=== PATIENT | female | born 1935 | race Caucasian/White ===

== ENCOUNTER 2018-05-27 12:05 | Inpatient (IN) | payer MEDICARE, OTHER ==
[2018-05-27] MEDS ORDERED: Famotidine/PF 20 mg/2ml Vial ONE (12:48)
[2018-05-27 13:01] LABS: #Lymphocytes 0.6 thou/uL (1.20-3.40); #Monocytes 0.3 thou/uL (0.11-0.59); #Neutrophils 3.7 thou/uL (1.40-6.50); %Basophils 0.7 % (0.0-1.0); %Eosinophils 0.2 % (0.0-10.0); %Lymphocytes 13.5 % (21.0-51.0); %Monocytes 6.7 % (0.0-10.0); Hemoglobin 12.6 g/dL (12.0-16.0); Mean Corpuscular Hemoglobin 30.9 pg (27.0-31.0); Mean Corpuscular Volume 96.8 fL (78.0-98.0); Mean Platelet Volume 5.4 fL (7.4-10.4); Platelet Count 146 thou/uL (130-400); RBC Distribution Width 12.9 % (11.5-14.5); Red Blood Cell (RBC) Count 4.08 mill/uL (4.20-5.40); White Blood Cell (WBC) Count 4.6 thou/uL (4.8-10.8)
[2018-05-27 13:12] LABS: ALT (SGPT) 15 U/L (8-55); AST (SGOT) 23 U/L (5-34); Albumin 3.4 g/dL (3.4-4.8); Alkaline Phosphatase 77 U/L (40-150); Anion Gap 13 mmol/L (10-20); BUN (Urea Nitrogen) 17 mg/dL (9.8-20.1); Bilirubin, Total 0.5 mg/dL (0.2-1.2); Calc. Creatinine Clearance 0 mL/min (70-130); Calcium 9.1 mg/dL (7.8-10.44); Carbon Dioxide 24 mmol/L (23-31); Chloride 106 mmol/L (98-107); Estimated GFR-MDRD 49; Globulin 2.5 g/dL (2.4-3.5); Glucose 118 mg/dL (83-110); Lipase 9 U/L (8-78); Protein, Total 5.9 g/dL (6.0-8.3); Sodium 139 mmol/L (136-145)
--- NOTE | 2018-05-27 13:28 | RAD ---
TWO VIEWS OF THE CHEST: COMPARISON: 12/01/2014. HISTORY: Cough. FINDINGS: Two views of the chest show normal sized cardiomediastinal silhouette. There is no evidence of consol idation, mass, or pleural effusion. Degenerative changes are seen in the spine. IMPRESSION: No evidence of acute cardiopulmonary disease. POS: [facility]
[2018-05-27] MEDS ORDERED: Azithromycin 500 MG VIAL ONE (14:16)
[2018-05-27] MEDS ORDERED: Nitroglycerin 2% Ointment 1 INCH/1 GM Packet ONE (14:27)
--- NOTE | 2018-05-27 14:32 | CT ---
CT CHEST AND ABDOMEN WITH IV CONTRAST AND 3D MIP RECONSTRUCTIONS: 05/27/2018 PROVIDED CLINICAL HISTORY: Chest and abdomen pain. FINDINGS: The heart, pericardium, and great vessels demonstrate no evidence for an acute process. There is no evidence for aortic dissection. There is no evidence for central or segmental pulmonary embolus. There is patchy consolidation present within the right lower lobe, compatible with infectious pneumon itis. There is trace right pleural fluid. There is no pneumothorax evident, though the lung apices are not included in the imaging volume. The visualized airway appears patent and of normal caliber. There is no evidence for thoracic lymph node enlargement. The abdominal aorta is nonaneurysmal. Conspicuous vascular calcification is noted at the origins of the superior mesenteric and celiac arteries, with moderate-severe origin stenoses. The solid abdomin al organs demonstrate an unremarkable CT appearance for the phase of contrast in which this study was acquired. There is mild prominence of the common duct, related to patient age and post cholecystect gail status. There is no bowel dilatation, inflammatory fat stranding, free fluid, or free air apparent. No evide nce for regional lymph node enlargement. The osseous structures demonstrate no concerning osteoblastic or osteolytic lesions. IMPRESSION: 1. No evidence for aortic dissection. 2. Right lower lobe pneumonia. POS: OFF
[2018-05-27] MEDS ORDERED: Aspirin Chewable 81 MG TAB ONE (14:56)
[2018-05-27] MEDS ORDERED: Sodium Chloride 0.9% 100 ML ONE (14:56)
[2018-05-27] MEDS ORDERED: cefTRIAXone\\ROCEPHIN 2 GM VIAL ONE (14:56)
[2018-05-27 15:15] LABS: Bilirubin Negative (Negative); Blood, Urine Negative (Negative); Clarity Slightly Cloudy (Clear); Glucose, Urine (Dipstick) Negative (Negative); Leukocyte Trace (Negative); Nitrite Negative (Negative); Protein, Urine (Dipstick) Negative (Neg-Trace); Urobilinogen 0.2 mg/dL (0.2-1.0); pH, Urine 6.5 (5.0-9.0)
[2018-05-27 15:22] LABS: Squamous Epithelial 0-3 HPF (0-3)
[2018-05-27 15:23] LABS: Bacteria/HPF Rare-Few HPF (None Seen)
[2018-05-27 16:04] LABS: Lactic Acid 1.6 mmol/L (0.5-2.2)
[2018-05-27 16:12] LABS: Troponin I 0.045 ng/mL (< 0.028)
[2018-05-27 19:26] LABS: Troponin I 0.052 ng/mL (< 0.028)
[2018-05-27 20:07] VITALS: BMI 25.1
[2018-05-27] MEDS ORDERED: Acetaminophen 325 MG TAB PO PRN (20:07)
[2018-05-27] MEDS ORDERED: Ondansetron ODT 4 MG TAB SL PRN (20:07)
[2018-05-27] MEDS ORDERED: Ondansetron PF 4 MG/2 ML Vial IVP PRN ×2 (20:07→20:41)
[2018-05-27] MEDS ORDERED: Acetaminophen 650 MG Suppository PR PRN (20:41)
[2018-05-27] MEDS ORDERED: Ondansetron ODT 4 MG TAB PO PRN (20:41)
[2018-05-27] MEDS ORDERED: Senokot S 8.6-50 MG TAB PO PRN (20:41)
[2018-05-27] MEDS ORDERED: Labetalol HCl 100 MG/20 ML VIAL SLOW IVP PRN (20:59)
[2018-05-27] MEDS ORDERED: Lisinopril 5 MG TAB PO SCH (21:00)
[2018-05-27] MEDS: Famotidine 20 MG TAB PO SCH (21:44)
[2018-05-27] MEDS: Benzonatate 100 MG CAP PO PRN (22:12)
[2018-05-27] MEDS: Acetaminophen 325 MG TAB PO PRN (22:22)
[2018-05-27] MEDS ORDERED: Nitroglycerin 2% Ointment 1 INCH/1 GM Packet TOP SCH (23:59)
--- NOTE | 2018-05-28 02:40 | HP ---
PRIMARY CARE PHYSICIAN: Dr. Rosa. CHIEF COMPLAINT: Lightheadedness, cough, and abdominal pain. HISTORY OF PRESENT ILLNESS: This is an 83-year-old white female with a known history of mild coronary artery disease; obstructive sleep apnea, not using her CPAP; who developed some abdominal pain, cramping on Thursday after she ate some leftover [place] food. The cramping pain lasted for 24 hours before she finally vomited the undigested food back up. She then also started having watery diarrhea, had 5 to 6 bowel movements that day. On Thursday, she has had no more nausea or vomiting since and has had just a few loose stools since then, but she has had intermittent abdominal cramps and soreness in her upper abdomen and felt weak all over, she felt a little lightheaded and dizzy on and off when she stands up, and she has also had a cough going on since Thursday as well, nonproductive, associated with lots of nasal congestion and drainage. She had some temperatures up to high 99s , which is unusual for her, and so eventually she came into the emergency room today. In the emergency room, she had a CT dissection protocol done, which showed no evidence for aortic dissection, but did show right lower lobe pneumonia. The patient was also noted to be in atrial fibrillation, this is a new diagnosis for her, the rate was controlled, and so she was sent over for admission. She was given ceftriaxone 2 g in the emergency room along with Nitro-Bid for elevated blood pressures and aspirin. PAST MEDICAL HISTORY: 1. Coronary artery disease, followed by Dr. Nazario, had no stents or surgery. 2. Hypertension. 3. Hyperlipidemia. 4. Obstructive sleep apnea, supposed to be on CPAP, however, she does not wear it because she does not like it the way it squeezes or in her head. 5. Osteoarthritis with chronic back pain and joint pains throughout her body. PAST PSYCHIATRIC HISTORY: Depression. She is under a lot of stress because of her is ill with dementia. PAST SURGICAL HISTORY: 1. Cardiac catheterization in May of 2017 with no stents placed. 2. Appendectomy. 3. Cholecystectomy. 4. Hysterectomy. 5. Back surgery for herniated disk in 1970s. SOCIAL HISTORY: No tobacco or illicit drug use. She rarely drinks alcohol. The patient lives in her house alone. FAMILY HISTORY: No known family medical problems. Mother at 96 and dad at 86 and did have some Parkinson's. ALLERGIES: 1. MUCINEX DM ( BUT CAN TAKE REGULAR MUCINEX WITHOUT A PROBLEM). 2. CODEINE. 3. STATINS. CURRENT MEDICATIONS: 1. Ranexa 500 mg daily. 2. Aspirin 81 mg daily. 3. Atenolol 25 mg daily. 4. Coenzyme Q10 of 200 mg at nighttime. 5. Nexium 20 mg daily as needed. 6. Sertraline 100 mg daily. 7. Vitamin B complex one tablet each morning. 8. Vitamin D3 of 5000 units daily. 9. Zetia 10 mg daily. REVIEW OF SYSTEMS: CONSTITUTIONAL: See HPI. EYES: No double vision or blurred vision. ENT: See HPI. CARDIOVASCULAR: No chest pain. No palpitations or racing heart. PULMONARY: See HPI. No shortness of breath or wheezing. GASTROINTESTINAL: See HPI. GENITOURINARY: No dysuria or hematuria. MUSCULOSKELETAL: She has chronic muscle aches and joint pains in her joints and in her back. These are a little bit worse since she got sick. SKIN: No rashes or other lesions noted. NEUROLOGIC: No numbness, tingling, or focal weakness. PHYSICAL EXAMINATION: VITAL SIGNS: Blood pressure 180/73, pulse 93, respirations 16, temperature 99.2 , O2 saturation 94% on room air. GENERAL: This is a well-developed, well-nourished, elderly white female, in no acute distress. HEENT: Pupils equal, round, and reactive to light. Oropharynx clear without lesions, erythema, or exudate. NECK: Supple. No lymphadenopathy. No thyroid nodules or enlargement. HEART: Regular rate and rhythm. No murmurs, rubs, or gallops. LUNGS: Clear to auscultation bilaterally. No wheezes, crackles, or rhonchi. ABDOMEN: Soft. Tender to palpation in the midepigastric region. No guarding or rebound tenderness. No hepatosplenomegaly or other masses. Normoactive bowel sounds. EXTREMITIES: No clubbing, cyanosis, or edema. SKIN: No rashes or other lesions noted. NEUROLOGIC: She has intact strength and sensation in all extremities. No facial droop. PSYCHIATRIC: Alert and oriented x3. Normal mood and affect. LABORATORY DATA: CBC with a white blood cell count of 4.6. Remainder of the CBC was normal. Complete metabolic panel is notable for glucose of 118, total serum protein of 5.9, and the rest was normal. Troponins have been indeterminate, 0.054, 0.045, and 0.052. Normal CK-MB. Lactic acid was negative x2. Urinalysis showed trace leukocyte esterase and 4 to 6 white blood cells with rare to few bacteria. Chest x-ray, I did review the chest x-ray done in the emergency room along with the radiologist's report. It does show a normal cardiac silhouette. No infiltrates noted. No effusions. No acute cardiopulmonary process. CT dissection protocol shows the right lower lobe pneumonia. ASSESSMENT: 1. Community-acquired pneumonia. We will continue Rocephin and give azithromycin as well. 2. Acute toxic gastroenteritis and colitis, likely food poisoning from the Romanian food, this seems to be improving. She has had no further nausea, vomiting, no more diarrhea. She says the tenderness is probably from the vomiting on Thursday and some residual cramping from the toxin she ingested. We will advance diet as tolerated. 3. New-onset atrial fibrillation, currently rate controlled. The patient is on low-dose atenolol. The patient does have indeterminate troponins, but no evidence of cardiac ischemia right now. We will consult Dr. Nazario. We will continue atenolol for rate control. Dr. Nazario can assess her for need for chronic anticoagulation in the morning. 4. Coronary artery disease. Continue the patient's Ranexa and cholesterol control as well as her daily aspirin. 5. Obstructive sleep apnea. I have stressed the patient need to use her CPAP at night and to see if she can try getting a nasal CPAP mask that will work better for her. 6. Gastrointestinal prophylaxis. We will put the patient on Pepcid twice a day. 7. Deep venous thrombosis prophylaxis. We will give the patient Lovenox and SCDs while in bed and encourage ambulation with physical therapy. CODE STATUS: I did discuss this with the patient, she is a full code. Should she be incapacitated, her daughter would be her medical decision maker, she is at the bedside, her name is Sugar Machado. Job ID: [id number] MTDD
[2018-05-28 05:24] LABS: #Lymphocytes 1.2 thou/uL (1.20-3.40); #Monocytes 0.4 thou/uL (0.11-0.59); #Neutrophils 2.2 thou/uL (1.40-6.50); %Basophils 0.4 % (0.0-1.0); %Lymphocytes 30.4 % (21.0-51.0); %Monocytes 11.4 % (0.0-10.0); %Neutrophils 56.7 % (42.0-75.0); Hemoglobin 11.8 g/dL (12.0-16.0); Mean Corpuscular HGB CONC 32.7 g/dL (32.0-36.0); Mean Corpuscular Hemoglobin 32.5 pg (27.0-31.0); Mean Corpuscular Volume 99.4 fL (78.0-98.0); Mean Platelet Volume 6.1 fL (7.4-10.4); Platelet Count 154 thou/uL (130-400); RBC Distribution Width 12.3 % (11.5-14.5); Red Blood Cell (RBC) Count 3.63 mill/uL (4.20-5.40); White Blood Cell (WBC) Count 3.8 thou/uL (4.8-10.8)
[2018-05-28 05:39] LABS: Anion Gap 11 mmol/L (10-20); BUN (Urea Nitrogen) 15 mg/dL (9.8-20.1); Calc. Creatinine Clearance 49 mL/min (70-130); Calcium 8.9 mg/dL (7.8-10.44); Carbon Dioxide 28 mmol/L (23-31); Chloride 108 mmol/L (98-107); Estimated GFR-MDRD 57; Glucose 92 mg/dL (83-110); Potassium 4.3 mmol/L (3.5-5.1); Sodium 143 mmol/L (136-145)
[2018-05-28] MEDS: Aspirin 81 mg Enteric Coated Tablet PO SCH (08:54)
[2018-05-28] MEDS: Lisinopril 5 MG TAB PO SCH (08:55)
[2018-05-28] MEDS: Ezetimibe 10 MG TAB PO SCH (08:55)
[2018-05-28] MEDS: Acetaminophen 325 MG TAB PO PRN ×2 (08:58→17:58)
[2018-05-28] MEDS: Benzonatate 100 MG CAP PO PRN (08:58)
[2018-05-28] MEDS ORDERED: Atenolol 25 MG TAB PO SCH (09:00)
[2018-05-28] MEDS ORDERED: Enoxaparin Sodium 40 MG/0.4 ML SYRINGE SC SCH (09:00)
[2018-05-28] MEDS ORDERED: Apixaban 5 MG TAB PO SCH (09:22)
[2018-05-28] MEDS ORDERED: Lidocaine 1% PF 5 ML VIAL ONE ×2 (10:10→17:08)
[2018-05-28] MEDS ORDERED: PROPOFOL 40 ML ONE (10:10)
[2018-05-28] MEDS ORDERED: Enoxaparin Sodium 30 MG/0.3 ML SYRINGE SC SCH (10:30)
--- NOTE | 2018-05-28 11:00 | CON ---
DATE OF CONSULTATION: HISTORY OF PRESENT ILLNESS: The patient is a very pleasant 83-year-old woman with a history of coronary artery disease, who presented with abdominal discomfort, nausea, vomiting, and diarrhea, and was noted to be in irregular heart rhythm. The patient states approximately three weeks ago she started having feeling weak. She would notice her heart palpating. She denied having any chest discomfort. She presented with gastroenteritis, was noted to be in irregular heart rhythm. The patient has previous history of coronary artery disease. She underwent a cardiac catheterization in 2002, which revealed normal coronary arteries. She had a repeat cardiac catheterization in 2011, which revealed her to have normal left ventricular ejection fraction of 60% to 65%. The left main artery had a 40% stenosis. The LAD had a 40% ostial stenosis. Left circumflex artery had 50% stenosis. The patient elected to be treated medically. She has been on medical therapy. She underwent adenosine stress test a year ago, which revealed no evidence of significant ischemia. The patient has no known history of bruising or bleeding. PAST MEDICAL HISTORY: 1. Coronary artery disease. 2. Hypertension. 3. Sleep apnea. 4. Mitral regurgitation. PAST SURGICAL HISTORY: She has had a hysterectomy, cholecystectomy, appendectomy, and back surgery. SOCIAL HISTORY: Nonsmoker. ALLERGIES: SHE IS ALLERGIC TO CODEINE AND STATINS. MEDICATIONS: See nursing list. REVIEW OF SYSTEMS: Ten-point system otherwise unremarkable. PHYSICAL EXAMINATION: GENERAL: Elderly woman, in no acute distress. VITAL SIGNS: Blood pressure is 124/79. NECK: No jugular venous distention. LUNGS: Clear to auscultation. HEART: Irregular rate and rhythm. Normal S1 and S2 with a 1/6 systolic murmur. ABDOMEN: Nondistended. EXTREMITIES: Show trace edema. VASCULAR: Radial pulses are 2+. LABORATORY DATA: Sodium 143, potassium 4.3, chloride 108, bicarbonate 28, BUN 15, creatinine 0.93. DIAGNOSTIC DATA: Her EKG revealed her to have atrial fibrillation, otherwise unremarkable ECG. IMPRESSION: 1. New onset atrial fibrillation. 2. Gastroenteritis. 3. Coronary artery disease. 4. Hypertension. 5. Dyslipidemia. This patient presents with new onset atrial fibrillation. The patient has a CHADS-VASc score of 4. The patient will need to be on chronic anticoagulation therapy. The patient will be started on Eliquis because the patient became symptomatic several weeks ago. We would recommend electrical cardioversion. We will proceed with MOO and cardioversion . We will increase the dose of her beta maria alejandra. We will follow this patient with you through her hospitalization. Job ID: [id number]
--- NOTE | 2018-05-28 12:39 | PDOC.PN ---
- Subjective Encounter Start Date: 05/28/18 Encounter Start Time: 09:15 Subjective: no chest pain or palpitation now -: is npo for MOO/cardioversion - Objective Resuscitation Status - Order Detail: 05/27/18 20:39 Resuscitation Status Routine Resuscitation Status: FULL: Full Resuscitation Discussed with: Patient MIESHA Reviewed: Yes Vital Signs & Weight: Vital Signs (12 hours) Temp Pulse Resp BP Pulse Ox 05/28/18 07:49 99.6 F 85 18 124/79 94 L 05/28/18 03:06 98.1 F 74 16 138/67 96 Weight Weight 155 lb 14.4 oz Result Diagrams: 05/28/18 04:39 05/28/18 04:39 Phys Exam - Physical Examination HEENT: PERRLA, moist MMs Neck: no JVD, supple Respiratory: no wheezing, no rales Cardiovascular: no significant murmur, irregular Gastrointestinal: soft, non-tender, positive bowel sounds Musculoskeletal: no edema, pulses present Neurological: non-focal, moves all 4 limbs Psychiatric: normal affect, A&O x 3 Dx/Plan (1) Atrial flutter Code(s): I48.92 - UNSPECIFIED ATRIAL FLUTTER Status: Acute (2) Gastroenteritis Code(s): K52.9 - NONINFECTIVE GASTROENTERITIS AND COLITIS, UNSPECIFIED Status : Resolved (3) CAD (coronary artery disease) Code(s): I25.10 - ATHSCL HEART DISEASE OF [place] CORONARY ARTERY W/O ANG PCTRS Status: Chronic Qualifiers: Coronary Disease-Associated Artery/Lesion type: [place] artery [place] vs. transplanted heart: [place] heart Associated angina: without angina Qualified Code(s): I25.10 - Atherosclerotic heart disease of [place] coronary artery without angina pectoris (4) HTN (hypertension) Code(s): I10 - ESSENTIAL (PRIMARY) HYPERTENSION Status: Chronic Qualifiers: Hypertension type: essential hypertension Qualified Code(s): I10 - Essential (primary) hypertension (5) Dyslipidemia Code(s): E78.5 - HYPERLIPIDEMIA, UNSPECIFIED Status: Chronic (6) Demand ischemia of myocardium Code(s): I24.8 - OTHER FORMS OF ACUTE ISCHEMIC HEART DISEASE Status: Acute (7) TYLER (obstructive sleep apnea) Code(s): G47.33 - OBSTRUCTIVE SLEEP APNEA (ADULT) (PEDIATRIC) Status: Chronic Comment: non compliant with cpap (8) PNA (pneumonia) Code(s): J18.9 - PNEUMONIA, UNSPECIFIED ORGANISM Status: Acute Qualifiers: Pneumonia type: due to unspecified organism Laterality: right Lung location: lower lobe of lung Qualified Code(s): J18.1 - Lobar pneumonia, unspecified organism - Plan is on eliquis, asp, atenolol, lisinopril, ranexa and zetia -: levaquin, nebs for pna -: gastroenteritis is resolving, likely viral -: for MOO/cardioversion today, initially afib currently in flutter on telemet -: hemostable * . Review of Systems - Medications/Allergies Allergies/Adverse Reactions: Allergies Allergy/AdvReac Type Severity Reaction Status Date / Time codeine Allergy Verified 05/27/18 20:10 dextromethorphan Allergy Verified 05/27/18 20:10 [From Mucinex DM] guaifenesin [From Mucinex DM] Allergy Verified 05/27/18 20:10 Grgwglt-Zpn-Lze Reductase Allergy Verified 05/27/18 20:10 Inhibitor Medications: Current Medications Acetaminophen (Tylenol) 650 mg PO Q4H PRN PRN Reason: Headache/Fever/Mild Pain (1-3) Last Admin: 05/28/18 08:58 Dose: 650 mg Acetaminophen (Tylenol) 650 mg VT Q4H PRN PRN Reason: Headache/Fever/Mild Pain (1-3) Albuterol/Ipratropium (Duoneb) 3 ml NEB [id number] PRN PRN Reason: SOB &/or Wheezing Last Admin: 05/27/18 22:19 Dose: 3 ml Apixaban (Eliquis) 5 mg PO BID [facility] Aspirin (Ecotrin) 81 mg PO DAILY [facility] Last Admin: 05/28/18 08:54 Dose: 81 mg Atenolol (Tenormin) 50 mg PO BID [facility] Benzonatate (Tessalon) 100 mg PO TIDPRN PRN PRN Reason: Cough Last Admin: 05/28/18 08:58 Dose: 100 mg Ezetimibe (Zetia) 10 mg PO DAILY [facility] Last Admin: 05/28/18 08:55 Dose: 10 mg Famotidine (Pepcid) 20 mg PO Q24HR [facility] Last Admin: 05/27/18 21:44 Dose: 20 mg Labetalol HCl (Normodyne) 10 mg SLOW IVP Q4H PRN PRN Reason: SBP Greater Than 180 Lisinopril (Zestril) 5 mg PO DAILY [facility] Last Admin: 05/28/18 08:55 Dose: 5 mg Ondansetron HCl (Zofran Odt) 4 mg PO Q6H PRN PRN Reason: Nausea/Vomiting Ondansetron HCl (Zofran) 4 mg IVP Q6H PRN PRN Reason: Nausea/Vomiting Ranolazine (Ranexa) 500 mg PO BID [facility] Last Admin: 05/28/18 08:55 Dose: 500 mg Senna/Docusate Sodium (Senokot S) 2 tab PO BIDPRN PRN PRN Reason: Constipation Sertraline HCl (Zoloft) 100 mg PO [facility] Last Admin: 05/27/18 21:43 Dose: 100 mg
--- NOTE | 2018-05-28 14:29 | OP ---
DATE OF PROCEDURE: 05/28/2018 An 83-year-old woman with paroxysmal atrial fibrillation. INDICATION: Paroxysmal atrial fibrillation. DESCRIPTION OF PROCEDURE: The patient was taken to the PACU. The patient was sedated by Anesthesiology. The patient was shocked with 200 joules of synchronized electricity. The patient converted to normal sinus rhythm. IMPRESSION: Successful electrocardioversion. Job ID: [id number]
[2018-05-28] MEDS ORDERED: PROPOFOL 200 MG/20 ML VIAL ONE (17:08)
--- NOTE | 2018-05-28 19:09 | ECHO ---
83-year-old woman with paroxysmal atrial fibrillation. DESCRIPTION OF PROCEDURE: The patient was taken to the PACU. The patient was sedated by anesthesiology. A transesophageal pro be was placed into the distal esophagus and stomach. Echocardiographic images were obtained. The tr ansesophageal probe was removed. FINDINGS: 1. Normal left ventricular systolic function. 2. Biatrial enlargement. 3. Mild mitral regurgitation. 4. Mild tricuspid regurgitation. 5. No thrombus in atrium or left atrial appendage. 6. Atherosclerotic debris in the descending aorta. IMPRESSION: No formed thrombus in the left atrial or left atrial appendage.
[2018-05-28] MEDS: Atenolol 25 MG TAB PO SCH (21:04)
[2018-05-28] MEDS: Apixaban 5 MG TAB PO SCH (21:05)
[2018-05-28] MEDS: Famotidine 20 MG TAB PO SCH (21:05)
[2018-05-29] MEDS: Acetaminophen 325 MG TAB PO PRN ×2 (03:31→15:06)
[2018-05-29] MEDS: Benzonatate 100 MG CAP PO PRN (03:31)
[2018-05-29] MEDS: Ezetimibe 10 MG TAB PO SCH (09:08)
[2018-05-29] MEDS: Lisinopril 5 MG TAB PO SCH (09:08)
[2018-05-29] MEDS: Apixaban 5 MG TAB PO SCH ×2 (09:08→21:46)
[2018-05-29] MEDS: Aspirin 81 mg Enteric Coated Tablet PO SCH (09:08)
[2018-05-29] MEDS: Atenolol 25 MG TAB PO SCH ×2 (09:08→21:46)
--- NOTE | 2018-05-29 14:54 | PDOC.PN ---
- Subjective Encounter Start Date: 05/29/18 Encounter Start Time: 10:45 Subjective: no chest pain or sob -: feels better -: is bringing her sputum her up well this am - Objective Resuscitation Status - Order Detail: 05/27/18 20:39 Resuscitation Status Routine Resuscitation Status: FULL: Full Resuscitation Discussed with: Alfredo WHITESIDE Reviewed: Yes Vital Signs & Weight: Vital Signs (12 hours) Temp Pulse Resp BP BP Pulse Ox 05/29/18 14:42 76 193/81 H 05/29/18 11:36 77 173/71 H 05/29/18 11:27 99.4 F 77 19 189/83 H 92 L 05/29/18 07:57 97 05/29/18 07:55 100 05/29/18 07:53 98.5 F 69 18 159/70 H 97 05/29/18 07:50 67 20 100 05/29/18 05:41 98.6 F 78 18 159/70 H 95 05/29/18 04:52 99.8 F H 82 18 167/71 H 96 05/29/18 04:10 82 20 184/82 H 96 05/29/18 03:43 88 214/93 H 05/29/18 03:38 88 18 05/29/18 03:10 101.5 F H 88 22 H 217/86 H 92 L Weight Weight 156 lb I&O: 05/28/18 05/29/18 05/30/18 06:59 06:59 06:59 Intake Total 480 Balance 480 Result Diagrams: 05/28/18 04:39 05/28/18 04:39 Phys Exam - Physical Examination HEENT: PERRLA, moist MMs Neck: no JVD, supple Respiratory: no wheezing, no rales rhonchi+ Cardiovascular: RRR, no significant murmur Gastrointestinal: soft, non-tender, no distention, positive bowel sounds Musculoskeletal: no edema, pulses present Neurological: non-focal, moves all 4 limbs Psychiatric: normal affect, A&O x 3 Dx/Plan (1) Atrial flutter Code(s): I48.92 - UNSPECIFIED ATRIAL FLUTTER Status: Acute Comment: in sinus rhythm post cardioversion from 05/28/2018 (2) Gastroenteritis Code(s): K52.9 - NONINFECTIVE GASTROENTERITIS AND COLITIS, UNSPECIFIED Status : Resolved (3) CAD (coronary artery disease) Code(s): I25.10 - ATHSCL HEART DISEASE OF [place] CORONARY ARTERY W/O ANG PCTRS Status: Chronic Qualifiers: Coronary Disease-Associated Artery/Lesion type: [place] artery [place] vs. transplanted heart: [place] heart Associated angina: without angina Qualified Code(s): I25.10 - Atherosclerotic heart disease of [place] coronary artery without angina pectoris (4) HTN (hypertension) Code(s): I10 - ESSENTIAL (PRIMARY) HYPERTENSION Status: Chronic Qualifiers: Hypertension type: essential hypertension Qualified Code(s): I10 - Essential (primary) hypertension (5) Dyslipidemia Code(s): E78.5 - HYPERLIPIDEMIA, UNSPECIFIED Status: Chronic (6) Demand ischemia of myocardium Code(s): I24.8 - OTHER FORMS OF ACUTE ISCHEMIC HEART DISEASE Status: Acute (7) TYLER (obstructive sleep apnea) Code(s): G47.33 - OBSTRUCTIVE SLEEP APNEA (ADULT) (PEDIATRIC) Status: Chronic Comment: non compliant with cpap (8) PNA (pneumonia) Code(s): J18.9 - PNEUMONIA, UNSPECIFIED ORGANISM Status: Acute Qualifiers: Pneumonia type: due to unspecified organism Laterality: right Lung location: lower lobe of lung Qualified Code(s): J18.1 - Lobar pneumonia, unspecified organism - Plan is in sinus rhythm post cardioversion -: on levaquin for pna -: continue eliquis, asp, atenolol, lisinopril, zetia, ranexa and zoloft -: to amb in hallway as tolerated -: dc plan in am * . Review of Systems - Medications/Allergies Allergies/Adverse Reactions: Allergies Allergy/AdvReac Type Severity Reaction Status Date / Time codeine Allergy Verified 05/27/18 20:10 dextromethorphan Allergy Verified 05/27/18 20:10 [From Mucinex DM] [email or web address] [From Mucinex DM] Allergy Verified 05/27/18 20:10 Dcyqffn-Yrx-Ubl Reductase Allergy Verified 05/27/18 20:10 Inhibitor Medications: Current Medications Acetaminophen (Tylenol) 650 mg PO Q4H PRN PRN Reason: Headache/Fever/Mild Pain (1-3) Last Admin: 05/29/18 03:31 Dose: 650 mg Acetaminophen (Tylenol) 650 mg [place] Q4H PRN PRN Reason: Headache/Fever/Mild Pain (1-3) Albuterol/Ipratropium (Duoneb) 3 ml NEB [id number] PRN PRN Reason: SOB &/or Wheezing Last Admin: 05/29/18 03:38 Dose: 3 ml Albuterol/Ipratropium (Duoneb) 3 ml NEB [id number] [facility] Last Admin: 05/29/18 13:03 Dose: Not Given Apixaban (Eliquis) 5 mg PO BID [facility] Last Admin: 05/29/18 09:08 Dose: 5 mg Aspirin (Ecotrin) 81 mg PO DAILY [facility] Last Admin: 05/29/18 09:08 Dose: 81 mg Atenolol (Tenormin) 50 mg PO BID [facility] Last Admin: 05/29/18 09:08 Dose: 50 mg Benzonatate (Tessalon) 100 mg PO TIDPRN PRN PRN Reason: Cough Last Admin: 05/29/18 03:31 Dose: 100 mg Ezetimibe (Zetia) 10 mg PO DAILY [facility] Last Admin: 05/29/18 09:08 Dose: 10 mg Famotidine (Pepcid) 20 mg PO Q24HR [facility] Last Admin: 05/28/18 21:05 Dose: 20 mg Levofloxacin 500 mg/ Device 100 mls @ 100 mls/hr IVPB Q24HR [facility] Last Admin: 05/29/18 12:59 Dose: 100 mls Labetalol HCl (Labetalol Hcl) 10 mg SLOW IVP Q4H PRN PRN Reason: SBP Greater Than 180 Last Admin: 05/29/18 14:42 Dose: 10 mg Lisinopril (Zestril) 5 mg PO DAILY [facility] Last Admin: 05/29/18 09:08 Dose: 5 mg Ondansetron HCl (Zofran Odt) 4 mg PO Q6H PRN PRN Reason: Nausea/Vomiting Last Admin: 05/29/18 13:05 Dose: 4 mg Ondansetron HCl (Zofran) 4 mg IVP Q6H PRN PRN Reason: Nausea/Vomiting Ranolazine (Ranexa) 500 mg PO BID [facility] Last Admin: 05/29/18 09:08 Dose: 500 mg Senna/Docusate Sodium (Senokot S) 2 tab PO BIDPRN PRN PRN Reason: Constipation Sertraline HCl (Zoloft) 100 mg PO [facility] Last Admin: 05/28/18 21:03 Dose: 100 mg
[2018-05-29] MEDS ORDERED: Ondansetron ODT 4 MG TAB SL PRN (19:09)
--- NOTE | 2018-05-29 20:17 | CON ---
DATE OF CONSULTATION: 05/29/2018 HISTORY OF PRESENT ILLNESS: Ms. Tesfaye is an 83-year-old female. She presented to the hospital 2 days ago after being told by her primary care physician, Dr. Renteria's office to go to the emergency department. She has had a febrile illness all week, consisting of nausea, vomiting, and diarrhea. She started becoming more febrile and feeling worse. She was admitted with atrial flutter/atrial fibrillation and pneumonia. She has been cardioverted. She says she is not feeling any better. I was consulted. She is one of my clinic patients. PAST MEDICAL HISTORY: Remarkable for; 1. Hypertension. 2. Lipid disorder, sleep apnea. 3. Degenerative arthritis. 4. Status post appendectomy. 5. Status post cholecystectomy. 6. Status post hysterectomy. 7. Status post cardiac catheterization with no stents required. FAMILY HISTORY: Negative for lung disease in early age. SOCIAL HISTORY: Nonsmoker, nondrinker. ALLERGIES: SHE REPORTS ALLERGIES TO CODEINE. REVIEW OF SYSTEMS: A 10-point review of systems completed, otherwise negative. PHYSICAL EXAMINATION: GENERAL: Ms. Tesfaye is an 83-year-old female. VITAL SIGNS: Heart rate is in the 70s, she had a temperature over 101 while she is in the room. Respiratory rate is in the teens. Oximetry is 96% to 100% on 3 L cannula. Blood pressure 150/67. HEENT: Pupils are equal. Sclerae anicteric. NECK: Supple. No lymphadenopathy. LUNGS: Remarkable for loud crackles, third of the way up from the right base. She has fine crackles at her left base. HEART: Regular rhythm. S1 and S2 are normal. ABDOMEN: Soft and nontender. EXTREMITIES: Without clubbing, cyanosis, or edema. DIAGNOSTIC DATA: CT shows right lower lobe pneumonia. IMPRESSION: Community-acquired pneumonia, likely triggering the atrial fibrillation/atrial flutter. She has been cardioverted. I will be happy to follow. We would broaden her antibiotics given history of nausea, vomiting, and the possibility of aspiration without event. Statistically, it is most likely a postviral streptococcal pneumonia, but I would cover for better for aspiration pathogens and anaerobes. Steroids to be added. TIME SPENT: This is a 50-minute consult, with greater than 50% of the time spent on the unit coordinating care. Job ID: [id number] [facility]
[2018-05-29] MEDS: cefTRIAXone\\ROCEPHIN 2 GM in Sodium Chloride 0.9% 100 ML IVPB SCH (21:27)
[2018-05-29] MEDS: Famotidine 20 MG TAB PO SCH (21:45)
[2018-05-29] MEDS: Benzonatate 100 MG CAP PO SCH (21:47)
[2018-05-30] MEDS: methylPREDNISolone Sod Succ 40 MG VIAL IVP SCH ×4 (01:09→18:50)
[2018-05-30] MEDS ORDERED: Cepastat Lozenges 1 LOZ PO PRN (01:19)
[2018-05-30] MEDS ORDERED: Flecainide 50 MG TAB PO SCH (08:00)
[2018-05-30] MEDS: Atenolol 25 MG TAB PO SCH (08:58)
[2018-05-30] MEDS: Benzonatate 100 MG CAP PO SCH ×3 (08:58→20:18)
[2018-05-30] MEDS: Aspirin 81 mg Enteric Coated Tablet PO SCH (08:59)
[2018-05-30] MEDS: Lisinopril 5 MG TAB PO SCH (08:59)
[2018-05-30] MEDS: Ezetimibe 10 MG TAB PO SCH (08:59)
[2018-05-30] MEDS: Apixaban 5 MG TAB PO SCH ×2 (08:59→20:17)
--- NOTE | 2018-05-30 12:04 | PDOC.PN ---
- Subjective Encounter Start Date: 05/30/18 Encounter Start Time: 08:45 Subjective: feels better, no sob now -: has occasional coughing spells 1-2/day -: no c/o chest pain or palp - Objective Resuscitation Status - Order Detail: 05/27/18 20:39 Resuscitation Status Routine Resuscitation Status: FULL: Full Resuscitation Discussed with: Patient MIESHA Reviewed: Yes Vital Signs & Weight: Vital Signs (12 hours) Temp Pulse Resp BP Pulse Ox 05/30/18 11:43 94 16 90 L 05/30/18 08:05 94 L 05/30/18 07:58 87 20 05/30/18 07:17 93 L 05/30/18 07:11 98.0 F 96 17 162/73 H 93 L 05/30/18 03:15 100.8 F H 81 20 169/72 H 94 L Weight Weight 156 lb I&O: 05/29/18 05/30/18 05/31/18 06:59 06:59 06:59 Intake Total 480 Balance 480 Result Diagrams: 05/28/18 04:39 05/28/18 04:39 Phys Exam - Physical Examination HEENT: PERRLA, moist MMs Neck: no JVD, supple Respiratory: no wheezing, no rales Cardiovascular: RRR, no significant murmur Gastrointestinal: soft, non-tender, positive bowel sounds Musculoskeletal: no edema, pulses present Neurological: non-focal, moves all 4 limbs Psychiatric: normal affect, A&O x 3 Dx/Plan (1) Atrial flutter Code(s): I48.92 - UNSPECIFIED ATRIAL FLUTTER Status: Resolved Comment: in sinus rhythm post cardioversion from 05/28/2018 (2) Gastroenteritis Code(s): K52.9 - NONINFECTIVE GASTROENTERITIS AND COLITIS, UNSPECIFIED Status : Resolved (3) CAD (coronary artery disease) Code(s): I25.10 - ATHSCL HEART DISEASE OF [place] CORONARY ARTERY W/O ANG PCTRS Status: Chronic Qualifiers: Coronary Disease-Associated Artery/Lesion type: [place] artery [place] vs. transplanted heart: [place] heart Associated angina: without angina Qualified Code(s): I25.10 - Atherosclerotic heart disease of [place] coronary artery without angina pectoris (4) HTN (hypertension) Code(s): I10 - ESSENTIAL (PRIMARY) HYPERTENSION Status: Chronic Qualifiers: Hypertension type: essential hypertension Qualified Code(s): I10 - Essential (primary) hypertension (5) Dyslipidemia Code(s): E78.5 - HYPERLIPIDEMIA, UNSPECIFIED Status: Chronic (6) Demand ischemia of myocardium Code(s): I24.8 - OTHER FORMS OF ACUTE ISCHEMIC HEART DISEASE Status: Acute (7) TYLER (obstructive sleep apnea) Code(s): G47.33 - OBSTRUCTIVE SLEEP APNEA (ADULT) (PEDIATRIC) Status: Chronic Comment: non compliant with cpap (8) PNA (pneumonia) Code(s): J18.9 - PNEUMONIA, UNSPECIFIED ORGANISM Status: Acute Qualifiers: Pneumonia type: due to unspecified organism Laterality: right Lung location: lower lobe of lung Qualified Code(s): J18.1 - Lobar pneumonia, unspecified organism - Plan is on ceftriaxone and levaquin, nebs, steroids -: responding well to above -: is in sinus rhythm after cardioversion -: continue eliquis, asp, atenolol, lisinopril, ranexa and zetia -: to ambulate today with PT * . Review of Systems - Medications/Allergies Allergies/Adverse Reactions: Allergies Allergy/AdvReac Type Severity Reaction Status Date / Time codeine Allergy Verified 05/27/18 20:10 dextromethorphan Allergy Verified 05/27/18 20:10 [From Mucinex DM] guaifenesin [From Mucinex DM] Allergy Verified 05/27/18 20:10 Rwsvilq-Qfs-Lhj Reductase Allergy Verified 05/27/18 20:10 Inhibitor Medications: Current Medications Acetaminophen (Tylenol) 650 mg PO Q4H PRN PRN Reason: Headache/Fever/Mild Pain (1-3) Last Admin: 05/29/18 15:06 Dose: 650 mg Acetaminophen (Tylenol) 650 mg DE Q4H PRN PRN Reason: Headache/Fever/Mild Pain (1-3) Albuterol/Ipratropium (Duoneb) 3 ml NEB [id number] PRN PRN Reason: SOB &/or Wheezing Last Admin: 05/29/18 03:38 Dose: 3 ml Albuterol/Ipratropium (Duoneb) 3 ml NEB [id number] EMIGDIO Last Admin: 05/30/18 11:43 Dose: 3 ml Apixaban (Eliquis) 5 mg PO BID EMIGDIO Last Admin: 05/30/18 08:59 Dose: 5 mg Aspirin (Ecotrin) 81 mg PO DAILY [facility] Last Admin: 05/30/18 08:59 Dose: 81 mg Atenolol (Tenormin) 50 mg PO BID [facility] Last Admin: 05/30/18 08:58 Dose: 50 mg Benzonatate (Tessalon) 200 mg PO TID [facility] Last Admin: 05/30/18 08:58 Dose: 200 mg Diltiazem HCl (Cardizem Cd) 180 mg PO DAILY [facility] Last Admin: 05/30/18 08:59 Dose: 180 mg Ezetimibe (Zetia) 10 mg PO DAILY [facility] Last Admin: 05/30/18 08:59 Dose: 10 mg Famotidine (Pepcid) 20 mg PO Q24HR [facility] Last Admin: 05/29/18 21:45 Dose: 20 mg Levofloxacin 500 mg/ Device 100 mls @ 100 mls/hr IVPB Q24HR [facility] Last Admin: 05/29/18 12:59 Dose: 100 mls Ceftriaxone Sodium 2 gm/ (Sodium Chloride) 100 mls @ 200 mls/hr IVPB Q24HR [facility] Last Admin: 05/29/18 21:27 Dose: 100 mls Labetalol HCl (Labetalol Hcl) 10 mg SLOW IVP Q4H PRN PRN Reason: SBP Greater Than 180 Last Admin: 05/29/18 14:42 Dose: 10 mg Lisinopril (Zestril) 5 mg PO DAILY [facility] Last Admin: 05/30/18 08:59 Dose: 5 mg Methylprednisolone Sodium Succinate (Solu-Medrol) 20 mg IVP Q6HR [facility] Last Admin: 05/30/18 06:12 Dose: 20 mg Ondansetron HCl (Zofran) 4 mg IVP Q6H PRN PRN Reason: Nausea/Vomiting Ondansetron HCl (Zofran Odt) 8 mg SL Q6H PRN PRN Reason: Nausea/Vomiting Ranolazine (Ranexa) 500 mg PO BID [facility] Last Admin: 05/30/18 08:59 Dose: 500 mg Senna/Docusate Sodium (Senokot S) 2 tab PO BIDPRN PRN PRN Reason: Constipation Sertraline HCl (Zoloft) 100 mg PO HS [facility] Last Admin: 05/29/18 21:47 Dose: 100 mg Throat Lozenges (Cepastat Lozenges) 1 peter PO Q2H PRN PRN Reason: Sore Throat Last Admin: 05/30/18 01:36 Dose: 1 peter
--- NOTE | 2018-05-30 14:43 | PRG ---
DATE OF SERVICE: 05/30/2018 SUBJECTIVE: Jennifer Tesfaye says she is feeling better. She has had no more fever. OBJECTIVE: VITAL SIGNS: Heart rate is 82, respiratory rate is 17, oximetry is 94% on room air, blood pressure 126/57. LUNGS: Remarkable for crackles at both bases, which are more prominent than yesterday, but this is not unexpected. HEART: Regular rhythm. ABDOMEN: Soft, nontender. EXTREMITIES: Without edema. IMPRESSION: 1. Community-acquired pneumonia. 2. Atrial fibrillation status post cardioversion. 3. Asthma. PLAN: Continue IV antibiotics until tomorrow and probably switch her to p.o. medications tomorrow if she continues to improve. Job ID: [id number] [facility]
[2018-05-30] MEDS: cefTRIAXone\\ROCEPHIN 2 GM in Sodium Chloride 0.9% 100 ML IVPB SCH (20:17)
[2018-05-30] MEDS: Famotidine 20 MG TAB PO SCH (20:18)
[2018-05-31] MEDS: methylPREDNISolone Sod Succ 40 MG VIAL IVP SCH ×2 (00:43→06:15)
[2018-05-31] MEDS ORDERED: Atenolol 25 MG TAB PO SCH (09:00)
[2018-05-31] MEDS: Lisinopril 5 MG TAB PO SCH (09:26)
[2018-05-31] MEDS: Apixaban 5 MG TAB PO SCH ×2 (09:26→20:25)
[2018-05-31] MEDS: Ezetimibe 10 MG TAB PO SCH (09:26)
[2018-05-31] MEDS: Benzonatate 100 MG CAP PO SCH ×3 (09:26→20:26)
[2018-05-31] MEDS: Aspirin 81 mg Enteric Coated Tablet PO SCH (09:26)
[2018-05-31] MEDS: Atenolol 25 MG TAB PO SCH (09:30)
--- NOTE | 2018-05-31 11:20 | PDOC.PN ---
- Subjective Encounter Start Date: 05/31/18 Encounter Start Time: 10:00 Subjective: feels good, cough is better -: no chest pain or palp -: has not amb outside her room yet - Objective Resuscitation Status - Order Detail: 05/27/18 20:39 Resuscitation Status Routine Resuscitation Status: FULL: Full Resuscitation Discussed with: Patient MIESHA Reviewed: Yes Vital Signs & Weight: Vital Signs (12 hours) Temp Pulse Resp BP BP Pulse Ox 05/31/18 11:10 55 L 16 05/31/18 09:26 60 127/58 L 05/31/18 07:37 50 L 16 05/31/18 07:20 95 05/31/18 07:15 97.7 F 56 L 16 109/54 L 95 05/31/18 04:00 97.5 F L 59 L 18 128/60 93 L 05/31/18 02:20 54 L 16 93 L Weight Weight 156 lb I&O: 05/30/18 05/31/18 06/01/18 06:59 06:59 06:59 Intake Total 1300 Output Total 600 Balance 700 Result Diagrams: 05/28/18 04:39 05/28/18 04:39 Phys Exam - Physical Examination HEENT: PERRLA, moist MMs Neck: no JVD, supple Respiratory: no wheezing, no rales Cardiovascular: RRR, no significant murmur Gastrointestinal: soft, non-tender, positive bowel sounds Musculoskeletal: no edema, pulses present Neurological: non-focal, moves all 4 limbs Psychiatric: normal affect, A&O x 3 Dx/Plan (1) Atrial flutter Code(s): I48.92 - UNSPECIFIED ATRIAL FLUTTER Status: Resolved Comment: in sinus rhythm post cardioversion from 05/28/2018 (2) Gastroenteritis Code(s): K52.9 - NONINFECTIVE GASTROENTERITIS AND COLITIS, UNSPECIFIED Status : Resolved (3) CAD (coronary artery disease) Code(s): I25.10 - ATHSCL HEART DISEASE OF [place] CORONARY ARTERY W/O ANG PCTRS Status: Chronic Qualifiers: Coronary Disease-Associated Artery/Lesion type: [place] artery [place] vs. transplanted heart: [place] heart Associated angina: without angina Qualified Code(s): I25.10 - Atherosclerotic heart disease of [place] coronary artery without angina pectoris (4) HTN (hypertension) Code(s): I10 - ESSENTIAL (PRIMARY) HYPERTENSION Status: Chronic Qualifiers: Hypertension type: essential hypertension Qualified Code(s): I10 - Essential (primary) hypertension (5) Dyslipidemia Code(s): E78.5 - HYPERLIPIDEMIA, UNSPECIFIED Status: Chronic (6) Demand ischemia of myocardium Code(s): I24.8 - OTHER FORMS OF ACUTE ISCHEMIC HEART DISEASE Status: Acute (7) TYLER (obstructive sleep apnea) Code(s): G47.33 - OBSTRUCTIVE SLEEP APNEA (ADULT) (PEDIATRIC) Status: Chronic Comment: non compliant with cpap (8) PNA (pneumonia) Code(s): J18.9 - PNEUMONIA, UNSPECIFIED ORGANISM Status: Acute Qualifiers: Pneumonia type: due to unspecified organism Laterality: right Lung location: lower lobe of lung Qualified Code(s): J18.1 - Lobar pneumonia, unspecified organism - Plan hemostable -: will be on omnicef and prednisone from this pm -: nebs prn, has tremor due to it -: in sinus post cardioversion -: rehab eval, PT to amb her in [facility] * . continue eliquis, asp, atenolol, zetia, lisinopril, ranexa and zoloft. Review of Systems - Medications/Allergies Allergies/Adverse Reactions: Allergies Allergy/AdvReac Type Severity Reaction Status Date / Time codeine Allergy Verified 05/27/18 20:10 dextromethorphan Allergy Verified 05/27/18 20:10 [From Mucinex DM] guaifenesin [From Mucinex DM] Allergy Verified 05/27/18 20:10 Udesyva-Kai-Wvs Reductase Allergy Verified 05/27/18 20:10 Inhibitor Medications: Current Medications Acetaminophen (Tylenol) 650 mg PO Q4H PRN PRN Reason: Headache/Fever/Mild Pain (1-3) Last Admin: 05/29/18 15:06 Dose: 650 mg Acetaminophen (Tylenol) 650 mg [place] Q4H PRN PRN Reason: Headache/Fever/Mild Pain (1-3) Albuterol/Ipratropium (Duoneb) 3 ml NEB [id number] PRN PRN Reason: SOB &/or Wheezing Last Admin: 05/31/18 02:20 Dose: 3 ml Albuterol/Ipratropium (Duoneb) 3 ml NEB [id number] EMIGDIO Last Admin: 05/31/18 11:10 Dose: 3 ml Apixaban (Eliquis) 5 mg PO BID [facility] Last Admin: 05/31/18 09:26 Dose: 5 mg Aspirin (Ecotrin) 81 mg PO DAILY [facility] Last Admin: 05/31/18 09:26 Dose: 81 mg Atenolol (Tenormin) 50 mg PO DAILY [facility] Last Admin: 05/31/18 09:30 Dose: 50 mg Benzonatate (Tessalon) 200 mg PO TID [facility] Last Admin: 05/31/18 09:26 Dose: 200 mg Cefdinir (Omnicef) 300 mg PO BID [facility] Diltiazem HCl (Cardizem Cd) 180 mg PO DAILY [facility] Last Admin: 05/31/18 09:26 Dose: 180 mg Ezetimibe (Zetia) 10 mg PO DAILY [facility] Last Admin: 05/31/18 09:26 Dose: 10 mg Famotidine (Pepcid) 20 mg PO Q24HR [facility] Last Admin: 05/30/18 20:18 Dose: 20 mg Ceftriaxone Sodium 2 gm/ (Sodium Chloride) 100 mls @ 200 mls/hr IVPB Q24HR [facility] Stop: 05/31/18 23:59 Last Admin: 05/30/18 20:17 Dose: 100 mls Labetalol HCl (Labetalol Hcl) 10 mg SLOW IVP Q4H PRN PRN Reason: SBP Greater Than 180 Last Admin: 05/29/18 14:42 Dose: 10 mg Lisinopril (Zestril) 5 mg PO DAILY [facility] Last Admin: 05/31/18 09:26 Dose: 5 mg Ondansetron HCl (Zofran) 4 mg IVP Q6H PRN PRN Reason: Nausea/Vomiting Ondansetron HCl (Zofran Odt) 8 mg SL Q6H PRN PRN Reason: Nausea/Vomiting Prednisone (Prednisone) 40 mg PO QA-[facility] Ranolazine (Ranexa) 500 mg PO BID [facility] Last Admin: 05/31/18 09:26 Dose: 500 mg Senna/Docusate Sodium (Senokot S) 2 tab PO BIDPRN PRN PRN Reason: Constipation Sertraline HCl (Zoloft) 100 mg PO [facility] Last Admin: 05/30/18 20:18 Dose: 100 mg Throat Lozenges (Cepastat Lozenges) 1 peter PO Q2H PRN PRN Reason: Sore Throat Last Admin: 05/30/18 01:36 Dose: 1 peter
[2018-05-31] MEDS ORDERED: predniSONE 20 MG TAB PO SCH (11:30)
--- NOTE | 2018-05-31 11:31 | PQF ---
ANGIE FLYNN, SAVAGE HYDE MD [id number] [facility] [id number] CLINICAL DOCUMENTATION IMPROVEMENT CLARIFICATION FORM: ICD-10 Updated PLEASE DO AN ADDENDUM TO THE PROGRESS NOTE WITH ANY DOCUMENTATION UPDATES OR ADDITIONS AND CARRY THROUGH TO DC SUMMARY. THANK YOU. DATE: 05/31 ATTN: DR. Adilson CUEVAS Please exercise your independent, professional judgment in responding to the clarification form. Clinical indicators are provided on the bottom of this form for your review. Please check appropriate box(s): [ ] Aspiration Pneumonia [ ] Empirically treating Gram Negative Pneumonia [ ] Empirically treating Anaerobic Pneumonia [ x ] Simple Pneumonia (community acquired - nosocomial) [ ] Other diagnosis [ ] Unable to determine In addition, please specify: Present on Admission (POA): [ x] Yes [ ] No [ ] Unable to determine For continuity of documentation, please document condition throughout progress notes and discharge summary. Thank You. CLINICAL INDICATORS - SIGNS / SYMPTOMS / LABS ER PHYSICIAN FINAL DIAGNOSES 05/27: NEW ONSET AFIB, RLL PNEUMONIA H&P (JAMES) 05/27: HX OF PRESENT ILLNESS: DEVELOPED SOME ABDOMINAL PAIN, CRAMPING ON THURSDAY AFTER SHE ATE SOME LEFTOVER AZERI FOOD. CRAMPING PAIN LASTED 24 HRS BEFORE SHE FINALLY VOMITED THE UNDIGESTED FOOD BACK UP. ...SHE HAD CT DISSECTION PROTOCOL DONE, WHICH SHOWED RLL PNEUMONIA. ASSESSMENT : 1) COMMUNITY ACQUIRED PNEUMONIA; 2) ACUTE TOXIC GASTROENTERITIS & COLITIS PN 05/28 - (FAITH): ACUTE LOBAR PNEUMONIA, RLL; PLAN: ROXANNE LIN FOR PNA PULMONOLOGY CONSULT 05/29 (SELENE): HX OF PRESENT ILLNESS: SHE HAS HAD A FEBRILE ILLNESS ALL WEEK, CONSISTING OF N/V IMPRESSION: COMMUNITY ACQUIRED PNEUMONIA. WOULD BROADEN HER ANTIBIOTICS GIVEN HX OF N/V & THE POSSIBILITY OF ASPIRATION WITHOUT EVENT. STATISTICALLY, IT IS MOST LIKELY A POSTVIRAL STREPTOCOCCAL PNEUMONIA, BUT I WOULD COVER FOR ASPIRATION PATHOGENS A& ANAEROBES. RISKS: RLL PNEUMONIA NAUSEA W/ VOMITING FEVER TREATMENT: IV ANTIBIOTICS (LEVAQUIN 05/28 - PRESENT; ROCEPHIN 05/27 - PRESENT) RESPIRATORY TREATMENTS (DUONEBS 05/27 - PRESENT) SUPPLEMENTAL OXYGEN (05/27 - PRESENT) PULMONOLOGY CONSULT (05/29) THANK YOU! Pilar (This form is maintained as a part of the permanent medical record) 2014 [employer]. All Rights Reserved Pilar Yap RN, BSN [email or web address] Office: [phone] [facility]
--- NOTE | 2018-05-31 12:02 | PRG ---
DATE OF SERVICE: 05/31/2018 SUBJECTIVE: Jennifer Tesfaye is doing well. OBJECTIVE: VITAL SIGNS: Heart rate is 50, blood pressure 127/58, respiratory rate 16, and oximetry is 95% on 2 L. LUNGS: Remarkable for crackles at both bases, improved a little bit at the left base. HEART: Regular rhythm. S1 and S2 are normal. ABDOMEN: Soft and nontender. EXTREMITIES: Without edema. LABORATORY DATA: No new lab. IMPRESSION: 1. Community-acquired pneumonia, bilateral. 2. History of reactive airways. PLAN: After today's Rocephin, switch her to Omnicef. Discharge planning will begin. She is unsure whether she wants to go to rehab now. She told me yesterday she did want to go to a rehab facility but only wants to stay a few days. She has been told she has to be in rehab for over a week to qualify to go. Hopefully, PT can get her moving and then she will feel safe going home. We will continue to follow. Job ID: [id number]
[2018-05-31] MEDS: cefTRIAXone\\ROCEPHIN 2 GM in Sodium Chloride 0.9% 100 ML IVPB SCH (20:25)
[2018-05-31] MEDS: Cefdinir 300 MG CAP PO SCH (20:26)
[2018-05-31] MEDS: Famotidine 20 MG TAB PO SCH (20:33)
[2018-06-01] MEDS ORDERED: predniSONE 20 MG TAB PO SCH (08:00)
[2018-06-01 08:16] VITALS: TEMP 98.8
[2018-06-01] MEDS: Lisinopril 5 MG TAB PO SCH (09:51)
[2018-06-01] MEDS: Benzonatate 100 MG CAP PO SCH ×2 (09:51→15:42)
[2018-06-01] MEDS: Ezetimibe 10 MG TAB PO SCH (09:52)
[2018-06-01] MEDS: Cefdinir 300 MG CAP PO SCH (09:52)
[2018-06-01] MEDS: Apixaban 5 MG TAB PO SCH (09:52)
[2018-06-01] MEDS: Atenolol 25 MG TAB PO SCH (09:52)
[2018-06-01] MEDS: Aspirin 81 mg Enteric Coated Tablet PO SCH (09:52)
--- NOTE | 2018-06-01 12:38 | PDOC.PN ---
- Subjective Encounter Start Date: 06/01/18 Encounter Start Time: 08:45 Subjective: breathing better -: ambulated yest in hallway - Objective Resuscitation Status - Order Detail: 05/27/18 20:39 Resuscitation Status Routine Resuscitation Status: FULL: Full Resuscitation Discussed with: Alfredo WHITESIDE Reviewed: Yes Vital Signs & Weight: Vital Signs (12 hours) Temp Pulse Resp BP BP BP Pulse Ox 06/01/18 10:07 65 16 96 06/01/18 09:52 60 06/01/18 09:51 60 06/01/18 09:26 138/67 117/87 06/01/18 08:05 98.8 F 60 16 146/65 H 97 06/01/18 06:37 62 16 96 06/01/18 04:00 97.6 F 59 L 14 151/70 H Weight Weight 158 lb 3.2 oz I&O: 05/31/18 06/01/18 06/02/18 06:59 06:59 06:59 Intake Total 1300 240 Output Total 600 Balance 700 240 Result Diagrams: 05/28/18 04:39 05/28/18 04:39 Phys Exam - Physical Examination HEENT: PERRLA, moist MMs Neck: no JVD, supple Respiratory: no wheezing, no rales Cardiovascular: RRR, no significant murmur Gastrointestinal: soft, non-tender, positive bowel sounds Musculoskeletal: no edema, pulses present Neurological: non-focal, moves all 4 limbs Psychiatric: normal affect, A&O x 3 Dx/Plan (1) Atrial flutter Code(s): I48.92 - UNSPECIFIED ATRIAL FLUTTER Status: Resolved Comment: in sinus rhythm post cardioversion from 05/28/2018 (2) Gastroenteritis Code(s): K52.9 - NONINFECTIVE GASTROENTERITIS AND COLITIS, UNSPECIFIED Status : Resolved (3) CAD (coronary artery disease) Code(s): I25.10 - ATHSCL HEART DISEASE OF [place] CORONARY ARTERY W/O ANG PCTRS Status: Chronic Qualifiers: Coronary Disease-Associated Artery/Lesion type: [place] artery [place] vs. transplanted heart: [place] heart Associated angina: without angina Qualified Code(s): I25.10 - Atherosclerotic heart disease of [place] coronary artery without angina pectoris (4) HTN (hypertension) Code(s): I10 - ESSENTIAL (PRIMARY) HYPERTENSION Status: Chronic Qualifiers: Hypertension type: essential hypertension Qualified Code(s): I10 - Essential (primary) hypertension (5) Dyslipidemia Code(s): E78.5 - HYPERLIPIDEMIA, UNSPECIFIED Status: Chronic (6) Demand ischemia of myocardium Code(s): I24.8 - OTHER FORMS OF ACUTE ISCHEMIC HEART DISEASE Status: Acute (7) TYLER (obstructive sleep apnea) Code(s): G47.33 - OBSTRUCTIVE SLEEP APNEA (ADULT) (PEDIATRIC) Status: Chronic Comment: non compliant with cpap (8) PNA (pneumonia) Code(s): J18.9 - PNEUMONIA, UNSPECIFIED ORGANISM Status: Acute Qualifiers: Pneumonia type: due to unspecified organism Laterality: right Lung location: lower lobe of lung Qualified Code(s): J18.1 - Lobar pneumonia, unspecified organism - Plan hemostable -: dc pt home with HH -: steroid taper, omnicef * . Review of Systems - Medications/Allergies Allergies/Adverse Reactions: Allergies Allergy/AdvReac Type Severity Reaction Status Date / Time codeine Allergy Verified 05/27/18 20:10 dextromethorphan Allergy Verified 05/27/18 20:10 [From Mucinex DM] guaifenesin [From Mucinex DM] Allergy Verified 05/27/18 20:10 Gwlfdyq-Ghs-Uao Reductase Allergy Verified 05/27/18 20:10 Inhibitor Medications: Current Medications Acetaminophen (Tylenol) 650 mg PO Q4H PRN PRN Reason: Headache/Fever/Mild Pain (1-3) Last Admin: 05/29/18 15:06 Dose: 650 mg Acetaminophen (Tylenol) 650 mg [place] Q4H PRN PRN Reason: Headache/Fever/Mild Pain (1-3) Albuterol/Ipratropium (Duoneb) 3 ml NEB [id number] PRN PRN Reason: SOB &/or Wheezing Last Admin: 05/31/18 02:20 Dose: 3 ml Albuterol/Ipratropium (Duoneb) 3 ml NEB [id number] EMIGDIO Last Admin: 06/01/18 10:07 Dose: 3 ml Apixaban (Eliquis) 5 mg PO BID [facility] Last Admin: 06/01/18 09:52 Dose: 5 mg Aspirin (Ecotrin) 81 mg PO DAILY [facility] Last Admin: 06/01/18 09:52 Dose: 81 mg Atenolol (Tenormin) 50 mg PO DAILY [facility] Last Admin: 06/01/18 09:52 Dose: 50 mg Benzonatate (Tessalon) 200 mg PO TID [facility] Last Admin: 06/01/18 09:51 Dose: 200 mg Cefdinir (Omnicef) 300 mg PO BID [facility] Last Admin: 06/01/18 09:52 Dose: 300 mg Diltiazem HCl (Cardizem Cd) 180 mg PO DAILY [facility] Last Admin: 06/01/18 09:52 Dose: 180 mg Ezetimibe (Zetia) 10 mg PO DAILY [facility] Last Admin: 06/01/18 09:52 Dose: 10 mg Famotidine (Pepcid) 20 mg PO Q24HR [facility] Last Admin: 05/31/18 20:33 Dose: 20 mg Labetalol HCl (Labetalol Hcl) 10 mg SLOW IVP Q4H PRN PRN Reason: SBP Greater Than 180 Last Admin: 05/29/18 14:42 Dose: 10 mg Lisinopril (Zestril) 5 mg PO DAILY [facility] Last Admin: 06/01/18 09:51 Dose: 5 mg Ondansetron HCl (Zofran) 4 mg IVP Q6H PRN PRN Reason: Nausea/Vomiting Ondansetron HCl (Zofran Odt) 8 mg SL Q6H PRN PRN Reason: Nausea/Vomiting Prednisone (Prednisone) 40 mg PO [facility] Last Admin: 06/01/18 09:52 Dose: 40 mg Ranolazine (Ranexa) 500 mg PO BID [facility] Last Admin: 06/01/18 09:52 Dose: 500 mg Senna/Docusate Sodium (Senokot S) 2 tab PO BIDPRN PRN PRN Reason: Constipation Sertraline HCl (Zoloft) 100 mg PO HS [facility] Last Admin: 05/31/18 20:26 Dose: 100 mg Throat Lozenges (Cepastat Lozenges) 1 peter PO Q2H PRN PRN Reason: Sore Throat Last Admin: 05/30/18 01:36 Dose: 1 peter
[2018-06-01 13:28] VITALS: BP 150/67
--- NOTE | 2018-06-01 15:44 | PRG ---
DATE OF SERVICE: 06/01/2018 SUBJECTIVE: Ms. Tesfaye says she is feeling better. OBJECTIVE: VITAL SIGNS: Heart rates in the 60s, respiratory rates in the teens, oximetry is 96 on 2 L, blood pressure 150/67. LUNGS: Still remarkable for crackles in both lung bases. HEART: Regular rhythm. ABDOMEN: Soft and nontender. IMPRESSION: 1. Community-acquired pneumonia. 2. Reactive airways, clinically improved. If she is stable on her feet walking down the [place], in my opinion, she can be discharged home and follow up with me in 3 to 4 weeks with a chest x-ray. She should go home with steroid taper and antibiotics. Job ID: [id number]
--- NOTE | 2018-06-02 13:53 | DIS ---
DATE OF ADMISSION: 05/27/2018 DATE OF DISCHARGE: 06/01/2018 DISCHARGE DISPOSITION: To home with home health. She would like to go home with [facility] [place]. PRIMARY DISCHARGE DIAGNOSES: Community-acquired pneumonia, reactive airway disease, gastroenteritis on arrival resolved, atrial flutter/fib on arrival in sinus rhythm post cardioversion on 05/28/2018, coronary artery disease, hypertension, dyslipidemia, demand ischemia on arrival due to atrial fibrillation/flutter, obstructive sleep apnea noncompliant with CPAP. PROCEDURES DONE DURING HOSPITALIZATION: The patient had CT dissection protocol done on the day of admission, which showed no evidence of aortic dissection. There was a right lower lobe pneumonia. Transesophageal echo done on 05/28/[address] Nazario showed no thrombus in the atrium or left atrial appendage. There was normal LV systolic function. The patient had cardioversion on 05/28/[address] Nazario, where she was given 200 joules of synchronized electricity with which the patient converted to normal sinus rhythm. Blood cultures x2, no growth. White count of 3.8, H and H are 11 and 36, platelet count 154. Troponin I was indeterminate, peaking up to 0.05. Albumin 3.4, BUN 17, creatinine 1.0, CK-MB 3.0. DISCHARGE MEDICATIONS: 1. Aspirin 81 mg p.o. at bedtime. 2. Vitamin B12 1000 mcg p.o. daily. 3. Nexium 20 mg p.o. daily. 4. Zetia 10 mg p.o. at bedtime. 5. Sertraline 100 mg p.o. at bedtime. 6. Thiamine 100 mg p.o. daily. 7. CoQ10 200 mg p.o. daily. 8. Vitamin D3 one tab daily. 9. Albuterol inhaler q.6 hourly p.r.n. 10. Eliquis 5 mg twice daily. 11. Atenolol 50 mg p.o. daily. 12. Omnicef 300 mg p.o. twice daily for 4 more days. 13. Cardizem CD 180 mg p.o. daily. 14. Lisinopril 5 mg p.o. daily. 15. Prednisone prolonged taper per Pulmonology advice. 16. Ranexa 500 mg p.o. twice daily. ALLERGIES: ALLERGIC TO CODEINE, DEXTROMETHORPHAN, GUAIFENESIN, AND STATINS. INPATIENT CONSULT: 1. Dr. Nazario for Cardiology. 2. Dr. So for Pulmonology. DISCHARGE PLAN: The patient to follow up with Dr. Nazario as advised and Dr. So in 3 weeks. She needs to follow up with primary care physician in 1 week. BRIEF COURSE DURING HOSPITALIZATION: The patient initially came to ER with complaints of dizziness, cough, and abdominal pain. She also had diarrhea. In view of this history, the patient was placed under telemetry. A CT dissection protocol done on admission revealed right lower lobe pneumonia. Her diarrhea and nausea, vomiting resolved after 36 hours completely. The patient had atrial fibrillation and later converted to flutter. She was seen by Dr. Nazario during her stay here. The patient had a transesophageal echo done, which revealed no thrombus and was subsequently cardioverted by Dr. Nazario and has been in sinus rhythm since then. Dr. So was consulted for Pulmonology and the patient was on broad-spectrum antibiotics. She has recovered well with her pneumonia. Prior to discharge, she is ambulating in the hallway with a rolling walker. She is wanting to go home. [facility] has been set up at [place]. Please see a [id number] documentation for the day of discharge on [employer]. Job ID: [id number] [facility]
== END 2018-06-01 17:10 | disposition home health service (06) | DRG 194 ==
LOC: SCSER 12:05 → 2NO 14:40
PROVIDERS: ADMIT Family Medicine; ATTEND Family Medicine
PROC: B24BZZ4 Ultrasonography of Heart with Aorta, Transesophageal (ICD-10-PCS; principal; 2018-05-28)
PROC: 5A2204Z Restoration of Cardiac Rhythm, Single (ICD-10-PCS; 2018-05-28)
DX: J18.1 Lobar pneumonia, unspecified organism (principal); I48.92 Unspecified atrial flutter; I24.8 Other forms of acute ischemic heart disease; Y95 Nosocomial condition; K52.9 Noninfective gastroenteritis and colitis, unspecified; I48.0 Paroxysmal atrial fibrillation; E78.00 Pure hypercholesterolemia, unspecified; I10 Essential (primary) hypertension; I25.10 Atherosclerotic heart disease of native coronary artery without angina pectoris; M19.90 Unspecified osteoarthritis, unspecified site; G47.33 Obstructive sleep apnea (adult) (pediatric); F32.9 Major depressive disorder, single episode, unspecified; Z88.5 Allergy status to narcotic agent; Z79.82 Long term (current) use of aspirin; Z79.899 Other long term (current) drug therapy; Z90.710 Acquired absence of both cervix and uterus; Z90.49 Acquired absence of other specified parts of digestive tract; Z88.8 Allergy status to other drugs, medicaments and biological substances
CPT/HCPCS: 36415; 71046; 71275; 80048; 80053; 81003; 81015; 82553; 83605; 83690; 84484; 85025; 87040; 93005; 93312; 94640; 96365; 96367; 96375; J0456; J0696; J1650; J1956; J2001; J2405; J2704; J2920; J3490; J7050; J7620; Q0162; S0028

== ENCOUNTER 2018-06-15 12:43 | Day surgery (SDC) | payer MEDICARE, OTHER ==
[2018-06-14 16:16] VITALS: BMI 25.8
[2018-06-15 13:35] LABS: Anion Gap 9 mmol/L (10-20); BUN (Urea Nitrogen) 19 mg/dL (9.8-20.1); Calc. Creatinine Clearance 45 mL/min (70-130); Calcium 8.9 mg/dL (7.8-10.44); Carbon Dioxide 28 mmol/L (23-31); Chloride 107 mmol/L (98-107); Estimated GFR-MDRD 50; Glucose 86 mg/dL (83-110); Potassium 4.4 mmol/L (3.5-5.1); Sodium 140 mmol/L (136-145)
[2018-06-15] MEDS ORDERED: PROPOFOL 20 ML ONE (14:25)
--- NOTE | 2018-06-16 07:41 | OP ---
DATE OF PROCEDURE: 06/15/2018 PROCEDURE PERFORMED: Electrocardioversion. INDICATIONS: An 83-year-old woman with typical atrial flutter. DESCRIPTION OF PROCEDURE: The patient was taken to the PACU. The patient was sedated by anesthesiology. The patient was shocked with 50 joules of synchronized electricity. The patient converted to normal sinus rhythm. IMPRESSION: Successful electrocardioversion. Job ID: [id number]
--- NOTE | 2018-06-16 16:46 | EKG ---
Test Reason : POSTOP Blood Pressure : / mmHG Vent. Rate : 063 BPM Atrial Rate : 063 BPM P-R Int : 216 ms QRS Dur : 080 ms QT Int : 436 ms P-R-T Axes : 091 052 083 degrees QTc Int : 446 ms Sinus rhythm with 1st degree A-V block Otherwise normal ECG When compared with ECG of 27-MAY-2018 13:35, (Unconfirmed) Sinus rhythm has replaced Atrial fibrillation Confirmed by RICHARD VICTORIA, DR. Null ([id number]) on 06/16/2018 4:46:40 PM Referred By: NETO Confirmed By:DR. Chaka RAMOS MD
== END 2018-06-15 16:44 | disposition home or self-care (01) ==
LOC: CCL 12:43
PROVIDERS: ATTEND Internal Medicine Cardiovascular Disease
PROC: 5A2204Z Restoration of Cardiac Rhythm, Single (ICD-10-PCS; principal; 2018-06-15)
DX: I48.3 Typical atrial flutter (principal); I10 Essential (primary) hypertension; Z79.01 Long term (current) use of anticoagulants; Z79.82 Long term (current) use of aspirin; Z79.899 Other long term (current) drug therapy; Z88.5 Allergy status to narcotic agent; Z88.8 Allergy status to other drugs, medicaments and biological substances
CPT/HCPCS: 36415; 80048; 92960; 93005; 93010; J2704

== ENCOUNTER 2018-07-08 12:21 | Observation (INO) | payer MEDICARE, OTHER ==
[2018-07-08 13:06] LABS: #Lymphocytes 1.4 thou/uL (1.20-3.40); #Monocytes 0.5 thou/uL (0.11-0.59); #Neutrophils 3.5 thou/uL (1.40-6.50); %Basophils 0.2 % (0.0-1.0); %Eosinophils 0.7 % (0.0-10.0); %Lymphocytes 25.9 % (21.0-51.0); %Monocytes 9.6 % (0.0-10.0); %Neutrophils 63.7 % (42.0-75.0); Hemoglobin 13.9 g/dL (12.0-16.0); Mean Corpuscular HGB CONC 32.4 g/dL (32.0-36.0); Mean Corpuscular Hemoglobin 32.6 pg (27.0-31.0); Mean Platelet Volume 5.9 fL (7.4-10.4); Platelet Count 319 thou/uL (130-400); RBC Distribution Width 13.7 % (11.5-14.5); Red Blood Cell (RBC) Count 4.27 mill/uL (4.20-5.40); White Blood Cell (WBC) Count 5.5 thou/uL (4.8-10.8)
[2018-07-08 13:12] LABS: INR-International Normal Ratio 1.3
[2018-07-08 13:13] LABS: PTT 32.3 SEC (22.9-36.1)
[2018-07-08 13:28] LABS: Anion Gap 13 mmol/L (10-20); BUN (Urea Nitrogen) 22 mg/dL (9.8-20.1); Calc. Creatinine Clearance 51 mL/min (70-130); Calcium 9.6 mg/dL (7.8-10.44); Carbon Dioxide 25 mmol/L (23-31); Chloride 108 mmol/L (98-107); Estimated GFR-MDRD 62; Glucose 89 mg/dL (83-110); Potassium 4.5 mmol/L (3.5-5.1); Sodium 141 mmol/L (136-145)
[2018-07-08] MEDS ORDERED: Heparin 10,000 UNITS/1 ML VIAL ONE ×2 (13:48→15:21)
[2018-07-08] MEDS ORDERED: Fentanyl 100 MCG/2 ML VIAL ONE ×2 (14:04→19:08)
[2018-07-08] MEDS ORDERED: Isoproterenol 0.2 MG/1 ML AMP ONE (15:21)
[2018-07-08] MEDS ORDERED: PROPOFOL 200 MG/20 ML VIAL ONE (16:32)
[2018-07-08] MEDS ORDERED: Ondansetron PF 4 MG/2 ML Vial ONE (16:32)
[2018-07-08] MEDS ORDERED: Rocuronium Bromide 10 MG/ML (10ML VIAL) ONE (16:32)
[2018-07-08] MEDS ORDERED: Glycopyrrolate 0.2 MG/ML 5 ML SYRINGE ONE (16:32)
[2018-07-08] MEDS ORDERED: PHENYLEPHRINE-NS 100 MCG/ML 10 ML SYRINGE ONE (16:32)
[2018-07-08] MEDS ORDERED: Ketorolac Tromethamine 30 MG/ML VIAL IVP PRN (19:20)
[2018-07-08] MEDS ORDERED: Fentanyl 100 MCG/2 ML VIAL SLOW IVP SCH (19:30)
[2018-07-08 20:40] VITALS: BMI 25.4
[2018-07-08] MEDS: Apixaban 5 MG TAB PO SCH (22:10)
[2018-07-08] MEDS: Aspirin 81 mg Enteric Coated Tablet PO SCH (22:10)
--- NOTE | 2018-07-09 00:05 | OP ---
DATE OF PROCEDURE: 07/08/2018 PROCEDURES PERFORMED: 1. Comprehensive electrophysiology testing with 3-dimensional mapping and ablation of atrial fibrillation. 2. Intracardiac echocardiography. 3. Transseptal catheterization x2. 4. Cardioactive medication infusion. CLINICAL INDICATION: Persistent atypical flutter and atrial fibrillation. ASA CLASSIFICATION: III. ANESTHESIA: General endotracheal anesthesia per Anesthesiology. ADDITIONAL CARDIAC MEDICATIONS: Isoproterenol 10 mcg/minute infusion. TOTAL HEPARIN GIVEN: 14,000 units. TOTAL PROTAMINE GIVEN: 40 mg. ACUTE COMPLICATIONS: None apparent. METHODS: After informed consent was obtained, the patient was taken to the EP lab in a fasting state. Both groins were prepped and draped using ultrasound guidance. The right and left femoral veins were accessed, and an 11-Ivorian and an 8-Ivorian sheaths were placed in the left groin and two 8-Ivorian sheaths were placed in the right groin. All 8-Ivorian sheaths were then replaced by long sheaths for catheter stability. A circular and ablation catheter was placed in the right groin and advanced up to the right atrium. A 3D map was obtained at the right atrium and the coronary sinus. A 20-pole catheter was placed in left groin and advanced into the coronary sinus in the radha terminalis. An echo probe was placed in the left groin and advanced to the atrium and right ventricle for imaging. The patient was then anticoagulated. Transseptal catheterization was performed on 2 occasions. A 3D map was obtained in the left atrium. A temperature probe was placed in the esophagus for monitoring of temperatures during the ablation. Aggressive ablation was delivered, completely isolating all 4 pulmonary veins and the posterior wall of roof lateral wall left atrium as well as the roof. The coronary sinus for both left atrium and from within the coronary sinus as well as the roof and septum of the right atrium. At the conclusion, the patient was cardioverted, no other arrhythmias were seen. Catheter removed, heparin was reversed, sheaths were pulled, hemostasis was achieved with Collagen closure and Perclose suture closure. RESULTS: 1. Baseline intervals: HV interval 48 milliseconds. 2. Atrial function: The patient was in course AFib and atypical flutter, multiple different flutters were seen requiring complete isolation of the veins, posterior wall, coronary sinus roof and the right atrial septum. 3. Ablation details. A total of 50 minutes and 41 seconds of radiofrequency current were delivered with a Biosense Dee open irrigated ablation catheter. 4. Fluoroscopy: No fluoroscopy was performed during the procedure. IMPRESSION: Successful ablation, isolating all 4 pulmonary veins and the posterior wall of the left atrium along with roof, coronary sinus and right atrial septum. RECOMMENDATIONS: Observation for 24 hours and anticoagulation for 3-6 months. Job ID: [id number]
[2018-07-09] MEDS ORDERED: Protamine Sulfate 50 MG/5 ML VIAL ONE (06:26)
[2018-07-09] MEDS ORDERED: Potassium Chloride 20 MEQ TAB PO SCH (09:00)
[2018-07-09] MEDS ORDERED: Lisinopril 5 MG TAB PO SCH (09:00)
[2018-07-09] MEDS ORDERED: Cyanocobalamin (Vitamin B-12) 1,000 MCG TAB PO SCH (09:00)
[2018-07-09] MEDS ORDERED: Colchicine 0.6 MG TAB PO SCH (09:00)
[2018-07-09] MEDS ORDERED: Ubidecarenone 50 MG CAP PO SCH (09:00)
[2018-07-09] MEDS ORDERED: Furosemide 40 MG/4 ML VIAL SLOW IVP SCH (09:00)
[2018-07-09] MEDS ORDERED: Magnesium Oxide 400 MG TAB PO SCH (09:00)
[2018-07-09] MEDS: Apixaban 5 MG TAB PO SCH (09:51)
[2018-07-09] MEDS: Aspirin 81 mg Enteric Coated Tablet PO SCH (09:52)
[2018-07-09 11:52] VITALS: BP 130/59; TEMP 98.2
--- NOTE | 2018-07-09 14:00 | DIS ---
DATE OF ADMISSION: 07/08/2018 DATE OF DISCHARGE: 07/09/2018 DIAGNOSIS: Persistent atypical flutter and atrial fibrillation. PROCEDURES PERFORMED: 1. Comprehensive electrophysiology testing with 3D mapping and ablation of atrial fibrillation. 2. Intracardiac echocardiography. 3. Transseptal catheterization x2. 4. Cardioactive medication infusion. The patient underwent successful ablation including isolation of all 4 pulmonary veins in the posterior wall of left atrium along with a roof coronary sinus and right atrial septum. The patient was in course atrial fibrillation and atypical atrial flutter upon arriving to the EP lab. There were multiple different flutter seen during her EP study requiring complete isolation of the veins in posterior wall and coronary sinus and the right atrial septum. She received a total of 50 minutes 41 seconds of RF energy delivered and at conclusion, the patient was cardioverted with no additional arrhythmias seen. SUBJECTIVE: Ms. Tesfaye is a pleasant 83-year-old woman with a history of coronary artery disease, preserved LV function and mild valvular heart disease with bilateral atrial enlargement on MOO. She had persistent atrial fibrillation and flutter refractory to Multaq and she was taken to the EP lab for an elective ablation which was performed by Dr. Roe on as detailed above. She had been appropriately anticoagulated on Eliquis and was on diltiazem for rate control and blood pressure management. She has done well post ablation from an arrhythmia standpoint with no further atrial fibrillation or flutter seen. She has had some mild chest discomfort post ablation, which was relieved with IV Toradol and p.o. colchicine has been ordered. She is tolerating p.o. intake, ambulating normally. Other than her chest discomfort, she does not have any postablation concerns and is ready and eager to go home. REVIEW OF SYSTEMS: Negative for heart racing, palpitations, syncope, near syncope, stroke, stroke-like symptoms, nausea, vomiting, diarrhea, difficulty, or burning with urination. Positive for chest discomfort and pressure that is positional and reproducible. Positive for oral pain and throat pain following recent intubation. OBJECTIVE: VITAL SIGNS: Temperature 98.2, pulse 89, blood pressure 130/59, respirations 20, oxygen is 94% on room air. GENERAL: The patient is alert and oriented. Speech is clear. Affect is appropriate. NEUROLOGIC: Grossly intact and nonfocal. NECK: Supple without jugular venous distention. HEART: Heart rate is regularly regular with crisp S1 and S2. PMI is nondisplaced. LUNGS: Clear to auscultation bilaterally without wheezes, crackles, or rhonchi. ABDOMEN: Soft and nontender without palpable masses. EXTREMITIES: Warm and dry to touch. Well perfused without clubbing, cyanosis, or edema. Gait was stable. Bilateral groin sites were stable without any recent bleeding, hematoma or bleeding dyscrasias. The left groin site did have a slight ooze immediately following the procedure, but has been stable overnight and into this morning. DATABASE: Telemetry and EKG were all personally reviewed and reflect ongoing sinus rhythm, no recurrence of atrial arrhythmias and no significant burden of ectopy. Her sinus rhythm does sustain between 90 and 100 beats per minute. DISCHARGE INSTRUCTIONS: No lifting more than 7 pounds for 1 week. No soaking baths for 1 week. No driving for 2 days. Follow up with [facility] in 6 weeks or sooner if symptoms dictate. Full discharge instruction packet was included in her discharge instructions for post ablation guidance. She will continue her oral anticoagulation without interruption, was instructed to do so by [facility] and she will contact us with any postablation concerns. DISCHARGE MEDICATIONS: Resuming home medications of: 1. one tablet daily. 2. Ranexa 500 mg p.o. b.i.d. 3. Triple magnesium complex 400 mg p.o. daily. 4. CoQ10 200 mg p.o. daily. 5. Sertraline 100 mg at bedtime. 6. Diltiazem CD 240 mg p.o. daily. 7. B12 1000 mcg daily. 8. Aspirin 81 mg p.o. b.i.d. 9. Diltiazem HCL 30 mg p.o. q.i.d. p.r.n. heart racing and palpitations. 10. Lisinopril 5 mg p.o. daily. 11. Ezetimibe 10 mg at bedtime. 12. Apixaban 5 mg p.o. b.i.d. New prescriptions called in include: 1. Sucralfate 1 g p.o. a.c. and at bedtime x2 weeks. 2. Pantoprazole 40 mg p.o. daily x30 days. 3. Colchicine 0.6 mg p.o. q.12 hours x2 weeks. 4. Lasix 40 mg p.o. daily x3 days when p.r.n. shortness of breath, weight gain or swelling. 5. Potassium chloride 20 mEq p.o. daily x3 days, then only to be taken if taking Lasix. CONDITION AT DISCHARGE: Stable. Job ID: [id number]
--- NOTE | 2018-07-11 13:59 | EKG ---
Test Reason : POSTOP Blood Pressure : / mmHG Vent. Rate : 081 BPM Atrial Rate : 081 BPM P-R Int : 148 ms QRS Dur : 084 ms QT Int : 388 ms P-R-T Axes : 091 075 093 degrees QTc Int : 450 ms Poor data quality, interpretation may be adversely affected Normal sinus rhythm Normal ECG When compared with ECG of 15-JUN-2018 15:12, AK interval has decreased Confirmed by DEBBIE VANCE ([id number]) on 07/11/2018 1:59:00 PM Referred By: MILO Confirmed By:DEBBIE VANCE
--- NOTE | 2018-07-11 14:07 | EKG ---
Test Reason : Blood Pressure : / mmHG Vent. Rate : 101 BPM Atrial Rate : 101 BPM P-R Int : 182 ms QRS Dur : 084 ms QT Int : 362 ms P-R-T Axes : 087 080 095 degrees QTc Int : 469 ms Sinus tachycardia Nonspecific T wave abnormality Abnormal ECG No previous ECGs available Confirmed by DEBBIE VANCE ([id number]) on 07/11/2018 2:06:57 PM Referred By: MILO Confirmed By:DEBBIE VANCE
== END 2018-07-09 15:45 | disposition home or self-care (01) ==
LOC: CCL 12:21 → 2SW 17:40
PROVIDERS: ADMIT Internal Medicine Cardiovascular Disease; ATTEND Internal Medicine Cardiovascular Disease
PROC: 02583ZZ Destruction of Conduction Mechanism, Percutaneous Approach (ICD-10-PCS; principal; 2018-07-08)
PROC: 02K83ZZ Map Conduction Mechanism, Percutaneous Approach (ICD-10-PCS; 2018-07-08)
PROC: 4A023FZ Measurement of Cardiac Rhythm, Percutaneous Approach (ICD-10-PCS; 2018-07-08)
PROC: 4A0234Z Measurement of Cardiac Electrical Activity, Percutaneous Approach (ICD-10-PCS; 2018-07-08)
DX: I48.1 Persistent atrial fibrillation (principal); I48.4 Atypical atrial flutter; I38 Endocarditis, valve unspecified; J44.9 Chronic obstructive pulmonary disease, unspecified; I10 Essential (primary) hypertension; E78.5 Hyperlipidemia, unspecified; I25.10 Atherosclerotic heart disease of native coronary artery without angina pectoris; Z88.8 Allergy status to other drugs, medicaments and biological substances; Z88.5 Allergy status to narcotic agent; Z79.01 Long term (current) use of anticoagulants; Z79.82 Long term (current) use of aspirin; Z79.899 Other long term (current) drug therapy
CPT/HCPCS: 76942; 80048; 85025; 85347 ×2; 85610; 85730; 93005 ×2; 93613; 93623; 93655; 93656; 93662; 96374; C1731; C1732 ×3; C1759; C1760; C1769; G0378; 93010; J1644; J1940; J2405; J2704; J2720; J3010

== ENCOUNTER 2018-07-26 18:10 | Inpatient (IN) | payer MEDICARE, OTHER ==
[~2018-07-26 18:10] MED LIST: ISOVUE-370 76%-LOCM 1 ML ONE; Iopamidol 370 76% 50 ML VIAL FS ONE
[2018-07-26 18:44] LABS: #Lymphocytes 0.9 thou/uL (1.20-3.40); #Monocytes 0.8 thou/uL (0.11-0.59); #Neutrophils 6.5 thou/uL (1.40-6.50); %Eosinophils 0.5 % (0.0-10.0); %Lymphocytes 10.8 % (21.0-51.0); %Monocytes 9.3 % (0.0-10.0); %Neutrophils 79.4 % (42.0-75.0); Hemoglobin 11.5 g/dL (12.0-16.0); Mean Corpuscular HGB CONC 32.8 g/dL (32.0-36.0); Mean Corpuscular Hemoglobin 32.4 pg (27.0-31.0); Mean Platelet Volume 5.9 fL (7.4-10.4); Platelet Count 598 thou/uL (130-400); RBC Distribution Width 13.3 % (11.5-14.5); Red Blood Cell (RBC) Count 3.54 mill/uL (4.20-5.40); White Blood Cell (WBC) Count 8.1 thou/uL (4.8-10.8)
[2018-07-26 19:07] LABS: ALT (SGPT) 84 U/L (8-55); AST (SGOT) 64 U/L (5-34); Albumin 3.5 g/dL (3.4-4.8); Alkaline Phosphatase 207 U/L (40-150); Anion Gap 12 mmol/L (10-20); BUN (Urea Nitrogen) 13 mg/dL (9.8-20.1); Bilirubin, Total 0.8 mg/dL (0.2-1.2); Calc. Creatinine Clearance 0 mL/min (70-130); Calcium 9.5 mg/dL (7.8-10.44); Carbon Dioxide 27 mmol/L (23-31); Chloride 101 mmol/L (98-107); Estimated GFR-MDRD 63; Glucose 113 mg/dL (83-110); Lipase Less than 4 U/L (8-78); Potassium 3.3 mmol/L (3.5-5.1); Protein, Total 6.5 g/dL (6.0-8.3); Sodium 137 mmol/L (136-145)
[2018-07-26 19:29] LABS: CKMB 1.6 ng/mL (0-6.6)
[2018-07-26] MEDS ORDERED: Ondansetron PF 4 MG/2 ML Vial ONE (20:53)
--- NOTE | 2018-07-26 21:17 | CT ---
CT of abdomen and pelvis: 07/26/2018 COMPARISON: 05/27/2018 HISTORY: Abdominal pain TECHNIQUE: Axial CT imaging at 5 mm intervals from lung bases through pubic symphysis with IV and ora l contrast. Coronal reformatted imaging obtained. FINDINGS: There are prominent new bilateral pleural effusions. There is a new prominent pericardial e ffusion as well. No free intraperitoneal air is appreciated. The gallbladder appears surgically absent. There is stable intrahepatic and extrahepatic biliary dila tation, likely on the basis of prior cholecystectomy. There is a vague area of ill-defined hyperenhancement within the right lobe of the liver near the dom e, likely on the basis of a vascular phenomenon, such as a transient hepatic attenuation difference. The spleen, pancreas, and adrenal glands demonstrate no acute findings. There is stable p ancreatic volume loss. The kidneys are grossly unremarkable. There is diverticulosis of the sigmoid colon without evidence for diverticulitis No evidence for bowel obstruction is seen. There is scattered atherosclerotic calcification of the ab dominal aorta and its branches. No retroperitoneal lymphadenopathy. Osseous structures demonstrate multilevel degenerative change of the imaged spine. The bones are demineralized. Stable sclerotic focus within the iliac bone noted on the right, likely representing a benign bone is land in the absence of known malignancy, best seen on axial image 58. IMPRESSION: Interval development of prominent pericardial effusion and bilateral pleural effusions. A dditional incidental findings as detailed above.
[2018-07-26 21:51] LABS: Troponin I 0.043 ng/mL (< 0.028)
[2018-07-26] MEDS ORDERED: Aspirin 325 MG TAB ONE (22:11)
[2018-07-27] MEDS ORDERED: Ondansetron PF 4 MG/2 ML Vial IVP PRN (00:05)
[2018-07-27] MEDS ORDERED: Ondansetron ODT 4 MG TAB PO PRN (00:05)
[2018-07-27] MEDS ORDERED: Acetaminophen 325 MG TAB PO PRN (00:05)
[2018-07-27 00:52] LABS: Troponin I 0.031 ng/mL (< 0.028)
--- NOTE | 2018-07-27 04:07 | HP ---
PRIMARY CARE PHYSICIAN: Bernardino Rosa MD CODE STATUS: Full code. TIME OF EVALUATION: 11:30 p.m. CHIEF COMPLAINT: Cough. HISTORY OF PRESENT ILLNESS: This is an 83-year-old female patient with past medical history of hyperlipidemia, hypertension, osteoarthritis, atrial fibrillation, the patient came to the hospital after having cough, with no clear triggers, no alleviating factors, no chest pain. Symptoms have been present for the past 3 weeks, has been gradually worsening. The patient went to see Dr. Rosa for the symptoms and she got a chest x-ray showing bilateral pleural effusion. The patient had associated nausea and vomiting. REVIEW OF SYSTEMS: CONSTITUTIONAL: No fever, chills, or generalized weakness. RESPIRATORY: The patient had cough. No sputum production. The patient has shortness of breath. CARDIOVASCULAR: No chest pain, or palpitation. GASTROINTESTINAL: No nausea, vomiting, diarrhea, or abdominal pain. BULK PALLET BUILDER: No dizziness, headache, or feeling lightheaded. GENITOURINARY: No burning on urination. EXTREMITIES: Bilateral leg swelling. All other systems were reviewed and negative except for the findings mentioned above. PAST MEDICAL HISTORY: Positive for hyperlipidemia, hypertension, osteoarthritis , and atrial fibrillation. PAST SURGICAL HISTORY: The patient has bilateral knee replacement, bilateral cataract surgery, appendectomy, and cholecystectomy. PSYCHIATRIC HISTORY: Depression. SOCIAL HISTORY: Drinks socially rarely. No drug use. Lives at home. FAMILY HISTORY: Noncontributory to this case, was reviewed. KNOWN ALLERGIES: 1. Codeine. 2. Mucinex. 3. Statins. REPORTED MEDICATIONS: 1. Eliquis. 2. Aspirin. 3. Cholecalciferol. 4. Cyanocobalamin. 5. Diltiazem. 6. Zetia. 7. Lisinopril. 8. Loperamide. 9. Magnesium oxide. 10. Metoprolol. 11. Pantoprazole. 12. Ranexa. 13. Sertraline. 14. Thiamine. PHYSICAL EXAMINATION: VITAL SIGNS: On presentation, blood pressure 118/69, heart rate 72, respiratory rate was 22, temperature 98, pain 0/10, oxygen saturation was 95% on room air. GENERAL APPEARANCE: The patient is alert, oriented, not in acute distress. HEENT: Eyes, normal conjunctivae. Moist oral mucosa. Anicteric. No JVD. RESPIRATORY: Bilateral air entry. No rales. No wheezing. Symmetric expansion is decreased and bilateral respiratory sounds are decreased in both bases. CARDIOVASCULAR: Normal rate. Regular rhythm. No murmurs. No gallop. Bilateral leg edema. ABDOMEN: Soft, normal bowel sounds. MUSCULOSKELETAL: Baseline range of motion and strength. No tenderness. SKIN: Warm, intact. No pallor. No rash. No redness. Peripheral pulses are present. Capillary refill seems to be intact. NEUROLOGIC: No evidence of any new focal weakness. Baseline speech. Cranial nerves seems to be intact. PSYCHIATRIC: The patient is in good mood. No anxiety. Optimal judgment. IMAGING STUDIES: EKG was reviewed. The patient had a heart rate of 72. Q- waves, no specific abnormalities. Cardiology abdomen and pelvis CT scan with contrast showed new bilateral pleural effusions, there is new prominent pericardial effusion as well. No free intraperitoneal air is appreciated. Gallbladder is surgically absent. Intrahepatic and extrahepatic biliary dilation likely on the basis of prior cholecystectomy. There is a vague area of ill-defined hyperenhancement within the right lobe of the liver near the dome likely to the basis of vascular phenomenon such as transient hepatic attenuation. LABORATORY DATA: Labs were reviewed. The patient has white count 9.1, hemoglobin 11.5, MCV 99, platelet count 198. Chemistry; sodium 137, potassium 3.3, chloride 101, carbon dioxide 27, anion gap 12, BUN 13, creatinine 0.86, GFR 63, glucose 113, lactic acid 1.6, calcium 9.5, total bilirubin 0.8, AST 64, ALT 84, alkaline phosphatase was 207. Troponin 0.031, second one 0.043, and third one 0.031. Beta natriuretic peptide was 389.5. Lipase less than 4. ASSESSMENT AND PLAN: The patient will be placed in the hospital with following medical problems: 1. The patient is in possible congestive heart failure exacerbation. The patient has bilateral pleural effusion, some pericardial effusion, bilateral leg edema. We will diurese, reconcile home medications, adjust as needed. 2. Nso-LB-[id number] myocardial infarction type 2. The patient's troponin has been minimally elevated at 0.031, second one 0.043, the third one 0.031. This is likely secondary to underlying congestive heart failure, we will monitor, we will treat accordingly. 3. Hyperlipidemia. Low-cholesterol diet is advised. Adjust treatment as needed. 4. Controlled hypertension, we will reconcile home medications. We will adjust treatment as needed. 5. History of atrial fibrillation. Rate is controlled. Reconcile home medications. 6. Deep venous thrombosis prophylaxis. The patient is on chronic anticoagulation. We will continue for now. Job ID: [id number] MTDD
[2018-07-27 05:47] LABS: #Lymphocytes 0.9 thou/uL (1.20-3.40); #Monocytes 0.7 thou/uL (0.11-0.59); #Neutrophils 4.4 thou/uL (1.40-6.50); %Basophils 0.1 % (0.0-1.0); %Eosinophils 0.7 % (0.0-10.0); %Lymphocytes 15.3 % (21.0-51.0); %Monocytes 11.8 % (0.0-10.0); %Neutrophils 72.1 % (42.0-75.0); Hemoglobin 10.7 g/dL (12.0-16.0); Mean Corpuscular HGB CONC 32.8 g/dL (32.0-36.0); Mean Corpuscular Hemoglobin 32.3 pg (27.0-31.0); Mean Corpuscular Volume 98.5 fL (78.0-98.0); Mean Platelet Volume 5.8 fL (7.4-10.4); Platelet Count 533 thou/uL (130-400); RBC Distribution Width 13.3 % (11.5-14.5); Red Blood Cell (RBC) Count 3.31 mill/uL (4.20-5.40); White Blood Cell (WBC) Count 6.1 thou/uL (4.8-10.8)
[2018-07-27] MEDS: Furosemide 40 MG/4 ML VIAL SLOW IVP SCH ×2 (05:49→18:27)
[2018-07-27 06:11] LABS: Anion Gap 13 mmol/L (10-20); BUN (Urea Nitrogen) 12 mg/dL (9.8-20.1); Calc. Creatinine Clearance 63 mL/min (70-130); Calcium 9.4 mg/dL (7.8-10.44); Carbon Dioxide 25 mmol/L (23-31); Chloride 103 mmol/L (98-107); Estimated GFR-MDRD 75; Glucose 90 mg/dL (83-110); Potassium 3.4 mmol/L (3.5-5.1); Sodium 138 mmol/L (136-145)
--- NOTE | 2018-07-27 08:08 | RAD ---
TWO VIEWS CHEST: Comparison: 05-27-18 History: Pleural effusions. FINDINGS: Two views of the chest shows a cardiomediastinal silhouette which is upper limits of normal in size. There are small bilateral pleural effusions, left greater than right. Atelectasis versus an infiltrat e is seen in the left lung base. IMPRESSION: Bilateral pleural effusions with adjacent atelectasis versus infiltrates. POS: H
[2018-07-27] MEDS ORDERED: Apixaban 5 MG TAB PO SCH (09:00)
[2018-07-27] MEDS ORDERED: Enoxaparin Sodium 40 MG/0.4 ML SYRINGE SC SCH (09:00)
[2018-07-27] MEDS: Ubidecarenone 50 MG CAP PO SCH (09:40)
[2018-07-27] MEDS: Lisinopril 10 MG TAB PO SCH (09:41)
[2018-07-27] MEDS: Magnesium Oxide 400 MG TAB PO SCH (09:41)
[2018-07-27] MEDS: Aspirin 81 mg Enteric Coated Tablet PO SCH ×2 (09:42→20:05)
[2018-07-27] MEDS: Cyanocobalamin (Vitamin B-12) 1,000 MCG TAB PO SCH (09:42)
[2018-07-27] MEDS ORDERED: D5 1/2 NS 500 ML IV SCH (09:45)
[2018-07-27] MEDS: Dextrose 5 %-0.45 % NaCl 1,000 ML IV SCH ×2 (09:52→18:26)
[2018-07-27] MEDS ORDERED: Potassium Chloride 40 MEQ in Sodium Chloride 0.9% 250 ML 250 ML IVPB SCH (12:00)
--- NOTE | 2018-07-27 15:46 | CON ---
DATE OF CONSULTATION: 07/27/2018 SERVICE: Pulmonary Medicine. REASON FOR CONSULT: Pleural effusions. HISTORY OF PRESENT ILLNESS: The patient is an 83-year-old white female, who has had a rough go over recently. In May, she had a pneumonia. She was treated with antibiotics and got a little bit better, but then went into atrial fibrillation with RVR couple of weeks later. She ended up getting cardioverted on 2 separate occasions with successful return to normal sinus rhythm, but each time, she would revert back into atrial fibrillation. Ultimately, on the July 08, the patient underwent an ablation procedure. The pulmonary veins were all isolated. She went back into sinus rhythm once again. She did well after that procedure for 3 or 4 days, but ended up developing very high fevers, nausea, and vomiting. She had chest pain that went up into her neck and arm. She presented to the [facility]. Some of these symptoms got a little bit better, she was subsequently discharged from that facility. She was not feeling any better and went to see her primary care physician. A chest x-ray was performed demonstrating possible effusions and pericardial changes. As such, he put her on some antibiotics, thinking there could be a pneumonia there, but things got worse and she presented to the emergency department. At that point, some laboratories were abnormal prompting a CT of the abdomen. It showed bilateral pleural effusions as well as a large pericardial effusion, which we previously did not have. She currently denies any fevers (last fever was over a week ago), or vomiting. She is not having any constipation. She is noting some loose bowel movements. She is not having any myalgia or arthralgias, but is having significant malaise. She denies any current cough, sputum production, or shortness of breath. Otherwise, she is in her usual state of health. PAST MEDICAL HISTORY: 1. Hypertension. 2. Dyslipidemia. 3. Atrial fibrillation. 4. Osteoarthritis. 5. Obstructive sleep apnea. 6. Normal pulmonary function studies in 2016. PAST SURGICAL HISTORY: 1. Bilateral knee replacement surgeries. 2. Bilateral cataract surgery. 3. Appendectomy. 4. Cholecystectomy. 5. Radiofrequency ablation of the pulmonary veins. SOCIAL HISTORY: Negative for alcohol, tobacco, or illicit drug use. She has no exposure to chemicals, dust, asbestos, or tuberculosis. FAMILY HISTORY: Noncontributory. ALLERGIES: CODEINE, MUCINEX, STATINS. MEDICATIONS: List of her inpatient medications was reviewed. No specific updates were made at this time. REVIEW OF SYSTEMS: General; head, eyes, ears, nose, and throat; cardiovascular, respiratory, GI, , musculoskeletal, neurologic, and skin are negative, except as mentioned in the HPI. PHYSICAL EXAMINATION: VITAL SIGNS: Afebrile, pulse 93, blood pressure 119/71, respirations 20, and saturation 94%, currently on room air. GENERAL: The patient is awake and alert, in no apparent distress. LUNGS: Decent air entry. There are dependent crackles present. There is decreased air entry at the bibasilar region, but a little bit worse on the left. HEART: Normal rate. Irregular. ABDOMEN: Soft, nontender, nondistended. Bowel sounds are positive. MUSCULOSKELETAL: No cyanosis or clubbing. There is no pitting in the bilateral lower extremities. NEUROLOGIC: Grossly nonfocal. LABORATORY DATA: WBC 6.1, hemoglobin 10.7, and platelets 533,000. Potassium 3.4. Troponin is downtrending to 0.031, BNP is elevated at 389. AST, ALT, and alkaline phosphatase are marginally elevated. Lactate is negative, and creatinine is 0.74, which is her new baseline. IMAGING STUDIES: CT of the abdomen and pelvis demonstrates diverticulosis without any evidence of diverticulitis. No acute right upper quadrant abnormalities are identified. Interval development of pericardial effusion as well as bilateral pleural effusions. The left is slightly greater than the right. There is some adjacent atelectasis, but I do not see any overt air bronchograms/consolidating changes making me concerned about a pneumonia. That being said, I cannot see much of the lung parenchyma. Chest x-ray demonstrates bilateral pleural effusions and a little bit of volume loss, worse on the left. ASSESSMENT: 1. Pleural effusions, bilateral. 2. Pericardial effusion. 3. Atrial fibrillation/flutter, s/p recent ablation. 4. Obstructive sleep apnea, severe, on CPAP therapy. 5. Hypokalemia. 6. Normal pulmonary function studies in 2016. DISCUSSION AND PLAN: The patient is doing okay from respiratory standpoint. She is currently chest pain free and not complaining of any shortness of breath. She is on room air. Since these effusions are bilateral, I think it is perfectly reasonable to optimize the heart before considering a thoracentesis. She will continue her CPAP at night. We will check a magnesium tomorrow morning and replace the potassium today. We will get a stat echocardiogram to verify that she is not in tamponade physiology. If she is, a pericardiocentesis will need to be considered. Cardiology consultation has already been placed. Pulmonary Critical Care will continue to follow along. I will notify Dr. So that his patient has landed in the hospital and he will assume coverage in the morning. 70 minutes have been devoted to this patient in various activities. I personally reviewed all imaging studies and laboratory data noted within this document. For fifty percent of this time, I was interacting with the patient at the bedside or coordinating care with the care team. For the remainder of the time I was immediately available to the patient in the hospital unit. Job ID: [id number] MTDD
--- NOTE | 2018-07-27 16:11 | CON ---
DATE OF CONSULTATION: 07/27/2018 I am seeing Mrs. 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 Her problems are, 1. Recurrent atrial arrhythmias. a. A. History of persistent atrial fibrillation prompting a left and right atrial ablation on July 08, 2018. b. B. Recurrent atrial arrhythmias prompting amiodarone loading about a week ago. 2. New finding of large pericardial effusion by CT and 2D echo without definite tamponade signs and stable hemodynamics on current admission, 07/26/2018 at 55%-60% mild MR and TR. 3. Oral anticoagulation with Eliquis and on low-dose aspirin. 4. Borderline elevated troponin at 0.043. 5. History of hypertension, now well controlled. ALLERGIES: CODEINE, MUCINEX, AND STATINS. MEDICATIONS: Include, 1. Eliquis. 2. Aspirin. 3. Cholecalciferol. 4. Cyanocobalamin. 5. Diltiazem. 6. Zetia. 7. Lisinopril. 8. Loperamide. 9. Magnesium oxide. 10. Metoprolol. 11. Pantoprazole. 12. Ranexa. 13. Sertraline. 14. Thiamine. SUBJECTIVE: Ms. Tesfaye is complaining of progressive dizziness, dyspnea on exertion, some chest tightness sensation for the past 3 weeks, gradually worsening. She even had been evaluated in [facility], some pleural effusions were seen. Nausea and vomiting were noted. Eventually, she was noted to be back in an atypical atrial flutter and amiodarone loading was initiated at that time. She has been able to fully tolerate the high-dose amiodarone with nausea and vomiting, likely related to that. She actually stopped taking the 200 mg twice a day dose what she is currently taking about 2 to 3 days ago. She has not passed out with all this. She denies stroke-like symptoms. She continues to take her Eliquis. No bleeding issues are noted. Rest of 12-point system otherwise unremarkable, although she had some fever, chills, and questionable pneumonias like picture in the [facility]. Details unavailable to me at this time. PAST MEDICAL HISTORY: As above. She also gives history of hyperlipidemia, hypertension, osteoarthritis. SOCIAL HISTORY: She drinks on social scale. Denies EtOH or drug abuse. Lives at home. FAMILY HISTORY: Not contributory. OBJECTIVE DATA: VITAL SIGNS: Blood pressure is 119/71. On my exam, paradoxic pulse is not present. Systolic pulse noted at 120 down to continuous systolic pulses noted at 112/70. Heart rate is 93, respirations are 20, temperature is 98 degrees Fahrenheit, not febrile. GENERAL: Alert and oriented woman, in no apparent distress. NECK: Supple. Jugular veins slightly distended. CHEST: Coarse without crackles. Basal dullness is seen. HEART: Sounds are somewhat distant. No murmur or gallop is appreciated. ABDOMEN: Benign. Bowel sounds are positive. EXTREMITIES: Lower extremities without edema, clubbing, or cyanosis. Groin sites without hematoma. NEUROLOGIC: The patient is nonfocal. MUSCULOSKELETAL: No joint swelling or deformity. SKIN: Without rash. IMAGING STUDIES: The chest x-ray shows cardiomegaly with bilateral pleural effusions and atelectasis. The CT scan does demonstrate large pericardial and bilateral pleural effusions. LABORATORY DATA: White cell count 6.5, hemoglobin 10.7, platelet count 533. Sodium 138, potassium 3.4, BUN 12, creatinine 0.7. Troponin level 0.04 and 0.03. BNP is 389. ASSESSMENT/PLAN: 1. Mrs. Tesfaye is a pleasant 83-year-old woman with prior history of atrial arrhythmias, underwent extensive ablation in July 08. Since then, she has not done very well. Her atrial arrhythmias recurred requiring amiodarone loading at an outside facility. She has been poorly tolerating the amiodarone, in fact has been off the loading for last 3 days, has nausea. Also, she developed progressive dyspnea and chest tightness sensation and indeed was found to have a large pericardial effusion on current workup. Her symptoms clearly are related to the pericardial effusion and drainage of this would be required. Hence, the presence of developed clot, surgical removal would be preferred as well as a placement of a surgical window would be reasonable. I discussed the pros and cons about that and she is willing to proceed. Hence, the oral anticoagulation will be held overnight and hopefully resumed as soon as it is clinically feasible. 1. Atrial arrhythmias, recurrent atrial flutter is noted on the current EKG, but ventricular rates are reasonably controlled. For now, I would continue the lower dose amiodarone. If tolerated, eventual MOO guided cardioversion could be considered after recuperation for the pericardial drain. 2. Anticoagulation will be on hold and resume as possible. 3. Pleural effusions, likely related to fluid retention due to the pericardial effusion. We will follow with you. We discussed with Dr. Nazario and Dr. Naranjo. Job ID: [id number]
--- NOTE | 2018-07-27 18:11 | PDOC.PN ---
- Subjective Encounter Start Date: 07/27/18 Encounter Start Time: 18:10 Subjective: Patient reports excess burping for the last couple of days. No further -: vomiting or loose stools since admission. Reports having mild abdominal -: discomfort in epigastric region. Denies any fevers or chills. No headaches Denies any chest pain. No cough or hemoptysis. Reports urinary frequency due to lasix but no dysuria. Has tolerated lunch today. - Objective Resuscitation Status - Order Detail: 07/27/18 00:05 Resuscitation Status Routine Resuscitation Status: FULL: Full Resuscitation Vital Signs & Weight: Vital Signs (12 hours) Temp Pulse Resp BP BP Pulse Ox 07/27/18 11:45 97.3 F L 88 16 125/65 92 L 07/27/18 09:41 93 119/71 07/27/18 07:43 98.0 F 93 20 119/71 94 L 07/27/18 06:15 101 H 132/68 Weight Admit Weight 156 lb 14.4 oz Weight 157 lb 11.2 oz I&O: 07/26/18 07/27/18 07/28/18 06:59 06:59 06:59 Intake Total 0 Output Total 500 Balance -500 Result Diagrams: 07/27/18 05:23 07/27/18 05:23 Phys Exam - Physical Examination Constitutional: NAD HEENT: PERRLA, moist MMs, sclera anicteric, oral pharynx no lesions Neck: no nodes, supple, full ROM Respiratory: no wheezing, no rhonchi Cardiovascular: RRR Distant heart sounds Gastrointestinal: soft, non-tender, no distention Musculoskeletal: no edema, pulses present Neurological: normal sensation, moves all 4 limbs Psychiatric: normal affect, A&O x 3 Skin: no rash Dx/Plan (1) Pericardial effusion Code(s): I31.3 - PERICARDIAL EFFUSION (NONINFLAMMATORY) Status: Acute (2) Pleural effusion Code(s): J90 - PLEURAL EFFUSION, NOT ELSEWHERE CLASSIFIED Status: Acute (3) CAD (coronary artery disease) Code(s): I25.10 - ATHSCL HEART DISEASE OF [place] CORONARY ARTERY W/O ANG PCTRS Status: Chronic Qualifiers: Coronary Disease-Associated Artery/Lesion type: [place] artery [place] vs. transplanted heart: [place] heart Associated angina: without angina Qualified Code(s): I25.10 - Atherosclerotic heart disease of [place] coronary artery without angina pectoris (4) HTN (hypertension) Code(s): I10 - ESSENTIAL (PRIMARY) HYPERTENSION Status: Chronic Qualifiers: Hypertension type: essential hypertension Qualified Code(s): I10 - Essential (primary) hypertension - Plan cont current plan of care Patient for procedure tomorrow to drain pericardial effusion. -: Further plans as per EP/Cardiology. -: On Lasix. Continue to monitor. -: Pulmonary following as well. -: For abdominal bloating, will try simethicone. * .
[2018-07-27] MEDS ORDERED: Simethicone Chewable 80 MG TAB PO PRN (18:24)
[2018-07-27] MEDS: Ezetimibe 10 MG TAB PO SCH (20:05)
--- NOTE | 2018-07-27 23:59 | CON ---
DATE OF CONSULTATION: HISTORY OF PRESENT ILLNESS: This is an 83-year-old female who underwent an AFib ablation about 3 weeks ago with a normal echo prior to that in regard to ejection fraction and pericardial fluid. She felt well for 1-2 days, went home with her daughter in the [place] area and began to feel poorly, was admitted through the [facility]. There she evidently had some aflutter, but continued to feel poorly after receiving some antibiotics for possible pneumonia by Dr. Renteria. She was admitted to the hospital, where a CT scan of the abdomen to evaluate some upper abdominal discomfort showed a moderate-sized pericardial effusion as well as bilateral pleural effusions. Chest x-ray confirms pleural effusion, left greater than right. PAST MEDICAL HISTORY: Significant for hypertension, dyslipidemia, new onset of atrial fibrillation in the past few months with at least 2 cardioversions with only transient conversion. She has osteoarthritis. SOCIAL HISTORY: She is a nonsmoker. She lives at the [facility]. She spends a good deal of time at her daughters in the [place]. PAST SURGICAL HISTORY: Includes cholecystectomy, appendectomy through an upper midline incision. She has also had previous bilateral knee replacements, cataract surgery. PHYSICAL EXAMINATION: GENERAL: On examination, she is an elderly lady, alert, cooperative. LUNGS: Clear to auscultation anteriorly. CARDIAC: No murmurs. ABDOMEN: Soft, tenderness to palpation in the epigastrium with a well-healed upper midline scar. EXTREMITIES: She has trace pretibial edema bilaterally today with palpable popliteal and femoral pulses bilaterally. She has good strong radial pulse and her rhythm appears to be regular at this time. PLAN: At this time is for a pericardial window in the morning and I have discussed this with the patient. Her Eliquis will be held for 2 doses prior to surgery. Informed consent has been obtained. Job ID: [id number]
--- NOTE | 2018-07-28 00:35 | CON ---
DATE OF CONSULTATION: HISTORY OF PRESENT ILLNESS: The patient is a very pleasant 83-year-old woman with a history of atrial fibrillation, who presents with increasing dyspnea, weakness and nausea. The patient in 2011 underwent a cardiac catheterization. She was found to have a 40% left main lesion. The LAD had a 40% ostial stenosis, left circumflex had a 50% stenosis. The patient has subsequently been on medical therapy. She has been doing well. She was admitted with new onset atrial fibrillation in May of this year. The patient was started at that time on Eliquis. She has subsequently undergone radiofrequency ablation in June for atrial fibrillation. She has had difficulty ever since the procedure. She was admitted to the [facility] with possible pneumonia. The patient presents with nausea and weakness and was admitted for further evaluation. PAST MEDICAL HISTORY: 1. Atrial fibrillation. 2. Hypertension. 3. Coronary artery disease. 4. Dyslipidemia. 5. Sleep apnea. 6. Mitral regurgitation. PAST SURGICAL HISTORY: Hysterectomy, cholecystectomy, appendectomy, back surgery. SOCIAL HISTORY: Nonsmoker. ALLERGIES: CODEINE AND STATINS. MEDICATIONS: See nursing list. PHYSICAL EXAMINATION: GENERAL: A middle-aged elderly woman, no acute distress. VITAL SIGNS: Blood pressure 125/65. NECK: Showed no jugular venous distention. LUNGS: Coarse breath sounds in both bases. HEART: Regular rate and rhythm. Normal S1, S2. No murmurs. ABDOMEN: Nondistended. EXTREMITIES: No edema. VASCULAR: Radial pulses are 2+. LABORATORY: Sodium 138, potassium 3.4, chloride 103, bicarbonate 25, BUN 12, creatinine 0.74, glucose 90. Troponin 0.031. White blood cell count 6.1, hemoglobin 10.7, hematocrit 32.6, her platelets were 533. EKG revealed her to have normal sinus rhythm with nonspecific T-wave abnormality. Her echocardiogram revealed a moderate sized pericardial effusion without evidence of tamponade. IMPRESSION: 1. Pericardial effusion. 2. Atrial fibrillation, status post ablation. 3. Coronary artery disease. 4. Hypertension. 5. Dyslipidemia. 6. This patient presents with a pericardial effusion. She has been on Eliquis. She will need to undergo a pericardial window. Cardiovascular surgery will be consulted. We will follow this patient with you through her hospitalization. Job ID: [id number]
[2018-07-28] MEDS: Furosemide 40 MG/4 ML VIAL SLOW IVP SCH ×2 (05:07→15:18)
[2018-07-28] MEDS: Dextrose 5 %-0.45 % NaCl 1,000 ML IV SCH (06:04)
[2018-07-28 06:20] LABS: INR-International Normal Ratio 1.5; PTT 35.1 SEC (22.9-36.1); Prothrombin Time 17.8 SEC (12.0-14.7)
[2018-07-28] MEDS: Cyanocobalamin (Vitamin B-12) 1,000 MCG TAB PO SCH (08:29)
[2018-07-28] MEDS: Magnesium Oxide 400 MG TAB PO SCH (08:30)
[2018-07-28] MEDS: Ubidecarenone 50 MG CAP PO SCH (08:30)
[2018-07-28] MEDS: Aspirin 81 mg Enteric Coated Tablet PO SCH ×2 (08:30→20:41)
[2018-07-28] MEDS: Lisinopril 10 MG TAB PO SCH (08:30)
[2018-07-28 08:35] LABS: Hemoglobin 10.6 g/dL (12.0-16.0)
[2018-07-28 08:36] LABS: Platelet Count 517 thou/uL (130-400)
[2018-07-28] MEDS ORDERED: Dextrose 5 %-0.45 % NaCl 1,000 ML IV SCH (08:43)
[2018-07-28] MEDS ORDERED: Ondansetron PF 4 MG/2 ML Vial ONE ×2 (11:52→13:44)
[2018-07-28] MEDS ORDERED: Fentanyl 100 MCG/2 ML VIAL ONE (12:30)
[2018-07-28] MEDS ORDERED: Bupivacaine HCl 0.5%/Epinephrine 1:200,000/PF 30 ml Vial ONE (13:17)
[2018-07-28] MEDS ORDERED: Ketorolac Tromethamine 30 MG/ML VIAL ONE (13:44)
[2018-07-28] MEDS ORDERED: Rocuronium Bromide 10 MG/ML (10ML VIAL) ONE (13:44)
[2018-07-28] MEDS ORDERED: Glycopyrrolate 0.2 MG/ML 5 ML SYRINGE ONE (13:44)
[2018-07-28] MEDS ORDERED: Dexamethasone 20 MG/5 ML VIAL ONE (13:44)
[2018-07-28] MEDS ORDERED: Ondansetron HCl/PF 4 MG/2 ML Vial IVP PRN (13:51)
[2018-07-28] MEDS ORDERED: Promethazine HCl 25 MG/ML VIAL SLOW IVP PRN (13:51)
[2018-07-28] MEDS ORDERED: Promethazine HCl 25 MG/ML VIAL IM PRN (13:51)
--- NOTE | 2018-07-28 14:40 | PDOC.CTH ---
Cardiology Progress Note - Subjective EP PROGRESS NOTE: 07/28/18 Seen as follow up for Atrial arrhythmias, anticoagulation, and percardial effusion. Patient recently back from OR for drainage of effusion. Lethargic but feeling fairly well. + mild shortness of breath - Objective Vital Signs Temp Pulse Resp BP BP Pulse Ox 07/28/18 08:30 114/56 L 07/28/18 08:29 86 114/56 L 07/28/18 08:00 97.3 F L 86 16 114/56 L 94 L 07/28/18 04:00 99.0 F 96 16 102/56 L 93 L Admit Weight 156 lb 14.4 oz Weight 156 lb 6.4 oz 07/27/18 07/28/18 07/29/18 06:59 06:59 06:59 Intake Total 0 1250 Output Total 500 400 Balance -500 850 - Physical Examination General/Neuro: NAD, other: (recent anesthesia. awake but sleepy) Neck: carotid US brisk, no JVD present Lungs: CTA, unlabored respirations Heart: PMI normal, other: (irreg irreg) Abdomen: NT/ND, soft - Telemetry Telemetry Rhythm: AFlutter/fib - Labs Result Diagrams: 07/28/18 05:51 07/28/18 05:51 Troponin/CKMB CK-MB (CK-2) 1.6 ng/mL (0-6.6) 07/26/18 18:31 Troponin I 0.031 ng/mL (< 0.028) H 07/27/18 00:18 - Assessment/Plan 1. Atrial arrhythmias - early recurrence of AF/FL after recent R&L atrial ablation on 07/08/18 - [facility] while hospitalized there for BL pleural effusions. Associated nausea has made her stop Amio 4 days ago - rate control for now. Possible amio once OAC is resumed. Consider MOO/CV if needed before DC 2. Pericardial effusion - CV surgery took patient to OR today. awaiting report. 3. Oral anticoagulation - Eliquis 5mg PO BID currently on hold. Resuming 516 PM - will need to resume as soon as possible with recent ablation and now back in AF/FL 4. Recent pneumonia 5. Pleural effusions - like r/t pericardial effusion fluid retention. Discussed with Dr Naranjo and Dr Nazario today.
[2018-07-28] MEDS ORDERED: traMADol HCl 50 MG TAB PO PRN (14:59)
--- NOTE | 2018-07-28 15:42 | PDOC.PN ---
- Subjective Encounter Start Date: 07/28/18 Encounter Start Time: 15:41 Subjective: no sob,some painat incision site - Objective Resuscitation Status - Order Detail: 07/27/18 00:05 Resuscitation Status Routine Resuscitation Status: FULL: Full Resuscitation MAR Reviewed: Yes Vital Signs & Weight: Vital Signs (12 hours) Temp Pulse Resp BP BP Pulse Ox 07/28/18 14:30 98.4 F 81 18 135/60 95 07/28/18 08:30 114/56 L 07/28/18 08:29 86 114/56 L 07/28/18 08:00 97.3 F L 86 16 114/56 L 94 L 07/28/18 04:00 99.0 F 96 16 102/56 L 93 L Weight Admit Weight 156 lb 14.4 oz Weight 156 lb 6.4 oz I&O: 07/27/18 07/28/18 07/29/18 06:59 06:59 06:59 Intake Total 0 1250 Output Total 500 400 Balance -500 850 Result Diagrams: 07/28/18 05:51 07/28/18 05:51 Phys Exam - Physical Examination Neck: no JVD Respiratory: clear to auscultation bilateral Cardiovascular: no significant murmur, irregular Gastrointestinal: soft, positive bowel sounds Musculoskeletal: no edema Dx/Plan (1) Pericardial effusion Code(s): I31.3 - PERICARDIAL EFFUSION (NONINFLAMMATORY) Status: Acute (2) Pleural effusion Code(s): J90 - PLEURAL EFFUSION, NOT ELSEWHERE CLASSIFIED Status: Acute (3) Atrial fibrillation and flutter Code(s): I48.91 - UNSPECIFIED ATRIAL FIBRILLATION; I48.92 - UNSPECIFIED ATRIAL FLUTTER Status: Acute (4) Demand ischemia of myocardium Code(s): I24.8 - OTHER FORMS OF ACUTE ISCHEMIC HEART DISEASE Status: Acute (5) CAD (coronary artery disease) Code(s): I25.10 - ATHSCL HEART DISEASE OF [place] CORONARY ARTERY W/O ANG PCTRS Status: Chronic Qualifiers: Coronary Disease-Associated Artery/Lesion type: [place] artery [place] vs. transplanted heart: [place] heart Associated angina: without angina Qualified Code(s): I25.10 - Atherosclerotic heart disease of [place] coronary artery without angina pectoris (6) Dyslipidemia Code(s): E78.5 - HYPERLIPIDEMIA, UNSPECIFIED Status: Chronic (7) HTN (hypertension) Code(s): I10 - ESSENTIAL (PRIMARY) HYPERTENSION Status: Chronic Qualifiers: Hypertension type: essential hypertension Qualified Code(s): I10 - Essential (primary) hypertension (8) TYLER (obstructive sleep apnea) Code(s): G47.33 - OBSTRUCTIVE SLEEP APNEA (ADULT) (PEDIATRIC) Status: Chronic Comment: non compliant with cpap - Plan post pericardialwindow and drainage -: stillin A FIB-restart anticoagasap -: MOO and CV being considered -: discusswith cardiology * .
--- NOTE | 2018-07-28 17:48 | PRG ---
DATE OF SERVICE: 07/28/2018 SUBJECTIVE: Ms. Tesfaye's recent history has been reviewed. Apparently, she was hospitalized at [facility] with pneumonia within the last few weeks. She had an ablation procedure approximately 3 weeks ago. She went to the ER with chest discomfort, was told she had pneumonia, was hospitalized for very short period, discharged, was back in the hospital emergency room 2 hours after discharge since she was having severe retrosternal chest discomfort. She said it was told her pneumonia was worse, and she tells me that she had an echocardiogram while she was in the hospital approximately a little over a week ago where they said her heart looked great and there was no fluid mentioned being around her heart at that time. I do not have access to that echo. She subsequently was admitted here with complaints of shortness of breath, weakness, and nausea. During that time where she was hospitalized for pneumonia, she also had nausea, vomiting, and diarrhea as well as fever. She subsequently has been admitted here, found to have a large pericardial effusion, and has undergone a pericardial window today. The fluid in the [place] drain is serosanguineous. OBJECTIVE: LUNGS: She has crackles in both lung bases. HEART: Regular rhythm. ABDOMEN: Soft and nontender. EXTREMITIES: Without edema. GENERAL: She no longer has nausea, vomiting, or diarrhea. IMPRESSION AND PLAN: 1. Pericarditis with pericardial fluid related to the ablation procedure versus viral-induced pericarditis associated with nausea, vomiting, and diarrhea. 2. Recurrent atrial fibrillation today after an ablation 3 weeks back. 3. Status post pericardial window. 4. Anticoagulation for atrial fibrillation. 5. History of hypertension. 6. History of lipid disorder. 7. Sleep apnea. 8. History of normal pulmonary function in 2016. Overall, she is clinically improving. The only issue that is to be addressed is the atrial fibrillation. Hopefully, she will spontaneously convert without any intervention or need for cardioversion. I see no reason to tap her chest. I suspect these pericardial effusions are related to the pericarditis. Job ID: [id number]
[2018-07-28] MEDS: Colchicine 0.3 MG TAB PO SCH (20:40)
[2018-07-28] MEDS: Ezetimibe 10 MG TAB PO SCH (20:41)
[2018-07-29] MEDS: Furosemide 40 MG/4 ML VIAL SLOW IVP SCH ×2 (05:13→14:26)
[2018-07-29 06:10] LABS: ALT (SGPT) 40 U/L (8-55); AST (SGOT) 25 U/L (5-34); Alkaline Phosphatase 170 U/L (40-150); Anion Gap 13 mmol/L (10-20); BUN (Urea Nitrogen) 8 mg/dL (9.8-20.1); Bilirubin, Total 0.5 mg/dL (0.2-1.2); Calc. Creatinine Clearance 54 mL/min (70-130); Calcium 9.3 mg/dL (7.8-10.44); Carbon Dioxide 26 mmol/L (23-31); Chloride 102 mmol/L (98-107); Estimated GFR-MDRD 64; Globulin 2.6 g/dL (2.4-3.5); Glucose 168 mg/dL (83-110); Magnesium 1.5 mg/dL (1.6-2.6); Potassium 3.7 mmol/L (3.5-5.1); Protein, Total 5.6 g/dL (6.0-8.3); Sodium 137 mmol/L (136-145)
--- NOTE | 2018-07-29 08:39 | OP ---
DATE OF PROCEDURE: 07/28/2018 PREOPERATIVE DIAGNOSIS: Pericardial effusion, 3 weeks post ablation treatment. PROCEDURE PERFORMED: Pericardial window. DESCRIPTION OF PROCEDURE: After prepping and draping and after adequate anesthesia had been obtained, incision was made just at the level of the xiphoid process, carried through the fascia. Blunt and coagulation dissection were used to approach the pericardium, which was then opened and about 500 mL of thin brown fluid was evacuated. Pericardium was pulled down slightly and visualized inside, and there was no evidence of any clot. A 19 Da[place]an drain was placed through a separate stab incision and connected to a bulb. The fascia was reapproximated with a 0 Vicryl [id number] sutures, and then the skin was closed. The patient tolerated the procedure well. Job ID: [id number]
[2018-07-29] MEDS: Aspirin 81 mg Enteric Coated Tablet PO SCH ×2 (09:35→21:10)
[2018-07-29] MEDS: Lisinopril 10 MG TAB PO SCH (09:35)
[2018-07-29] MEDS: Ubidecarenone 50 MG CAP PO SCH (09:35)
[2018-07-29] MEDS: Cyanocobalamin (Vitamin B-12) 1,000 MCG TAB PO SCH (09:35)
[2018-07-29] MEDS: Magnesium Oxide 400 MG TAB PO SCH (09:35)
[2018-07-29] MEDS: Colchicine 0.3 MG TAB PO SCH ×2 (09:36→21:10)
--- NOTE | 2018-07-29 13:18 | PRG ---
DATE OF SERVICE: 07/29/2018 SUBJECTIVE: Jennifer Tesfaye did reasonably well last night. She slept with the CPAP. She said she slept longer here than she sleeps at home. OBJECTIVE: VITAL SIGNS: She is afebrile, heart rate 93, blood pressure 118/58, oximetry 93% on room air, blood pressure 118/58. Intake and output negative 376. LUNGS: Remarkable for decreased breath sounds at her bases. HEART: Regular rhythm. ABDOMEN: Soft. Her only complaint on review of systems is chest discomfort when she takes a deep breath. She still has her Orestes-Owusu drain in place. LABORATORY DATA: Sodium 137, potassium 3.7, chloride 102, bicarb 26, BUN 8, and creatinine 0.85, magnesium 1.5, alkaline phosphatase 170, albumin 3. IMPRESSION: 1. Status post pericardial window. 2. History of ablation several weeks back. 3. History of pneumonia several weeks back. I would wonder if the "pneumonia" was actually just the pleural effusions associated with her pericarditis. 4. Sleep apnea. Compliant with therapy. 5. History of atrial fibrillation and anticoagulation. 6. History of coronary artery disease. 7. History of hypertension. 8. History of mitral regurgitation. Overall, she is clinically stable. We will continue to follow with the other physician who is caring for her. Job ID: [id number]
[2018-07-29 14:18] VITALS: BMI 24.5
--- NOTE | 2018-07-29 14:19 | PRG ---
DATE OF SERVICE: 07/29/2018 SUBJECTIVE: The patient is seen and examined at the bedside. She seems to be doing better. Her appetite is coming back. She had small bowel movement yesterday. OBJECTIVE: VITAL SIGNS: Blood pressure is 159/73, pulse is 93, respiratory rate is 18, and O2 saturation is 93% on room air. HEENT: Head is atraumatic and normocephalic. Sclerae nonicteric. Oral mucosa is moist. NECK: Supple. LUNGS: Left base is dull to percussion. Breath sounds diminished at the left base. HEART: S1 and S2, somewhat irregular. No S3. No S4. There is a drain in place in the chest. ABDOMEN: Soft and nontender. Bowel sounds are present. No organomegaly. EXTREMITIES: No clubbing, cyanosis, or edema. NEUROLOGIC: She follows my commands. She moves all 4 extremities. There are no any sensory or motor deficits. LABORATORY DATA: Labs showed normal electrolytes, BUN of 8, creatinine is 0.85, magnesium 1.5, alkaline phosphatase 170. Normal AST and ALT. Albumin 3.0 and total protein is 5.6. IMPRESSION: 1. Pericarditis with pericardial effusion. 2. Atrial fibrillation/flutter. 3. Demand ischemia of myocardium. 4. Coronary artery disease. 5. Dyslipidemia. 6. Hypertension. 7. Obstructive sleep apnea. 8. Recent pneumonia. DISCUSSION: This is status post pericardial window. She is still in atrial fibrillation, rate is controlled. We will continue her high dose of colchicine 0.3 mg twice a day. We will continue diltiazem orally, furosemide twice a day, lisinopril once a day, ranolazine 500 twice a day, and pantoprazole once a day. We will continue apixaban twice a day 5 mg and aspirin 81 mg. Job ID: [id number]
--- NOTE | 2018-07-29 16:21 | PDOC.CTH ---
Cardiology Progress Note - Subjective EP PROGRESS NOTE: 07/29/18 Seen as follow up for Atrial arrhythmias, anticoagulation, and percardial effusion. Patient feeling much better since effusion was drained. Bulb drain remains in place. c/o lower abd pain. SOB largely resolved. - Objective Vital Signs Temp Pulse Pulse Pulse Resp BP BP 07/29/18 11:47 97 97 146/66 H 07/29/18 09:35 93 118/58 L 07/29/18 08:00 98.2 F 93 18 BP BP Pulse Ox 07/29/18 11:47 159/73 H 07/29/18 09:35 07/29/18 08:00 118/58 L 93 L Admit Weight 156 lb 14.4 oz Weight 156 lb 12.8 oz 07/28/18 07/29/18 07/30/18 06:59 06:59 06:59 Intake Total 1250 699 Output Total 400 975 Balance 850 -276 - Physical Examination General/Neuro: alert & oriented x3, NAD Neck: carotid US brisk, no JVD present Lungs: CTA, unlabored respirations Heart: PMI normal, other: (irreg irreg) Abdomen: NT/ND, soft Other PE findings: pericardial drain to bulb suction - Telemetry Telemetry Rhythm: Aflutter 80-90 - Labs Result Diagrams: 07/28/18 05:51 07/29/18 05:11 Troponin/CKMB CK-MB (CK-2) 1.6 ng/mL (0-6.6) 07/26/18 18:31 Troponin I 0.031 ng/mL (< 0.028) H 07/27/18 00:18 - Assessment/Plan 1. Atrial arrhythmias - early recurrence of AF/FL after recent R&L atrial ablation on 07/08/18 - amiodarone loading in [facility] ~ 1 week ago while hospitalized there for BL pleural effusions. Associated nausea has made her stop Amio 4 days ago - rate control for now. Possible low dose amio after OAC is resumed. Consider MOO/CV if needed before DC 2. Pericardial effusion - CV surgery took patient to OR today. awaiting report. 3. Oral anticoagulation - Eliquis 5mg PO BID currently on hold. Resuming 5 PM 4. Recent pneumonia 5. Pleural effusions - likely r/t pericardial effusion fluid retention. - drain remains in place this AM. Continue rate control. Resume OAC tonight.
[2018-07-29] MEDS: Apixaban 5 MG TAB PO SCH (21:10)
[2018-07-29] MEDS: Ezetimibe 10 MG TAB PO SCH (21:10)
[2018-07-30] MEDS: Furosemide 40 MG/4 ML VIAL SLOW IVP SCH ×2 (06:04→14:25)
[2018-07-30 06:12] LABS: ALT (SGPT) 32 U/L (8-55); AST (SGOT) 22 U/L (5-34); Alkaline Phosphatase 162 U/L (40-150); Anion Gap 11 mmol/L (10-20); BUN (Urea Nitrogen) 16 mg/dL (9.8-20.1); Bilirubin, Total 0.4 mg/dL (0.2-1.2); Calc. Creatinine Clearance 51 mL/min (70-130); Calcium 9.4 mg/dL (7.8-10.44); Carbon Dioxide 34 mmol/L (23-31); Chloride 98 mmol/L (98-107); Estimated GFR-MDRD 60; Globulin 2.4 g/dL (2.4-3.5); Glucose 96 mg/dL (83-110); Magnesium 1.6 mg/dL (1.6-2.6); Potassium 3.6 mmol/L (3.5-5.1); Protein, Total 5.4 g/dL (6.0-8.3); Sodium 139 mmol/L (136-145)
[2018-07-30 08:02] LABS: Hemoglobin 11.8 g/dL (12.0-16.0); Platelet Count 569 thou/uL (130-400)
--- NOTE | 2018-07-30 08:30 | PDOC.CTH ---
Cardiology Progress Note - Subjective EP PROGRESS NOTE: 07/30/18 Seen as follow up for Atrial arrhythmias, anticoagulation, and percardial effusion. Patient feeling much better since effusion was drained. Bulb drain removed . Resolving incisional abd pain. SOB largely resolved. - Objective Vital Signs Temp Pulse Resp BP Pulse Ox 07/30/18 07:53 98.1 F 93 18 122/68 95 07/30/18 04:00 97.8 F 87 17 121/64 95 Admit Weight 156 lb 14.4 oz Weight 156 lb 12.8 oz 07/29/18 07/30/18 07/31/18 06:59 06:59 06:59 Intake Total 699 1100 Output Total 975 2720 Balance -276 -1620 - Physical Examination General/Neuro: alert & oriented x3 Neck: no JVD present Lungs: CTA Heart: RRR Abdomen: no HSM, NT/ND Extremities: + edema B (0) - Telemetry Telemetry Rhythm: AFlutter w 2:1 AV conduction. - Labs Result Diagrams: 07/30/18 07:50 07/30/18 07:50 Troponin/CKMB CK-MB (CK-2) 1.6 ng/mL (0-6.6) 07/26/18 18:31 Troponin I 0.031 ng/mL (< 0.028) H 07/27/18 00:18 - Assessment/Plan 1. Atrial arrhythmias - early recurrence of AF/FL after recent R&L atrial ablation on 07/08/18 - amiodarone loading in [place] ~ 1 week ago while hospitalized there for BL pleural effusions. Associated nausea has made her stop Amio 4 days ago - rate control for now. Possible low dose amio after OAC is resumed. Consider CV +/- MOO if needed. 2. Pericardial effusion - CV surgery took patient to OR 07/28/18. 500cc brownish liquid drained. 3. Oral anticoagulation - Eliquis 5mg PO BID Resumed 5 PM 4. Recent pneumonia 5. Pleural effusions - likely r/t pericardial effusion fluid retention. - drain remains in place this AM. Continue rate control. Resumed OAC last night. Ok to D/C to rehasb from EP standpoint. Close follow up for possible cardioversion in 3-4 weeks. May still need AAD flecainde vs amio vs Multaq vs Sotalol/Tikosyn (after amio washout are options).
[2018-07-30] MEDS: Ubidecarenone 50 MG CAP PO SCH (09:12)
[2018-07-30] MEDS: Cyanocobalamin (Vitamin B-12) 1,000 MCG TAB PO SCH (09:13)
[2018-07-30] MEDS: Apixaban 5 MG TAB PO SCH ×2 (09:13→21:15)
[2018-07-30] MEDS: Magnesium Oxide 400 MG TAB PO SCH (09:13)
[2018-07-30] MEDS: Colchicine 0.3 MG TAB PO SCH ×2 (09:13→21:16)
[2018-07-30] MEDS: Aspirin 81 mg Enteric Coated Tablet PO SCH ×2 (09:13→21:15)
[2018-07-30] MEDS: Lisinopril 10 MG TAB PO SCH (09:13)
--- NOTE | 2018-07-30 09:41 | PRG ---
DATE OF SERVICE: 07/30/2018 SUBJECTIVE: Ms. Tesfaye has no complaints. Her pericardial drain is out. OBJECTIVE: VITAL SIGNS: She is afebrile. Heart rate is 92, respiratory rate is 18, oximetry is 95 on room air, and blood pressure is 122/68. LUNGS: Remarkable for decreased breath sounds at her lung bases. HEART: Regular rhythm. ABDOMEN: Soft and nontender. EXTREMITIES: Without edema. NEUROLOGIC: Grossly nonfocal. LABORATORY DATA: Hemoglobin stable at 11.8. Sodium 139, potassium 3.6, chloride 98, bicarb 34, BUN 16, and creatinine 0.9. IMPRESSION: Pericarditis, status post pericardial window. It is unclear to me whether or not this is related to the ablation procedure or independent of that, i.e. viral pericarditis. She maybe a candidate for discharge this weekend. She will follow up with me in 2 to 3 weeks after discharge for a repeat chest x-ray. I would not recommend tapping her small pleural effusions. Job ID: [id number]
--- NOTE | 2018-07-30 12:25 | PDOC.PN ---
- Subjective Encounter Start Date: 07/30/18 Encounter Start Time: 12:15 Subjective: f/u for pericarditis/effusion s/p pericardial window with drain. Feels ok -: overall but had some nausea and dizziness while showering today. -: No fever or chills, dyspnea. - Objective Resuscitation Status - Order Detail: 07/27/18 00:05 Resuscitation Status Routine Resuscitation Status: FULL: Full Resuscitation MAR Reviewed: Yes Vital Signs & Weight: Vital Signs (12 hours) Temp Pulse Resp BP Pulse Ox 07/30/18 11:07 98.3 F 90 18 105/56 L 94 L 07/30/18 07:53 98.1 F 93 18 122/68 95 07/30/18 04:00 97.8 F 87 17 121/64 95 Weight Admit Weight 156 lb 14.4 oz Weight 156 lb 12.8 oz I&O: 07/29/18 07/30/18 07/31/18 06:59 06:59 06:59 Intake Total 699 1100 Output Total 975 2720 Balance -276 -1620 Result Diagrams: 07/30/18 07:50 07/30/18 07:50 Additional Labs: Laboratory Tests 07/26/18 07/27/18 07/28/18 18:31 05:23 05:51 Hgb 11.5 L 10.7 L Magnesium 1.4 L 07/28/18 07/29/18 07/30/18 05:51 05:11 05:03 Hgb 10.6 L Magnesium 1.5 L 1.6 Radiology Reviewed by me: Yes (2D echo - EF 55-60%, mod LAE, mod pericardial effusion) EKG Reviewed by me: Yes (Tele - SR ) Phys Exam - Physical Examination Constitutional: NAD HEENT: PERRLA, sclera anicteric, oral pharynx no lesions Neck: no nodes, no JVD, supple, full ROM diminished in bases Respiratory: no wheezing, no rhonchi S1, S2 Cardiovascular: RRR, no rub, gallop Gastrointestinal: soft, non-tender, no distention, positive bowel sounds Musculoskeletal: no edema, pulses present Neurological: normal sensation, moves all 4 limbs Psychiatric: A&O x 3 Skin: normal turgor, cap refill <2 seconds Dx/Plan (1) Pericarditis Code(s): I31.9 - DISEASE OF PERICARDIUM, UNSPECIFIED Status: Acute Comment: Improved, s/p pericardial window, continue Colchicine 0.3mg BID (2) Pericardial effusion Code(s): I31.3 - PERICARDIAL EFFUSION (NONINFLAMMATORY) Status: Acute Comment: s/p pericardial window with drain, stable currently (3) Atrial fibrillation and flutter Code(s): I48.91 - UNSPECIFIED ATRIAL FIBRILLATION; I48.92 - UNSPECIFIED ATRIAL FLUTTER Status: Acute Comment: Current SR, Eliquis, Diltiazem (4) Demand ischemia of myocardium Code(s): I24.8 - OTHER FORMS OF ACUTE ISCHEMIC HEART DISEASE Status: Chronic Comment: Stable currently, no ACS, continue ASA (5) TYLER (obstructive sleep apnea) Code(s): G47.33 - OBSTRUCTIVE SLEEP APNEA (ADULT) (PEDIATRIC) Status: Chronic Comment: Nocturnal CPAP - Plan PT/OT, [employer], out of bed/ambulate, DVT proph w/SCDs Stable currently -: Continue Lasix IV another 24h then convert to po -: Continue Eliquis 5mg BID -: OOB/ambulate with PT -: AM lab: BMP, H/H, Mg++ * Awaiting assisted-living opening at [facility]
[2018-07-30] MEDS: Ezetimibe 10 MG TAB PO SCH (21:15)
[2018-07-31 06:03] LABS: ALT (SGPT) 29 U/L (8-55); AST (SGOT) 20 U/L (5-34); Alkaline Phosphatase 175 U/L (40-150); BUN (Urea Nitrogen) 18 mg/dL (9.8-20.1); Bilirubin, Total 0.3 mg/dL (0.2-1.2); Calc. Creatinine Clearance 42 mL/min (70-130); Calcium 9.2 mg/dL (7.8-10.44); Estimated GFR-MDRD 47; Globulin 2.6 g/dL (2.4-3.5); Glucose 112 mg/dL (83-110); Magnesium 1.7 mg/dL (1.6-2.6); Protein, Total 5.6 g/dL (6.0-8.3)
[2018-07-31] MEDS: Furosemide 40 MG/4 ML VIAL SLOW IVP SCH ×2 (06:11→13:27)
[2018-07-31 06:12] LABS: Anion Gap 10 mmol/L (10-20); Carbon Dioxide 35 mmol/L (23-31); Chloride 96 mmol/L (98-107); Potassium 3.4 mmol/L (3.5-5.1); Sodium 138 mmol/L (136-145)
[2018-07-31] MEDS: Ubidecarenone 50 MG CAP PO SCH (09:29)
[2018-07-31] MEDS: Aspirin 81 mg Enteric Coated Tablet PO SCH ×2 (09:29→22:20)
[2018-07-31] MEDS: Lisinopril 10 MG TAB PO SCH (09:29)
[2018-07-31] MEDS: Colchicine 0.3 MG TAB PO SCH ×2 (09:29→22:21)
[2018-07-31] MEDS: Cyanocobalamin (Vitamin B-12) 1,000 MCG TAB PO SCH (09:29)
[2018-07-31] MEDS: Apixaban 5 MG TAB PO SCH ×2 (09:30→22:20)
[2018-07-31] MEDS: Magnesium Oxide 400 MG TAB PO SCH (09:30)
--- NOTE | 2018-07-31 10:31 | EKG ---
Test Reason : Blood Pressure : / mmHG Vent. Rate : 072 BPM Atrial Rate : 072 BPM P-R Int : 204 ms QRS Dur : 088 ms QT Int : 336 ms P-R-T Axes : 080 057 143 degrees QTc Int : 367 ms Normal sinus rhythm Nonspecific T wave abnormality Abnormal ECG Confirmed by SANDRINE RUBI ([id number]), editor city JUSTIN ROQUE ([id number]) on 07/31/2018 10:31:01 AM Referred By: GREYSON Confirmed By:SANDRINE RUBI
[2018-07-31] MEDS ORDERED: Potassium Chloride 20 MEQ TAB PO SCH (12:30)
--- NOTE | 2018-07-31 15:03 | PRG ---
DATE OF SERVICE: 07/31/2018 SUBJECTIVE: The patient feels okay. She is visiting with her family. OBJECTIVE: VITAL SIGNS: Temperature is 97.8, pulse 92, respirations 18, O2 saturation 95% on room air, and blood pressure 112/58. HEENT: Unremarkable. NECK: No adenopathy or JVD. LUNGS: Fairly clear. CARDIAC: S1 and S2, regular. ABDOMEN: Soft. LABORATORY DATA: Sodium 138, potassium 3.4, BUN 18, creatinine 1.1, glucose 112. ASSESSMENT: 1. Pericarditis requiring pericardial window. 2. Pleural effusions. PLAN: She is definitely better, probably needs some type of rehabilitative therapy prior to discharge to home. Nothing further needs to be done for the pleural effusions at this time. Job ID: [id number]
--- NOTE | 2018-07-31 16:00 | PDOC.PN ---
- Subjective Encounter Start Date: 07/31/18 Encounter Start Time: 11:20 Ms. Tesfaye was seen today in follow-up of pericarditis, and AFIB. She says she feels weak, and some mild dyspnea, otherwise ok. - Objective Resuscitation Status - Order Detail: 07/27/18 00:05 Resuscitation Status Routine Resuscitation Status: FULL: Full Resuscitation MAR Reviewed: Yes Vital Signs & Weight: Vital Signs (12 hours) Temp Pulse Resp BP Pulse Ox 07/31/18 15:16 98.0 F 92 18 104/55 L 95 07/31/18 11:55 97.8 F 92 18 112/58 L 95 07/31/18 08:57 98.1 F 92 18 151/65 H 94 L Weight Admit Weight 156 lb 14.4 oz Weight 154 lb 6 oz I&O: 07/30/18 07/31/18 08/01/18 06:59 06:59 06:59 Intake Total 1100 1240 Output Total 2720 2030 Balance -1620 -790 Result Diagrams: 07/30/18 07:50 07/31/18 05:24 Phys Exam - Physical Examination HEENT: PERRLA Respiratory: no wheezing, no rales, no rhonchi, clear to auscultation bilateral Cardiovascular: no significant murmur, no rub, irregular Gastrointestinal: soft, non-tender, no distention, positive bowel sounds Musculoskeletal: pulses present, edema present trace pedal edema Neurological: non-focal, normal sensation, moves all 4 limbs Dx/Plan (1) Pericardial effusion Code(s): I31.3 - PERICARDIAL EFFUSION (NONINFLAMMATORY) Status: Acute Comment: s/p pericardial window with drain, stable currently (2) Atrial fibrillation and flutter Code(s): I48.91 - UNSPECIFIED ATRIAL FIBRILLATION; I48.92 - UNSPECIFIED ATRIAL FLUTTER Status: Acute Comment: Current SR, Eliquis, Diltiazem (3) PNA (pneumonia) Code(s): J18.9 - PNEUMONIA, UNSPECIFIED ORGANISM Status: Acute Qualifiers: Pneumonia type: due to unspecified organism Laterality: right Lung location: lower lobe of lung Qualified Code(s): J18.1 - Lobar pneumonia, unspecified organism (4) CAD (coronary artery disease) Code(s): I25.10 - ATHSCL HEART DISEASE OF [place] CORONARY ARTERY W/O ANG PCTRS Status: Chronic Qualifiers: Coronary Disease-Associated Artery/Lesion type: [place] artery [place] vs. transplanted heart: [place] heart Associated angina: without angina Qualified Code(s): I25.10 - Atherosclerotic heart disease of [place] coronary artery without angina pectoris - Plan * Percarditis with pericardial effusion- she is s/p pericardial window- the drains have been removed * HTN- blood pressure is stable * AFIB- her heart rate is controlled. She was found to have a thrombus in the left atrial appendage- she has been placed on Eliquis, and cardioversion has been postponed for a month * CAD- stable * Deconditioning- continue PT/OT and awaiting placment
[2018-07-31] MEDS: Ezetimibe 10 MG TAB PO SCH (22:20)
[2018-08-01] MEDS: Furosemide 40 MG/4 ML VIAL SLOW IVP SCH (06:16)
[2018-08-01 06:28] LABS: ALT (SGPT) 29 U/L (8-55); AST (SGOT) 22 U/L (5-34); Albumin 3.3 g/dL (3.4-4.8); Alkaline Phosphatase 172 U/L (40-150); Anion Gap 13 mmol/L (10-20); BUN (Urea Nitrogen) 16 mg/dL (9.8-20.1); Bilirubin, Total 0.4 mg/dL (0.2-1.2); Calc. Creatinine Clearance 46 mL/min (70-130); Calcium 9.6 mg/dL (7.8-10.44); Carbon Dioxide 36 mmol/L (23-31); Chloride 93 mmol/L (98-107); Estimated GFR-MDRD 53; Globulin 2.9 g/dL (2.4-3.5); Glucose 98 mg/dL (83-110); Protein, Total 6.2 g/dL (6.0-8.3); Sodium 138 mmol/L (136-145)
[2018-08-01] MEDS: Apixaban 5 MG TAB PO SCH ×2 (08:51→20:18)
[2018-08-01] MEDS: Ubidecarenone 50 MG CAP PO SCH (08:51)
[2018-08-01] MEDS: Colchicine 0.3 MG TAB PO SCH ×2 (08:52→20:18)
[2018-08-01] MEDS: Magnesium Oxide 400 MG TAB PO SCH (08:52)
[2018-08-01] MEDS: Lisinopril 10 MG TAB PO SCH (08:52)
[2018-08-01] MEDS: Aspirin 81 mg Enteric Coated Tablet PO SCH ×2 (08:53→20:18)
[2018-08-01] MEDS: Cyanocobalamin (Vitamin B-12) 1,000 MCG TAB PO SCH (08:53)
[2018-08-01 10:57] LABS: Hemoglobin 13.3 g/dL (12.0-16.0); Platelet Count 550 thou/uL (130-400)
--- NOTE | 2018-08-01 11:45 | PDOC.PN ---
- Subjective Encounter Start Date: 08/01/18 Encounter Start Time: 11:43 Ms. Tesfaye was seen today in follow-up of Pericarditis. She does not have any new complaints. She notes some fatigue, and some dyspnea off an on. - Objective Resuscitation Status - Order Detail: 07/27/18 00:05 Resuscitation Status Routine Resuscitation Status: FULL: Full Resuscitation MAR Reviewed: Yes Vital Signs & Weight: Vital Signs (12 hours) Temp Pulse Resp BP BP Pulse Ox 08/01/18 08:53 97 08/01/18 08:52 107/60 08/01/18 07:38 98.1 F 97 20 107/60 93 L 08/01/18 03:35 97.9 F 93 16 126/69 97 Weight Admit Weight 156 lb 14.4 oz Weight 153 lb 4 oz I&O: 07/31/18 08/01/18 08/02/18 06:59 06:59 06:59 Intake Total 1240 1080 Output Total 2030 2520 Balance -790 -1440 Result Diagrams: 08/01/18 10:33 08/01/18 10:33 Additional Labs: Accuchecks 07/31/18 21:02 POC Glucose 144 H Phys Exam - Physical Examination HEENT: PERRLA, sclera anicteric + decreased breath sounds in the left base Cardiovascular: RRR, no rub slight systolic murmur Gastrointestinal: soft, non-tender, no distention, positive bowel sounds Musculoskeletal: no edema, pulses present Neurological: non-focal, normal sensation, moves all 4 limbs Dx/Plan (1) Pericardial effusion Code(s): I31.3 - PERICARDIAL EFFUSION (NONINFLAMMATORY) Status: Acute Comment: s/p pericardial window with drain, stable currently (2) Atrial fibrillation and flutter Code(s): I48.91 - UNSPECIFIED ATRIAL FIBRILLATION; I48.92 - UNSPECIFIED ATRIAL FLUTTER Status: Acute Comment: Current SR, Eliquis, Diltiazem (3) CAD (coronary artery disease) Code(s): I25.10 - ATHSCL HEART DISEASE OF [place] CORONARY ARTERY W/O ANG PCTRS Status: Chronic Qualifiers: Coronary Disease-Associated Artery/Lesion type: [place] artery [place] vs. transplanted heart: [place] heart Associated angina: without angina Qualified Code(s): I25.10 - Atherosclerotic heart disease of [place] coronary artery without angina pectoris (4) Chronic anticoagulation Code(s): Z79.01 - NURSING HOME (CURRENT) USE OF ANTICOAGULANTS Status: Chronic (5) HTN (hypertension) Code(s): I10 - ESSENTIAL (PRIMARY) HYPERTENSION Status: Chronic Qualifiers: Hypertension type: essential hypertension Qualified Code(s): I10 - Essential (primary) hypertension (6) Physical deconditioning Code(s): R53.81 - OTHER [place] Status: Acute - Plan * Pericardial Effusion- s/p pericardial window- she is currently on Colchicine * AFIB- her ehart rate has been stable * Continue Eliquis for CVA prevention. * HTN- blood pressure is stable * She may have a bit of contraction alkalosis- will hold Lasix, and Lisinopril a day or two * Deconditioning- continue PT/OT- and awaiting longterm transfer
--- NOTE | 2018-08-01 13:51 | PRG ---
DATE OF SERVICE: 08/01/2018 SUBJECTIVE: The patient is feeling okay, had no acute complaints. OBJECTIVE: VITAL SIGNS: Temperature is 98.1, pulse 94, respirations 20, O2 saturation 93% on room air, blood pressure 133/66. HEENT: Unremarkable. NECK: No JVD. LUNGS: Clear. CARDIAC: S1 and S2, regular. ABDOMEN: Soft. EXTREMITIES: No edema. LABORATORY DATA: Hemoglobin 13, hematocrit 42, and platelet count 550. Sodium 138, potassium 4, BUN 16, creatinine 0.9. ASSESSMENT: 1. Pericarditis requiring pericardial window. 2. Pleural effusions. PLAN: She is responding well to current therapy. No additional orders at this time from Pulmonary standpoint. Job ID: [id number]
[2018-08-01] MEDS: Ezetimibe 10 MG TAB PO SCH (20:18)
[2018-08-02 07:18] LABS: ALT (SGPT) 25 U/L (8-55); AST (SGOT) 19 U/L (5-34); Albumin 3.2 g/dL (3.4-4.8); Alkaline Phosphatase 150 U/L (40-150); Anion Gap 12 mmol/L (10-20); BUN (Urea Nitrogen) 15 mg/dL (9.8-20.1); Bilirubin, Total 0.3 mg/dL (0.2-1.2); Calc. Creatinine Clearance 52 mL/min (70-130); Calcium 9.4 mg/dL (7.8-10.44); Carbon Dioxide 32 mmol/L (23-31); Chloride 98 mmol/L (98-107); Estimated GFR-MDRD 63; Globulin 2.5 g/dL (2.4-3.5); Glucose 99 mg/dL (83-110); Potassium 4.1 mmol/L (3.5-5.1); Protein, Total 5.7 g/dL (6.0-8.3); Sodium 138 mmol/L (136-145)
[2018-08-02] MEDS: Aspirin 81 mg Enteric Coated Tablet PO SCH ×2 (09:28→20:00)
[2018-08-02] MEDS: Apixaban 5 MG TAB PO SCH ×2 (09:28→20:00)
[2018-08-02] MEDS: Magnesium Oxide 400 MG TAB PO SCH (09:29)
[2018-08-02] MEDS: Cyanocobalamin (Vitamin B-12) 1,000 MCG TAB PO SCH (09:29)
[2018-08-02] MEDS: Ubidecarenone 50 MG CAP PO SCH (09:29)
[2018-08-02] MEDS: Colchicine 0.3 MG TAB PO SCH ×2 (09:30→20:01)
--- NOTE | 2018-08-02 10:27 | PDOC.PN ---
- Subjective Encounter Start Date: 08/02/18 Encounter Start Time: 10:26 Ms. Tesfaye was seen today in follow-up of Pericarditis and pericardial effusion. She does not have any complaints today. She still notes some significant fatigue, and some dyspnea on exertion. - Objective Resuscitation Status - Order Detail: 07/27/18 00:05 Resuscitation Status Routine Resuscitation Status: FULL: Full Resuscitation MAR Reviewed: Yes Vital Signs & Weight: Vital Signs (12 hours) Temp Pulse Resp BP Pulse Ox 08/02/18 07:16 98.2 F 83 18 136/64 99 08/02/18 03:30 97.7 F 84 20 130/62 95 Weight Admit Weight 156 lb 14.4 oz Weight 151 lb 3 oz I&O: 08/01/18 08/02/18 08/03/18 06:59 06:59 06:59 Intake Total 1080 300 Output Total 2520 500 Balance -1440 -200 Result Diagrams: 08/01/18 10:33 08/02/18 06:38 Phys Exam - Physical Examination HEENT: PERRLA Respiratory: no wheezing, no rales, no rhonchi, clear to auscultation bilateral Cardiovascular: RRR, no rub 2/6 systolic murmur Gastrointestinal: soft, non-tender, no distention, positive bowel sounds Musculoskeletal: no edema, pulses present Neurological: non-focal Dx/Plan (1) Pericardial effusion Code(s): I31.3 - PERICARDIAL EFFUSION (NONINFLAMMATORY) Status: Acute Comment: s/p pericardial window with drain, stable currently (2) Atrial fibrillation and flutter Code(s): I48.91 - UNSPECIFIED ATRIAL FIBRILLATION; I48.92 - UNSPECIFIED ATRIAL FLUTTER Status: Acute Comment: Current SR, Eliquis, Diltiazem (3) CAD (coronary artery disease) Code(s): I25.10 - ATHSCL HEART DISEASE OF [place] CORONARY ARTERY W/O ANG PCTRS Status: Chronic Qualifiers: Coronary Disease-Associated Artery/Lesion type: [place] artery [place] vs. transplanted heart: [place] heart Associated angina: without angina Qualified Code(s): I25.10 - Atherosclerotic heart disease of [place] coronary artery without angina pectoris (4) Chronic anticoagulation Code(s): Z79.01 - [place] (CURRENT) USE OF ANTICOAGULANTS Status: Chronic (5) HTN (hypertension) Code(s): I10 - ESSENTIAL (PRIMARY) HYPERTENSION Status: Chronic Qualifiers: Hypertension type: essential hypertension Qualified Code(s): I10 - Essential (primary) hypertension (6) Physical deconditioning Code(s): R53.81 - OTHER MALAISE Status: Acute - Plan * Pericardial Effusion from acute pericarditis- s/p window. She is currently clinically stable * AFIB- her heart rate is stable * CAD- stable * Deconditioning- awaiting rehab approval
--- NOTE | 2018-08-02 16:06 | PRG ---
DATE OF SERVICE: 08/02/2018 SUBJECTIVE: Ms. Tesfaye has no complaints. OBJECTIVE: VITAL SIGNS: She is afebrile, heart rate is 87, respiratory rate is 18, oximetry is 95% on room air, blood pressure is 137/63. LUNGS: Remarkable for fine crackles, heard at bases. HEART: Regular rhythm. ABDOMEN: Soft and nontender. EXTREMITIES: Without edema. IMPRESSION: 1. Status post pericardial window for impending tamponade. 2. Sleep apnea. Compliant with therapy. 3. Atrial fibrillation/atrial flutter. 4. History of coronary artery disease. 5. History of anticoagulation. 6. History of hypertension. Overall, she appears to be progressing nicely, although she is weak. In my opinion, she is stable to go to a swing bed when one becomes available. Job ID: [id number]
--- NOTE | 2018-08-02 16:19 | PDOC.CTH ---
Cardiology Progress Note - Subjective EP PROGRESS NOTE: 08/02/18 Seen as follow up for Atrial arrhythmias, anticoagulation, and percardial effusion. Patient feeling much better since effusion was drained. Bulb drain removed . Resolving incisional abd pain. SOB largely resolved. she is awaiting rehab placement. - ROS shortness of breath - Objective Vital Signs Temp Pulse Resp BP Pulse Ox 08/02/18 15:25 98.0 F 74 18 119/56 L 94 L 08/02/18 12:23 98.2 F 87 18 137/63 95 08/02/18 07:16 98.2 F 83 18 136/64 99 Admit Weight 156 lb 14.4 oz Weight 151 lb 3 oz 08/01/18 08/02/18 08/03/18 06:59 06:59 06:59 Intake Total 1080 300 Output Total 2520 500 Balance -1440 -200 - Physical Examination General/Neuro: alert & oriented x3 Neck: no JVD present Lungs: CTA Heart: RRR Abdomen: no HSM, soft Other PE findings: Epigastric wound without reaction - Telemetry Telemetry Rhythm: AFL w 2:1 AV conduction - Labs Result Diagrams: 08/01/18 10:33 08/02/18 06:38 Troponin/CKMB CK-MB (CK-2) 1.6 ng/mL (0-6.6) 07/26/18 18:31 Troponin I 0.031 ng/mL (< 0.028) H 07/27/18 00:18 - Assessment/Plan 1. Atrial arrhythmias - early recurrence of AF/FL after recent R&L atrial ablation on 07/08/18 - amiodarone loading in [place] ~ 1 week ago while hospitalized there for BL pleural effusions. Associated nausea has made her stop Amio 4 days ago - rate control for now. Possible low dose amio after OAC is resumed. Consider CV +/- MOO if needed. 2. Pericardial effusion - CV surgery took patient to OR 07/28/18. 500cc brownish liquid drained. 3. Oral anticoagulation - Eliquis 5mg PO BID Resumed 5 PM 4. Recent pneumonia 5. Pleural effusions - likely r/t pericardial effusion fluid retention. - drain remains in place this AM. Continue rate control. Resumed OAC 07/31/18. Uneventful recovery. Ok to D/C to rehasb from EP standpoint. Close follow up for possible cardioversion in 3-4 weeks. May still need AAD flecainde vs amio vs Multaq vs Sotalol/Tikosyn (after amio washout are options).
[2018-08-02 19:58] VITALS: BP 134/65; TEMP 97.8
[2018-08-02] MEDS: Ezetimibe 10 MG TAB PO SCH (20:01)
--- NOTE | 2018-08-03 02:06 | DIS ---
DATE OF ADMISSION: 07/27/2018 DATE OF DISCHARGE: 08/02/2018 PRIMARY CARE PHYSICIAN: Dr. Alexis Renteria. DISCHARGE DISPOSITION: Inpatient Rehab. DISCHARGE DIAGNOSES: 1. Pericarditis with pericardial effusion. 2. Chronic atrial fibrillation. 3. Hypertension. 4. Hyperlipidemia. 5. Osteoarthritis. DISCHARGE MEDICATIONS: Include: 1. Eliquis 5 mg twice a day. 2. Aspirin 81 mg daily. 3. Colchicine 0.3 mg twice a day. 4. Cyanocobalamin 1000 mcg p.o. daily. 5. Diltiazem 240 mg daily. 6. Lisinopril 10 mg daily. 7. Magnesium oxide 400 mg daily. 8. Protonix 40 mg daily. 9. Ranexa 500 mg twice a day. 10. Sertraline 100 mg daily. 11. Tramadol 50 mg q.6 as needed. 12. CoQ10 of 200 mg p.o. daily. X-RAYS AND PROCEDURES: The patient had a CT scan of the abdomen and pelvis, in which there was interval development of a pericardial effusion as well as bilateral pleural effusions. The patient had an echocardiogram showing an ejection fraction estimated at 55% to 60%. There was moderately dilated left atrium. The aortic valve leaflets were slightly thickened. There was a moderate pericardial effusion noted. The patient had placement of a pericardial window. CODE STATUS: Full code. ALLERGIES: TO CODEINE, DEXTROMETHORPHAN, GUAIFENESIN, AND STATINS. HOSPITAL COURSE: Ms. Tesfaye is a pleasant 83-year-old female, who has a history of atrial fibrillation and hypertension. She had come to the hospital after suffering a cough, which had gotten persistently worse. She was also experiencing some dyspnea as well. She was evaluated by Cardiology and also noted to be persistently in atrial fibrillation. Her wheel and axle inspector was called and there was concern that she was symptomatic from the pericardial effusion and this would need to be dealt with first. She was seen by Thoracic Surgery and under went a pericardial window. She tolerated the procedure well. After the drains were removed and she was stabilized, Eliquis was restarted. The patient's heart rate remained stable with regard to the atrial fibrillation. During this time, she was found to be extremely deconditioned and for this reason, inpatient rehab referral was made. She was able to be transferred to inpatient rehab on 08/02/2018 in stable condition. Job ID: [id number]
== END 2018-08-02 20:24 | DRG 271 ==
LOC: ERS 18:10 → ERHOLD 21:26 → 2NO 07-27 01:24 → OBSVTOIN 07-27 16:12
PROVIDERS: ADMIT Hospitalist; ATTEND Hospitalist
PROC: 0W9D0ZZ Drainage of Pericardial Cavity, Open Approach (ICD-10-PCS; principal; 2018-07-28)
DX: I31.3 Pericardial effusion (noninflammatory) (principal); I48.92 Unspecified atrial flutter; J90 Pleural effusion, not elsewhere classified; I24.8 Other forms of acute ischemic heart disease; E78.5 Hyperlipidemia, unspecified; I10 Essential (primary) hypertension; M19.91 Primary osteoarthritis, unspecified site; I48.91 Unspecified atrial fibrillation; F32.9 Major depressive disorder, single episode, unspecified; G47.33 Obstructive sleep apnea (adult) (pediatric); E87.6 Hypokalemia; I25.10 Atherosclerotic heart disease of native coronary artery without angina pectoris; I49.9 Cardiac arrhythmia, unspecified; Z90.49 Acquired absence of other specified parts of digestive tract; Z90.710 Acquired absence of both cervix and uterus; Z98.42 Cataract extraction status, left eye; Z98.41 Cataract extraction status, right eye; Z88.5 Allergy status to narcotic agent; Z88.8 Allergy status to other drugs, medicaments and biological substances; Z79.82 Long term (current) use of aspirin
CPT/HCPCS: 36415; 36416; 71046; 74177; 80048; 80053; 82553; 82565; 83605; 83690; 83735; 83880; 84484; 85014; 85018; 85025; 85049; 85610; 85730; 86850; 86900; 86901; 93005; 93306; 96374; J0670; J1100; J1885; J1940; J2405; J3010; J3480; J7050; Q9966; Q9967

== ENCOUNTER 2018-08-27 14:58 | Inpatient (IN) | payer MEDICARE, OTHER ==
[2018-08-27] MEDS ORDERED: Nitroglycerin 0.4 MG TAB 1 EACH ONE (15:03)
[2018-08-27] MEDS ORDERED: Ondansetron PF 4 MG/2 ML Vial ONE ×2 (15:03→16:06)
[2018-08-27 15:33] LABS: Hemoglobin 11.5 g/dL (12.0-16.0); Mean Corpuscular HGB CONC 32.2 g/dL (32.0-36.0); Mean Corpuscular Hemoglobin 31.2 pg (27.0-31.0); Mean Platelet Volume 5.9 fL (7.4-10.4); Platelet Count 359 thou/uL (130-400); RBC Distribution Width 13.9 % (11.5-14.5); Red Blood Cell (RBC) Count 3.68 mill/uL (4.20-5.40); White Blood Cell (WBC) Count 14.5 thou/uL (4.8-10.8)
--- NOTE | 2018-08-27 15:36 | RAD ---
Portable frontal chest radiograph: 08/27/2018 COMPARISON: 07/27/2018 HISTORY: Nausea, vomiting, shortness of breath, pain FINDINGS: There is pleural and parenchymal opacity within the left lung base, with aeration demonstra ting improvement when compared to the 07/27/2018 exam. Increased linear interstitial density is noted as is pulmonary hyperinflation, chronic findings. No pneumothorax. Heart and mediastinal contou rs are stable. Pleural fluid noted on the right on the prior examination has resolved. IMPRESSION: Improved aeration within both lung bases with mild persistent pleural and parenchymal opa city within the left lung base. This suggests small left pleural effusion with adjacent atelectasis or infiltrate.
[2018-08-27 15:38] LABS: INR-International Normal Ratio 1.8; PTT 29.4 SEC (22.9-36.1); Prothrombin Time 20.5 SEC (12.0-14.7)
[2018-08-27 15:50] LABS: Band 16 % (5-11); Lymphocytes 4 % (21-51); MDiff Complete? YES; Monocytes 3 % (0-10); Neutrophil 77 % (42-75); Platelet Morphology Comment Appears Adequate; RBC Morphology Normal
[2018-08-27] MEDS ORDERED: Morphine 4 MG/ML VIAL ONE (16:05)
[2018-08-27 16:54] LABS: Albumin 3.6 g/dL (3.4-4.8)
[2018-08-27 16:55] LABS: Chloride 104 mmol/L (98-107); Potassium 4.1 mmol/L (3.5-5.1); Sodium 135 mmol/L (136-145)
[2018-08-27 16:56] LABS: Calcium 9.1 mg/dL (7.8-10.44); Magnesium 1.9 mg/dL (1.6-2.6)
[2018-08-27 16:57] LABS: Globulin 2.6 g/dL (2.4-3.5); Glucose 163 mg/dL (83-110); Protein, Total 6.2 g/dL (6.0-8.3)
[2018-08-27 16:58] LABS: Anion Gap 13 mmol/L (10-20); Carbon Dioxide 22 mmol/L (23-31)
[2018-08-27 16:59] LABS: Alkaline Phosphatase 120 U/L (40-150); Bilirubin, Total 0.9 mg/dL (0.2-1.2)
[2018-08-27 17:00] LABS: Calc. Creatinine Clearance 0 mL/min (70-130); Estimated GFR-MDRD 58
[2018-08-27 17:01] LABS: BUN (Urea Nitrogen) 14 mg/dL (9.8-20.1)
[2018-08-27 17:02] LABS: AST (SGOT) 33 U/L (5-34)
[2018-08-27 17:03] LABS: ALT (SGPT) 23 U/L (8-55)
[2018-08-27 17:34] LABS: CKMB 12.6 ng/mL (0-6.6)
[2018-08-27] MEDS ORDERED: Enoxaparin Sodium 80 MG/0.8 ML SYRINGE ONE (17:45)
[2018-08-27] MEDS ORDERED: Acetaminophen 325 MG TAB PO PRN (18:38)
[2018-08-27] MEDS ORDERED: Sodium Chloride 0.9% 1,000 ML IV SCH (19:15)
--- NOTE | 2018-08-27 19:50 | CON ---
DATE OF CONSULTATION: 08/27/2018 REASON FOR CONSULTATION: Elevated troponin and tachycardia. PRIMARY [employer] FINANCIAL DEVELOPER: Yeyo Nazario MD HISTORY OF PRESENT ILLNESS: Ms. Tesfaye is a very pleasant 83-year-old woman, who recently presented with chest pain. She states that it woke her from sleep. It was at 3 o'clock in the morning. She was tachycardic with a heart rate in the 160s. She was found to be in atrial flutter. This has not been controlled. She is chest pain-free. She does have 2:1 block, but her rate appears to be well controlled. She underwent coronary angiography in the remote past. She did have 40% left main disease, not felt bad enough to proceed with bypass surgery. She also had moderate LAD and OM disease. Most recently, she had atrial flutter ablation. This was complicated by pericardial effusion, status post pericardial window. PAST MEDICAL HISTORY: Hypertension, atrial fibrillation, CAD, hyperlipidemia, sleep apnea, mitral regurgitation. SOCIAL HISTORY: No current tobacco or alcohol use. ALLERGIES: CODEINE, STATINS. PAST SURGICAL HISTORY: Hysterectomy, cholecystectomy, appendectomy. HOME MEDICATIONS: 1. Tramadol. 2. CoQ10. 3. Mylicon. 4. Sertraline. 5. Ranexa. 6. Protonix. 7. Zestril. 8. Zetia. 9. Diltiazem. 10. Colcrys. 11. Aspirin. 12. Eliquis? REVIEW OF SYSTEMS: 10-point review of systems is reviewed as above, otherwise negative. PHYSICAL EXAMINATION: GENERAL: Patient is a pleasant woman, who is in no acute distress. The patient appears her stated age. VITAL SIGNS: Blood pressure 120/70, pulse 80, respirations 20. NEUROLOGIC: The patient is alert and oriented x3 with no focal neurologic deficits. HEENT: Sclerae without icterus. Mouth has moist mucous membranes with normal pallor. NECK: No JVD. Carotid upstroke brisk. No bruits bilaterally. LUNGS: Clear to auscultation with unlabored respirations. BACK: No scoliosis or kyphosis. CARDIAC: Regular rate and rhythm with normal S1 and S2. No S3 or S4 noted. No significant rubs, murmurs, thrills, or gallops noted throughout the precordium. PMI is not displaced. There is no parasternal heave. ABDOMEN: Soft, nontender, nondistended. No peritoneal signs present. No hepatosplenomegaly. No abnormal striae. EXTREMITIES: 2+ femoral and 2+ dorsalis pedis pulses. No cyanosis, clubbing, or edema. SKIN: No gross abnormalities. PERTINENT LABORATORY DATA: Hemoglobin 11.5. Peak troponin 3.2, CK-MB of 12. BNP of 324. IMPRESSION: 1. Elevated troponin. 2. Tachycardia. 3. Atrial flutter. 4. Coronary artery disease. RECOMMENDATIONS: Ms. Tesfaye appears to be pain-free. No current complaints. She is resting comfortably. Her heart rate is well controlled. She will likely need coronary angiography with possible PCI prior to discharge to reassess her coronary anatomy. At this point, she has been taking Eliquis. We will hold off on anticoagulants until tomorrow. We will resume Lovenox in a.m. Otherwise, recommend aspirin, lisinopril, and metoprolol. We will add statin therapy. Job ID: [id number]
--- NOTE | 2018-08-27 20:04 | HP ---
CHIEF COMPLAINT: Chest pain. HISTORY OF PRESENT ILLNESS: This is an 83-year-old female with history of chronic atrial fibrillation, on full anticoagulation; recent pericarditis, pericardial effusion, and pericardial window placement with hospitalization here in July 2018 ; dyslipidemia; hypertension; recent pneumonia; who presents to the emergency room complaining of chest pain. The patient reports that she started having chest pain around 3:00 or 4:00 this morning, rated it as 3/10 in intensity, describes it as a squeezing sensation without precipitating or relieving factors. She had associated left arm pain and neck pain, as well as pain in her right ear. The symptoms gradually worsened up to 9/10, at which point, she decided to come to the emergency room, approximately 8 hours later. The patient denies any prior history of this, denies any history of heart attack. She tried some deep breathing, but no medications were taken, and she is on full-dose anticoagulation and low-dose aspirin. She noticed fatigue, nausea, vomiting, dyspnea with exertion, abdominal pain, also described as squeezing and belching. The patient was hospitalized here in July of 2018 for pericarditis with pericardial effusion, for which she underwent a pericardial window. Her anticoagulation was held during that time, however, it was restarted prior to her discharge. From this facility, she went to the inpatient rehab facility for approximately 10 days, then to [facility] for approximately 6 days, and then she stayed with her son for the past 8 days. She went home yesterday, reports that she was feeling well. In the emergency room, the patient was found to have an NSTEMI as well as in atrial flutter with a 2:1 block. She received nitroglycerin sublingual 0.4 mg x2, 500 mL of normal saline, Zofran 4 mg x2, and hospitalist called for admission. PAST MEDICAL HISTORY: 1. Pericarditis with pericardial effusion, status post pericardial window with hospitalization here in July 2018. 2. Recent pneumonia, on antibiotic therapy. 3. Chronic atrial fibrillation, on full anticoagulation. 4. Hypertension. 5. Dyslipidemia. 6. Osteoarthritis. 7. Anxiety and depression. PAST SURGICAL HISTORY: 1. Cardiac ablation. 2. Pericardial window. 3. Appendectomy. 4. Cholecystectomy. 5. Bilateral knee replacement. 6. Bilateral cataract surgery. SOCIAL HISTORY: The patient has an apartment at [facility] for independent living, denies any alcohol or tobacco. She has three children and reports they are all her surrogate decision makers, and her code status is cardiac medication and intubation only, no chest compressions. ALLERGIES TO MEDICINE: Codeine, dextromethorphan, guaifenesin, Mucinex DM, statins. CURRENT MEDICATIONS: Reconciled with the patient; 1. Eliquis 5 mg b.i.d. 2. Aspirin 81 mg daily. 3. Vitamin B12 daily. 4. Diltiazem 240 mg daily. 5. Lisinopril 10 mg daily. 6. Magnesium supplement daily. 7. Ranexa 500 mg b.i.d. 8. Sertraline 100 mg daily. 9. Coenzyme Q10, 200 mg daily. FAMILY HISTORY: The patient denies. She reports that her mother lived to age 96 and her father lived to age 86. REVIEW OF SYSTEMS: Positive for fatigue, nausea, vomiting, shortness of breath, abdominal pain, dyspnea on exertion, incomplete voiding and incontinence which is chronic, occasional right-sided nose bleed. It is negative for any fevers or chills, any dysuria or hematuria. All remaining review of systems are reviewed and negative. PHYSICAL EXAMINATION: VITAL SIGNS: Blood pressure 141/95, pulse 101, respirations 19, temperature is 98.8. Saturation is 100% on room air. GENERAL: Awake, alert, responsive, in no apparent distress. Able to speak in full sentences. HEENT: Pupils are equal and round. Oral mucosa is pink and moist. NECK: Supple, nontender. No audible carotid bruits. LYMPHATICS: No palpable cervical or supraclavicular lymphadenopathy. LUNGS: Clear to auscultation bilateral with good air movement. HEART: Normal S1 and S2. Regular rate and rhythm. No audible murmurs. ABDOMEN: Soft with present bowel sounds, nontender, nondistended. EXTREMITIES: No clubbing, cyanosis, or edema. SKIN: No visible rashes. She does have multiple seborrheic keratoses scattered around her chest, arms, and back. VASCULAR: 2+ dorsalis pedis pulses. NEUROLOGIC: No gross deficits. PSYCH: Euthymic, alert and oriented x4. LABORATORY DATA: Labs reviewed. CBC: 14.5, 11.5, 35.7, 359, with 77% neutrophils. INR is 1.8. Renal panel: 135, 4.1, 104, 22, 14, 0.92, 163. LFTs negative. Troponin 3.269, CK-MB 12.6, BNP 324. Chest x-ray is personally reviewed, which shows improved aeration within both lung bases with mild persistent pleural and parenchymal opacity within the left lung base, suggesting small left pleural effusion with adjacent atelectasis or infiltrate. EKG is personally reviewed. Tachycardia with a rate of 103, and concern for a 2 :1 block with atrial flutter with a QT corrected of 479. IMPRESSION: 1. Mym-WT-[id number] elevation myocardial infarction in a patient with a cardiac history. 2. Atrial flutter in a patient with chronic atrial fibrillation, on full anticoagulation. 3. Prolonged QT interval. 4. Hypertension, unknown control. 5. Recent pericardial window for pericardial effusion and pericarditis. 6. Dyslipidemia. 7. Anxiety and depression. 8. Anemia, mild and chronic. 9. Leukocytosis, likely secondary to today's events. PLAN: 1. Admission in the hospital. 2. Telemetry monitoring, Cardiology consultation, echocardiogram. 3. As the patient took Eliquis today, we will hold tonight's dose and start full-dose Lovenox tomorrow morning. I discussed this with Dr. Choudhary. 4. Continuing the low-dose aspirin, continuing her home Zetia as she has an allergy to statins. 5. Nitro paste with hold parameters in case of hypotension. Gentle IVF hydration in case of catheterization tomorrow. 6. We will continue her lisinopril and initiate a low-dose beta maria alejandra for rate control of this arrhythmia. 7. Holding the diltiazem for now. 8. We will hold the Ranexa, given the nitro paste, hold her sertraline for now as this can have effects on the platelets as well. 9. Trend her troponins. 10. Monitor her renal function. 11. Heart healthy diet. 12. Avoid medications that can prolong the QT interval, we will use Reglan as needed for nausea, vomiting. 13. DVT prophylaxis not indicated. She will be fully anticoagulated. 14. GI prophylaxis not indicated. The patient is written for diet. 15. Code status is cardiac medications, and intubation. No chest compressions. Her surrogate decision makers are any of her three children. 16. The patient is at high risk, given age, comorbidities, and current presentation. 17. Reviewed the plan of care with the patient. No questions or further needs at the end of evaluation. Job ID: [id number] MTDD
[2018-08-27 20:35] LABS: Troponin I 4.106 ng/mL (< 0.028)
[2018-08-27] MEDS ORDERED: Metoprolol Tartrate 25 MG TAB PO SCH (21:00)
[2018-08-27] MEDS: Nitroglycerin 2% Ointment 1 INCH/1 GM Packet TOP SCH (21:33)
[2018-08-27 22:47] LABS: Critical Call Chem Troponin I RESULT DECREASING; Troponin I 3.916 ng/mL (< 0.028)
[2018-08-28] MEDS: Nitroglycerin 2% Ointment 1 INCH/1 GM Packet TOP SCH ×3 (05:36→23:55)
[2018-08-28 08:06] LABS: #Lymphocytes 1.3 thou/uL (1.20-3.40); #Monocytes 0.8 thou/uL (0.11-0.59); #Neutrophils 7.3 thou/uL (1.40-6.50); %Basophils 0.3 % (0.0-1.0); %Eosinophils 0.3 % (0.0-10.0); %Neutrophils 77.4 % (42.0-75.0); Hemoglobin 11.6 g/dL (12.0-16.0); Mean Corpuscular HGB CONC 32.8 g/dL (32.0-36.0); Mean Corpuscular Hemoglobin 31.7 pg (27.0-31.0); Mean Corpuscular Volume 96.7 fL (78.0-98.0); Mean Platelet Volume 6.3 fL (7.4-10.4); Platelet Count 278 thou/uL (130-400); RBC Distribution Width 13.9 % (11.5-14.5); Red Blood Cell (RBC) Count 3.65 mill/uL (4.20-5.40); White Blood Cell (WBC) Count 9.5 thou/uL (4.8-10.8)
[2018-08-28 08:21] LABS: Anion Gap 9 mmol/L (10-20); BUN (Urea Nitrogen) 18 mg/dL (9.8-20.1); Calc. Creatinine Clearance 39 mL/min (70-130); Calcium 9.5 mg/dL (7.8-10.44); Carbon Dioxide 27 mmol/L (23-31); Cardiac Risk 3.2 (Less than 4.5); Chloride 105 mmol/L (98-107); Cholesterol 124 mg/dl (< 200 Desired); Estimated GFR-MDRD 46; Glucose 104 mg/dL (83-110); HDL Cholesterol 39 mg/dL (>60 Neg Risk); LDL Cholesterol, Calculated 69 mg/dL; Potassium 4.4 mmol/L (3.5-5.1); Sodium 137 mmol/L (136-145); Triglycerides 79 mg/dL (Less than 150)
[2018-08-28] MEDS ORDERED: Lisinopril 10 MG TAB PO SCH (09:00)
[2018-08-28] MEDS: Aspirin 81 mg Enteric Coated Tablet PO SCH (09:26)
[2018-08-28] MEDS: Enoxaparin Sodium 80 MG/0.8 ML SYRINGE SC SCH ×2 (09:27→21:31)
[2018-08-28] MEDS: Metoprolol Tartrate 25 MG TAB PO SCH ×2 (09:27→21:30)
[2018-08-28] MEDS ORDERED: Sodium Chloride 0.9% 1,000 ML IV SCH (10:38)
--- NOTE | 2018-08-28 10:41 | PDOC.PN ---
- Subjective Encounter Start Date: 08/28/18 (f/u chest pain) Encounter Start Time: 10:39 Subjective: Pt denies any chest pain. She does note some discomfort in the -: lower chest/epigastric area that at home is relieved with tums -: she denies any dyspnea/n/v - Objective Resuscitation Status - Order Detail: 08/27/18 18:38 Resuscitation Status Routine Resuscitation Status: PRTL: Chem-Intubation Discussed with: patient, she specifically reports she does not want compressions Vital Signs & Weight: Vital Signs (12 hours) Temp Pulse Resp BP Pulse Ox 08/28/18 04:00 98.0 F 102 H 16 105/63 93 L 08/27/18 23:10 97.5 F L 102 H 16 92/60 94 L Weight Weight 147 lb 12.8 oz I&O: 08/27/18 08/28/18 08/29/18 06:59 06:59 06:59 Intake Total 1400 Output Total 600 Balance 800 Result Diagrams: 08/28/18 07:27 08/28/18 07:27 EKG Reviewed by me: Yes (tele - a tach 2:1 conduction with vent rate of 103) Phys Exam - Physical Examination Constitutional: NAD Respiratory: no wheezing, no rales, no rhonchi Cardiovascular: RRR, no significant murmur Gastrointestinal: soft, non-tender mild ttp along the epigastric area without palpable abnormality Musculoskeletal: no edema Neurological: non-focal, moves all 4 limbs Skin: no rash Dx/Plan (1) Arrhythmia Code(s): I49.9 - CARDIAC ARRHYTHMIA, UNSPECIFIED Status: Acute (2) NSTEMI (non-ST elevated myocardial infarction) Code(s): I21.4 - NON-ST ELEVATION (NSTEMI) MYOCARDIAL INFARCTION Status: Acute (3) Dyslipidemia Code(s): E78.5 - HYPERLIPIDEMIA, UNSPECIFIED Status: Acute (4) Prolonged QT interval Code(s): R94.31 - ABNORMAL ELECTROCARDIOGRAM [ECG] [EKG] Status: Chronic (5) Anemia Code(s): D64.9 - ANEMIA, UNSPECIFIED Status: Chronic Qualifiers: Anemia type: unspecified type Qualified Code(s): D64.9 - Anemia, unspecified (6) Anxiety and depression Code(s): F41.9 - ANXIETY DISORDER, UNSPECIFIED; F32.9 - MAJOR DEPRESSIVE DISORDER, SINGLE EPISODE, UNSPECIFIED Status: Chronic - Plan * arrhythmia - a flutter vs a tachycardia * beta-maria alejandra and tele * cards consult * nstemi * nitro-paste if bp will tolerate and if sx * aspirin - low dose * full dose lovenox starting today - was on eliquis with last dose yesterday morning * jessica-i - lower this and continue the same hold parameters * gerd - reproducible epigastric sx - tums prn and monitor * home meds - diltiazem held due to starting beta-maria alejandra * resume zetia * hold ranexa due to bp * resume sertraline * hold supplements * * dvt prophy - full dose lovenox for nstemi * gi prophy - on ppi * code status chem/intubation only * reviewed plan of care with patient, no questions or further needs at end of eval * pt remains at high risk in current condition.
--- NOTE | 2018-08-28 15:11 | PDOC.CTH ---
Cardiology Progress Note - Subjective Complaint of fatigue/lack of energy. No chest pain. Mild SOB. - Objective Vital Signs Temp Pulse Pulse Pulse Resp BP BP 08/28/18 11:37 104 H 107 H 97/61 121/68 08/28/18 11:05 98.2 F 101 H 19 08/28/18 04:00 98.0 F 102 H 16 BP Pulse Ox Pulse Ox Pulse Ox 08/28/18 11:37 92 L 95 08/28/18 11:05 121/79 95 08/28/18 04:00 105/63 93 L Weight 147 lb 12.8 oz 08/27/18 08/28/18 08/29/18 06:59 06:59 06:59 Intake Total 1400 Output Total 600 Balance 800 - Physical Examination General/Neuro: alert & oriented x3 Neck: no JVD present Lungs: CTA Heart: other: (Regular, tachycardia) Abdomen: NT/ND Extremities: other: (no edema) - Telemetry Telemetry Rhythm: ATach - Labs Result Diagrams: 08/28/18 07:27 08/28/18 07:27 Troponin/CKMB CK-MB (CK-2) 12.6 ng/mL (0-6.6) H* 08/27/18 16:12 Troponin I 3.916 ng/mL (< 0.028) H* 08/27/18 22:10 - Assessment/Plan 1. NSTEMI 2. AFlutter 3. Hx CAD 4. Acute systolic CHF (EF 20-25%) 5. Paroxysmal AF Continue ASA, bblocker, lisinopril, zetia. Off Eliquis in prep for cath. on Lovenox. Add lasix. Plan for cath Thursday. EP consult. Pt was seen and examined. Agree with the above assessment. Crackles in lungs presnt. Pt feels washed out. Add lasix IV Plan on angio on Thursday
[2018-08-28] MEDS ORDERED: Furosemide 20 MG/2 ML VIAL SLOW IVP SCH (15:15)
[2018-08-28] MEDS ORDERED: Furosemide 40 MG/4 ML VIAL IVP SCH (18:45)
[2018-08-28] MEDS: Metoclopramide HCl 10 MG/2 ML VIAL IVP PRN (19:20)
[2018-08-28] MEDS: Ezetimibe 10 MG TAB PO SCH (21:30)
[2018-08-28] MEDS: Calcium Carbonate 500 MG ChewTAB PO PRN (21:39)
[2018-08-28] MEDS ORDERED: Ondansetron ODT 4 MG TAB PO PRN (23:36)
[2018-08-29] MEDS: Ondansetron PF 4 MG/2 ML Vial IVP PRN (00:02)
[2018-08-29] MEDS: Metoclopramide HCl 10 MG/2 ML VIAL IVP PRN (03:54)
[2018-08-29 04:38] LABS: #Lymphocytes 1.2 thou/uL (1.20-3.40); #Monocytes 0.7 thou/uL (0.11-0.59); #Neutrophils 9.4 thou/uL (1.40-6.50); %Basophils 0.2 % (0.0-1.0); %Eosinophils 0.2 % (0.0-10.0); %Lymphocytes 10.6 % (21.0-51.0); %Neutrophils 82.9 % (42.0-75.0); Mean Corpuscular HGB CONC 32.9 g/dL (32.0-36.0); Mean Corpuscular Hemoglobin 31.5 pg (27.0-31.0); Mean Platelet Volume 6.2 fL (7.4-10.4); Platelet Count 246 thou/uL (130-400); RBC Distribution Width 13.9 % (11.5-14.5); White Blood Cell (WBC) Count 11.4 thou/uL (4.8-10.8)
[2018-08-29 05:02] LABS: Anion Gap 16 mmol/L (10-20); BUN (Urea Nitrogen) 19 mg/dL (9.8-20.1); Calc. Creatinine Clearance 42 mL/min (70-130); Calcium 9.2 mg/dL (7.8-10.44); Carbon Dioxide 24 mmol/L (23-31); Chloride 99 mmol/L (98-107); Estimated GFR-MDRD 51; Glucose 130 mg/dL (83-110); Potassium 3.6 mmol/L (3.5-5.1); Sodium 135 mmol/L (136-145)
[2018-08-29] MEDS: Nitroglycerin 2% Ointment 1 INCH/1 GM Packet TOP SCH ×3 (05:43→21:30)
[2018-08-29] MEDS ORDERED: Communication Order-Pharmacy FS SCH (08:30)
[2018-08-29] MEDS: Aspirin 81 mg Enteric Coated Tablet PO SCH (08:49)
[2018-08-29] MEDS: Lisinopril 2.5 MG TAB PO SCH (08:49)
[2018-08-29] MEDS: Enoxaparin Sodium 80 MG/0.8 ML SYRINGE SC SCH ×2 (08:49→21:29)
[2018-08-29] MEDS: Metoprolol Tartrate 25 MG TAB PO SCH ×2 (08:49→21:30)
[2018-08-29] MEDS ORDERED: Furosemide 20 MG TAB PO SCH (09:00)
--- NOTE | 2018-08-29 10:57 | PDOC.PN ---
- Subjective Encounter Start Date: 08/29/18 (f/u nstemi) Encounter Start Time: 10:54 Subjective: pt reports significant fatigue, some nausea. Denies any chest pain -: some lightheaded with ambulation - Objective Resuscitation Status - Order Detail: 08/27/18 18:38 Resuscitation Status Routine Resuscitation Status: PRTL: Chem-Intubation Discussed with: patient, she specifically reports she does not want compressions Vital Signs & Weight: Vital Signs (12 hours) Temp Pulse Resp BP Pulse Ox 08/29/18 08:43 98.4 F 110 H 18 113/65 94 L 08/29/18 03:35 99.4 F 107 H 21 H 126/78 92 L 08/29/18 03:20 94 L 08/28/18 23:55 99.3 F 108 H 20 127/78 94 L Weight Weight 148 lb I&O: 08/28/18 08/29/18 08/30/18 06:59 06:59 06:59 Intake Total 1400 1500 Output Total 600 1450 Balance 800 50 Result Diagrams: 08/29/18 04:23 08/29/18 04:23 EKG Reviewed by me: Yes (tele - atrial tachy 100s) Phys Exam - Physical Examination Constitutional: NAD pt very tired appearing bibasilar rales Cardiovascular: RRR, no significant murmur Gastrointestinal: soft, non-tender, no distention, positive bowel sounds Musculoskeletal: no edema Neurological: non-focal Dx/Plan (1) Arrhythmia Code(s): I49.9 - CARDIAC ARRHYTHMIA, UNSPECIFIED Status: Acute (2) NSTEMI (non-ST elevated myocardial infarction) Code(s): I21.4 - NON-ST ELEVATION (NSTEMI) MYOCARDIAL INFARCTION Status: Acute (3) Dyslipidemia Code(s): E78.5 - HYPERLIPIDEMIA, UNSPECIFIED Status: Chronic (4) Prolonged QT interval Code(s): R94.31 - ABNORMAL ELECTROCARDIOGRAM [ECG] [EKG] Status: Chronic (5) Anemia Code(s): D64.9 - ANEMIA, UNSPECIFIED Status: Chronic Qualifiers: Anemia type: unspecified type Qualified Code(s): D64.9 - Anemia, unspecified (6) Anxiety and depression Code(s): F41.9 - ANXIETY DISORDER, UNSPECIFIED; F32.9 - MAJOR DEPRESSIVE DISORDER, SINGLE EPISODE, UNSPECIFIED Status: Chronic - Plan * arrhythmia - a flutter * beta-maria alejandra and tele * EP consult * nstemi with EF now 25-30% * beta maria alejandra, low dose OTF-I, nitropaste * full dose lovenox * plan for cath tomorrow * on zetia due to statin allergy * gerd - tums prn and monitor * home meds - diltiazem held due to starting beta-maria alejandra * hold ranexa due to bp * sertraline restarted today * hold supplements * bedside commode, falls precautions * dvt prophy - full dose lovenox for nstemi * gi prophy - on ppi * code status chem/intubation only * reviewed plan of care with patient, no questions or further needs at end of eval * pt remains at high risk in current condition. .
[2018-08-29] MEDS ORDERED: Digoxin 0.5 MG/2 ML AMP SLOW IVP SCH (11:15)
[2018-08-29] MEDS ORDERED: Furosemide 40 MG/4 ML VIAL SLOW IVP SCH (11:15)
--- NOTE | 2018-08-29 11:18 | PDOC.CTH ---
Cardiology Progress Note - Subjective Patient with c/o feeling weak/tired. SOB, but not struggling. Currently lying flat in bed. - Objective Vital Signs Temp Pulse Resp BP Pulse Ox 08/29/18 08:43 98.4 F 110 H 18 113/65 94 L 08/29/18 03:35 99.4 F 107 H 21 H 126/78 92 L 08/29/18 03:20 94 L 08/28/18 23:55 99.3 F 108 H 20 127/78 94 L Weight 148 lb 08/28/18 08/29/18 08/30/18 06:59 06:59 06:59 Intake Total 1400 1500 Output Total 600 1450 Balance 800 50 - Physical Examination General/Neuro: alert & oriented x3 Neck: other: (+JVD) Lungs: other: (bilateral rales) Heart: other: (Regular, tachy) Abdomen: NT/ND - Telemetry Telemetry Rhythm: AFlutter - Labs Result Diagrams: 08/29/18 04:23 08/29/18 04:23 Troponin/CKMB CK-MB (CK-2) 12.6 ng/mL (0-6.6) H* 08/27/18 16:12 Troponin I 3.916 ng/mL (< 0.028) H* 08/27/18 22:10 - Assessment/Plan 1. NSTEMI 2. AFlutter 3. Hx CAD 4. Acute systolic CHF (EF 20-25%) 5. Paroxysmal AF Will increase IV lasix. Try to increase bblockers as tolerated by BP. Add IV Digoxin. Monitor closely. Pt appears more comfortable today than she did yesterday evening. STill would like to go forward with angio. R/B discussed. Octavio ragsdale.
[2018-08-29 12:14] LABS: Bilirubin Negative (Negative); Blood, Urine Negative (Negative); Clarity CLEAR (Clear); Glucose, Urine (Dipstick) Negative (Negative); Leukocyte Trace (Negative); Nitrite Negative (Negative); Protein, Urine (Dipstick) Negative (Neg-Trace); Specific Gravity, Urine 1.008 (1.002-1.036); Urobilinogen 0.2 mg/dL (0.2-1.0); pH, Urine 6.5 (5.0-9.0)
[2018-08-29 12:22] LABS: Bacteria/HPF None Seen HPF (None Seen); Hyaline Casts/LPF 0-3 HYALINE CAST LPF (0-3 Hyaline); RBC/HPF 0-3 HPF (0-3); Squamous Epithelial 0-3 HPF (0-3); WBC/HPF 0-3 HPF (0-3)
[2018-08-29 12:25] LABS: Urine Culture Reflex Yes Yes
[2018-08-29] MEDS: Furosemide 40 MG/4 ML VIAL SLOW IVP SCH (15:13)
[2018-08-29] MEDS: Ezetimibe 10 MG TAB PO SCH (21:30)
[2018-08-30] MEDS: Calcium Carbonate 500 MG ChewTAB PO PRN (02:29)
[2018-08-30] MEDS: Ondansetron PF 4 MG/2 ML Vial IVP PRN ×2 (03:52→16:20)
[2018-08-30] MEDS: Nitroglycerin 0.4 MG TAB (25 Tab Bottle) SL PRN ×2 (04:29→04:34)
[2018-08-30] MEDS: Metoclopramide HCl 10 MG/2 ML VIAL IVP PRN (04:40)
[2018-08-30 05:29] LABS: #Monocytes 0.6 thou/uL (0.11-0.59); #Neutrophils 10.5 thou/uL (1.40-6.50); %Basophils 0.1 % (0.0-1.0); %Eosinophils 0.2 % (0.0-10.0); %Lymphocytes 8.5 % (21.0-51.0); %Monocytes 4.8 % (0.0-10.0); %Neutrophils 86.4 % (42.0-75.0); Hemoglobin 11.6 g/dL (12.0-16.0); Mean Corpuscular Hemoglobin 30.8 pg (27.0-31.0); Mean Corpuscular Volume 96.2 fL (78.0-98.0); Mean Platelet Volume 6.6 fL (7.4-10.4); Platelet Count 269 thou/uL (130-400); Red Blood Cell (RBC) Count 3.78 mill/uL (4.20-5.40); White Blood Cell (WBC) Count 12.2 thou/uL (4.8-10.8)
[2018-08-30 05:45] LABS: Anion Gap 16 mmol/L (10-20); BUN (Urea Nitrogen) 22 mg/dL (9.8-20.1); Calc. Creatinine Clearance 39 mL/min (70-130); Calcium 9.6 mg/dL (7.8-10.44); Carbon Dioxide 26 mmol/L (23-31); Chloride 100 mmol/L (98-107); Estimated GFR-MDRD 47; Glucose 192 mg/dL (83-110); Potassium 3.8 mmol/L (3.5-5.1); Sodium 138 mmol/L (136-145)
[2018-08-30] MEDS: Promethazine HCl 25 MG in Sodium Chloride 0.9% 50 ML IVPB PRN ×2 (05:47→19:19)
[2018-08-30] MEDS: Nitroglycerin 2% Ointment 1 INCH/1 GM Packet TOP SCH ×2 (05:53→15:33)
[2018-08-30] MEDS: Aspirin 81 mg Enteric Coated Tablet PO SCH (08:07)
[2018-08-30] MEDS: Furosemide 40 MG/4 ML VIAL SLOW IVP SCH ×2 (08:07→15:33)
[2018-08-30] MEDS: Lisinopril 2.5 MG TAB PO SCH (08:08)
[2018-08-30] MEDS: Metoprolol Tartrate 25 MG TAB PO SCH (08:08)
[2018-08-30] MEDS ORDERED: Communication Order-Pharmacy FS SCH (09:00)
[2018-08-30] MEDS ORDERED: Pantoprazole 40 MG VIAL IVP SCH (10:45)
[2018-08-30] MEDS ORDERED: Lidocaine 1% (PF) 30 ML VIAL ONE (11:05)
[2018-08-30] MEDS ORDERED: Midazolam HCl 2 mg/2 ml Vial ONE (11:22)
[2018-08-30] MEDS ORDERED: Nitroglycerin 0.4 MG TAB (25 Tab Bottle) SL PRN (11:47)
[2018-08-30] MEDS ORDERED: Sodium Chloride 0.9% 200 ML IV PRN (11:47)
[2018-08-30] MEDS ORDERED: Iopamidol 370 76% 100 ML VIAL ONE (12:18)
--- NOTE | 2018-08-30 14:17 | ULT ---
ULTRASOUND ABDOMEN: HISTORY: Intractable nausea. FINDINGS: The patient is post cholecystectomy. The liver, spleen, pancreas, kidneys and visualized portions of the aorta and IVC appear normal. The common duct measures 7mm in diameter. No free fluid is seen. IMPRESSION: Status post cholecystectomy. No significant abnormalities are identified.
[2018-08-30] MEDS ORDERED: hydrALAZINE 20 MG/ML VIAL SLOW IVP PRN (15:45)
[2018-08-30] MEDS ORDERED: hydrALAZINE 20 MG/ML VIAL SLOW IVP SCH (15:45)
--- NOTE | 2018-08-30 16:17 | PDOC.PN ---
- Subjective Encounter Start Date: 08/30/18 Encounter Start Time: 16:16 Subjective: continues to have dry heaves and feels very nauseated despite phergan,zofra -: last BM yesterday and passing gas .some abd pain in lower part going up - Objective Resuscitation Status - Order Detail: 08/27/18 18:38 Resuscitation Status Routine Resuscitation Status: PRTL: Chem-Intubation Discussed with: patient, she specifically reports she does not want compressions MAR Reviewed: Yes Vital Signs & Weight: Vital Signs (12 hours) Temp Pulse Resp BP Pulse Ox 08/30/18 12:34 97.5 F L 106 H 13 138/79 96 08/30/18 08:00 93 L 08/30/18 07:55 97.4 F L 110 H 15 155/93 H 93 L Weight Weight 144 lb 4.8 oz I&O: 08/29/18 08/30/18 08/31/18 06:59 06:59 06:59 Intake Total 1500 770 Output Total 1450 1150 Balance 50 -380 Result Diagrams: 08/30/18 05:17 08/30/18 05:17 Additional Labs: Microbiology 08/29/18 12:24 Urine voided Urine Culture - Preliminary Gram Negative [facility] Tests 08/27/18 08/27/18 08/27/18 15:16 16:12 16:12 WBC 14.5 H Creatinine 0.92 Troponin I 3.269 H* 08/27/18 08/27/18 08/28/18 19:51 22:10 07:27 WBC Creatinine 1.12 H Troponin I 4.106 H* 3.916 H* 08/28/18 08/29/18 08/29/18 07:27 04:23 04:23 WBC 9.5 11.4 H Creatinine 1.03 Troponin I 08/30/18 08/30/18 05:17 05:17 WBC 12.2 H Creatinine 1.11 H Troponin I Phys Exam - Physical Examination uncomfortable & dry heaving HEENT: PERRLA, moist MMs, sclera anicteric, oral pharynx no lesions Neck: no nodes, no JVD, supple, full ROM Respiratory: no wheezing, no rales, no rhonchi, clear to auscultation bilateral Cardiovascular: RRR, no significant murmur Gastrointestinal: soft, non-tender, no distention, positive bowel sounds Musculoskeletal: no edema, pulses present Neurological: non-focal, normal sensation, moves all 4 limbs Psychiatric: normal affect, A&O x 3 Skin: no rash Dx/Plan (1) NSTEMI (non-ST elevated myocardial infarction) Code(s): I21.4 - NON-ST ELEVATION (NSTEMI) MYOCARDIAL INFARCTION Status: Acute Comment: s/p Cardiac Cath today.cont BB,Zetia,ASA.OTF-I held due to brian.statin allergy. Type 2 ID (2) Atrial fibrillation and flutter Code(s): I48.91 - UNSPECIFIED ATRIAL FIBRILLATION; I48.92 - UNSPECIFIED ATRIAL FLUTTER Status: Acute Comment: Poorly controlled .Metoprolol changed to Coreg by cardiology.Eliquis held due to Cath today.retsart when ok w cardiology. (3) BRIAN (acute kidney injury) Code(s): N17.9 - ACUTE KIDNEY FAILURE, UNSPECIFIED Status: Acute Comment: Due to diuresis.reduce lasix and recheck (4) Dyslipidemia Code(s): E78.5 - HYPERLIPIDEMIA, UNSPECIFIED Status: Chronic (5) CAD (coronary artery disease) Code(s): I25.10 - ATHSCL HEART DISEASE OF [place] CORONARY ARTERY W/O ANG PCTRS Status: Chronic Qualifiers: Coronary Disease-Associated Artery/Lesion type: [place] artery [place] vs. transplanted heart: [place] heart Associated angina: without angina Qualified Code(s): I25.10 - Atherosclerotic heart disease of [place] coronary artery without angina pectoris (6) Chronic anticoagulation Code(s): Z79.01 - [employer]ATOR (CURRENT) USE OF ANTICOAGULANTS Status: Chronic (7) Dyslipidemia Code(s): E78.5 - HYPERLIPIDEMIA, UNSPECIFIED Status: Chronic (8) HTN (hypertension) Code(s): I10 - ESSENTIAL (PRIMARY) HYPERTENSION Status: Chronic Qualifiers: Hypertension type: essential hypertension Qualified Code(s): I10 - Essential (primary) hypertension (9) TYLER (obstructive sleep apnea) Code(s): G47.33 - OBSTRUCTIVE SLEEP APNEA (ADULT) (PEDIATRIC) Status: Chronic Comment: Nocturnal CPAP (10) Anxiety and depression Code(s): F41.9 - ANXIETY DISORDER, UNSPECIFIED; F32.9 - MAJOR DEPRESSIVE DISORDER, SINGLE EPISODE, UNSPECIFIED Status: Chronic (11) Chronic systolic CHF (congestive heart failure), NYHA class 3 Code(s): I50.22 - CHRONIC SYSTOLIC (CONGESTIVE) HEART FAILURE Status: Chronic Comment: as per ECHO w EF 25%.on lasix - Plan plan discussed w/ family, PT/OT, respiratory therapy, out of bed/ambulate, DVT proph w/SCDs add PPI IV for now.abdominal US done and nothing acute -: suspect cardiac etiolgy of Nausea.Cath today -: cont medical managemenet & symptomatic care.pt reassured -: am labs -: Leucocytosis w neutrophilia.no fever.urine Cx pending.follow.recheck * . Review of Systems - Review of Systems Constitutional: weakness, malaise. negative: fever, chills, sweats, other Respiratory: negative: Cough, Dry, Shortness of Breath, Hemoptysis, SOB with Excertion, Pleuritic Pain, Sputum, Wheezing Cardiovascular: negative: chest pain, palpitations, orthopnea, paroxysmal nocturnal dyspnea, edema, light headedness, other Gastrointestinal: Nausea, Abdominal Pain. negative: Vomiting, Diarrhea, Constipation, Melena, Hematochezia, Other Genitourinary: negative: Dysuria, Frequency, Incontinence, Hematuria, Retention , Other Musculoskeletal: negative: Neck Pain, Shoulder Pain, Arm Pain, Back Pain, Hand Pain, Leg Pain, Foot Pain, Other Neurological: negative: Weakness, Numbness, Incoordination, Change in Speech, Confusion, Seizures, Other - Medications/Allergies Allergies/Adverse Reactions: Allergies Allergy/AdvReac Type Severity Reaction Status Date / Time codeine Allergy Verified 07/27/18 01:27 dextromethorphan Allergy Verified 07/27/18 01:27 [From Mucinex DM] guaifenesin [From Mucinex DM] Allergy Verified 07/27/18 01:27 Hgwnleq-Srn-Akx Reductase Allergy Verified 07/27/18 01:27 Inhibitor Medications: Current Medications Acetaminophen (Tylenol) 650 mg PO Q6H PRN PRN Reason: Headache/Fever/Mild Pain (1-3) Aspirin (Ecotrin) 81 mg PO DAILY EMIGDIO Last Admin: 08/30/18 08:07 Dose: Not Given Calcium Carbonate (Tums) 1,000 mg PO Q4H PRN PRN Reason: Heartburn or Indigestion Last Admin: 08/30/18 02:29 Dose: 1,000 mg Carvedilol (Coreg) 6.25 mg PO BID-[facility] Ezetimibe (Zetia) 10 mg PO HS [facility] Last Admin: 08/29/18 21:30 Dose: 10 mg Furosemide (Lasix) 40 mg SLOW IVP 0600,1400 [facility] Last Admin: 08/30/18 15:33 Dose: 40 mg Hydralazine HCl (Apresoline) 10 mg SLOW IVP NOW [facility] Stop: 08/30/18 17:45 Hydralazine HCl (Apresoline) 10 mg SLOW IVP Q4H PRN PRN Reason: SBP> 160 OR DBP>100 Promethazine HCl 25 mg/ Sodium (Chloride) 51 mls @ 102 mls/hr IVPB Q6H PRN PRN Reason: Nausea Last Admin: 08/30/18 05:47 Dose: 51 mls Sodium Chloride (Normal Saline 0.9%) 200 mls @ 0 mls/hr IV ONE PRN PRN Reason: SBP < 90 Stop: 08/30/18 17:00 Metoclopramide HCl (Reglan) 5 mg IVP Q6H PRN PRN Reason: Nausea/Vomiting Last Admin: 08/30/18 04:40 Dose: 5 mg Miscellaneous Information (Communication Order-Pharmacy) 0 each FS ONE [facility] Stop: 08/30/18 23:59 Nitroglycerin (Nitrostat) 0.4 mg SL Q5MIN PRN PRN Reason: Chest Pain Last Admin: 08/30/18 04:34 Dose: 1 tab Nitroglycerin (Nitro-Bid 2% Ointment) 0.5 inch TOP Q8HR [facility] Last Admin: 08/30/18 15:33 Dose: 0.5 inch Nitroglycerin (Nitrostat) 0.4 mg SL Q5MIN PRN PRN Reason: Chest Pain Ondansetron HCl (Zofran Odt) 4 mg PO Q6H PRN PRN Reason: Nausea/Vomiting Ondansetron HCl (Zofran) 4 mg IVP Q6H PRN PRN Reason: Nausea/Vomiting Last Admin: 08/30/18 03:52 Dose: 4 mg Sertraline HCl (Zoloft) 100 mg PO DAILY [facility] Last Admin: 08/30/18 08:08 Dose: Not Given Sodium Chloride (Flush - Normal Saline) 10 ml IVF Q12HR [facility] Last Admin: 08/30/18 08:59 Dose: 10 ml Sodium Chloride (Flush - Normal Saline) 10 ml IVF PRN PRN PRN Reason: Saline Flush Last Admin: 08/30/18 04:41 Dose: 10 ml
[2018-08-30] MEDS: Carvedilol 6.25 MG TAB PO SCH (17:06)
--- NOTE | 2018-08-30 18:15 | CON ---
DATE OF CONSULTATION: 08/30/2018 HISTORY OF PRESENT ILLNESS: I am seeing Ms. 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 Her problems are: 1. Recurrent atrial arrhythmias. a. Persistent atrial fibrillation, status post pulmonary venous isolation procedure by Dr. Roe on 07/08/2018. b. Recurrence of atrial arrhythmias, requiring transient amiodarone use, which was stopped due to GI intolerance. c. Now with recurrent persisting atrial flutter, atypical 2:1 AV conduction occasionally RVR. 2. New onset of cardiomyopathy. a. Previously normal LVEF, now LVEF 25% to 30% with akinetic mid to distal anterior wall, mid to distal inferior wall, [id number] MR, moderate TR, moderate left atrial enlargement. b. 2D echo from 07/27/2018 revealed LVEF 55% to 60% at that time with moderate pericardial effusion. 3. History of pericardial effusion, status post pericardial window placement in July 27, 2018. 4. History of hypertension. ALLERGIES: CODEINE, DEXTROMETHORPHAN, AND GUAIFENESIN. MEDICATIONS: At home included: 1. Aspirin. 2. Sertraline. 3. Ezetimibe. 4. Cyanocobalamin. 5. Ranolazine. 6. Diltiazem. 7. Lisinopril. 8. Cholecalciferol. 9. Apixaban 5 mg twice a day. 10. . SUBJECTIVE: Ms. Tesfaye is here with complaints of intensive nausea, vomiting, and denies fatigue. She was noted to have reduced LVEF on her echocardiogram and rhythm also continued to be atypical atrial flutter persistently shows a chest discomforts about 3 to 4 a.m. this morning, squeezing sensation without any precipitating or relieving factors. She still has nausea and vomiting like discomfort. Her troponin levels were elevated. She was evaluated by Dr. Choudhary and plan is heart catheterization. She denies stroke-like symptoms. She has no significant problem with swallowing difficulty prior to the onset of nausea. She has no fever, chills, or cough. No PND or fluid overload. Rest of 12-point system otherwise unremarkable. PAST MEDICAL HISTORY: As above. She does have history of dyslipidemia, COPD, and venous reflux disease. SOCIAL HISTORY: The patient denies smoking, EtOH, or drug abuse. She lives in assisted living facility. FAMILY HISTORY: Not contributory. OBJECTIVE DATA: VITAL SIGNS: Blood pressure 155/93, heart rate 110, respirations 15, and temperature 97.4 degrees Fahrenheit. GENERAL: Alert and oriented woman, in no apparent distress except for the nausea. NECK: Supple. Jugular veins not distended. CHEST: Coarse with crackles. HEART: Sounds are regular to rate and rhythm. No murmur or gallop. ABDOMEN: Benign. Bowel sounds positive. EXTREMITIES: Lower extremities without edema, clubbing, or cyanosis. Pulses are adequate. NEUROLOGIC: The patient is nonfocal. MUSCULOSKELETAL: No joint deformity. SKIN: Without rash. DATABASE: EKG is reviewed reveals an atypical atrial flutter with 2:1 AV conduction, ventricular rate about 103 beats per minute. LABORATORY DATA: White count is 12.2, hemoglobin 9.6, platelet count is 269. Sodium 138, potassium 3.8, BUN is 22, creatinine 1.1. Troponin level was 3.2, 4.1, and 3.9 consecutively. The BNP is 324. Chest x-ray shows improved aeration in both lung bases with persistent pleural and parenchymal opacity in the left lung base. ASSESSMENT AND PLAN: Ms. Tesfaye is a pleasant 83-year-old woman with history of persistent atrial fibrillation. She underwent extensive left atrial ablation procedure by Dr. Roe about 7 weeks ago, later had development of pericarditis related pericardial effusion, which was drained. She is now returning with chest pains, nausea, elevated cardiac enzyme levels. Continues to be have an atrial flutter, although rates appears to be most controlled, although there is some history of elevated heart rate, mostly ranging 100 to 110 beats per minute range. The reason for chest pain is not clear, but in view of the marked change in LVEF and the acute rise and fall in troponins, coronary artery disease should be ruled out. As per Dr. Choudhary, takotsubo cardiomyopathy is a possibility as well. Also if nausea and vomiting continues, CT of the chest might be advised to evaluate structures in view of the recent ablation. In the meantime, continue oral anticoagulation as possible. Eventually after clinical stabilization, cardioversion could be considered. Although at this point, I find her heart rates reasonably stable. We could consider further increasing metoprolol tartrate to obtain adequate ventricular rate control. Alternatively, consideration for restarting amiodarone versus Tikosyn could be made. PLAN: 1. In short, agree with left heart catheterization. 2. Resume oral anticoagulation if possible. 3. CT scan with continued nausea and vomiting. 4. Long-term cardioversion after adequate anticoagulation after negative MOO. Job ID: [id number]
[2018-08-30] MEDS: Ezetimibe 10 MG TAB PO SCH (20:18)
[2018-08-31] MEDS: Nitroglycerin 2% Ointment 1 INCH/1 GM Packet TOP SCH ×4 (00:12→21:00)
[2018-08-31 06:17] LABS: #Lymphocytes 1.3 thou/uL (1.20-3.40); #Monocytes 0.7 thou/uL (0.11-0.59); #Neutrophils 8.3 thou/uL (1.40-6.50); %Basophils 0.1 % (0.0-1.0); %Eosinophils 0.2 % (0.0-10.0); %Lymphocytes 12.2 % (21.0-51.0); %Monocytes 7.1 % (0.0-10.0); %Neutrophils 80.4 % (42.0-75.0); Hemoglobin 11.4 g/dL (12.0-16.0); Mean Corpuscular HGB CONC 32.1 g/dL (32.0-36.0); Mean Corpuscular Hemoglobin 31.1 pg (27.0-31.0); Mean Corpuscular Volume 96.8 fL (78.0-98.0); Platelet Count 230 thou/uL (130-400); RBC Distribution Width 14.3 % (11.5-14.5); Red Blood Cell (RBC) Count 3.66 mill/uL (4.20-5.40); White Blood Cell (WBC) Count 10.4 thou/uL (4.8-10.8)
[2018-08-31 06:24] LABS: Anion Gap 15 mmol/L (10-20); BUN (Urea Nitrogen) 30 mg/dL (9.8-20.1); Calc. Creatinine Clearance 40 mL/min (70-130); Calcium 9.6 mg/dL (7.8-10.44); Carbon Dioxide 29 mmol/L (23-31); Chloride 96 mmol/L (98-107); Estimated GFR-MDRD 49; Glucose 122 mg/dL (83-110); Potassium 3.2 mmol/L (3.5-5.1); Sodium 137 mmol/L (136-145)
[2018-08-31] MEDS: Ondansetron PF 4 MG/2 ML Vial IVP PRN (07:51)
[2018-08-31] MEDS ORDERED: Furosemide 40 MG/4 ML VIAL SLOW IVP SCH (09:00)
[2018-08-31] MEDS ORDERED: Lidocaine 2% Viscous Solution 10 ML, Aluminum & Magnesium Hydroxide 30 ML SSW SCH (09:00)
[2018-08-31] MEDS ORDERED: Metoprolol Tartrate 5 MG/5 ML VIAL IVP SCH (09:00)
[2018-08-31] MEDS ORDERED: Pantoprazole 40 MG VIAL IVP SCH (09:00)
[2018-08-31] MEDS ORDERED: Iopamidol 370 76% 100 ML VIAL ONE (09:39)
[2018-08-31] MEDS: Carvedilol 6.25 MG TAB PO SCH ×2 (09:49→16:24)
[2018-08-31] MEDS: Apixaban 5 MG TAB PO SCH ×2 (09:49→20:32)
[2018-08-31] MEDS: Aspirin 81 mg Enteric Coated Tablet PO SCH (09:50)
[2018-08-31] MEDS: Sacubitril 24.5 MG/Valsartan 25.5 MG TABLET PO SCH ×2 (09:50→20:32)
--- NOTE | 2018-08-31 11:50 | CT ---
EXAM: CT chest, abdomen, and pelvis with IV contrast: HISTORY: Intractable nausea and abdominal pain. COMPARISON: CT abdomen and pelvis on 07/26/2018 FINDINGS: CT THORAX: Lungs: Biapical pleural and parenchymal scarring is present. A wedge-shaped pleural and parenchymal d ensity is seen at the posterior aspect right upper lobe which could be related to pleural and parenchymal scarring as well. However, pneumonia or neoplastic process cannot be entirely excluded. T here are linear and groundglass densities seen in the left upper lobe worrisome for infectious or inflammatory process. There is air consolidation seen at the anterior aspect left lung base which cou ld be related to atelectasis versus pneumonia. Pleura: Moderate left and small right pleural effusions with associated passive atelectasis. Finding was also seen on prior exam on 07/26/2018. Lymph nodes: No lymphadenopathy. Mediastinum: The heart remains enlarged. Mild vascular calcifications are seen in the coronary arteri es and involving the thoracic aorta. The thoracic aorta is normal in caliber. Previously seen small to moderate-sized pericardial effusion has resolved. Chest wall: No abnormalities Bones: There is bilateral glenohumeral osteoarthropathy with curvilinear calcification seen adjacent to each humeral head which could be related to calcific peritendinitis. Degenerative changes are seen in the spine. CT ABDOMEN AND PELVIS: Liver: Limited evaluation due to arterial phase of enhancement. However, no focal hepatic lesion is a ppreciated on this exam. Gallbladder: Not visualized likely due to prior cholecystectomy. The intra and extrahepatic bile duct s are dilated which is unchanged from the prior study and likely related to reservoir effect.\ Pancreas: Atrophy, no definite focal pancreatic lesion is seen. Spleen: Within normal limits. Adrenal glands: Within normal limits. Kidneys: Nonobstructing approximately 2 mm calculus inferior pole right kidney. Additional areas of i ncreased density are seen in the renal collecting systems which is likely attributable to small amount of contrast within each renal collecting system. Urinary Bladder: The urinary bladder is unremarkable. Reproductive organs: Evidence of hysterectomy. Bowel: There is colonic diverticulosis. Loops of small bowel are normal in caliber. There is minimal nonspecific stranding adjacent to the hepatic flexure. The colon in this region does appear to demonstrate mild wall thickening, but this is probably attributable to incomplete distention. However , mild colitis cannot be excluded. Adenopathy:No lymphadenopathy within the abdomen or pelvis. Peritoneum: No free fluid or fluid collection is seen. No free intraperitoneal gas is identified. Abdominal wall: Punctate focus of gas in the subcutaneous adipose layer in the anterior pelvis bilate rally likely due to recent injection. Osseous structures: Multilevel degenerative changes are seen in the spine. Prominent sclerotic densit y is seen in the right iliac bone stable from prior studies with findings suggesting interdigitated margins, and this probably represents a bone island in the absence of history of known malignancy. Bi lateral hip osteoarthritis is present. IMPRESSION: 1. Pleural and parenchymal density posterior aspect right upper lobe which could be related to pleura l and parenchymal scarring. This is partially imaged on study of 05/27/2018. Findings are most likely related to pleural and parenchymal scarring. However, infectious process or neoplastic process are less likely differential considerations. Follow-up evaluation is suggested. 2. Linear and groundglass densities in the left upper lobe worrisome for infectious or inflammatory p rocess. Follow-up to resolution is recommended. 3. Moderate left and small right pleural effusions with associated passive atelectasis. 4. Minimal inflammatory stranding right upper quadrant adjacent to the hepatic flexure. [place] of the colon in this region do appear mildly thickened, but this is felt to most likely be attributable to incomplete distention. However, mild colitis cannot be entirely excluded. 5. Colonic diverticulosis. 6. Resolution of pericardial effusion. Mild cardiomegaly is again present.
--- NOTE | 2018-08-31 12:20 | PQF ---
DATE: 08-31-18 ATTN: DR. ROBERT US Please exercise your independent, professional judgment in responding to the clarification form. Clinical indicators are provided on the bottom of this form for your review Please check appropriate box(s): Conflicting documentation was noted in the Medical Record, please clarify if patient is being treated/monitored for: [ X ] ACUTE SYSTOLIC CHF [ ] CHRONIC SYSTOLIC CHF [ ] Other diagnosis [ ] Unable to determine In addition, please specify: Present on Admission (POA): [ X] Yes [ ] No [ ] Unable to determine For continuity of documentation, please document condition throughout progress notes and discharge summary. Thank You. CLINICAL INDICATORS - SIGNS / SYMPTOMS/ LABS: PN DR. US 08-29-18: NSTEMI, A FLUTTER, HX CAD, ACUTE SYSTOLIC CHF ( EF 20- 25%) CONSULT NOTE SANJAY CORREA 08-30-18: CHRONIC SYSTOLIC CHF, PER ECHO W EF 25% ON LASIX RISK FACTORS: H&P: CHRONIC A FIB, RECENT PERICARDITIS, PERICARDIAL WINDOW PLACEMENT, RECENT PNEUMONIA, CAD, TACHYCARDIA TREATMENT: 08-30-18: CHRONIC SYSTOLIC CHF, PER ECHO W EF 25% ON LASIX (This form is maintained as a part of the permanent medical record) 2015 [employer] All Rights Reserved GARFIELD [email or web address] Office: [phone] WILLIE
--- NOTE | 2018-08-31 13:11 | PDOC.PN ---
- Subjective Encounter Start Date: 08/31/18 Encounter Start Time: 13:10 Subjective: continues to have significant nausea & on/of abd pain -: no diarrhea/constipation.passing gas - Objective Resuscitation Status - Order Detail: 08/27/18 18:38 Resuscitation Status Routine Resuscitation Status: PRTL: Chem-Intubation Discussed with: patient, she specifically reports she does not want compressions MAR Reviewed: Yes Vital Signs & Weight: Vital Signs (12 hours) Temp Pulse Resp BP Pulse Ox 08/31/18 12:38 96.8 F L 111 H 15 135/90 97 08/31/18 07:28 98.2 F 78 15 144/84 H 94 L 08/31/18 05:27 127 H 125/62 08/31/18 02:54 98.0 F 128 H 20 131/85 98 Weight Weight 143 lb 14.4 oz I&O: 08/30/18 08/31/18 09/01/18 06:59 06:59 06:59 Intake Total 770 640 Output Total 1150 2100 Balance -380 -1460 Result Diagrams: 08/31/18 05:11 08/31/18 05:11 Additional Labs: Microbiology 08/29/18 12:24 Urine voided Urine Culture - Final Radiology Reviewed by me: Yes (CT C/A/P- suspected PNA/atelectasis.) Phys Exam - Physical Examination Constitutional: NAD better than yesterday HEENT: PERRLA, sclera anicteric, oral pharynx no lesions dry mucosa Neck: no nodes, no JVD, supple, full ROM Respiratory: no wheezing, no rales, no rhonchi, clear to auscultation bilateral Cardiovascular: RRR, no significant murmur, no rub Gastrointestinal: soft, no distention, positive bowel sounds mild TTP Musculoskeletal: no edema, pulses present Neurological: non-focal, normal sensation, moves all 4 limbs Psychiatric: normal affect, A&O x 3 Skin: no rash Dx/Plan (1) PNA (pneumonia) Code(s): J18.9 - PNEUMONIA, UNSPECIFIED ORGANISM Status: Acute (2) NSTEMI (non-ST elevated myocardial infarction) Code(s): I21.4 - NON-ST ELEVATION (NSTEMI) MYOCARDIAL INFARCTION Status: Acute Comment: s/p Cardiac Cath.No intervention..cont BB,Zetia,ASA..statin allergy. started on Entresto Type 2 IN (3) Atrial fibrillation and flutter Code(s): I48.91 - UNSPECIFIED ATRIAL FIBRILLATION; I48.92 - UNSPECIFIED ATRIAL FLUTTER Status: Acute Comment: Poorly controlled .Metoprolol changed to Coreg by cardiology.Eliquis restarted today by cardiology EP also following. rate controlled. Ablation at a later date when stable (4) Chronic systolic CHF (congestive heart failure), NYHA class 3 Code(s): I50.22 - CHRONIC SYSTOLIC (CONGESTIVE) HEART FAILURE Status: Acute Comment: Acute on chronic though last EF was better. as per ECHO w EF 25%.on lasix (5) BRIAN (acute kidney injury) Code(s): N17.9 - ACUTE KIDNEY FAILURE, UNSPECIFIED Status: Acute Comment: Due to diuresis. improved.monitor. DC lasix as volume depleted on exam (6) Dyslipidemia Code(s): E78.5 - HYPERLIPIDEMIA, UNSPECIFIED Status: Chronic (7) CAD (coronary artery disease) Code(s): I25.10 - ATHSCL HEART DISEASE OF [place] CORONARY ARTERY W/O ANG PCTRS Status: Chronic Qualifiers: Coronary Disease-Associated Artery/Lesion type: [place] artery [place] vs. transplanted heart: [place] heart Associated angina: without angina Qualified Code(s): I25.10 - Atherosclerotic heart disease of [place] coronary artery without angina pectoris Comment: ASA,BB,entresto.contimnue (8) Chronic anticoagulation Code(s): Z79.01 - [employer]ER (CURRENT) USE OF ANTICOAGULANTS Status: Chronic (9) Dyslipidemia Code(s): E78.5 - HYPERLIPIDEMIA, UNSPECIFIED Status: Chronic (10) HTN (hypertension) Code(s): I10 - ESSENTIAL (PRIMARY) HYPERTENSION Status: Chronic Qualifiers: Hypertension type: essential hypertension Qualified Code(s): I10 - Essential (primary) hypertension (11) TYLER (obstructive sleep apnea) Code(s): G47.33 - OBSTRUCTIVE SLEEP APNEA (ADULT) (PEDIATRIC) Status: Chronic Comment: Nocturnal CPAP (12) Anxiety and depression Code(s): F41.9 - ANXIETY DISORDER, UNSPECIFIED; F32.9 - MAJOR DEPRESSIVE DISORDER, SINGLE EPISODE, UNSPECIFIED Status: Chronic - Plan plan discussed w/ family, PT/OT, respiratory therapy, incentive spirometry, out of bed/ambulate, DVT proph w/SCDs CT C/A/P done for intractable Nausea.Suspect PNA.no peric effusion -: start IV levaquin.add florastor. add daily PPI IV for now?gastritis -: if no improvement.consider GI consult.Liquid .soft diet -: Clinically dehydrated.stop lasix.start slow NS w KCl and monitor symtpoms -: cardioprudent meds as above.am labs. * . Review of Systems - Review of Systems Constitutional: weakness, malaise. negative: fever, chills, sweats, other Respiratory: negative: Cough, Dry, Shortness of Breath, Hemoptysis, SOB with Excertion, Pleuritic Pain, Sputum, Wheezing Cardiovascular: negative: chest pain, palpitations, orthopnea, paroxysmal nocturnal dyspnea, edema, light headedness, other Gastrointestinal: Nausea, Abdominal Pain. negative: Vomiting, Diarrhea, Constipation, Melena, Hematochezia, Other Genitourinary: negative: Dysuria, Frequency, Incontinence, Hematuria, Retention , Other Musculoskeletal: negative: Neck Pain, Shoulder Pain, Arm Pain, Back Pain, Hand Pain, Leg Pain, Foot Pain, Other Skin: negative: Rash, Lesions, Neil, Bruising, Other Neurological: negative: Weakness, Numbness, Incoordination, Change in Speech, Confusion, Seizures, Other - Medications/Allergies Allergies/Adverse Reactions: Allergies Allergy/AdvReac Type Severity Reaction Status Date / Time codeine Allergy Verified 07/27/18 01:27 dextromethorphan Allergy Verified 07/27/18 01:27 [From Mucinex DM] guaifenesin [From Mucinex DM] Allergy Verified 07/27/18 01:27 Flzqdbi-Ipi-Beu Reductase Allergy Verified 07/27/18 01:27 Inhibitor Medications: Current Medications Acetaminophen (Tylenol) 650 mg PO Q6H PRN PRN Reason: Headache/Fever/Mild Pain (1-3) Apixaban (Eliquis) 5 mg PO BID [facility] Last Admin: 08/31/18 09:49 Dose: Not Given Aspirin (Ecotrin) 81 mg PO DAILY [facility] Last Admin: 08/31/18 09:50 Dose: Not Given Calcium Carbonate (Tums) 1,000 mg PO Q4H PRN PRN Reason: Heartburn or Indigestion Last Admin: 06/17/19 02:29 Dose: 1,000 mg Carvedilol (Coreg) 6.25 mg PO BID[facility] Last Admin: 08/31/18 09:49 Dose: Not Given Ezetimibe (Zetia) 10 mg PO HS [facility] Last Admin: 08/30/18 20:18 Dose: 10 mg Hydralazine HCl (Apresoline) 10 mg SLOW IVP Q4H PRN PRN Reason: SBP> 160 OR DBP>100 Promethazine HCl 25 mg/ Sodium (Chloride) 51 mls @ 102 mls/hr IVPB Q6H PRN PRN Reason: Nausea Last Admin: 08/30/18 19:19 Dose: 51 mls Potassium Chloride/Sodium Chloride (1/2 Ns W/Kcl 20 Meq) 1,000 mls @ 50 mls/hr IV .Q20H [facility] Levofloxacin 500 mg/ Device 100 mls @ 100 mls/hr IVPB Q24HR [facility] Metoclopramide HCl (Reglan) 5 mg IVP Q6H PRN PRN Reason: Nausea/Vomiting Last Admin: 08/30/18 04:40 Dose: 5 mg Morphine Sulfate (Morphine) 2 mg SLOW IVP Q4H PRN PRN Reason: Moderate to Severe Pain (6-10) Nitroglycerin (Nitrostat) 0.4 mg SL Q5MIN PRN PRN Reason: Chest Pain Last Admin: 08/30/18 04:34 Dose: 1 tab Nitroglycerin (Nitro-Bid 2% Ointment) 0.5 inch TOP Q8HR [facility] Last Admin: 08/31/18 05:27 Dose: Not Given Nitroglycerin (Nitrostat) 0.4 mg SL Q5MIN PRN PRN Reason: Chest Pain Ondansetron HCl (Zofran Odt) 4 mg PO Q6H PRN PRN Reason: Nausea/Vomiting Ondansetron HCl (Zofran) 4 mg IVP Q6H PRN PRN Reason: Nausea/Vomiting Last Admin: 08/31/18 07:51 Dose: 4 mg Pantoprazole Sodium (Protonix) 40 mg IVP DAILY [facility] Last Admin: 08/31/18 09:05 Dose: 40 mg Saccharomyces Boulardii (Florastor) 250 mg PO DAILY [facility] Sacubitril/Valsartan (Entresto 24.5 Mg-25.5 Mg Tablet) 1 tab PO BID [facility] Last Admin: 08/31/18 09:50 Dose: Not Given Sertraline HCl (Zoloft) 100 mg PO DAILY [facility] Last Admin: 08/31/18 09:50 Dose: Not Given Sodium Chloride (Flush - Normal Saline) 10 ml IVF Q12HR [facility] Last Admin: 08/31/18 10:20 Dose: 10 ml Sodium Chloride (Flush - Normal Saline) 10 ml IVF PRN PRN PRN Reason: Saline Flush Last Admin: 08/30/18 04:41 Dose: 10 ml
[2018-08-31] MEDS: 1/2 NS w/KCL 20 mEq 1,000 ML IV SCH (13:33)
[2018-08-31] MEDS: Morphine 2 MG/ML SYRINGE SLOW IVP PRN ×2 (15:16→21:00)
--- NOTE | 2018-08-31 16:57 | PDOC.CTH ---
Cardiology Progress Note - Subjective EP PROGRESS NOTE :08/31/18 Seen as follow up for atrial arrhythmias. Continues to have significant nausea/ vomiting and overall feels poorly. Denies chest pain, palpitations, dizziness, passing out. + occasional palpitations, nausea, vomiting. - Objective Vital Signs Temp Pulse Resp BP Pulse Ox 08/31/18 15:14 98.0 F 112 H 14 129/83 95 08/31/18 12:38 96.8 F L 111 H 15 135/90 97 08/31/18 07:28 98.2 F 78 15 144/84 H 94 L 08/31/18 05:27 127 H 125/62 Weight 143 lb 14.4 oz 08/30/18 08/31/18 09/01/18 06:59 06:59 06:59 Intake Total 770 640 Output Total 1150 2100 Balance -380 -1460 - Physical Examination General/Neuro: alert & oriented x3, other: (appears tired. NAD) Neck: carotid US brisk, no JVD present Lungs: CTA, unlabored respirations Heart: PMI normal, other: (irreg and rapid) Abdomen: NT/ND, soft - Telemetry Telemetry Rhythm: Atrial flutter, variable AV conduction - Labs Result Diagrams: 09/01/18 04:47 09/01/18 04:47 Troponin/CKMB CK-MB (CK-2) 12.6 ng/mL (0-6.6) H* 08/27/18 16:12 Troponin I 3.916 ng/mL (< 0.028) H* 08/27/18 22:10 - Assessment/Plan 1. Atrial arrhythmias -s/p PVAI approx 7 weeks ago with early recurrence. Did not tolerate amiodarone d/t nausea/GI upset - flutter with variable AV conduction and occasional RVR. Added PRN lopressor for RVR and remains on PO coreg -continue rate control for now. Consider MOO guided CV once medical issues have calmed -consider lower dose amio vs tikosyn in future 2. Chronic anticoagulation - resumed Eliquis 5mg PO BID 3. NSTEMI - C clean 4.Takotsubo cardiomyopathy 5.Persistent nausea - GI consult pending - CT chest did not show any GI post ablation complications Continue PO rate control, IV lopressor ordered as needed. Continue eliquis. Possible MOO/CV later this week if stabilized.
[2018-08-31] MEDS ORDERED: Metoprolol Tartrate 5 MG/5 ML VIAL IVP PRN (17:07)
[2018-08-31] MEDS: Pantoprazole 40 MG VIAL IVP SCH (20:32)
[2018-08-31] MEDS: Ezetimibe 10 MG TAB PO SCH (20:32)
--- NOTE | 2018-08-31 21:30 | CON ---
DATE OF CONSULTATION: 08/31/2018 REASON FOR CONSULTATION: Persistent nausea and vomiting. HISTORY OF PRESENT ILLNESS: Ms. Jennifer Tesfaye is an 83-year-old woman with a complicated recent medical history. She has atrial fibrillation and is on Eliquis. She underwent a cardiac ablation procedure within the past few months and this is complicated by pericardial effusion and pericardial window in July. She went to rehab for several weeks and had just been discharged from there, when she fairly acutely had the onset of severe chest pain, abdominal pain, nausea and vomiting. She presented to the emergency department, was found to have a non-ST elevation myocardial infarction with troponin up to 4.1. She was found to be in atrial flutter with 2:1 block. Echocardiogram the following day demonstrated worsening ejection fraction down to 25-30 percent with akinetic apex, so she has been diagnosed with Takotsubo cardiomyopathy. She underwent cardiac catheterization yesterday. I do not see the formal report, but evidently no intervention was performed. She is also being treated for a pneumonia with Levaquin. Throughout this time, the patient has had waxing and waning, but currently worsening persistent nausea and multiple episodes of clear emesis. She has continued to pass gas and is having bowel movements from time to time. The nausea and vomiting are associated with abdominal pain throughout the entire upper abdomen. IV Protonix was started yesterday. The patient says that she does have some chronic intermittent heartburn symptoms as an outpatient for which she will take Nexium on an as-needed basis. Her last EGD was with my partner Dr. Carmen 2 years ago in August 2016. At that time, she was found to have moderate gastritis with biopsy showing reactive gastropathy. She had some duodenitis and a 2 cm hiatal hernia. She is not on chronic acid suppression except for Nexium as needed. She had an abdominal ultrasound, which was unremarkable and she had a CT of the chest, abdomen and pelvis, which showed no additional abnormalities, but confirmed that she has pneumonia and cardiomegaly. The patient is not willing to undergo any GI diagnostic procedures at this time. REVIEW OF SYSTEMS: Full review of systems including constitutional, head, eyes, ears, nose, throat, GI, , cardiovascular, respiratory, musculoskeletal, neurologic systems is negative except as noted in the HPI. PAST MEDICAL HISTORY: 1. Atrial fibrillation, status post cardiac ablation. 2. Pericardial effusion status post pericardial window, July 2018. 3. Pneumonia. 4. Non ST-elevation myocardial infarction August 27, 2018. 5. Takotsubo cardiomyopathy with ejection fraction of 25% to 30%. 6. Chronic anticoagulation with Eliquis. 7. Hypertension. 8. Hyperlipidemia. 9. Osteoarthritis. 10. Depression/anxiety. 11. Bilateral knee replacement. 12. Appendectomy. 13. Cholecystectomy. 14. Gastritis seen on EGD August 2016. SOCIAL HISTORY: No alcohol or tobacco abuse. FAMILY HISTORY: Noncontributory. MEDICATIONS: 1. Eliquis 5 mg b.i.d. 2. Aspirin 81 mg daily. 3. Tums p.r.n. 4. Coreg 6.25 mg b.i.d. 5. Zetia 10 mg at bedtime. 6. Levofloxacin 500 mg IV q.24 hours. 7. Reglan 5 mg IV q.6 hours p.r.n., last dose was given yesterday morning. 8. Morphine 2 mg p.r.n. 9. Nitroglycerin 0.4 mg sublingual p.r.n. 10. Zofran 4 mg IV q.6 hours p.r.n. 11. Promethazine 25 mg IV q.6 hours p.r.n. 12. Florastor 250 mg daily. 13. Entresto 1 tab b.i.d. 14. Zoloft 100 mg daily. ALLERGIES: CODEINE, DEXTROMETHORPHAN, GUAIFENESIN, MUCINEX, STATINS. PHYSICAL EXAMINATION: VITAL SIGNS: Temperature 98, pulse 112, blood pressure 129/83, 95% oxygen saturation on 2 L nasal cannula. GENERAL: Chronically ill 83-year-old woman lying in bed comfortably, in no distress. SKIN: No jaundice, no rashes were palpable. EYES: No scleral icterus. Extraocular movements intact. ENT: Mucous membranes moist. No oral lesions. LYMPHATIC: No submandibular or supraclavicular lymphadenopathy. ENDOCRINE: Thyroid nontender to palpation. HEART: Regular, tachycardia. LUNGS: Bibasilar crackles. No wheezing, no respiratory distress. ABDOMEN: Flat, bowel sounds are present, soft. Tender to palpation in the upper abdomen. No guarding or rebound tenderness. EXTREMITIES: No peripheral edema. VESSELS: Radial pulses 2+ bilaterally. NEUROLOGIC: Cranial nerves 2-12 intact bilaterally. No focal deficits. LABORATORY STUDIES: INR 1.8, WBC 10.4, hemoglobin 11.4, platelets 230. BUN 30, creatinine 1.06. Sodium 137, potassium 3.2. Urinalysis negative. Urine culture negative. Admission LFTs were all normal. IMAGING STUDIES: On 08/30/2018 abdominal ultrasound showed post cholecystectomy state, otherwise normal exam. On 08/31/2018, CT of the chest, abdomen and pelvis shows a wedge-shaped density in the right upper lobe. Left upper lobe ground-glass densities, bilateral pleural effusions, cardiomegaly, stable biliary dilation from reservoir effect after cholecystectomy, atrophic pancreas, normal spleen, absent uterus, diverticulosis with no evidence of diverticulitis. There is some minimal stranding around the hepatic flexure, which likely represents incomplete distention. ASSESSMENT/PLAN: 1. Persistent nausea and vomiting. 2. Recent non ST-elevation myocardial infarction. 3. Worsening congestive heart failure secondary to takotsubo cardiomyopathy. 4. Pneumonia. 5. Atrial flutter with tachycardia. I had a long discussion with the patient and her son today regarding her nausea and vomiting symptoms. Her nausea is likely multifactorial secondary to her recent non ST-elevation myocardial infarction, worsening cardiac function, pneumonia and ongoing arrhythmia. It is reasonable to consider primary GI etiology of the nausea as well. I note her liver function tests are normal. We will order a lipase to be drawn with her morning labs, though there is no evidence of pancreatitis per CT scan. She does have a history of erosive gastritis, so consider worsening gastritis or peptic ulcer disease. I advised it would be reasonable to consider diagnostic EGD for further evaluation. However, the patient politely declines any invasive GI procedure, and I do think this is reasonable. Accordingly, I would just treat as if she had peptic ulcer disease. I will increase the Protonix to 40 mg IV q.12 hours. With regard to antiemetics, this is difficult as several of these agents carry risk of prolonging the QT interval. I really would prefer to avoid going up on the dose of Reglan, which is currently at 5 mg p.r.n., but if okay from Cardiology standpoint, this could continue to be used. 6. GI will follow along tomorrow. Thank you for the consultation. Please call back with any questions or concerns. Job ID: [id number]
[2018-09-01] MEDS: Nitroglycerin 2% Ointment 1 INCH/1 GM Packet TOP SCH (04:45)
[2018-09-01 05:23] LABS: #Lymphocytes 1.5 thou/uL (1.20-3.40); #Monocytes 0.7 thou/uL (0.11-0.59); #Neutrophils 6.5 thou/uL (1.40-6.50); %Eosinophils 0.1 % (0.0-10.0); %Lymphocytes 17.3 % (21.0-51.0); %Monocytes 8.1 % (0.0-10.0); %Neutrophils 74.6 % (42.0-75.0); Hemoglobin 11.5 g/dL (12.0-16.0); Mean Corpuscular HGB CONC 32.5 g/dL (32.0-36.0); Mean Corpuscular Hemoglobin 31.5 pg (27.0-31.0); Mean Corpuscular Volume 96.9 fL (78.0-98.0); Mean Platelet Volume 7.1 fL (7.4-10.4); Platelet Count 236 thou/uL (130-400); RBC Distribution Width 14.4 % (11.5-14.5); Red Blood Cell (RBC) Count 3.66 mill/uL (4.20-5.40); White Blood Cell (WBC) Count 8.7 thou/uL (4.8-10.8)
[2018-09-01 05:45] LABS: Anion Gap 12 mmol/L (10-20); BUN (Urea Nitrogen) 29 mg/dL (9.8-20.1); Calc. Creatinine Clearance 41 mL/min (70-130); Calcium 9.5 mg/dL (7.8-10.44); Carbon Dioxide 33 mmol/L (23-31); Chloride 95 mmol/L (98-107); Estimated GFR-MDRD 50; Glucose 107 mg/dL (83-110); Potassium 3.4 mmol/L (3.5-5.1); Sodium 137 mmol/L (136-145)
[2018-09-01] MEDS: Apixaban 5 MG TAB PO SCH (08:44)
[2018-09-01] MEDS: Sacubitril 24.5 MG/Valsartan 25.5 MG TABLET PO SCH (08:44)
[2018-09-01] MEDS: Saccharomyces boulardii 250 MG CAP PO SCH (08:44)
[2018-09-01] MEDS: Aspirin 81 mg Enteric Coated Tablet PO SCH (08:44)
[2018-09-01] MEDS: Pantoprazole 40 MG VIAL IVP SCH (08:45)
[2018-09-01] MEDS: Carvedilol 6.25 MG TAB PO SCH ×2 (08:45→17:17)
[2018-09-01] MEDS: 1/2 NS w/KCL 20 mEq 1,000 ML IV SCH (12:27)
--- NOTE | 2018-09-01 13:15 | PDOC.CTH ---
Cardiology Progress Note - Subjective EP PROGRESS NOTE :09/01/18 Seen as follow up for atrial arrhythmias. Continues to have mild nausea. No vomiting. Overall feels poorly/tired but slept better last night. Denies chest pain, palpitations, dizziness, passing out. + occasional palpitations, nausea - Objective Vital Signs Temp Pulse Pulse Pulse Resp BP BP 09/01/18 10:07 113 H 112 H 104/86 09/01/18 08:45 159/97 H 09/01/18 07:45 09/01/18 07:43 97.6 F 112 H 18 09/01/18 04:00 98.1 F 117 H 15 BP BP Pulse Ox Pulse Ox Pulse Ox 09/01/18 10:07 91/68 93 L 97 09/01/18 08:45 09/01/18 07:45 96 09/01/18 07:43 110/72 95 09/01/18 04:00 114/72 99 Weight 147 lb 3.2 oz 08/31/18 09/01/18 09/02/18 06:59 06:59 06:59 Intake Total 640 2186 Output Total 2100 1100 Balance -1460 1086 - Physical Examination General/Neuro: alert & oriented x3, NAD Neck: carotid US brisk, no JVD present Lungs: CTA, unlabored respirations Heart: PMI normal, other: Abdomen: NT/ND, soft - Telemetry Telemetry Rhythm: atrial flutter 2:1. VR 100-110 - Labs Result Diagrams: 09/01/18 04:47 09/01/18 04:47 Troponin/CKMB CK-MB (CK-2) 12.6 ng/mL (0-6.6) H* 08/27/18 16:12 Troponin I 3.916 ng/mL (< 0.028) H* 08/27/18 22:10 - Assessment/Plan 1. Atrial arrhythmias -s/p PVAI approx 7 weeks ago with early recurrence. Did not tolerate amiodarone d/t nausea/GI upset -currently in 2:1 atrial flutter,VR 100-110. PRN lopressor for RVR and PO coreg -continue rate control for now. Consider MOO guided CV once medical issues have calmed 2. Chronic anticoagulation - resumed Eliquis 5mg PO BID 3. NSTEMI - C clean 4.Takotsubo cardiomyopathy 5.Persistent nausea - GI consult on 08/31. Treating for gastritis with PPI and PRN reglan. - CT chest did not show any GI post ablation complications Continue PO rate control, IV lopressor as needed. Continue eliquis. Possible MOO /CV later this week if stabilized.
--- NOTE | 2018-09-01 14:05 | PDOC.PN ---
- Subjective Encounter Start Date: 09/01/18 Encounter Start Time: 14:05 Subjective: feels slightly better today.slept well last night -: was able to drink some ensure.nausea better.no abd pain - Objective Resuscitation Status - Order Detail: 08/27/18 18:38 Resuscitation Status Routine Resuscitation Status: PRTL: Chem-Intubation Discussed with: patient, she specifically reports she does not want compressions MAR Reviewed: Yes Vital Signs & Weight: Vital Signs (12 hours) Temp Pulse Pulse Pulse Resp BP BP 09/01/18 12:30 98.0 F 68 18 09/01/18 10:07 113 H 112 H 104/86 09/01/18 08:45 159/97 H 09/01/18 07:45 09/01/18 07:43 97.6 F 112 H 18 09/01/18 04:00 98.1 F 117 H 15 BP BP Pulse Ox Pulse Ox Pulse Ox 09/01/18 12:30 112/65 95 09/01/18 10:07 91/68 93 L 97 09/01/18 08:45 09/01/18 07:45 96 09/01/18 07:43 110/72 95 09/01/18 04:00 114/72 99 Weight Weight 147 lb 3.2 oz I&O: 08/31/18 09/01/18 09/02/18 06:59 06:59 06:59 Intake Total 640 2186 Output Total 2100 1100 Balance -1460 1086 Result Diagrams: 09/01/18 04:47 09/01/18 04:47 Additional Labs: Microbiology 08/29/18 12:24 Urine voided Urine Culture - Final Laboratory Tests 08/27/18 08/27/18 08/28/18 15:16 16:12 07:27 WBC 14.5 H Creatinine 0.92 1.12 H 08/28/18 08/29/18 08/29/18 07:27 04:23 04:23 WBC 9.5 11.4 H Creatinine 1.03 08/30/18 08/30/18 08/31/18 05:17 05:17 05:11 WBC 12.2 H Creatinine 1.11 H 1.06 08/31/18 09/01/18 09/01/18 05:11 04:47 04:47 WBC 10.4 8.7 Creatinine 1.05 Phys Exam - Physical Examination Constitutional: NAD tired and chronically ill looking HEENT: PERRLA, moist MMs, sclera anicteric, oral pharynx no lesions Neck: no nodes, no JVD, supple, full ROM Respiratory: no wheezing, no rales, no rhonchi Cardiovascular: RRR, irregular Gastrointestinal: soft, non-tender, no distention, positive bowel sounds Musculoskeletal: no edema, pulses present Neurological: non-focal, normal sensation, moves all 4 limbs Psychiatric: normal affect, A&O x 3 Skin: no rash Dx/Plan (1) PNA (pneumonia) Code(s): J18.9 - PNEUMONIA, UNSPECIFIED ORGANISM Status: Acute Comment: cont empiric IV Levaquin .monitor clinically (2) NSTEMI (non-ST elevated myocardial infarction) Code(s): I21.4 - NON-ST ELEVATION (NSTEMI) MYOCARDIAL INFARCTION Status: Acute Comment: s/p Cardiac Cath.No intervention.NL Coronaries. 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 started on Entresto Type 2 IA (3) Atrial fibrillation and flutter Code(s): I48.91 - UNSPECIFIED ATRIAL FIBRILLATION; I48.92 - UNSPECIFIED ATRIAL FLUTTER Status: Acute Comment: Poorly controlled .Metoprolol changed to Coreg by cardiology.Eliquis restarted today by cardiology EP also following. rate controlled w PO BB with prn IV BB . Ablation at a later date when stable (4) Chronic systolic CHF (congestive heart failure), NYHA class 3 Code(s): I50.22 - CHRONIC SYSTOLIC (CONGESTIVE) HEART FAILURE Status: Acute Comment: Acute on chronic though last EF was better. as per ECHO w EF 25%.Lasix stopped as clinically dry on slow IVF.monitor for fluid Overload (5) BRIAN (acute kidney injury) Code(s): N17.9 - ACUTE KIDNEY FAILURE, UNSPECIFIED Status: Acute Comment: Due to diuresis. improved.monitor. DCed lasix as volume depleted on exam (6) Dyslipidemia Code(s): E78.5 - HYPERLIPIDEMIA, UNSPECIFIED Status: Chronic (7) CAD (coronary artery disease) Code(s): I25.10 - ATHSCL HEART DISEASE OF [place] CORONARY ARTERY W/O ANG PCTRS Status: Chronic Qualifiers: Coronary Disease-Associated Artery/Lesion type: [place] artery [place] vs. transplanted heart: [place] heart Associated angina: without angina Qualified Code(s): I25.10 - Atherosclerotic heart disease of [place] coronary artery without angina pectoris Comment: ASA,BB,entresto.continue (8) Chronic anticoagulation Code(s): Z79.01 - USP (CURRENT) USE OF ANTICOAGULANTS Status: Chronic (9) Dyslipidemia Code(s): E78.5 - HYPERLIPIDEMIA, UNSPECIFIED Status: Chronic (10) HTN (hypertension) Code(s): I10 - ESSENTIAL (PRIMARY) HYPERTENSION Status: Chronic Qualifiers: Hypertension type: essential hypertension Qualified Code(s): I10 - Essential (primary) hypertension (11) TYLER (obstructive sleep apnea) Code(s): G47.33 - OBSTRUCTIVE SLEEP APNEA (ADULT) (PEDIATRIC) Status: Chronic Comment: Nocturnal CPAP (12) Anxiety and depression Code(s): F41.9 - ANXIETY DISORDER, UNSPECIFIED; F32.9 - MAJOR DEPRESSIVE DISORDER, SINGLE EPISODE, UNSPECIFIED Status: Chronic - Plan continue antibiotics, PT/OT, respiratory therapy, incentive spirometry, out of bed/ambulate, DVT proph w/SCDs slow clinical improvement -: cont care as above -: encouraged to consider Rehab after DC. -: am labs -: appreciate GI input.cont PPI BID for possible gastritis * . Review of Systems - Review of Systems Constitutional: weakness, malaise. negative: fever, chills, sweats, other Respiratory: SOB with Excertion. negative: Cough, Dry, Shortness of Breath, Hemoptysis, Pleuritic Pain, Sputum, Wheezing Cardiovascular: negative: chest pain, palpitations, orthopnea, paroxysmal nocturnal dyspnea, edema, light headedness, other Gastrointestinal: Nausea Genitourinary: negative: Dysuria, Frequency, Incontinence, Hematuria, Retention , Other Musculoskeletal: negative: Neck Pain, Shoulder Pain, Arm Pain, Back Pain, Hand Pain, Leg Pain, Foot Pain, Other Neurological: negative: Weakness, Numbness, Incoordination, Change in Speech, Confusion, Seizures, Other - Medications/Allergies Allergies/Adverse Reactions: Allergies Allergy/AdvReac Type Severity Reaction Status Date / Time codeine Allergy Verified 07/27/18 01:27 dextromethorphan Allergy Verified 07/27/18 01:27 [From Mucinex DM] guaifenesin [From Mucinex DM] Allergy Verified 07/27/18 01:27 Sjkysur-Tjq-Jpb Reductase Allergy Verified 07/27/18 01:27 Inhibitor Medications: Current Medications Acetaminophen (Tylenol) 650 mg PO Q6H PRN PRN Reason: Headache/Fever/Mild Pain (1-3) Apixaban (Eliquis) 5 mg PO BID [facility] Last Admin: 09/01/18 08:44 Dose: 5 mg Aspirin (Ecotrin) 81 mg PO DAILY [facility] Last Admin: 09/01/18 08:44 Dose: 81 mg Calcium Carbonate (Tums) 1,000 mg PO Q4H PRN PRN Reason: Heartburn or Indigestion Last Admin: 08/30/18 02:29 Dose: 1,000 mg Carvedilol (Coreg) 6.25 mg PO BID[facility] Last Admin: 09/01/18 08:45 Dose: 6.25 mg Ezetimibe (Zetia) 10 mg PO [facility] Last Admin: 08/31/18 20:32 Dose: 10 mg Hydralazine HCl (Apresoline) 10 mg SLOW IVP Q4H PRN PRN Reason: SBP> 160 OR DBP>100 Promethazine HCl 25 mg/ Sodium (Chloride) 51 mls @ 102 mls/hr IVPB Q6H PRN PRN Reason: Nausea Last Admin: 08/30/18 19:19 Dose: 51 mls Potassium Chloride/Sodium Chloride (1/2 Ns W/Kcl 20 Meq) 1,000 mls @ 50 mls/hr IV .Q20H [facility] Last Admin: 09/01/18 12:27 Dose: 1,000 mls Levofloxacin 500 mg/ Device 100 mls @ 100 mls/hr IVPB Q24HR [facility] Last Admin: 09/01/18 12:27 Dose: 100 mls Metoclopramide HCl (Reglan) 5 mg IVP Q6H PRN PRN Reason: Nausea/Vomiting Last Admin: 08/30/18 04:40 Dose: 5 mg Metoprolol Tartrate (Lopressor) 5 mg IVP Q6H PRN PRN Reason: HR >120 Last Admin: 09/01/18 05:56 Dose: 5 mg Miscellaneous Medication (Pharmacy To Dose) 1 each PO PRN PRN PRN Reason: . Morphine Sulfate (Morphine) 2 mg SLOW IVP Q4H PRN PRN Reason: Moderate to Severe Pain (6-10) Last Admin: 08/31/18 21:00 Dose: 2 mg Nitroglycerin (Nitrostat) 0.4 mg SL Q5MIN PRN PRN Reason: Chest Pain Last Admin: 08/30/18 04:34 Dose: 1 tab Nitroglycerin (Nitrostat) 0.4 mg SL Q5MIN PRN PRN Reason: Chest Pain Ondansetron HCl (Zofran Odt) 4 mg PO Q6H PRN PRN Reason: Nausea/Vomiting Ondansetron HCl (Zofran) 4 mg IVP Q6H PRN PRN Reason: Nausea/Vomiting Last Admin: 08/31/18 07:51 Dose: 4 mg Pantoprazole Sodium (Protonix) 40 mg IVP Q12HR [facility] Last Admin: 09/01/18 08:45 Dose: 40 mg Saccharomyces Boulardii (Florastor) 250 mg PO DAILY [facility] Last Admin: 09/01/18 08:44 Dose: 250 mg Sacubitril/Valsartan (Entresto 24.5 Mg-25.5 Mg Tablet) 1 tab PO BID [facility] Last Admin: 09/01/18 08:44 Dose: 1 tab Sertraline HCl (Zoloft) 100 mg PO DAILY [facility] Last Admin: 09/01/18 08:44 Dose: 100 mg Sodium Chloride (Flush - Normal Saline) 10 ml IVF Q12HR [facility] Last Admin: 09/01/18 08:45 Dose: 10 ml Sodium Chloride (Flush - Normal Saline) 10 ml IVF PRN PRN PRN Reason: Saline Flush Last Admin: 08/30/18 04:41 Dose: 10 ml
[2018-09-01] MEDS: Ondansetron PF 4 MG/2 ML Vial IVP PRN (14:57)
--- NOTE | 2018-09-01 15:08 | PRG ---
DATE OF SERVICE: 09/01/2018 SUBJECTIVE: The patient was evidently feeling a bit better this morning with less nausea and minimal abdominal discomfort. However, this afternoon, the nausea has been quite bothersome. No vomiting to this point today. She did have a bowel movement earlier, which appeared normal. She has been passing flatus. OBJECTIVE: VITAL SIGNS: Temperature 98.0, pulse 68, blood pressure 112/65, and 95% oxygen saturation on room air. GENERAL: Sitting up in the chair, in mild distress from nausea. She is alert and oriented. HEART: Continues to have regular tachycardia. LUNGS: Bibasilar crackles. No wheezing. ABDOMEN: Bowel sounds are present. Soft. Generalized tenderness to palpation. No guarding or rebound tenderness. EXTREMITIES: No peripheral edema. LABORATORY STUDIES: Sodium 137, potassium 3.4, BUN 29, and creatinine 1.05. WBC 8.7, hemoglobin 11.5, and platelets 236. ASSESSMENT AND PLAN: 1. Persistent nausea. 2. Recent [id number] myocardial infarction. 3. Worsening congestive heart failure secondary to takotsubo cardiomyopathy. 4. Pneumonia. 5. Atrial flutter with tachycardia. Restarted her on high-dose acid suppression with Protonix 40 mg IV q.12 hours. 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 The patient and family still decline the offer of any endoscopy or other invasive GI procedure, and I still think this is reasonable. We would continue PPI at current dosing during the hospitalization. On hospital discharge, could back off to once daily oral dosing. Otherwise, continue with antiemetics as needed. No other new recommendations from a GI perspective. Please call anytime with questions or concerns. Job ID: [id number]
[2018-09-01] MEDS: Morphine 2 MG/ML SYRINGE SLOW IVP PRN (15:13)
[2018-09-02] MEDS: Aspirin 81 mg Enteric Coated Tablet PO SCH (09:17)
[2018-09-02] MEDS: Pantoprazole 40 MG VIAL IVP SCH ×3 (09:17→20:25)
[2018-09-02] MEDS: Saccharomyces boulardii 250 MG CAP PO SCH (09:17)
[2018-09-02] MEDS: Apixaban 5 MG TAB PO SCH ×3 (09:17→20:25)
[2018-09-02] MEDS: Carvedilol 6.25 MG TAB PO SCH ×2 (09:18→19:14)
--- NOTE | 2018-09-02 09:48 | PDOC.CTH ---
Cardiology Progress Note - Subjective EP PROGRESS NOTE: 09/02/18 Seen as follow up for atrial arrhythmias. Continues to have mild nausea. No vomiting. Overall feels poorly/tired but slept better last night. Denies chest pain, palpitations, dizziness, passing out. + occasional palpitations, nausea, weakness/fatigue - Objective Vital Signs Temp Pulse Resp BP BP Pulse Ox 09/02/18 09:18 97/59 L 09/02/18 07:25 97.5 F L 109 H 18 97/59 L 95 Weight 147 lb 3.2 oz 09/01/18 09/02/18 09/03/18 06:59 06:59 06:59 Intake Total 2186 480 Output Total 1100 860 Balance 1086 -380 - Physical Examination General/Neuro: alert & oriented x3, NAD Neck: carotid US brisk, no JVD present Lungs: CTA, unlabored respirations Heart: PMI normal Abdomen: NT/ND, soft - Telemetry Telemetry Rhythm: Atrial flutter 2:1. VR 100-110 - Labs Result Diagrams: 09/01/18 04:47 09/01/18 04:47 Troponin/CKMB CK-MB (CK-2) 12.6 ng/mL (0-6.6) H* 08/27/18 16:12 Troponin I 3.916 ng/mL (< 0.028) H* 08/27/18 22:10 - Assessment/Plan 1. Atrial arrhythmias -s/p PVAI approx 7 weeks ago with early recurrence. Did not tolerate amiodarone d/t nausea/GI upset -currently in 2:1 atrial flutter,VR 100-110. PRN lopressor for RVR and PO coreg -continue rate control for now. Consider MOO guided CV once medical issues have calmed 2. Chronic anticoagulation - resumed Eliquis 5mg PO BID 3. NSTEMI - C clean 4.Takotsubo cardiomyopathy 5.Persistent nausea - GI consult on 08/31. Treating for gastritis with PPI and PRN reglan. - CT chest did not show any GI post ablation complications Continue current PO rate control, IV lopressor as needed. Continue eliquis. Possible MOO/CV tomorrow with Dr Nazario
[2018-09-02] MEDS: Sacubitril 24.5 MG/Valsartan 25.5 MG TABLET PO SCH ×3 (09:53→20:25)
[2018-09-02] MEDS: Ezetimibe 10 MG TAB PO SCH ×2 (09:53→20:25)
[2018-09-02 11:04] LABS: Hemoglobin 11.6 g/dL (12.0-16.0); Red Blood Cell (RBC) Count 3.82 mill/uL (4.20-5.40); White Blood Cell (WBC) Count 6.8 thou/uL (4.8-10.8)
[2018-09-02 11:05] LABS: #Lymphocytes 1.4 thou/uL (1.20-3.40); #Monocytes 0.6 thou/uL (0.11-0.59); #Neutrophils 4.8 thou/uL (1.40-6.50); %Basophils 0.3 % (0.0-1.0); %Eosinophils 0.3 % (0.0-10.0); %Lymphocytes 20.4 % (21.0-51.0); %Monocytes 8.3 % (0.0-10.0); %Neutrophils 70.6 % (42.0-75.0); Mean Corpuscular HGB CONC 31.5 g/dL (32.0-36.0); Mean Corpuscular Hemoglobin 30.5 pg (27.0-31.0); Mean Corpuscular Volume 96.6 fL (78.0-98.0); Mean Platelet Volume 7.2 fL (7.4-10.4); Platelet Count 235 thou/uL (130-400); RBC Distribution Width 14.3 % (11.5-14.5)
--- NOTE | 2018-09-02 11:36 | PDOC.PN ---
- Subjective Encounter Start Date: 09/02/18 Encounter Start Time: 11:34 Subjective: feels about the same. on and off nausea -: declines EGD .c/o epigastric pain on and off. -: denies any black stools or blood in stools.no vomiting - Objective Resuscitation Status - Order Detail: 08/27/18 18:38 Resuscitation Status Routine Resuscitation Status: PRTL: Chem-Intubation Discussed with: patient, she specifically reports she does not want compressions MAR Reviewed: Yes Vital Signs & Weight: Vital Signs (12 hours) Temp Pulse Resp BP BP Pulse Ox 09/02/18 09:18 97/59 L 09/02/18 07:25 97.5 F L 109 H 18 97/59 L 94 L Weight Weight 147 lb 3.2 oz I&O: 09/01/18 09/02/18 09/03/18 06:59 06:59 06:59 Intake Total 2186 480 Output Total 1100 860 Balance 1086 -380 Result Diagrams: 09/02/18 04:30 09/01/18 04:47 Phys Exam - Physical Examination Constitutional: NAD tired,paler HEENT: PERRLA, moist MMs, sclera anicteric, oral pharynx no lesions, 2+ tonsils Neck: no nodes, no JVD, supple, full ROM Respiratory: no wheezing, no rales, no rhonchi, clear to auscultation bilateral Cardiovascular: RRR, irregular Gastrointestinal: soft, no distention, positive bowel sounds TTP in epigastrium Musculoskeletal: no edema, pulses present Neurological: non-focal, normal sensation, moves all 4 limbs Psychiatric: normal affect, A&O x 3 Skin: no rash Dx/Plan (1) PNA (pneumonia) Code(s): J18.9 - PNEUMONIA, UNSPECIFIED ORGANISM Status: Acute Comment: cont empiric IV Levaquin .monitor clinically (2) NSTEMI (non-ST elevated myocardial infarction) Code(s): I21.4 - NON-ST ELEVATION (NSTEMI) MYOCARDIAL INFARCTION Status: Acute Comment: s/p Cardiac Cath.No intervention.NL Coronaries. 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 started on Entresto Type 2 DC (3) Atrial fibrillation and flutter Code(s): I48.91 - UNSPECIFIED ATRIAL FIBRILLATION; I48.92 - UNSPECIFIED ATRIAL FLUTTER Status: Acute Comment: Poorly controlled .Metoprolol changed to Coreg by cardiology.Eliquis restarted today by cardiology EP also following. rate controlled w PO BB with prn IV BB . Ablation at a later date when stable (4) intractable nausea Status: Acute Comment: Suspect gastritis. On PPI BID. Refusing EGD. Concern for PUD as pt also on Eliquis (5) Chronic systolic CHF (congestive heart failure), NYHA class 3 Code(s): I50.22 - CHRONIC SYSTOLIC (CONGESTIVE) HEART FAILURE Status: Acute Comment: Acute on chronic though last EF was better. as per ECHO w EF 25%.Lasix stopped as clinically dry on slow IVF.monitor for fluid Overload (6) BRIAN (acute kidney injury) Code(s): N17.9 - ACUTE KIDNEY FAILURE, UNSPECIFIED Status: Acute Comment: Due to diuresis. improved.monitor. DCed lasix as volume depleted on exam (7) Dyslipidemia Code(s): E78.5 - HYPERLIPIDEMIA, UNSPECIFIED Status: Chronic (8) CAD (coronary artery disease) Code(s): I25.10 - ATHSCL HEART DISEASE OF [place] CORONARY ARTERY W/O ANG PCTRS Status: Chronic Qualifiers: Coronary Disease-Associated Artery/Lesion type: [place] artery [place] vs. transplanted heart: [place] heart Associated angina: without angina Qualified Code(s): I25.10 - Atherosclerotic heart disease of [place] coronary artery without angina pectoris Comment: ASA,BB,entresto.continue (9) Chronic anticoagulation Code(s): Z79.01 - CRITICAL CARE NURSE (CURRENT) USE OF ANTICOAGULANTS Status: Chronic (10) Dyslipidemia Code(s): E78.5 - HYPERLIPIDEMIA, UNSPECIFIED Status: Chronic (11) HTN (hypertension) Code(s): I10 - ESSENTIAL (PRIMARY) HYPERTENSION Status: Chronic Qualifiers: Hypertension type: essential hypertension Qualified Code(s): I10 - Essential (primary) hypertension (12) TYLER (obstructive sleep apnea) Code(s): G47.33 - OBSTRUCTIVE SLEEP APNEA (ADULT) (PEDIATRIC) Status: Chronic Comment: Nocturnal CPAP (13) Anxiety and depression Code(s): F41.9 - ANXIETY DISORDER, UNSPECIFIED; F32.9 - MAJOR DEPRESSIVE DISORDER, SINGLE EPISODE, UNSPECIFIED Status: Chronic - Plan DVT proph w/SCDs plans for MOO/CV tomorrow. may get EGD to look for gastritis/PUD then also -: will discuss w GI. -: HR controlled w BB.OAC w Eliquis -: remains in poor clinical condition w multiple co morbidities. -: am labs & follow fluid status.high risk of decompensation * . Review of Systems - Review of Systems Constitutional: weakness, malaise. negative: fever, chills, sweats, other Respiratory: negative: Cough, Dry, Shortness of Breath, Hemoptysis, SOB with Excertion, Pleuritic Pain, Sputum, Wheezing Cardiovascular: negative: chest pain, palpitations, orthopnea, paroxysmal nocturnal dyspnea, edema, light headedness, other Gastrointestinal: Nausea, Abdominal Pain. negative: Vomiting, Diarrhea, Constipation, Melena, Hematochezia, Other Genitourinary: negative: Dysuria, Frequency, Incontinence, Hematuria, Retention , Other Musculoskeletal: negative: Neck Pain, Shoulder Pain, Arm Pain, Back Pain, Hand Pain, Leg Pain, Foot Pain, Other Skin: negative: Rash, Lesions, Neil, Bruising, Other Neurological: negative: Weakness, Numbness, Incoordination, Change in Speech, Confusion, Seizures, Other - Medications/Allergies Allergies/Adverse Reactions: Allergies Allergy/AdvReac Type Severity Reaction Status Date / Time codeine Allergy Verified 07/27/18 01:27 dextromethorphan Allergy Verified 07/27/18 01:27 [From Mucinex DM] guaifenesin [From Mucinex DM] Allergy Verified 07/27/18 01:27 Aykmkdo-Mby-Scz Reductase Allergy Verified 07/27/18 01:27 Inhibitor Medications: Current Medications Acetaminophen (Tylenol) 650 mg PO Q6H PRN PRN Reason: Headache/Fever/Mild Pain (1-3) Apixaban (Eliquis) 5 mg PO BID [facility] Last Admin: 09/02/18 09:53 Dose: Not Given Aspirin (Ecotrin) 81 mg PO DAILY [facility] Last Admin: 09/02/18 09:17 Dose: 81 mg Calcium Carbonate (Tums) 1,000 mg PO Q4H PRN PRN Reason: Heartburn or Indigestion Last Admin: 08/30/18 02:29 Dose: 1,000 mg Carvedilol (Coreg) 6.25 mg PO BID-[facility] Last Admin: 09/02/18 09:18 Dose: 6.25 mg Ezetimibe (Zetia) 10 mg PO HS [facility] Last Admin: 09/02/18 09:53 Dose: Not Given Hydralazine HCl (Apresoline) 10 mg SLOW IVP Q4H PRN PRN Reason: SBP> 160 OR DBP>100 Promethazine HCl 25 mg/ Sodium (Chloride) 51 mls @ 102 mls/hr IVPB Q6H PRN PRN Reason: Nausea Last Admin: 08/30/18 19:19 Dose: 51 mls Potassium Chloride/Sodium Chloride (1/2 Ns W/Kcl 20 Meq) 1,000 mls @ 50 mls/hr IV .Q20H [facility] Last Admin: 09/01/18 12:27 Dose: 1,000 mls Levofloxacin 500 mg/ Device 100 mls @ 100 mls/hr IVPB Q24HR [facility] Last Admin: 09/01/18 12:27 Dose: 100 mls Metoclopramide HCl (Reglan) 5 mg IVP Q6H PRN PRN Reason: Nausea/Vomiting Last Admin: 08/30/18 04:40 Dose: 5 mg Metoprolol Tartrate (Lopressor) 5 mg IVP Q6H PRN PRN Reason: HR >120 Last Admin: 09/01/18 05:56 Dose: 5 mg Miscellaneous Medication (Pharmacy To Dose) 1 each PO PRN PRN PRN Reason: . Morphine Sulfate (Morphine) 2 mg SLOW IVP Q4H PRN PRN Reason: Moderate to Severe Pain (6-10) Last Admin: 09/01/18 15:13 Dose: 2 mg Nitroglycerin (Nitrostat) 0.4 mg SL Q5MIN PRN PRN Reason: Chest Pain Last Admin: 08/30/18 04:34 Dose: 1 tab Nitroglycerin (Nitrostat) 0.4 mg SL Q5MIN PRN PRN Reason: Chest Pain Ondansetron HCl (Zofran Odt) 4 mg PO Q6H PRN PRN Reason: Nausea/Vomiting Ondansetron HCl (Zofran) 4 mg IVP Q6H PRN PRN Reason: Nausea/Vomiting Last Admin: 09/01/18 14:57 Dose: 4 mg Pantoprazole Sodium (Protonix) 40 mg IVP Q12HR [facility] Last Admin: 09/02/18 09:53 Dose: Not Given Saccharomyces Boulardii (Florastor) 250 mg PO DAILY [facility] Last Admin: 09/02/18 09:17 Dose: 250 mg Sacubitril/Valsartan (Entresto 24.5 Mg-25.5 Mg Tablet) 1 tab PO BID [facility] Last Admin: 09/02/18 09:53 Dose: Not Given Sertraline HCl (Zoloft) 100 mg PO DAILY [facility] Last Admin: 09/02/18 09:17 Dose: 100 mg Sodium Chloride (Flush - Normal Saline) 10 ml IVF Q12HR [facility] Last Admin: 09/02/18 09:53 Dose: Not Given Sodium Chloride (Flush - Normal Saline) 10 ml IVF PRN PRN PRN Reason: Saline Flush Last Admin: 08/30/18 04:41 Dose: 10 ml
[2018-09-02] MEDS: Morphine 2 MG/ML SYRINGE SLOW IVP PRN (12:50)
[2018-09-02] MEDS: Ondansetron PF 4 MG/2 ML Vial IVP PRN (12:51)
[2018-09-02] MEDS: 1/2 NS w/KCL 20 mEq 1,000 ML IV SCH (12:51)
[2018-09-02 19:10] LABS: Anion Gap 12 mmol/L (10-20); BUN (Urea Nitrogen) 29 mg/dL (9.8-20.1); Calc. Creatinine Clearance 47 mL/min (70-130); Calcium 8.7 mg/dL (7.8-10.44); Carbon Dioxide 29 mmol/L (23-31); Chloride 94 mmol/L (98-107); Estimated GFR-MDRD 58; Glucose 97 mg/dL (83-110); Sodium 131 mmol/L (136-145)
[2018-09-02 19:38] LABS: Lipase Less than 4 U/L (8-78)
--- NOTE | 2018-09-02 20:35 | PRG ---
DATE OF SERVICE: 09/02/2018 SUBJECTIVE: Ms. Tesfaye says she has actually been feeling quite a bit better today. She was able to get up and move around and shower without having worsening nausea. The nausea has overall improved. There has been less abdominal pain. She has had no vomiting. OBJECTIVE: VITAL SIGNS: Temperature 97.7, pulse 107, blood pressure 86/54, 96% oxygen saturation on room air. GENERAL: No acute distress. HEART: Regular, tachycardia. LUNGS: Bibasilar crackles. ABDOMEN: Bowel sounds present. Soft and nontender to palpation. EXTREMITIES: No peripheral edema. LABORATORY STUDIES: WBC 6.8, hemoglobin 11.6, platelets 235. Lipase is less than 4. Sodium 131, potassium 4.0, BUN 29, creatinine 0.92. ASSESSMENT AND PLAN: 1. Persistent nausea, improved somewhat today. 2. Recent non-ST elevation myocardial infarction. 3. Worsening congestive heart failure secondary to Takotsubo cardiomyopathy. 4. Pneumonia. 5. Atrial flutter with tachycardia. The patient has finally had some improvement in her nausea today. We would continue with the Protonix 40 mg IV q.12 hours. Continue this at current dosing during this hospitalization, and on hospital discharge, she could back off to once daily oral dosing. The patient and family still declined any GI endoscopic procedure, and I do think this is reasonable. I would not recommend trying to accomplish EGD at the same time as cardioversion, MOO, or any other cardiac procedure. GI will sign off at this time, but please call back anytime with questions or concerns. Dr. Morrissey is covering for GI this weekend. Job ID: [id number]
[2018-09-03 05:30] LABS: #Lymphocytes 1.1 thou/uL (1.20-3.40); #Monocytes 0.5 thou/uL (0.11-0.59); #Neutrophils 4.7 thou/uL (1.40-6.50); %Basophils 0.1 % (0.0-1.0); %Eosinophils 0.5 % (0.0-10.0); %Lymphocytes 17.6 % (21.0-51.0); %Monocytes 8.1 % (0.0-10.0); %Neutrophils 73.6 % (42.0-75.0); Hemoglobin 11.9 g/dL (12.0-16.0); Mean Corpuscular HGB CONC 32.3 g/dL (32.0-36.0); Mean Corpuscular Hemoglobin 31.2 pg (27.0-31.0); Mean Corpuscular Volume 96.6 fL (78.0-98.0); Mean Platelet Volume 6.8 fL (7.4-10.4); Platelet Count 227 thou/uL (130-400); RBC Distribution Width 14.1 % (11.5-14.5); Red Blood Cell (RBC) Count 3.81 mill/uL (4.20-5.40); White Blood Cell (WBC) Count 6.4 thou/uL (4.8-10.8)
[2018-09-03] MEDS ORDERED: PROPOFOL 40 ML ONE (08:19)
--- NOTE | 2018-09-03 09:02 | ECHO ---
TRANSESOPHAGEAL ECHOCARDIOGRAM: DATE OF PROCEDURE: 09/03/2018. HISTORY: This is an 83-year-old woman with typical atrial flutter. DESCRIPTION OF PROCEDURE: The patient was taken to the PACU. The patient was sedated by anesthesiology. A transesophageal probe was placed into the distal esophagus and stomach. Echocardiographic images were obtained. The transesophageal probe was removed. FINDINGS: 1. Severe decrease in left ventricular systolic function. 2. The left ventricle is markedly dilated. 3. Moderate mitral regurgitation. 4. Moderate tricuspid regurgitation. 5. Spontaneous contrast was noted in the left atrium and left atrial appendage. 6. No thrombus is noted in the left atrium, left atrial appendage, or left ventricular apex. 7. Atherosclerotic debris in the descending aorta. IMPRESSION: No formed thrombus in the left atrial or left atrial appendage. POS: HAESEB
[2018-09-03] MEDS: Aspirin 81 mg Enteric Coated Tablet PO SCH (11:11)
[2018-09-03] MEDS: Ondansetron PF 4 MG/2 ML Vial IVP PRN (11:11)
[2018-09-03] MEDS: Pantoprazole 40 MG VIAL IVP SCH ×2 (11:11→20:20)
[2018-09-03] MEDS: Carvedilol 6.25 MG TAB PO SCH ×2 (11:12→17:31)
[2018-09-03] MEDS: Apixaban 5 MG TAB PO SCH ×2 (11:13→20:20)
[2018-09-03] MEDS: Saccharomyces boulardii 250 MG CAP PO SCH (11:13)
[2018-09-03] MEDS: Sacubitril 24.5 MG/Valsartan 25.5 MG TABLET PO SCH ×2 (11:19→23:54)
--- NOTE | 2018-09-03 12:17 | PDOC.PN ---
- Subjective Encounter Start Date: 09/03/18 Encounter Start Time: 12:15 Subjective: s/p MOO/successful CV -: feels tired but reports that her nausea is much better -: she is craving regular food - Objective Resuscitation Status - Order Detail: 08/27/18 18:38 Resuscitation Status Routine Resuscitation Status: PRTL: Chem-Intubation Discussed with: patient, she specifically reports she does not want compressions MAR Reviewed: Yes Vital Signs & Weight: Vital Signs (12 hours) Temp Pulse Resp BP BP Pulse Ox 09/03/18 11:12 127/78 09/03/18 09:45 97.6 F 92 16 135/76 97 09/03/18 03:32 97.9 F 108 H 16 105/56 L 98 Weight Weight 151 lb 14.4 oz I&O: 09/02/18 09/03/18 09/04/18 06:59 06:59 06:59 Intake Total 480 2060 Output Total 860 1590 Balance -380 470 Result Diagrams: 09/03/18 05:09 09/02/18 04:30 Additional Labs: Laboratory Tests 08/27/18 08/28/18 08/29/18 15:16 07:27 04:23 WBC 14.5 H 9.5 11.4 H Neutrophils % 77.4 H 82.9 H 08/30/18 08/31/18 09/01/18 05:17 05:11 04:47 WBC 10.4 8.7 Neutrophils % 86.4 H 80.4 H 74.6 09/02/18 09/03/18 04:30 05:09 WBC 6.8 6.4 Neutrophils % 70.6 73.6 Phys Exam - Physical Examination Constitutional: NAD weak and tired looking HEENT: PERRLA, moist MMs, sclera anicteric, oral pharynx no lesions Neck: no nodes, no JVD, supple, full ROM Respiratory: no wheezing, no rales, no rhonchi, clear to auscultation bilateral Cardiovascular: RRR, no significant murmur Gastrointestinal: soft, non-tender, no distention, positive bowel sounds Musculoskeletal: no edema, pulses present Neurological: non-focal, normal sensation, moves all 4 limbs Psychiatric: normal affect, A&O x 3 Skin: no rash Dx/Plan (1) PNA (pneumonia) Code(s): J18.9 - PNEUMONIA, UNSPECIFIED ORGANISM Status: Acute Comment: cont empiric IV Levaquin .monitor clinically (2) NSTEMI (non-ST elevated myocardial infarction) Code(s): I21.4 - NON-ST ELEVATION (NSTEMI) MYOCARDIAL INFARCTION Status: Acute Comment: s/p Cardiac Cath.No intervention.NL Coronaries. 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 started on Entresto Type 2 [place] (3) Atrial fibrillation and flutter Code(s): I48.91 - UNSPECIFIED ATRIAL FIBRILLATION; I48.92 - UNSPECIFIED ATRIAL FLUTTER Status: Acute Comment: S/P MOO and DCCV today by cardiology.cont Coreg for rate control and Eliquis for OAC.monitor. (4) intractable nausea Status: Acute Comment: Suspect gastritis. On PPI BID. Refusing EGD. Concern for PUD as pt also on Eliquis (5) Chronic systolic CHF (congestive heart failure), NYHA class 3 Code(s): I50.22 - CHRONIC SYSTOLIC (CONGESTIVE) HEART FAILURE Status: Acute Comment: Acute on chronic though last EF was better. as per ECHO w EF 25%.Lasix stopped as clinically dry .monitor for fluid Overload-will stop ivf today. (6) BRIAN (acute kidney injury) Code(s): N17.9 - ACUTE KIDNEY FAILURE, UNSPECIFIED Status: Acute Comment: Due to diuresis. improved.monitor. DCed lasix as volume depleted on exam (7) Dyslipidemia Code(s): E78.5 - HYPERLIPIDEMIA, UNSPECIFIED Status: Chronic (8) CAD (coronary artery disease) Code(s): I25.10 - ATHSCL HEART DISEASE OF [place] CORONARY ARTERY W/O ANG PCTRS Status: Chronic Qualifiers: Coronary Disease-Associated Artery/Lesion type: [place] artery [place] vs. transplanted heart: [place] heart Associated angina: without angina Qualified Code(s): I25.10 - Atherosclerotic heart disease of [place] coronary artery without angina pectoris Comment: ASA,BB,entresto.continue (9) Chronic anticoagulation Code(s): Z79.01 - JAIL (CURRENT) USE OF ANTICOAGULANTS Status: Chronic (10) Dyslipidemia Code(s): E78.5 - HYPERLIPIDEMIA, UNSPECIFIED Status: Chronic (11) HTN (hypertension) Code(s): I10 - ESSENTIAL (PRIMARY) HYPERTENSION Status: Chronic Qualifiers: Hypertension type: essential hypertension Qualified Code(s): I10 - Essential (primary) hypertension (12) TYLER (obstructive sleep apnea) Code(s): G47.33 - OBSTRUCTIVE SLEEP APNEA (ADULT) (PEDIATRIC) Status: Chronic Comment: Nocturnal CPAP (13) Anxiety and depression Code(s): F41.9 - ANXIETY DISORDER, UNSPECIFIED; F32.9 - MAJOR DEPRESSIVE DISORDER, SINGLE EPISODE, UNSPECIFIED Status: Chronic - Plan plan discussed w/ family, continue antibiotics, PT/OT, respiratory therapy, incentive spirometry, out of bed/ambulate, DVT proph w/SCDs start DC planning -: will need rehab,likely skilled.discussed w family in detail -: LifeVest prior to Dc -: monitor over the weekend in house -: am labs.change diet to regular for now * . Review of Systems - Review of Systems Constitutional: weakness, malaise ENT: negative: Ear Pain, Ear Discharge, Nose Pain, Nose Discharge, Nose Congestion, Mouth Pain, Mouth Swelling, Throat Pain, Throat Swelling, Other Cardiovascular: negative: chest pain, palpitations, orthopnea, paroxysmal nocturnal dyspnea, edema, light headedness, other Gastrointestinal: negative: Nausea, Vomiting, Abdominal Pain, Diarrhea, Constipation, Melena, Hematochezia, Other Genitourinary: negative: Dysuria, Frequency, Incontinence, Hematuria, Retention , Other Musculoskeletal: negative: Neck Pain, Shoulder Pain, Arm Pain, Back Pain, Hand Pain, Leg Pain, Foot Pain, Other Neurological: negative: Weakness, Numbness, Incoordination, Change in Speech, Confusion, Seizures, Other - Medications/Allergies Allergies/Adverse Reactions: Allergies Allergy/AdvReac Type Severity Reaction Status Date / Time codeine Allergy Verified 07/27/18 01:27 dextromethorphan Allergy Verified 07/27/18 01:27 [From Mucinex DM] guaifenesin [From Mucinex DM] Allergy Verified 07/27/18 01:27 Stflejz-Xlz-Dfs Reductase Allergy Verified 07/27/18 01:27 Inhibitor Medications: Current Medications Acetaminophen (Tylenol) 650 mg PO Q6H PRN PRN Reason: Headache/Fever/Mild Pain (1-3) Apixaban (Eliquis) 5 mg PO BID [facility] Last Admin: 09/03/18 11:13 Dose: 5 mg Aspirin (Ecotrin) 81 mg PO DAILY [facility] Last Admin: 09/03/18 11:11 Dose: 81 mg Calcium Carbonate (Tums) 1,000 mg PO Q4H PRN PRN Reason: Heartburn or Indigestion Last Admin: 08/30/18 02:29 Dose: 1,000 mg Carvedilol (Coreg) 6.25 mg PO BID-[facility] Last Admin: 09/03/18 11:12 Dose: 6.25 mg Ezetimibe (Zetia) 10 mg PO [facility] Last Admin: 09/02/18 20:25 Dose: 10 mg Hydralazine HCl (Apresoline) 10 mg SLOW IVP Q4H PRN PRN Reason: SBP> 160 OR DBP>100 Promethazine HCl 25 mg/ Sodium (Chloride) 51 mls @ 102 mls/hr IVPB Q6H PRN PRN Reason: Nausea Last Admin: 08/30/18 19:19 Dose: 51 mls Levofloxacin 500 mg/ Device 100 mls @ 100 mls/hr IVPB Q24HR [facility] Last Admin: 09/02/18 13:57 Dose: 100 mls Metoclopramide HCl (Reglan) 5 mg IVP Q6H PRN PRN Reason: Nausea/Vomiting Last Admin: 08/30/18 04:40 Dose: 5 mg Metoprolol Tartrate (Lopressor) 5 mg IVP Q6H PRN PRN Reason: HR >120 Last Admin: 09/01/18 05:56 Dose: 5 mg Miscellaneous Medication (Pharmacy To Dose) 1 each PO PRN PRN PRN Reason: . Morphine Sulfate (Morphine) 2 mg SLOW IVP Q4H PRN PRN Reason: Moderate to Severe Pain (6-10) Last Admin: 09/02/18 12:50 Dose: 2 mg Nitroglycerin (Nitrostat) 0.4 mg SL Q5MIN PRN PRN Reason: Chest Pain Last Admin: 08/30/18 04:34 Dose: 1 tab Nitroglycerin (Nitrostat) 0.4 mg SL Q5MIN PRN PRN Reason: Chest Pain Ondansetron HCl (Zofran Odt) 4 mg PO Q6H PRN PRN Reason: Nausea/Vomiting Ondansetron HCl (Zofran) 4 mg IVP Q6H PRN PRN Reason: Nausea/Vomiting Last Admin: 09/03/18 11:11 Dose: 4 mg Pantoprazole Sodium (Protonix) 40 mg IVP Q12HR [facility] Last Admin: 09/03/18 11:11 Dose: 40 mg Saccharomyces Boulardii (Florastor) 250 mg PO DAILY [facility] Last Admin: 09/03/18 11:13 Dose: 250 mg Sacubitril/Valsartan (Entresto 24.5 Mg-25.5 Mg Tablet) 1 tab PO BID [facility] Sertraline HCl (Zoloft) 100 mg PO DAILY [facility] Last Admin: 09/03/18 11:12 Dose: 100 mg Sodium Chloride (Flush - Normal Saline) 10 ml IVF Q12HR [facility] Last Admin: 09/03/18 11:15 Dose: 10 ml Sodium Chloride (Flush - Normal Saline) 10 ml IVF PRN PRN PRN Reason: Saline Flush Last Admin: 09/02/18 13:58 Dose: 10 ml
--- NOTE | 2018-09-03 12:23 | PDOC.CTH ---
Cardiology Progress Note - Subjective EP PROGRESS NOTE: 09/03/18 Seen as follow up for atrial arrhythmias. No nausea or vomiting. Overall feels she is improving but remains fatigued. Denies chest pain, palpitations, dizziness, passing out. Had MOO/CV this AM with Dr. Nazario - Objective Vital Signs Temp Pulse Resp BP BP Pulse Ox 09/03/18 11:12 127/78 09/03/18 09:45 97.6 F 92 16 135/76 97 09/03/18 03:32 97.9 F 108 H 16 105/56 L 98 Weight 151 lb 14.4 oz 09/02/18 09/03/18 09/04/18 06:59 06:59 06:59 Intake Total 480 2060 Output Total 860 1590 Balance -380 470 - Physical Examination General/Neuro: alert & oriented x3, NAD Neck: carotid US brisk, no JVD present Lungs: unlabored respirations, other: (bibasilar crackles) Heart: PMI normal, RRR Abdomen: NT/ND, soft - Telemetry Telemetry Rhythm: SR - Labs Result Diagrams: 09/03/18 05:09 09/02/18 04:30 Troponin/CKMB CK-MB (CK-2) 12.6 ng/mL (0-6.6) H* 08/27/18 16:12 Troponin I 3.916 ng/mL (< 0.028) H* 08/27/18 22:10 - Assessment/Plan 1. Atrial arrhythmias - s/p PVAI approx 7 weeks ago with early recurrence. Did not tolerate amiodarone d/t nausea/GI upset - s/p MOO/CV 09/[address] Nazario - Coreg 6.25mg PO BID. 2. Chronic anticoagulation - resumed Eliquis 5mg PO BID 3. NSTEMI - [facility] clean 4. Cardiomyopathy, Takotsubo -severely depressed LVEF 25-30%. -Patient considering lifevest offered by cardiology. -If EF remains severely depressed after 3 months of optimal medical management, consider ICD implant. 5.Persistent nausea - GI consult on 08/31. Treating for gastritis with PPI and PRN reglan. - CT chest did not show any GI post ablation complications 6. Hypotension Successful MOO/CV this AM. Staying in sinus rhythm. No PACs seen. At this time I would prefer to start AAD therapy with Amiodarone but patient has not tolerated this medication in the recent past, reporting significant nausea and would prefer going without at this time. So for now, continue with BB therapy and Eliquis. If further recurrences are seen, consider low dose amio vs tikosyn if she is symptomatic with her arrhythmia. Ok for DC by EP but will likely stay over the weekend with hypotension/medical issues. Will check on her Thursday if still IP. Has 2 week fup appt in DC instructions.
--- NOTE | 2018-09-03 12:52 | OP ---
DATE OF PROCEDURE: 09/03/2018 PROCEDURE PERFORMED: Electrocardioversion. INDICATION: Typical atrial flutter. DESCRIPTION OF PROCEDURE: The patient was taken to the PACU. The patient was sedated by Anesthesiology. The patient was shocked with 50 joules of synchronized electricity. The patient converted to normal sinus rhythm. IMPRESSION: Successful electrocardioversion. Job ID: [id number]
[2018-09-03] MEDS: 1/2 NS w/KCL 20 mEq 1,000 ML IV SCH (15:44)
[2018-09-03] MEDS ORDERED: PROPOFOL 200 MG/20 ML VIAL ONE (16:32)
[2018-09-03] MEDS: Ezetimibe 10 MG TAB PO SCH (20:20)
[2018-09-04] MEDS: Aspirin 81 mg Enteric Coated Tablet PO SCH (08:57)
[2018-09-04] MEDS: Sacubitril 24.5 MG/Valsartan 25.5 MG TABLET PO SCH ×2 (08:57→21:36)
[2018-09-04] MEDS: Saccharomyces boulardii 250 MG CAP PO SCH (08:57)
[2018-09-04] MEDS: Carvedilol 6.25 MG TAB PO SCH ×2 (08:58→17:30)
[2018-09-04] MEDS: Pantoprazole 40 MG VIAL IVP SCH ×2 (08:58→21:36)
[2018-09-04] MEDS: Apixaban 5 MG TAB PO SCH ×2 (08:58→21:36)
--- NOTE | 2018-09-04 14:22 | PDOC.PN ---
- Subjective Encounter Start Date: 09/04/18 Encounter Start Time: 14:20 Subjective: feels better. eating better. -: no more nausea.regualr BM - Objective Resuscitation Status - Order Detail: 08/27/18 18:38 Resuscitation Status Routine Resuscitation Status: PRTL: Chem-Intubation Discussed with: patient, she specifically reports she does not want compressions MAR Reviewed: Yes Vital Signs & Weight: Vital Signs (12 hours) Temp Pulse Pulse Pulse Resp BP BP 09/04/18 11:40 81 83 109/59 L 96/61 09/04/18 10:27 79 127/72 09/04/18 08:00 98.5 F 79 17 09/04/18 03:50 97.9 F 80 14 BP Pulse Ox Pulse Ox Pulse Ox 09/04/18 11:40 98 93 L 09/04/18 10:27 95 09/04/18 08:00 127/72 95 09/04/18 03:50 118/67 93 L Weight Weight 150 lb 14.4 oz I&O: 09/03/18 09/04/18 09/05/18 06:59 06:59 06:59 Intake Total 2060 1200 Output Total 1590 700 Balance 470 500 Result Diagrams: 09/03/18 05:09 09/02/18 04:30 Phys Exam - Physical Examination Constitutional: NAD looks much better today .awake and brushing hair HEENT: PERRLA, moist MMs, sclera anicteric, oral pharynx no lesions Neck: no nodes, no JVD, supple, full ROM Respiratory: no wheezing, no rales, no rhonchi, clear to auscultation bilateral Cardiovascular: RRR, no significant murmur Gastrointestinal: soft, non-tender, no distention, positive bowel sounds Musculoskeletal: no edema, pulses present Neurological: non-focal, normal sensation, moves all 4 limbs Psychiatric: normal affect, A&O x 3 Skin: no rash Dx/Plan (1) PNA (pneumonia) Code(s): J18.9 - PNEUMONIA, UNSPECIFIED ORGANISM Status: Acute Comment: cont empiric Levaquin.Change to PO .clinically better .monitor clinically (2) NSTEMI (non-ST elevated myocardial infarction) Code(s): I21.4 - NON-ST ELEVATION (NSTEMI) MYOCARDIAL INFARCTION Status: Acute Comment: s/p Cardiac Cath.No intervention.NL Coronaries. 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 started on Entresto Type 2 [place] (3) Atrial fibrillation and flutter Code(s): I48.91 - UNSPECIFIED ATRIAL FIBRILLATION; I48.92 - UNSPECIFIED ATRIAL FLUTTER Status: Acute Comment: S/P MOO and DCCV 09/03/18 by cardiology.cont Coreg for rate control and Eliquis for OAC.monitor. (4) intractable nausea Status: Acute Comment: Suspect gastritis. On PPI BID. Refusing EGD. Concern for PUD as pt also on Eliquis (5) Chronic systolic CHF (congestive heart failure), NYHA class 3 Code(s): I50.22 - CHRONIC SYSTOLIC (CONGESTIVE) HEART FAILURE Status: Acute Comment: Acute on chronic though last EF was better. as per ECHO w EF 25%.Lasix stopped as clinically dry .monitor for fluid Overload-will stop ivf today. (6) BRIAN (acute kidney injury) Code(s): N17.9 - ACUTE KIDNEY FAILURE, UNSPECIFIED Status: Acute Comment: Due to diuresis. improved.monitor. DCed lasix as volume depleted on exam (7) Dyslipidemia Code(s): E78.5 - HYPERLIPIDEMIA, UNSPECIFIED Status: Chronic (8) CAD (coronary artery disease) Code(s): I25.10 - ATHSCL HEART DISEASE OF [place] CORONARY ARTERY W/O ANG PCTRS Status: Chronic Qualifiers: Coronary Disease-Associated Artery/Lesion type: [place] artery [place] vs. transplanted heart: [place] heart Associated angina: without angina Qualified Code(s): I25.10 - Atherosclerotic heart disease of [place] coronary artery without angina pectoris Comment: ASA,BB,entresto.continue (9) Chronic anticoagulation Code(s): Z79.01 - HAND[employer]CH[employer]OLDER (CURRENT) USE OF ANTICOAGULANTS Status: Chronic (10) Dyslipidemia Code(s): E78.5 - HYPERLIPIDEMIA, UNSPECIFIED Status: Chronic (11) HTN (hypertension) Code(s): I10 - ESSENTIAL (PRIMARY) HYPERTENSION Status: Chronic Qualifiers: Hypertension type: essential hypertension Qualified Code(s): I10 - Essential (primary) hypertension (12) TYLER (obstructive sleep apnea) Code(s): G47.33 - OBSTRUCTIVE SLEEP APNEA (ADULT) (PEDIATRIC) Status: Chronic Comment: Nocturnal CPAP (13) Anxiety and depression Code(s): F41.9 - ANXIETY DISORDER, UNSPECIFIED; F32.9 - MAJOR DEPRESSIVE DISORDER, SINGLE EPISODE, UNSPECIFIED Status: Chronic - Plan continue antibiotics, PT/OT, out of bed/ambulate, DVT proph w/SCDs cont PPI.avoid reglan/phenergan.monitor -: AM labs -: DC planning.awaiting rehab eval -: LifeVest prior to DC per cardiology -: HD stable * . Review of Systems - Review of Systems Constitutional: weakness. negative: fever, chills, sweats, malaise, other Respiratory: negative: Cough, Dry, Shortness of Breath, Hemoptysis, SOB with Excertion, Pleuritic Pain, Sputum, Wheezing Cardiovascular: negative: chest pain, palpitations, orthopnea, paroxysmal nocturnal dyspnea, edema, light headedness, other Gastrointestinal: negative: Nausea, Vomiting, Abdominal Pain, Diarrhea, Constipation, Melena, Hematochezia, Other Genitourinary: negative: Dysuria, Frequency, Incontinence, Hematuria, Retention , Other Musculoskeletal: negative: Neck Pain, Shoulder Pain, Arm Pain, Back Pain, Hand Pain, Leg Pain, Foot Pain, Other Neurological: negative: Weakness, Numbness, Incoordination, Change in Speech, Confusion, Seizures, Other - Medications/Allergies Allergies/Adverse Reactions: Allergies Allergy/AdvReac Type Severity Reaction Status Date / Time codeine Allergy Verified 07/27/18 01:27 dextromethorphan Allergy Verified 07/27/18 01:27 [From Mucinex DM] guaifenesin [From Mucinex DM] Allergy Verified 07/27/18 01:27 Kpyannb-Gkj-Pbd Reductase Allergy Verified 07/27/18 01:27 Inhibitor Medications: Current Medications Acetaminophen (Tylenol) 650 mg PO Q6H PRN PRN Reason: Headache/Fever/Mild Pain (1-3) Apixaban (Eliquis) 5 mg PO BID [facility] Last Admin: 09/04/18 08:58 Dose: 5 mg Aspirin (Ecotrin) 81 mg PO DAILY [facility] Last Admin: 09/04/18 08:57 Dose: 81 mg Calcium Carbonate (Tums) 1,000 mg PO Q4H PRN PRN Reason: Heartburn or Indigestion Last Admin: 08/30/18 02:29 Dose: 1,000 mg Carvedilol (Coreg) 6.25 mg PO BID[facility] Last Admin: 09/04/18 08:58 Dose: 6.25 mg Ezetimibe (Zetia) 10 mg PO HS [facility] Last Admin: 09/03/18 20:20 Dose: 10 mg Hydralazine HCl (Apresoline) 10 mg SLOW IVP Q4H PRN PRN Reason: SBP> 160 OR DBP>100 Promethazine HCl 25 mg/ Sodium (Chloride) 51 mls @ 102 mls/hr IVPB Q6H PRN PRN Reason: Nausea Last Admin: 08/30/18 19:19 Dose: 51 mls Levofloxacin (Levaquin) 500 mg PO 0600 [facility] Stop: 09/09/18 06:01 Metoclopramide HCl (Reglan) 5 mg IVP Q6H PRN PRN Reason: Nausea/Vomiting Last Admin: 08/30/18 04:40 Dose: 5 mg Metoprolol Tartrate (Lopressor) 5 mg IVP Q6H PRN PRN Reason: HR >120 Last Admin: 09/01/18 05:56 Dose: 5 mg Miscellaneous Medication (Pharmacy To Dose) 1 each PO PRN PRN PRN Reason: . Morphine Sulfate (Morphine) 2 mg SLOW IVP Q4H PRN PRN Reason: Moderate to Severe Pain (6-10) Last Admin: 09/02/18 12:50 Dose: 2 mg Nitroglycerin (Nitrostat) 0.4 mg SL Q5MIN PRN PRN Reason: Chest Pain Last Admin: 08/30/18 04:34 Dose: 1 tab Nitroglycerin (Nitrostat) 0.4 mg SL Q5MIN PRN PRN Reason: Chest Pain Ondansetron HCl (Zofran Odt) 4 mg PO Q6H PRN PRN Reason: Nausea/Vomiting Ondansetron HCl (Zofran) 4 mg IVP Q6H PRN PRN Reason: Nausea/Vomiting Last Admin: 09/03/18 11:11 Dose: 4 mg Pantoprazole Sodium (Protonix) 40 mg IVP Q12HR [facility] Last Admin: 09/04/18 08:58 Dose: 40 mg Saccharomyces Boulardii (Florastor) 250 mg PO DAILY [facility] Last Admin: 09/04/18 08:57 Dose: 250 mg Sacubitril/Valsartan (Entresto 24.5 Mg-25.5 Mg Tablet) 1 tab PO BID [facility] Last Admin: 09/04/18 08:57 Dose: 1 tab Sertraline HCl (Zoloft) 100 mg PO DAILY [facility] Last Admin: 09/04/18 08:57 Dose: 100 mg Sodium Chloride (Flush - Normal Saline) 10 ml IVF Q12HR [facility] Last Admin: 09/04/18 08:58 Dose: 10 ml Sodium Chloride (Flush - Normal Saline) 10 ml IVF PRN PRN PRN Reason: Saline Flush Last Admin: 09/02/18 13:58 Dose: 10 ml
[2018-09-04] MEDS: Ezetimibe 10 MG TAB PO SCH (21:36)
[2018-09-05 05:09] LABS: #Eosinphils 0.1 thou/uL (0.0-0.7); #Lymphocytes 1.7 thou/uL (1.20-3.40); #Monocytes 0.6 thou/uL (0.11-0.59); #Neutrophils 4.6 thou/uL (1.40-6.50); %Basophils 0.3 % (0.0-1.0); %Eosinophils 1.8 % (0.0-10.0); %Lymphocytes 24.5 % (21.0-51.0); %Monocytes 7.9 % (0.0-10.0); %Neutrophils 65.6 % (42.0-75.0); Hemoglobin 11.3 g/dL (12.0-16.0); Mean Corpuscular HGB CONC 31.7 g/dL (32.0-36.0); Mean Corpuscular Hemoglobin 30.6 pg (27.0-31.0); Mean Corpuscular Volume 96.3 fL (78.0-98.0); Mean Platelet Volume 6.5 fL (7.4-10.4); Platelet Count 231 thou/uL (130-400); RBC Distribution Width 14.1 % (11.5-14.5); Red Blood Cell (RBC) Count 3.69 mill/uL (4.20-5.40)
[2018-09-05 05:32] LABS: Anion Gap 11 mmol/L (10-20); BUN (Urea Nitrogen) 18 mg/dL (9.8-20.1); Calc. Creatinine Clearance 48 mL/min (70-130); Calcium 8.7 mg/dL (7.8-10.44); Carbon Dioxide 28 mmol/L (23-31); Chloride 102 mmol/L (98-107); Estimated GFR-MDRD 56; Glucose 97 mg/dL (83-110); Potassium 3.6 mmol/L (3.5-5.1); Sodium 137 mmol/L (136-145)
[2018-09-05] MEDS: Apixaban 5 MG TAB PO SCH ×2 (08:29→21:00)
[2018-09-05] MEDS: Aspirin 81 mg Enteric Coated Tablet PO SCH (08:29)
[2018-09-05] MEDS: Carvedilol 6.25 MG TAB PO SCH ×2 (08:29→17:36)
[2018-09-05] MEDS: Pantoprazole 40 MG VIAL IVP SCH ×2 (08:29→21:32)
[2018-09-05] MEDS: Sacubitril 24.5 MG/Valsartan 25.5 MG TABLET PO SCH ×2 (08:29→21:01)
[2018-09-05] MEDS: Saccharomyces boulardii 250 MG CAP PO SCH (08:29)
[2018-09-05] MEDS ORDERED: Polyethylene Glycol 3350 17 GM Packet PO SCH (10:30)
[2018-09-05] MEDS ORDERED: Bisacodyl 5 MG TAB PO PRN (10:30)
--- NOTE | 2018-09-05 10:53 | PDOC.PN ---
- Subjective Encounter Start Date: 09/05/18 Encounter Start Time: 07:20 -: old records requested/rev Patient seen and examined. No new complaints. No overnight events - Objective Resuscitation Status - Order Detail: 08/27/18 18:38 Resuscitation Status Routine Resuscitation Status: PRTL: Chem-Intubation Discussed with: patient, she specifically reports she does not want compressions MAR Reviewed: Yes Vital Signs & Weight: Vital Signs (12 hours) Temp Pulse Resp BP Pulse Ox 09/05/18 08:00 98.0 F 87 17 114/56 L 94 L 09/05/18 03:52 96.4 F L 80 16 120/55 L 95 09/05/18 00:52 103/59 L Weight Weight 155 lb I&O: 09/04/18 09/05/18 09/06/18 06:59 06:59 06:59 Intake Total 1200 760 Output Total 700 1400 Balance 500 -640 Result Diagrams: 09/05/18 04:50 09/05/18 04:50 EKG Reviewed by me: Yes (nsr) Phys Exam - Physical Examination Constitutional: NAD HEENT: PERRLA, moist MMs, sclera anicteric Neck: no JVD, supple Respiratory: no wheezing, no rhonchi left base few rales+ Cardiovascular: RRR, no significant murmur, no rub Gastrointestinal: soft, non-tender, no distention, positive bowel sounds Musculoskeletal: no edema, pulses present Neurological: non-focal, normal sensation, moves all 4 limbs Lymphatic: no nodes Psychiatric: normal affect, A&O x 3 Skin: no rash, normal turgor Dx/Plan (1) NSTEMI (non-ST elevated myocardial infarction) Code(s): I21.4 - NON-ST ELEVATION (NSTEMI) MYOCARDIAL INFARCTION Status: Acute Comment: s/p Cardiac Cath.No intervention.NL Coronaries. 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 started on Entresto Type 2 [place] (2) intractable nausea Status: Acute Comment: Suspect gastritis. On PPI BID. Refusing EGD. Concern for PUD as pt also on Eliquis (3) Anxiety and depression Code(s): F41.9 - ANXIETY DISORDER, UNSPECIFIED; F32.9 - MAJOR DEPRESSIVE DISORDER, SINGLE EPISODE, UNSPECIFIED Status: Chronic (4) Atrial fibrillation and flutter Code(s): I48.91 - UNSPECIFIED ATRIAL FIBRILLATION; I48.92 - UNSPECIFIED ATRIAL FLUTTER Status: Acute Comment: S/P MOO and DCCV 09/03/18 by cardiology.cont Coreg for rate control and Eliquis for OAC.monitor. (5) PNA (pneumonia) Code(s): J18.9 - PNEUMONIA, UNSPECIFIED ORGANISM Status: Acute Qualifiers: Pneumonia type: due to unspecified organism Laterality: right Lung location: lower lobe of lung Qualified Code(s): J18.1 - Lobar pneumonia, unspecified organism (6) Physical deconditioning Code(s): R53.81 - OTHER MALAISE Status: Acute (7) CAD (coronary artery disease) Code(s): I25.10 - ATHSCL HEART DISEASE OF [place] CORONARY ARTERY W/O ANG PCTRS Status: Chronic Qualifiers: Coronary Disease-Associated Artery/Lesion type: [place] artery [place] vs. transplanted heart: [place] heart Associated angina: without angina Qualified Code(s): I25.10 - Atherosclerotic heart disease of [place] coronary artery without angina pectoris Comment: ASA,BB,entresto.continue (8) Chronic anticoagulation Code(s): Z79.01 - [facility] (CURRENT) USE OF ANTICOAGULANTS Status: Chronic (9) Dyslipidemia Code(s): E78.5 - HYPERLIPIDEMIA, UNSPECIFIED Status: Chronic (10) HTN (hypertension) Code(s): I10 - ESSENTIAL (PRIMARY) HYPERTENSION Status: Chronic Qualifiers: Hypertension type: essential hypertension Qualified Code(s): I10 - Essential (primary) hypertension (11) TYLER (obstructive sleep apnea) Code(s): G47.33 - OBSTRUCTIVE SLEEP APNEA (ADULT) (PEDIATRIC) Status: Chronic Comment: Nocturnal CPAP - Plan cont current plan of care, 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 Review of Systems - Review of Systems ENT: negative: Ear Pain, Ear Discharge, Nose Pain, Nose Discharge, Nose Congestion, Mouth Pain, Mouth Swelling, Throat Pain, Throat Swelling, Other Respiratory: negative: Cough, Dry, Shortness of Breath, Hemoptysis, SOB with Excertion, Pleuritic Pain, Sputum, Wheezing Cardiovascular: negative: chest pain, palpitations, orthopnea, paroxysmal nocturnal dyspnea, edema, light headedness, other Gastrointestinal: Constipation. negative: Nausea, Vomiting, Abdominal Pain, Diarrhea, Melena, Hematochezia, Other Genitourinary: negative: Dysuria, Frequency, Incontinence, Hematuria, Retention , Other Musculoskeletal: negative: Neck Pain, Shoulder Pain, Arm Pain, Back Pain, Hand Pain, Leg Pain, Foot Pain, Other Skin: negative: Rash, Lesions, Neil, Bruising, Other - Medications/Allergies Allergies/Adverse Reactions: Allergies Allergy/AdvReac Type Severity Reaction Status Date / Time codeine Allergy Verified 07/27/18 01:27 dextromethorphan Allergy Verified 07/27/18 01:27 [From Mucinex DM] guaifenesin [From Mucinex DM] Allergy Verified 07/27/18 01:27 Fynbnpk-Ojn-Fah Reductase Allergy Verified 07/27/18 01:27 Inhibitor Medications: Current Medications Acetaminophen (Tylenol) 650 mg PO Q6H PRN PRN Reason: Headache/Fever/Mild Pain (1-3) Apixaban (Eliquis) 5 mg PO BID [facility] Last Admin: 09/05/18 08:29 Dose: 5 mg Aspirin (Ecotrin) 81 mg PO DAILY [facility] Last Admin: 09/05/18 08:29 Dose: 81 mg Bisacodyl (Dulcolax) 10 mg PO DAILYPRN PRN PRN Reason: Constipation Calcium Carbonate (Tums) 1,000 mg PO Q4H PRN PRN Reason: Heartburn or Indigestion Last Admin: 08/30/18 02:29 Dose: 1,000 mg Carvedilol (Coreg) 6.25 mg PO BID-[facility] Last Admin: 09/05/18 08:29 Dose: 6.25 mg Ezetimibe (Zetia) 10 mg PO [facility] Last Admin: 09/04/18 21:36 Dose: 10 mg Hydralazine HCl (Apresoline) 10 mg SLOW IVP Q4H PRN PRN Reason: SBP> 160 OR DBP>100 Promethazine HCl 25 mg/ Sodium (Chloride) 51 mls @ 102 mls/hr IVPB Q6H PRN PRN Reason: Nausea Last Admin: 08/30/18 19:19 Dose: 51 mls Levofloxacin (Levaquin) 500 mg PO 0600 [facility] Stop: 09/09/18 06:01 Last Admin: 09/05/18 05:08 Dose: 500 mg Metoclopramide HCl (Reglan) 5 mg IVP Q6H PRN PRN Reason: Nausea/Vomiting Last Admin: 08/30/18 04:40 Dose: 5 mg Metoprolol Tartrate (Lopressor) 5 mg IVP Q6H PRN PRN Reason: HR >120 Last Admin: 09/01/18 05:56 Dose: 5 mg Miscellaneous Medication (Pharmacy To Dose) 1 each PO PRN PRN PRN Reason: . Morphine Sulfate (Morphine) 2 mg SLOW IVP Q4H PRN PRN Reason: Moderate to Severe Pain (6-10) Last Admin: 09/02/18 12:50 Dose: 2 mg Nitroglycerin (Nitrostat) 0.4 mg SL Q5MIN PRN PRN Reason: Chest Pain Last Admin: 08/30/18 04:34 Dose: 1 tab Nitroglycerin (Nitrostat) 0.4 mg SL Q5MIN PRN PRN Reason: Chest Pain Ondansetron HCl (Zofran Odt) 4 mg PO Q6H PRN PRN Reason: Nausea/Vomiting Ondansetron HCl (Zofran) 4 mg IVP Q6H PRN PRN Reason: Nausea/Vomiting Last Admin: 09/03/18 11:11 Dose: 4 mg Pantoprazole Sodium (Protonix) 40 mg IVP Q12HR [facility] Last Admin: 09/05/18 08:29 Dose: 40 mg Polyethylene Glycol (Miralax) 17 gm PO DAILY [facility] Polyethylene Glycol (Miralax) 17 gm PO NOW [facility] Saccharomyces Boulardii (Florastor) 250 mg PO DAILY [facility] Last Admin: 09/05/18 08:29 Dose: 250 mg Sacubitril/Valsartan (Entresto 24.5 Mg-25.5 Mg Tablet) 1 tab PO BID [facility] Last Admin: 09/05/18 08:29 Dose: 1 tab Sertraline HCl (Zoloft) 100 mg PO DAILY [facility] Last Admin: 09/05/18 08:31 Dose: 100 mg Sodium Chloride (Flush - Normal Saline) 10 ml IVF Q12HR [facility] Last Admin: 09/05/18 08:30 Dose: 10 ml Sodium Chloride (Flush - Normal Saline) 10 ml IVF PRN PRN PRN Reason: Saline Flush Last Admin: 09/02/18 13:58 Dose: 10 ml
[2018-09-05] MEDS: Ezetimibe 10 MG TAB PO SCH ×2 (21:01→21:02)
[2018-09-06] MEDS: Polyethylene Glycol 3350 17 GM Packet PO SCH (08:22)
[2018-09-06] MEDS: Aspirin 81 mg Enteric Coated Tablet PO SCH (08:22)
[2018-09-06] MEDS: Pantoprazole 40 MG VIAL IVP SCH ×2 (08:22→20:58)
[2018-09-06] MEDS: Saccharomyces boulardii 250 MG CAP PO SCH (08:22)
[2018-09-06] MEDS: Apixaban 5 MG TAB PO SCH ×2 (08:22→20:58)
[2018-09-06] MEDS: Sacubitril 24.5 MG/Valsartan 25.5 MG TABLET PO SCH (08:22)
[2018-09-06] MEDS: Carvedilol 6.25 MG TAB PO SCH ×2 (08:22→17:38)
--- NOTE | 2018-09-06 10:00 | PDOC.CTH ---
Cardiology Progress Note - Subjective EP PROGRESS NOTE: 09/06/18 Seen as follow up for atrial arrhythmias. No nausea or vomiting. Overall feels she is improving but mildy dyspnic this am. Denies chest pain, palpitations, dizziness, passing out. Had MOO/CV this AM with Dr. Nazario last thursday and maintained SR. - ROS shortness of breath - Objective Vital Signs Temp Pulse Resp BP Pulse Ox 09/06/18 07:52 95 09/06/18 07:50 97.4 F L 93 17 126/64 95 09/06/18 03:45 98 F 83 20 132/65 94 L 09/05/18 23:50 98.3 F 83 20 99/54 L 92 L Weight 154 lb 11.2 oz 09/05/18 09/06/18 09/07/18 06:59 06:59 06:59 Intake Total 760 1000 Output Total 1400 700 Balance -640 300 - Physical Examination General/Neuro: alert & oriented x3, NAD Neck: no JVD present Lungs: CTA Heart: RRR Abdomen: no HSM - Telemetry Telemetry Rhythm: SR - Labs Result Diagrams: 09/05/18 04:50 09/05/18 04:50 Troponin/CKMB CK-MB (CK-2) 12.6 ng/mL (0-6.6) H* 08/27/18 16:12 Troponin I 3.916 ng/mL (< 0.028) H* 08/27/18 22:10 - Assessment/Plan 1. Atrial arrhythmias - s/p PVAI approx 7 weeks ago with early recurrence. Did not tolerate amiodarone d/t nausea/GI upset immediately post ablation(may have been other causes) - s/p MOO/CV 09/[address] Nazario still in SR - Coreg 6.25mg PO BID. 2. Chronic anticoagulation - Continue Eliquis 5mg PO BID 3. NSTEMI - [facility] clean 4. Cardiomyopathy, Takotsubo -severely depressed LVEF 25-30%. -Patient considering lifevest offered by cardiology. -If EF remains severely depressed after 3 months of optimal medical management, consider ICD implant. 5.Persistent nausea - GI consult on 08/31. Treating for gastritis with PPI and PRN reglan. - CT chest did not show any GI post ablation complications 6. Hypotension Successful MOO/CV this AM. Staying in sinus rhythm. No PACs seen. Although I would consider to start AAD therapy with Amiodarone but patient has not tolerated this medication in the recent past(may have been other causes), hence the recent significant nausea and would prefer going without at this time. Continue with BB therapy and Eliquis. If further recurrences are seen, consider low dose amio vs tikosyn if she is symptomatic with her arrhythmia. Ok for DC by EP on [employer] vest. Has 2 week fup appt in DC instructions.
[2018-09-06] MEDS: Sacubitril 49 MG/Valsartan 51 MG TABLET PO SCH ×2 (10:37→20:58)
--- NOTE | 2018-09-06 21:33 | PDOC.PN ---
- Subjective Encounter Start Date: 09/06/18 Encounter Start Time: 08:00 Patient seen and examined. No new complaints. No overnight events today pt does not feel good this morning subjectively - Objective Resuscitation Status - Order Detail: 08/27/18 18:38 Resuscitation Status Routine Resuscitation Status: PRTL: Chem-Intubation Discussed with: patient, she specifically reports she does not want compressions MAR Reviewed: Yes Vital Signs & Weight: Vital Signs (12 hours) Temp Pulse Pulse Pulse Resp BP BP 09/06/18 16:00 97.2 F L 90 18 09/06/18 14:14 89 84 120/57 L 98/54 L 09/06/18 12:00 97.4 F L 92 16 BP Pulse Ox 09/06/18 16:00 114/65 94 L 09/06/18 14:14 09/06/18 12:00 122/62 93 L Weight Weight 154 lb 11.2 oz I&O: 09/05/18 09/06/18 09/07/18 06:59 06:59 06:59 Intake Total 760 1000 720 Output Total 1400 700 Balance -640 300 720 Result Diagrams: 09/05/18 04:50 09/05/18 04:50 EKG Reviewed by me: Yes Phys Exam - Physical Examination Constitutional: NAD HEENT: PERRLA, moist MMs, sclera anicteric Neck: no JVD, supple Respiratory: no wheezing, no rales, no rhonchi Cardiovascular: RRR, no significant murmur, no rub Gastrointestinal: soft, non-tender, no distention, positive bowel sounds Musculoskeletal: no edema, pulses present Neurological: non-focal, normal sensation, moves all 4 limbs Lymphatic: no nodes Psychiatric: normal affect, A&O x 3 Skin: no rash, normal turgor Dx/Plan (1) NSTEMI (non-ST elevated myocardial infarction) Code(s): I21.4 - NON-ST ELEVATION (NSTEMI) MYOCARDIAL INFARCTION Status: Acute Comment: s/p Cardiac Cath.No intervention.NL Coronaries. 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 started on Entresto Type 2 [place] (2) intractable nausea Status: Acute Comment: Suspect gastritis. On PPI BID. Refusing EGD. Concern for PUD as pt also on Eliquis (3) Anxiety and depression Code(s): F41.9 - ANXIETY DISORDER, UNSPECIFIED; F32.9 - MAJOR DEPRESSIVE DISORDER, SINGLE EPISODE, UNSPECIFIED Status: Chronic (4) Atrial fibrillation and flutter Code(s): I48.91 - UNSPECIFIED ATRIAL FIBRILLATION; I48.92 - UNSPECIFIED ATRIAL FLUTTER Status: Acute Comment: S/P MOO and DCCV 09/03/18 by cardiology.cont Coreg for rate control and Eliquis for OAC.monitor. (5) Physical deconditioning Code(s): R53.81 - OTHER MALAISE Status: Acute (6) CAD (coronary artery disease) Code(s): I25.10 - ATHSCL HEART DISEASE OF [place] CORONARY ARTERY W/O ANG PCTRS Status: Chronic Qualifiers: Coronary Disease-Associated Artery/Lesion type: [place] artery [place] vs. transplanted heart: [place] heart Associated angina: without angina Qualified Code(s): I25.10 - Atherosclerotic heart disease of [place] coronary artery without angina pectoris Comment: ASA,BB,entresto.continue (7) Chronic anticoagulation Code(s): Z79.01 - INTERMEDIATE (CURRENT) USE OF ANTICOAGULANTS Status: Chronic (8) HTN (hypertension) Code(s): I10 - ESSENTIAL (PRIMARY) HYPERTENSION Status: Chronic Qualifiers: Hypertension type: essential hypertension Qualified Code(s): I10 - Essential (primary) hypertension (9) TYLER (obstructive sleep apnea) Code(s): G47.33 - OBSTRUCTIVE SLEEP APNEA (ADULT) (PEDIATRIC) Status: Chronic Comment: Nocturnal CPAP - Plan cont current plan of care, plan discussed w/ family, 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 Review of Systems - Review of Systems Constitutional: weakness, malaise. negative: fever, chills, sweats, other ENT: negative: Ear Pain, Ear Discharge, Nose Pain, Nose Discharge, Nose Congestion, Mouth Pain, Mouth Swelling, Throat Pain, Throat Swelling, Other Respiratory: negative: Cough, Dry, Shortness of Breath, Hemoptysis, SOB with Excertion, Pleuritic Pain, Sputum, Wheezing Cardiovascular: negative: chest pain, palpitations, orthopnea, paroxysmal nocturnal dyspnea, edema, light headedness, other Gastrointestinal: negative: Nausea, Vomiting, Abdominal Pain, Diarrhea, Constipation, Melena, Hematochezia, Other Genitourinary: negative: Dysuria, Frequency, Incontinence, Hematuria, Retention , Other Musculoskeletal: negative: Neck Pain, Shoulder Pain, Arm Pain, Back Pain, Hand Pain, Leg Pain, Foot Pain, Other - Medications/Allergies Allergies/Adverse Reactions: Allergies Allergy/AdvReac Type Severity Reaction Status Date / Time codeine Allergy Verified 07/27/18 01:27 dextromethorphan Allergy Verified 07/27/18 01:27 [From Mucinex DM] guaifenesin [From Mucinex DM] Allergy Verified 07/27/18 01:27 Rvbenit-Osp-Nou Reductase Allergy Verified 07/27/18 01:27 Inhibitor Medications: Current Medications Acetaminophen (Tylenol) 650 mg PO Q6H PRN PRN Reason: Headache/Fever/Mild Pain (1-3) Apixaban (Eliquis) 5 mg PO BID [facility] Last Admin: 09/06/18 20:58 Dose: 5 mg Aspirin (Ecotrin) 81 mg PO DAILY [facility] Last Admin: 09/06/18 08:22 Dose: 81 mg Bisacodyl (Dulcolax) 10 mg PO DAILYPRN PRN PRN Reason: Constipation Calcium Carbonate (Tums) 1,000 mg PO Q4H PRN PRN Reason: Heartburn or Indigestion Last Admin: 08/30/18 02:29 Dose: 1,000 mg Carvedilol (Coreg) 6.25 mg PO BID-[facility] Last Admin: 09/06/18 17:38 Dose: 6.25 mg Ezetimibe (Zetia) 10 mg PO [facility] Last Admin: 09/05/18 21:02 Dose: 10 mg Hydralazine HCl (Apresoline) 10 mg SLOW IVP Q4H PRN PRN Reason: SBP> 160 OR DBP>100 Promethazine HCl 25 mg/ Sodium (Chloride) 51 mls @ 102 mls/hr IVPB Q6H PRN PRN Reason: Nausea Last Admin: 08/30/18 19:19 Dose: 51 mls Levofloxacin (Levaquin) 500 mg PO 0600 [facility] Stop: 09/09/18 06:01 Last Admin: 09/06/18 05:42 Dose: 500 mg Metoclopramide HCl (Reglan) 5 mg IVP Q6H PRN PRN Reason: Nausea/Vomiting Last Admin: 08/30/18 04:40 Dose: 5 mg Metoprolol Tartrate (Lopressor) 5 mg IVP Q6H PRN PRN Reason: HR >120 Last Admin: 09/01/18 05:56 Dose: 5 mg Miscellaneous Medication (Pharmacy To Dose) 1 each PO PRN PRN PRN Reason: . Morphine Sulfate (Morphine) 2 mg SLOW IVP Q4H PRN PRN Reason: Moderate to Severe Pain (6-10) Last Admin: 09/02/18 12:50 Dose: 2 mg Nitroglycerin (Nitrostat) 0.4 mg SL Q5MIN PRN PRN Reason: Chest Pain Last Admin: 08/30/18 04:34 Dose: 1 tab Nitroglycerin (Nitrostat) 0.4 mg SL Q5MIN PRN PRN Reason: Chest Pain Ondansetron HCl (Zofran Odt) 4 mg PO Q6H PRN PRN Reason: Nausea/Vomiting Ondansetron HCl (Zofran) 4 mg IVP Q6H PRN PRN Reason: Nausea/Vomiting Last Admin: 09/03/18 11:11 Dose: 4 mg Pantoprazole Sodium (Protonix) 40 mg IVP Q12HR [facility] Last Admin: 09/06/18 20:58 Dose: 40 mg Polyethylene Glycol (Miralax) 17 gm PO DAILY [facility] Last Admin: 09/06/18 08:22 Dose: 17 gm Saccharomyces Boulardii (Florastor) 250 mg PO DAILY [facility] Last Admin: 09/06/18 08:22 Dose: 250 mg Sacubitril/Valsartan (Entresto 49 Mg-51 Mg Tablet) 1 tab PO BID [facility] Last Admin: 09/06/18 20:58 Dose: 1 tab Sertraline HCl (Zoloft) 100 mg PO DAILY [facility] Last Admin: 09/06/18 08:22 Dose: 100 mg Sodium Chloride (Flush - Normal Saline) 10 ml IVF Q12HR [facility] Last Admin: 09/06/18 20:59 Dose: 10 ml Sodium Chloride (Flush - Normal Saline) 10 ml IVF PRN PRN PRN Reason: Saline Flush Last Admin: 09/02/18 13:58 Dose: 10 ml
[2018-09-07] MEDS: Carvedilol 6.25 MG TAB PO SCH (09:32)
[2018-09-07] MEDS: Pantoprazole 40 MG VIAL IVP SCH (09:33)
[2018-09-07] MEDS: Aspirin 81 mg Enteric Coated Tablet PO SCH (09:33)
[2018-09-07] MEDS: Saccharomyces boulardii 250 MG CAP PO SCH (09:33)
[2018-09-07] MEDS: Sacubitril 49 MG/Valsartan 51 MG TABLET PO SCH (09:33)
[2018-09-07] MEDS: Apixaban 5 MG TAB PO SCH (09:33)
[2018-09-07] MEDS: Polyethylene Glycol 3350 17 GM Packet PO SCH (09:35)
--- NOTE | 2018-09-07 10:32 | DIS ---
DATE OF ADMISSION: 08/27/2018 DATE OF DISCHARGE: 09/07/2018 DISCHARGE DISPOSITION: Rehab. PRIMARY DISCHARGE DIAGNOSES: 1. Non-ST elevation myocardial infarction type 2. 2. Acute kidney injury. 3. Takotsubo cardiomyopathy. 4. Atrial flutter/fibrillation, status post cardioversion. 5. Nausea. 6. Pneumonia. SECONDARY DISCHARGE DIAGNOSES: 1. Chronic systolic heart failure. 2. Physical deconditioning. 3. Anxiety. 4. Depression. 5. Coronary artery disease. 6. Hypertension. 7. Dyslipidemia. 8. Chronic anticoagulation. 9. Obstructive sleep apnea. PRIMARY PROCEDURE/OPERATION: 1. Cardiac catheterization was performed by Dr. Choudhary and found with normal coronaries, only minor problem with 40% stenosis in the LMCA, 50% stenosis in the LAD, 50% stenosis in the proximal circumflex, and 40% stenosis in proximal RCA. 2. Echocardiography during this admission showed EF 25% to 30%, moderate tricuspid regurgitation. 3. Chest, abdomen, and pelvis CT scan was performed during this admission which showed pneumonia on right upper lobe, diverticulosis, resolution of pericardial effusion. 4. Transesophageal echocardiography negative for any clot. SIGNIFICANT LABORATORY DATA: WBC 7.0, hemoglobin 11.3, platelet 231. INR 1.8. Sodium 137, potassium 3.6, BUN 18, creatinine 0.95, calcium 8.7, lipase less than 4. Troponin 3.91. LFT normal. Urinalysis normal. Urine culture negative. DISCHARGE MEDICATIONS: 1. Vitamin D3 of 5000 units p.o. daily. 2. Vitamin B12 of 1000 mcg p.o. daily. 3. Zetia 10 mg p.o. at bedtime. 4. Eliquis 5 mg p.o. b.i.d. 5. Aspirin 81 mg daily. 6. Coreg 6.25 mg b.i.d. 7. Levaquin 500 mg p.o. daily. 8. Zofran 4 mg p.o. q.6 hourly p.r.n. 9. Protonix 40 mg b.i.d. for 1 month. 10. MiraLAX 17 g p.o. daily. 11. Ranexa 500 mg p.o. b.i.d. 12. Florastor 250 mg daily. 13. Entresto 1 tablet twice daily. 14. Zoloft 100 mg daily. CONTRAINDICATION: The patient is not on high dose of statin therapy because of her statin allergy and she is not tolerating. CODE STATUS: Partial chemical code. DISCHARGE PLAN: Post hospital, the patient will follow up with Cardiology, Dr. Calhoun, on September 23, 2018 at 3:15 p.m. The patient will follow up with the heart failure clinic and primary care physician. HOSPITAL COURSE: An 83-year-old female, who was admitted by Dr. Kristin Espinoza on August 27, 2018. On admission, the patient was having chest pain. She had significantly abnormal troponin. It was consistent with non-ST elevation myocardial infarction range. She also had atrial flutter/fibrillation. She was on chronic anticoagulation. She had mild acute kidney injury. Cardiology was consulted, and the patient had cardiac catheterization which did not show any significant coronary problem. She did not require any stent. Echocardiography showed systolic dysfunction. There was concern of underlying takotsubo cardiomyopathy. The patient was complaining of nausea and that is why abdominal ultrasound was performed which did not show any acute process. CT of chest, abdomen, pelvis showed diverticulosis without any acute process. Dr. Nazario did transesophageal echocardiography and cardioversion for atrial flutter and subsequently, she had successful cardioversion. The patient's symptomatology improved. She had pneumonia which was treated while in hospital. Above-mentioned medication was adjusted by Cardiology. Gastroenterology Team was also following while in hospital for her nausea. The patient was not interested in going for any kind of procedure evaluation. Her code status was partial chemical code during this admission. The patient has physical deconditioning and that is why she requires rehab placement. With help of director case management, we are working on rehab placement. Once we have rehab arranged, then the patient is medically stable for discharge. Before discharge, LifeVest is also arranged. During this admission, we changed lisinopril to Entresto. There is no contraindication for underlying CHF. The patient is not given statin therapy because the patient is allergic to statin therapy. REVIEW OF SYSTEMS: Reviewed with the patient and negative. PHYSICAL EXAMINATION: I have seen and examined the patient at bedside today. VITAL SIGNS: Currently, temperature 98.3, pulse 94, respiratory rate 16, saturation 94% on room air, blood pressure 129/70, weight 157 pounds. GENERAL: The patient is alert and oriented, in no acute distress. HEAD: Normocephalic and atraumatic. LUNGS: Clear to auscultation without any rhonchi or rales. CARDIAC: S1 and S2 appear regular. No murmur. No gallop. No rub. ABDOMEN: Soft and benign. EXTREMITIES: No edema. NEUROLOGIC: Nonfocal examination. DISCHARGE CONDITION: Overall, the patient is medically stable for discharge. Paperwork for discharge done and discharge medication reconciliation done. Job ID: [id number]
--- NOTE | 2018-09-07 11:46 | PDOC.PN ---
- Subjective Encounter Start Date: 09/07/18 Encounter Start Time: 09:50 Patient seen and examined. No new complaints. No overnight events - Objective Resuscitation Status - Order Detail: 08/27/18 18:38 Resuscitation Status Routine Resuscitation Status: PRTL: Chem-Intubation Discussed with: patient, she specifically reports she does not want compressions MAR Reviewed: Yes Vital Signs & Weight: Vital Signs (12 hours) Temp Pulse Resp BP BP Pulse Ox 09/07/18 09:32 115/67 09/07/18 08:20 99.0 F 95 18 115/67 96 09/07/18 03:45 98.3 F 94 16 129/70 94 L Weight Weight 157 lb I&O: 09/06/18 09/07/18 09/08/18 06:59 06:59 06:59 Intake Total 1000 960 Output Total 700 200 Balance 300 760 Result Diagrams: 09/05/18 04:50 09/05/18 04:50 Phys Exam - Physical Examination Constitutional: NAD HEENT: PERRLA, moist MMs, sclera anicteric Neck: no JVD, supple Respiratory: no wheezing, no rales, no rhonchi Cardiovascular: RRR, no significant murmur, no rub Gastrointestinal: soft, non-tender, no distention, positive bowel sounds Musculoskeletal: no edema, pulses present Neurological: non-focal, normal sensation Lymphatic: no nodes Psychiatric: normal affect, A&O x 3 Skin: no rash, normal turgor Dx/Plan (1) NSTEMI (non-ST elevated myocardial infarction) Code(s): I21.4 - NON-ST ELEVATION (NSTEMI) MYOCARDIAL INFARCTION Status: Acute Comment: s/p Cardiac Cath.No intervention.NL Coronaries. 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 started on Entresto Type 2 IL (2) intractable nausea Status: Acute Comment: Suspect gastritis. On PPI BID. Refusing EGD. Concern for PUD as pt also on Eliquis (3) Anxiety and depression Code(s): F41.9 - ANXIETY DISORDER, UNSPECIFIED; F32.9 - MAJOR DEPRESSIVE DISORDER, SINGLE EPISODE, UNSPECIFIED Status: Chronic (4) Atrial fibrillation and flutter Code(s): I48.91 - UNSPECIFIED ATRIAL FIBRILLATION; I48.92 - UNSPECIFIED ATRIAL FLUTTER Status: Acute Comment: S/P MOO and DCCV 09/03/18 by cardiology.cont Coreg for rate control and Eliquis for OAC.monitor. (5) Physical deconditioning Code(s): R53.81 - OTHER MALAISE Status: Acute (6) CAD (coronary artery disease) Code(s): I25.10 - ATHSCL HEART DISEASE OF [place] CORONARY ARTERY W/O ANG PCTRS Status: Chronic Qualifiers: Coronary Disease-Associated Artery/Lesion type: [place] artery [place] vs. transplanted heart: [place] heart Associated angina: without angina Qualified Code(s): I25.10 - Atherosclerotic heart disease of [place] coronary artery without angina pectoris Comment: ASA,BB,entresto.continue (7) Chronic anticoagulation Code(s): Z79.01 - BODY JOINER (CURRENT) USE OF ANTICOAGULANTS Status: Chronic (8) HTN (hypertension) Code(s): I10 - ESSENTIAL (PRIMARY) HYPERTENSION Status: Chronic Qualifiers: Hypertension type: essential hypertension Qualified Code(s): I10 - Essential (primary) hypertension (9) TYLER (obstructive sleep apnea) Code(s): G47.33 - OBSTRUCTIVE SLEEP APNEA (ADULT) (PEDIATRIC) Status: Chronic Comment: Nocturnal CPAP - Plan cont current plan of care, PT/OT, social services designee * medication reviewed as below * symptomatic treatment * entresto increased (49/51) today * see discharge addy. Review of Systems - Review of Systems ENT: negative: Ear Pain, Ear Discharge, Nose Pain, Nose Discharge, Nose Congestion, Mouth Pain, Mouth Swelling, Throat Pain, Throat Swelling, Other Respiratory: negative: Cough, Dry, Shortness of Breath, Hemoptysis, SOB with Excertion, Pleuritic Pain, Sputum, Wheezing Cardiovascular: negative: chest pain, palpitations, orthopnea, paroxysmal nocturnal dyspnea, edema, light headedness, other Gastrointestinal: negative: Nausea, Vomiting, Abdominal Pain, Diarrhea, Constipation, Melena, Hematochezia, Other Genitourinary: negative: Dysuria, Frequency, Incontinence, Hematuria, Retention , Other Musculoskeletal: negative: Neck Pain, Shoulder Pain, Arm Pain, Back Pain, Hand Pain, Leg Pain, Foot Pain, Other Skin: negative: Rash, Lesions, Neil, Bruising, Other - Medications/Allergies Allergies/Adverse Reactions: Allergies Allergy/AdvReac Type Severity Reaction Status Date / Time codeine Allergy Verified 07/27/18 01:27 dextromethorphan Allergy Verified 07/27/18 01:27 [From Mucinex DM] guaifenesin [From Mucinex DM] Allergy Verified 07/27/18 01:27 Kaseryz-Nds-Ram Reductase Allergy Verified 07/27/18 01:27 Inhibitor Medications: Current Medications Acetaminophen (Tylenol) 650 mg PO Q6H PRN PRN Reason: Headache/Fever/Mild Pain (1-3) Apixaban (Eliquis) 5 mg PO BID [facility] Last Admin: 09/07/18 09:33 Dose: 5 mg Aspirin (Ecotrin) 81 mg PO DAILY [facility] Last Admin: 09/07/18 09:33 Dose: 81 mg Bisacodyl (Dulcolax) 10 mg PO DAILYPRN PRN PRN Reason: Constipation Calcium Carbonate (Tums) 1,000 mg PO Q4H PRN PRN Reason: Heartburn or Indigestion Last Admin: 08/30/18 02:29 Dose: 1,000 mg Carvedilol (Coreg) 6.25 mg PO BID-[facility] Last Admin: 09/07/18 09:32 Dose: 6.25 mg Ezetimibe (Zetia) 10 mg PO [facility] Last Admin: 09/05/18 21:02 Dose: 10 mg Hydralazine HCl (Apresoline) 10 mg SLOW IVP Q4H PRN PRN Reason: SBP> 160 OR DBP>100 Promethazine HCl 25 mg/ Sodium (Chloride) 51 mls @ 102 mls/hr IVPB Q6H PRN PRN Reason: Nausea Last Admin: 08/30/18 19:19 Dose: 51 mls Levofloxacin (Levaquin) 500 mg PO 0600 [facility] Stop: 09/09/18 06:01 Last Admin: 09/07/18 05:23 Dose: 500 mg Metoclopramide HCl (Reglan) 5 mg IVP Q6H PRN PRN Reason: Nausea/Vomiting Last Admin: 08/30/18 04:40 Dose: 5 mg Metoprolol Tartrate (Lopressor) 5 mg IVP Q6H PRN PRN Reason: HR >120 Last Admin: 09/01/18 05:56 Dose: 5 mg Miscellaneous Medication (Pharmacy To Dose) 1 each PO PRN PRN PRN Reason: . Morphine Sulfate (Morphine) 2 mg SLOW IVP Q4H PRN PRN Reason: Moderate to Severe Pain (6-10) Last Admin: 09/02/18 12:50 Dose: 2 mg Nitroglycerin (Nitrostat) 0.4 mg SL Q5MIN PRN PRN Reason: Chest Pain Last Admin: 08/30/18 04:34 Dose: 1 tab Nitroglycerin (Nitrostat) 0.4 mg SL Q5MIN PRN PRN Reason: Chest Pain Ondansetron HCl (Zofran Odt) 4 mg PO Q6H PRN PRN Reason: Nausea/Vomiting Ondansetron HCl (Zofran) 4 mg IVP Q6H PRN PRN Reason: Nausea/Vomiting Last Admin: 09/03/18 11:11 Dose: 4 mg Pantoprazole Sodium (Protonix) 40 mg IVP Q12HR [facility] Last Admin: 09/07/18 09:33 Dose: 40 mg Polyethylene Glycol (Miralax) 17 gm PO DAILY [facility] Last Admin: 09/07/18 09:35 Dose: Not Given Saccharomyces Boulardii (Florastor) 250 mg PO DAILY [facility] Last Admin: 09/07/18 09:33 Dose: 250 mg Sacubitril/Valsartan (Entresto 49 Mg-51 Mg Tablet) 1 tab PO BID [facility] Last Admin: 09/07/18 09:33 Dose: 1 tab Sertraline HCl (Zoloft) 100 mg PO DAILY [facility] Last Admin: 09/07/18 09:33 Dose: 100 mg Sodium Chloride (Flush - Normal Saline) 10 ml IVF Q12HR [facility] Last Admin: 09/07/18 09:35 Dose: 10 ml Sodium Chloride (Flush - Normal Saline) 10 ml IVF PRN PRN PRN Reason: Saline Flush Last Admin: 09/02/18 13:58 Dose: 10 ml
[2018-09-07 12:32] VITALS: TEMP 98.1
[2018-09-07 13:45] VITALS: BMI 25.0
[2018-09-07 13:54] VITALS: BP 94/53
--- NOTE | 2018-09-07 17:03 | PDOC.CTH ---
Cardiology Progress Note - Subjective EP PROGRESS NOTE: 09/07/18 Seen as follow up for atrial arrhythmias. No nausea or vomiting. Denies chest pain, palpitations, dizziness, passing out. Had MOO/CV last week with Dr. Nazario and maintained SR. - Objective Vital Signs Temp Pulse Pulse Pulse Resp BP BP 09/07/18 12:00 98.1 F 84 15 09/07/18 11:18 88 87 94/53 L 09/07/18 09:32 115/67 09/07/18 08:20 99.0 F 95 18 BP BP Pulse Ox 09/07/18 12:00 108/61 94 L 09/07/18 11:18 100/50 L 09/07/18 09:32 09/07/18 08:20 115/67 96 Admit Weight 147 lb 6.4 oz Weight 157 lb 09/06/18 09/07/18 09/08/18 06:59 06:59 06:59 Intake Total 1000 960 Output Total 700 200 Balance 300 760 - Physical Examination General/Neuro: alert & oriented x3, NAD Neck: carotid US brisk, no JVD present Lungs: CTA, unlabored respirations Heart: PMI normal, RRR Abdomen: NT/ND, soft - Telemetry Telemetry Rhythm: SR - Labs Result Diagrams: 09/05/18 04:50 09/05/18 04:50 Troponin/CKMB CK-MB (CK-2) 12.6 ng/mL (0-6.6) H* 08/27/18 16:12 Troponin I 3.916 ng/mL (< 0.028) H* 08/27/18 22:10 - Assessment/Plan 1. Atrial arrhythmias - s/p PVAI approx 7 weeks ago with early recurrence. Did not tolerate amiodarone d/t nausea/GI upset immediately post ablation(may have been other causes) - s/p MOO/CV 09/[address] Nazario still in SR - Coreg 6.25mg PO BID. 2. Chronic anticoagulation - Continue Eliquis 5mg PO BID 3. NSTEMI - [facility] clean 4. Cardiomyopathy, Takotsubo -severely depressed LVEF 25-30%. -Patient considering lifevest offered by cardiology. -If EF remains severely depressed after 3 months of optimal medical management, consider ICD implant. 5.Persistent nausea - GI consult on 08/31. Treating for gastritis with PPI and PRN reglan. - CT chest did not show any GI post ablation complications 6. Hypotension Successful MOO/CV this AM. Staying in sinus rhythm. No PACs seen. Although I would consider to start AAD therapy with Amiodarone but patient has not tolerated this medication in the recent past(may have been other causes), hence the recent significant nausea and would prefer going without at this time. Continue with BB therapy and Eliquis. If further recurrences are seen, consider low dose amio vs tikosyn if she is symptomatic with her arrhythmia. Ok for DC by EP on [employer] vest. Has 2 week fup appt in DC instructions.
== END 2018-09-07 14:57 | DRG 280 ==
LOC: ERS 14:58 → 2NO 19:36
PROVIDERS: ADMIT Internal Medicine Cardiovascular Disease; ATTEND Internal Medicine Cardiovascular Disease
PROC: 4A023N7 Measurement of Cardiac Sampling and Pressure, Left Heart, Percutaneous Approach (ICD-10-PCS; principal; 2018-08-27)
PROC: B2111ZZ Fluoroscopy of Multiple Coronary Arteries using Low Osmolar Contrast (ICD-10-PCS; 2018-08-27)
PROC: B2151ZZ Fluoroscopy of Left Heart using Low Osmolar Contrast (ICD-10-PCS; 2018-08-27)
PROC: 5A2204Z Restoration of Cardiac Rhythm, Single (ICD-10-PCS; 2018-09-03)
PROC: B24BZZ4 Ultrasonography of Heart with Aorta, Transesophageal (ICD-10-PCS; 2018-09-03)
DX: I21.A1 Myocardial infarction type 2 (principal); I50.21 Acute systolic (congestive) heart failure; J18.9 Pneumonia, unspecified organism; I48.92 Unspecified atrial flutter; I51.81 Takotsubo syndrome; N17.9 Acute kidney failure, unspecified; E78.5 Hyperlipidemia, unspecified; I10 Essential (primary) hypertension; M19.91 Primary osteoarthritis, unspecified site; F41.9 Anxiety disorder, unspecified; F32.9 Major depressive disorder, single episode, unspecified; Z96.653 Presence of artificial knee joint, bilateral; I48.2 Chronic atrial fibrillation; I45.81 Long QT syndrome; D64.9 Anemia, unspecified; D72.829 Elevated white blood cell count, unspecified; I48.0 Paroxysmal atrial fibrillation; K57.90 Diverticulosis of intestine, part unspecified, without perforation or abscess without bleeding; G47.33 Obstructive sleep apnea (adult) (pediatric); K29.70 Gastritis, unspecified, without bleeding; Z79.01 Long term (current) use of anticoagulants; Z90.49 Acquired absence of other specified parts of digestive tract; Z98.42 Cataract extraction status, left eye; Z98.41 Cataract extraction status, right eye; Z88.5 Allergy status to narcotic agent; Z88.0 Allergy status to penicillin
CPT/HCPCS: 36415; 71045; 71260; 74177; 76700; 80048; 80053; 80061; 81001; 82553; 83690; 83735; 83880; 84484; 85025; 85610; 85730; 87086; 92960; 93005; 93306; 93312; 93458; 93798; 96374; 96375; 96376; 99152; 99153; C1769; C9113; J0360; J1160; J1644; J1650; J1940; J1956; J2001; J2250; J2270; J2405; J2550; J2704; J2765; J3480; Q9967

== ENCOUNTER 2018-09-15 12:59 | Inpatient (IN) | payer MEDICARE, OTHER ==
[~2018-09-15 12:59] MED LIST changes: -Iopamidol 370 76% 50 ML VIAL FS ONE
--- NOTE | 2018-09-15 14:03 | CT ---
CTA Angio Chest W WO Con History: Dyspnea. Fatigue. Comparison: Chest radiograph same day Findings: CT angiogram chest performed after the intravenous administration of contrast. 3-D renderin g provided. No proximal segmental pulmonary arterial filling defect. There is pooling of contrast within the supe rior vena cava this may be sequela of increased right heart pressure. Very large bilateral pleural effusions involving approximately 50% of the hemithorax volume. Heart size is enlarged. Markedly right atrial and left atrial dilatation. Pulmonary trunk size is not significantly enlarged. The centrilobular airspace opacities are present in the upper lobes with peripheral septal thickening suggesting pulmonary edema. The sternum and manubrium are intact. No thoracic spine compression fracture. No displaced rib fracture Impression: 1. No proximal segmental pulmonary arterial filling defect. 2. Dilated right subclavian vein with contrast pooling within the superior vena cava suggesting incre ased right heart pressure. 3. Very large bilateral pleural effusions involving approximately 50% of the hemithorax volume. 4. Mild pulmonary edema.
--- NOTE | 2018-09-15 14:04 | RAD ---
XR Chest 1 View Portable History: Dyspnea Comparison: Radiograph September 12, 2018 Findings: Heart size markedly enlarged. Large bilateral pleural effusions. No pneumothorax. Mild pulm onary edema. Impression: Cardiomegaly, large effusions, and mild pulmonary edema.
[2018-09-15 14:58] LABS: #Lymphocytes 0.7 thou/uL (1.20-3.40); #Monocytes 0.8 thou/uL (0.11-0.59); #Neutrophils 6.9 thou/uL (1.40-6.50); %Basophils 0.1 % (0.0-1.0); %Eosinophils 0.4 % (0.0-10.0); %Lymphocytes 8.7 % (21.0-51.0); %Monocytes 9.5 % (0.0-10.0); %Neutrophils 81.2 % (42.0-75.0); Hemoglobin 9.6 g/dL (12.0-16.0); Mean Corpuscular HGB CONC 32.7 g/dL (32.0-36.0); Mean Corpuscular Hemoglobin 31.2 pg (27.0-31.0); Mean Corpuscular Volume 95.6 fL (78.0-98.0); Platelet Count 242 thou/uL (130-400); RBC Distribution Width 14.4 % (11.5-14.5); Red Blood Cell (RBC) Count 3.08 mill/uL (4.20-5.40); White Blood Cell (WBC) Count 8.5 thou/uL (4.8-10.8)
[2018-09-15 15:06] LABS: INR-International Normal Ratio 2.1
[2018-09-15 15:07] LABS: PTT 44.7 SEC (22.9-36.1)
[2018-09-15] MEDS ORDERED: Furosemide 20 MG/2 ML VIAL ONE (15:17)
[2018-09-15] MEDS ORDERED: Furosemide 40 MG/4 ML VIAL ONE ×2 (15:17→16:50)
[2018-09-15 15:28] LABS: ALT (SGPT) 10 U/L (8-55); AST (SGOT) 11 U/L (5-34); Alkaline Phosphatase 99 U/L (40-150); Anion Gap 12 mmol/L (10-20); BUN (Urea Nitrogen) 14 mg/dL (9.8-20.1); Bilirubin, Total 1.3 mg/dL (0.2-1.2); Calc. Creatinine Clearance 0 mL/min (70-130); Calcium 8.5 mg/dL (7.8-10.44); Carbon Dioxide 29 mmol/L (23-31); Chloride 95 mmol/L (98-107); Estimated GFR-MDRD 69; Globulin 2.1 g/dL (2.4-3.5); Glucose 118 mg/dL (83-110); Potassium 4.2 mmol/L (3.5-5.1); Protein, Total 5.1 g/dL (6.0-8.3); Sodium 132 mmol/L (136-145)
[2018-09-15 15:43] LABS: CKMB 1.6 ng/mL (0-6.6)
[2018-09-15] MEDS ORDERED: hydrALAZINE 20 MG/ML VIAL SLOW IVP PRN (16:57)
[2018-09-15] MEDS ORDERED: Ondansetron ODT 4 MG TAB PO PRN (16:57)
[2018-09-15] MEDS ORDERED: Furosemide 40 MG/4 ML VIAL SLOW IVP SCH (17:00)
[2018-09-15] MEDS ORDERED: Levofloxacin 500 mg/D5W 100 ml Premix Bag ONE (18:04)
[2018-09-15] MEDS ORDERED: Vancomycin HCl 1 GM in Premix Bag 1 BAG IVPB SCH (21:00)
--- NOTE | 2018-09-15 21:00 | HP ---
PRIMARY CARE PHYSICIAN: Bernardino Rosa MD CHIEF COMPLAINT: Difficulty breathing and poor appetite. HISTORY OF PRESENT ILLNESS: Ms. Tesfaye is a very pleasant 83-year-old female, who was recently admitted to our facility and was discharged on September 07 after she was admitted for a non ST-segment elevated IL and she also underwent a successful cardioversion for atrial fibrillation and atrial flutter. She also has recently been admitted prior to that for heart failure due to takotsubo cardiomyopathy. She was at that time noted to have an ejection fraction of approximately 25% and currently has a LifeVest placed. She had gone to the [facility] at the end of August after the cardioversion for reconditioning and had been doing fairly well in rehab until the last couple of days when she started having difficulty breathing. Her daughter who is at the bedside also says that she basically has stopped eating. She has been feeling exhausted and due to the difficulty breathing, she cannot sleep. She says that her breathing has become extremely shallow and she also noted an increasing lower extremity edema. She also says she was not able to complete physical therapy. She was feeling dizzy and lightheaded and as a result, they sent her over to the emergency room for evaluation. In the ER, they evaluated her and did a chest x-ray, which showed cardiomegaly with large bilateral pleural effusions. A CT angiogram was also done and it was negative for any filling defect to suggest pulmonary embolism, but did show very large bilateral pleural effusions. She is being admitted for further evaluation. REVIEW OF SYSTEMS: CONSTITUTIONAL: The patient denies any recent fever or chills. No night sweats. No weight loss, but does admit to poor appetite. HEENT: No headaches, but she has felt a bit dizzy, lightheaded. There is no sore throat. No rhinorrhea, neck pain. No adenopathy. PULMONARY: She admits to some cough which has been nonproductive and her daughter states that she was recently treated for pneumonia in the [facility]. CARDIOVASCULAR: As in the history of present illness. GASTROINTESTINAL: She denies any nausea, no vomiting, but she does have a poor appetite. GENITOURINARY: No urinary frequency, hematuria. No hesitancy. NEUROLOGIC: No focal weakness, numbness. No seizures. MUSCULOSKELETAL: No muscle pains, weakness, or joint pains. SKIN AND INTEGUMENT: No skin changes. No rash. PAST MEDICAL HISTORY: Significant for atrial arrhythmia, previous NSTEMI, takotsubo cardiomyopathy with an ejection fraction of 25%, hypertension, osteoarthritis, and hyperlipidemia. PAST SURGICAL HISTORY: She has had a cardiac ablation, pericardial window, appendectomy, cholecystectomy, bilateral total knee replacement, and cataract surgery. ALLERGIES: TO CODEINE, DEXTROMETHORPHAN, GUAIFENESIN, AND STATINS. FAMILY HISTORY: No history of any heritable diseases. CURRENT MEDICATIONS: Her current medications are taken from the records from rehab and these include; 1. CoQ10 200 mg daily. 2. Sertraline 100 mg daily. 3. Entresto 49/51 mg tablet one tablet daily. 4. Florastor 250 mg daily. 5. Ranexa 500 mg daily. 6. MiraLAX daily. 7. Pantoprazole 40 mg daily. 8. Zofran p.r.n. 9. Lasix 40 mg daily. 10. Zetia 10 mg a day. 11. Cyanocobalamin 5000 units daily. 12. Carvedilol 6.25 mg twice a day. 13. Bupropion 150 mg daily. 14. Aspirin 81 mg a day. 15. Eliquis 5 mg twice a day. 16. DuoNeb p.r.n. PHYSICAL EXAMINATION: GENERAL: She is alert and oriented. She appears to be in some mild distress due to dyspnea. She is very fatigued and appears a bit chronically ill. VITAL SIGNS: Blood pressure was 108/56, heart rate 87, respiratory rate of 20, and temperature is 98.1, and O2 saturation was 95% on 4 L. HEENT: Pupils are equal, round, and reactive. Extraocular muscles are intact. Her sclerae are anicteric. Throat, there is no erythema, no exudates. NECK: No adenopathy, no bruits. LUNGS: She has rales bilaterally and it is heard best anteriorly and decreased breath sounds at both bases. There is no wheezing, no rhonchi. CARDIOVASCULAR: She has a normal S1 and S2. There is no S3 or S4. No murmurs, clicks or rubs. ABDOMEN: Soft, it is nontender, nondistended. Positive for bowel sounds. There is no rebound, no guarding, no organomegaly. EXTREMITIES: She has trace calf edema. There is no calf tenderness, no joint effusions. NEUROLOGIC: Her cranial nerves 2 through 12 are intact. Muscle strength is also intact. SKIN AND INTEGUMENT: There are no skin changes, no rashes. LABORATORY DATA: Show white blood cell count 8.5, hemoglobin 9.6, hematocrit is 29.4, and platelet count is 242. INR was 2.1. Chemistry; sodium 132, potassium 4.2, chloride is 95, CO2 is 29, BUN of 14, creatinine 0.79, glucose is 118. Her bilirubin was 1.3. Troponin is 0.062. Nature. Natriuretic peptide was a bit elevated at 8082. ASSESSMENT: 1. This is a pleasant 83-year-old female, who presents to the hospital with increasing shortness of breath and decreasing appetite. She was also found to have bilateral pleural effusions. Her BNP is elevated about 1000 point from her previous admission. Therefore, she is being admitted for congestive heart failure exacerbation. She will be admitted to telemetry, placed on IV Lasix, and we will consult Dr. Nazario, her commissioner of officials for further recommendations. We will also continue Entresto as well as her carvedilol. 2. Acute respiratory failure with hypoxemia. She also has a cough and has recently been treated for pneumonia. It is possible that she could have a hospital or healthcare associated pneumonia. Therefore, we will place her on empiric antibiotics. We will also be consulting her textile engineer for further recommendations with regard to the cough as well as the bilateral pleural effusions. 3. Atrial fibrillation. She currently appears to be in sinus rhythm with a stable heart rate. We will continue Eliquis for stroke prevention. 4. Hypertension. Blood pressure appears to be controlled. Again, we will restart her usual home medications as well as p.r.n. medications. 5. Deep venous thrombosis and gastrointestinal prophylaxis. She is already on Eliquis. Therefore, she will not require any deep venous thrombosis prophylaxis, but we will place her on either Pepcid or proton pump inhibitor. Job ID: [id number]
[2018-09-15] MEDS: Ezetimibe 10 MG TAB PO SCH (21:33)
[2018-09-15] MEDS: Apixaban 5 MG TAB PO SCH (21:33)
[2018-09-15] MEDS: Famotidine 20 MG TAB PO SCH (21:33)
[2018-09-15] MEDS: Sacubitril 49 MG/Valsartan 51 MG TABLET PO SCH (21:34)
[2018-09-15 22:53] LABS: Troponin I 0.043 ng/mL (< 0.028)
--- NOTE | 2018-09-16 03:17 | CON ---
DATE OF CONSULTATION: 09/15/2018 HISTORY OF PRESENT ILLNESS: Jennifer Tesfaye is an 83-year-old female, who I know very well from my office practice and taking care of family in the past. I was walking through the emergency department and was summoned in her room by her daughter, who asked me to see her. She has apparently been over at rehab, but from the last few days to a week, has been gradually gaining weight and developing peripheral edema and some shortness of breath. She subsequently is being admitted for volume overload. PAST MEDICAL HISTORY: Remarkable for, 1. Admission in mid July for bilateral pleural effusions and volume overload. 2. History of atrial fibrillation with multiple cardioversions. 3. History of an atrial fibrillation ablation. 4. History of large pericardial effusion after ablation, requiring intervention. 5. History of hypertension. 6. History of lipid disorder. 7. History of degenerative arthritis. 8. History of sleep apnea. 9. History of normal pulmonary function in 2015. 10. History of bilateral knee replacement. 11. History of bilateral cataract surgery. 12. History of appendectomy. 13. History of cholecystectomy. 14. History of pericardial window on 07/28, with pericardial effusion. 15. She was discharged on 08/02, after her pericardial window and re-admitted on 08/27, with chest discomfort. She had atrial flutter that admission and a prolonged QT interval. She underwent cardiac catheterization the next day when she was admitted. On that admission, she did have pulmonary edema on reviewing her old radiographs. She had a transesophageal echo on 09/03, and then converted to normal sinus rhythm with 50 joules. She was discharged home on 09/07. She was felt to have a takotsubo cardiomyopathy according to discharge records. She had a right heart catheterization with 40% stenosis of her left main, 50% stenosis of her LAD, 50% of her proximal circumflex, and 40% lesion in her right coronary. Her echo showed an EF of 25% to 30%. She was felt to have a pneumonia on that admission as well. We did not see her during that admission. FAMILY HISTORY: Negative for lung disease in early age. SOCIAL HISTORY: Non contributory. REVIEW OF SYSTEMS: Ten-point review of systems is remarkable only for shortness of breath and swelling. Otherwise, negative. IMAGING DATA: CT pulmonary angiogram that was done today shows large bilateral effusions and pulmonary edema. PHYSICAL EXAMINATION: VITAL SIGNS: Reviewed in the emergency department. She was receiving IV Lasix. HEENT: When I evaluated, her pupils are equal. Sclerae are anicteric. NECK: Supple. GENERAL: She is in no distress. She was at 45 degrees in bed. LUNGS: She had crackles in both lung bases. HEART: Regular rhythm. S1 and S2 are normal. ABDOMEN: Soft and nontender. EXTREMITIES: Without clubbing or cyanosis. She did have 2+ pretibial edema. NEURO: Grossly nonfocal. IMPRESSION: Recurrent congestive heart failure. She will need to be watched closely and kept at a negative fluid balance. Since she is clinically stable, I do not see any reason to do a thoracentesis at this time. We will be happy to follow with the other physicians caring for her. This is a 50 minute consult, with greater than 50% of time spent on unit coordinating care. Job ID: [id number] MTDD
[2018-09-16 06:14] LABS: #Eosinphils 0.1 thou/uL (0.0-0.7); #Lymphocytes 0.6 thou/uL (1.20-3.40); #Monocytes 0.7 thou/uL (0.11-0.59); #Neutrophils 5.7 thou/uL (1.40-6.50); %Basophils 0.3 % (0.0-1.0); %Lymphocytes 8.4 % (21.0-51.0); %Monocytes 9.3 % (0.0-10.0); %Neutrophils 81.1 % (42.0-75.0); Hemoglobin 9.5 g/dL (12.0-16.0); Mean Corpuscular HGB CONC 32.5 g/dL (32.0-36.0); Mean Corpuscular Hemoglobin 31.1 pg (27.0-31.0); Mean Corpuscular Volume 95.6 fL (78.0-98.0); Mean Platelet Volume 6.5 fL (7.4-10.4); Platelet Count 268 thou/uL (130-400); RBC Distribution Width 14.4 % (11.5-14.5); Red Blood Cell (RBC) Count 3.05 mill/uL (4.20-5.40)
[2018-09-16 06:31] LABS: Anion Gap 13 mmol/L (10-20); BUN (Urea Nitrogen) 13 mg/dL (9.8-20.1); Calc. Creatinine Clearance 63 mL/min (70-130); Calcium 8.7 mg/dL (7.8-10.44); Carbon Dioxide 28 mmol/L (23-31); Chloride 96 mmol/L (98-107); Estimated GFR-MDRD 71; Glucose 94 mg/dL (83-110); Potassium 3.8 mmol/L (3.5-5.1); Sodium 133 mmol/L (136-145)
[2018-09-16] MEDS: Furosemide 40 MG/4 ML VIAL SLOW IVP SCH ×2 (06:36→15:42)
[2018-09-16] MEDS: Famotidine 20 MG TAB PO SCH ×2 (08:45→20:43)
[2018-09-16] MEDS: Apixaban 5 MG TAB PO SCH ×2 (08:46→20:43)
[2018-09-16] MEDS: Aspirin 81 mg Enteric Coated Tablet PO SCH (08:46)
[2018-09-16] MEDS: Carvedilol 6.25 MG TAB PO SCH ×2 (08:46→16:02)
[2018-09-16] MEDS ORDERED: Pharmacy to Dose 1 EACH VANCOMYCIN IVPB PRN (09:00)
[2018-09-16] MEDS ORDERED: Pharmacy to Dose 1 EACH VANCOMYCIN IVPB SCH (09:00)
[2018-09-16] MEDS: Sacubitril 49 MG/Valsartan 51 MG TABLET PO SCH ×2 (11:37→20:43)
--- NOTE | 2018-09-16 11:51 | PRG ---
DATE OF SERVICE: 09/16/2018 SUBJECTIVE: This morning, she is still short of breath, weak. OBJECTIVE: VITAL SIGNS: Blood pressure 141/72, pulse 103, sats 91% on 2 L, temperature 98. She has a LifeVest on board. CHEST: Decreased breath sounds. Bilateral crackles. No wheezing. CARDIAC: Normal S1, S2. No gallop. ABDOMEN: No masses. LABORATORY DATA: BNP is markedly elevated at 8000. White count 7000, H and H 9 and 29, platelet count is 268. Sodium 133. X-ray shows significant CHF findings. IMPRESSION: CHF, respiratory failure. Continue present diuretics. Supportive care. She is on vancomycin for unknown reason. I would definitely deescalate antibiotics. I do not see any reason for sepsis. PLAN: Switch over to oral antibiotics in the next 24 to 48 hours. Job ID: [id number]
--- NOTE | 2018-09-16 15:19 | CON ---
DATE OF CONSULTATION: 09/16/2018 INDICATION FOR CONSULTATION: An 83-year-old female with CHF exacerbation. HISTORY OF PRESENT ILLNESS: This very unfortunate 83-year-old female has had several admissions due to heart failure. She has had a pericardial effusion. She has multiple cardioversions for atrial fibrillation or flutter. She most recently was in the hospital, was seen by Dr. Nazario I believe within the last month back in August, I believe she was here in the mid-August, approximately just two to two and half weeks ago. She then was discharged and at that time, it was felt that she has suffered a non ST-segment elevation myocardial infarction. She did have what was felt to be takotsubo cardiomyopathy and had some congestive heart failure, ejection fraction is about 25%. LifeVest is in place. She continues to wear the LifeVest. She was at the rehab center when she noted she became increasingly short of breath and over the last two days, occasional lightheadedness. She denied any chest pain. She had some occasional nausea and she was brought back to the emergency room. Chest x-ray did show evidence of bilateral pleural effusions. She also had a pericardial effusion in the past, for which she had undergone a pericardiocentesis by Dr. Naranjo, I believe. At this time, the cardiac silhouette does not appear to be significantly dilated. She does have increased pulmonary markings compatible with congestive heart failure. The left pleural effusion is larger than the right. She denied any chest pain. There was no indication on the initial workup in the emergency room that she had any evidence of pulmonary emboli, but just the large pleural effusion and she has been started on diuretics to help for diuresis. PAST MEDICAL HISTORY: Significant for the cardiomyopathy, systolic in nature. She may have diastolic heart failure also. She had bilateral pleural effusion. She has had a pericardial effusion for which she underwent a pericardial window that was earlier this year in July. She has hypertension. She has had a history of atrial fibrillation and atrial flutter. She has been seen by Electrophysiology in the past. She has undergone ablation back in June 2018. She has a history of hyperlipidemia. She has degenerative arthritis, sleep apnea. She has had a history of cataract surgery. She has had a cholecystectomy and appendectomy. She has had bilateral knee replacements. Please note, she did I believe also have a history of coronary artery disease. In 2011, she had a cardiac catheterization, which showed a normal ejection fraction, but left main stenosis of 40%. The left anterior descending was 40%. The left circumflex was 50% and the patient opted to be treated medically. I do not see that she has had any further cardiac catheterization. She did have an adenosine stress test back in 2018, which showed no evidence of ischemia. 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 This may also be contributing to her severe decrease in left ventricular systolic function. She has also had back surgery. SOCIAL HISTORY: No history of significant alcohol or tobacco abuse. ALLERGIES: SHE IS ALLERGIC TO CODEINE AND STATINS. MEDICATIONS: Include CoQ10; Entresto [QAMARKER] once a day, this should be most likely increased to twice a day; sertraline 100 mg a day, Florastor 250 mg a day, Ranexa 500 mg a day, pantoprazole 40 mg a day, Zofran p.r.n., MiraLAX daily, Lasix 40 mg a day, Zetia 10 mg a day, carvedilol 6.25 mg b.i.d., bupropion 150 mg a day, aspirin 81 mg a day, Eliquis 5 mg b.i.d., DuoNeb p.r.n., cyanocobalamin 5000 units daily. REVIEW OF SYSTEMS: Mainly, she complained of shortness of breath and some lightheadedness. She had no other HEENT complaints. She had no GI or complaints except for the occasional nausea. She has some lower extremity edema complaints, but mainly this is only minimal. Mainly, her CHF is more localized in the in the pulmonary and abdominal area, but not so much in the lower extremities. PHYSICAL EXAMINATION: GENERAL: Reveals an elderly female, who is in no acute distress at this time. She is alert. She is oriented. She is very pleasant. She answers questions appropriately. VITAL SIGNS: Her blood pressure is 132/74, heart rate is 96 and is regular, respiratory rate is 17, she is afebrile, and O2 saturation 96%. HEENT: Shows head to be normocephalic and atraumatic. Carotid pulses are present. I did not hear any significant bruits. CHEST: Her chest has mild bibasilar rales. She has decreased breath sounds on the left side at the base. CARDIOVASCULAR: Reveals a regular rhythm. I did not hear any irregularities at all. I did not hear any significant murmurs, heaves, thrills, bruits or rubs. ABDOMEN: Soft and nontender. Positive bowel sounds are present. EXTREMITIES: Showed no clubbing, cyanosis, or edema at this time. Pedal pulses are present, but are decreased. NEUROLOGIC: The patient appears to be intact. Otherwise, I did not see any gross focal motor deficits. IMPRESSION: 1. Congestive heart failure exacerbation. We will need to continue with the IV diuretics. She most likely will need to have a Nephrology consultation to see if we can assist some with her renal function due to the decreased cardiac output. Also, her BNP was significantly elevated at 4000. She has been elevated in the past, however, this has improved from over yesterday. Cardiac enzymes are still trending down, where she did have a non ST-segment elevation previously. Her INR is 2.1, this may be indicative of liver engorgement and decreased perfusion. 2. Severe cardiomyopathy, most likely systolic and diastolic. She has a LifeVest in place. Eventually, she may become a candidate for an implantable device. 3. Left pleural effusion, which is actually kind of small, moderate. It does not appear that it needs any intervention at this time. 4. History of previous pericardial effusion. This appears to be stable. I do not see any indication that there is a problem at this time. We will repeat the echocardiogram for further evaluation. 5. Coronary artery disease. This may need to be investigated further in this lady, who is actually 83-year-old. However, if she has severe three vessel disease and left main stenosis, then this may be contributing to her severe decrease in left ventricular systolic function and overall congestive heart failure. We will continue to follow the patient with you and look at her medications and see whether or not we need to readjust or manage some of her medications to improve her cardiac output. Job ID: [id number]
--- NOTE | 2018-09-16 17:44 | PDOC.PN ---
- Subjective Encounter Start Date: 09/16/18 Encounter Start Time: 10:45 Subjective: pt up in bed feels unwell - Objective Resuscitation Status - Order Detail: 09/15/18 16:51 Resuscitation Status Routine Resuscitation Status: PRTL: Intubate only Discussed with: patient's daughter Vital Signs & Weight: Vital Signs (12 hours) Temp Pulse Pulse Pulse Resp BP BP 09/16/18 15:39 97.9 F 87 17 09/16/18 11:39 98.1 F 88 17 09/16/18 10:30 103 H 97 141/72 H 140/73 09/16/18 08:00 98.3 F 96 17 BP Pulse Ox Pulse Ox Pulse Ox 09/16/18 15:39 102/55 L 95 09/16/18 11:39 106/57 L 92 L 09/16/18 10:30 91 L 90 L 09/16/18 08:00 132/74 96 Weight Weight 164 lb 4 oz I&O: 09/15/18 09/16/18 09/17/18 06:59 06:59 06:59 Intake Total 320 Output Total 900 Balance -580 Result Diagrams: 09/16/18 05:02 09/16/18 05:02 Phys Exam - Physical Examination Neck: no nodes, no JVD, supple, full ROM Respiratory: no wheezing, no rales, no rhonchi, clear to auscultation bilateral decrease breath sounds to lower ext Cardiovascular: RRR, no significant murmur, no rub, gallop, irregular Gastrointestinal: soft, non-tender, no distention, positive bowel sounds Dx/Plan (1) SOB (shortness of breath) Code(s): R06.02 - SHORTNESS OF BREATH Status: Acute (2) Chronic systolic CHF (congestive heart failure), NYHA class 3 Code(s): I50.22 - CHRONIC SYSTOLIC (CONGESTIVE) HEART FAILURE Status: Acute Comment: Acute on chronic though last EF was better. as per ECHO w EF 25%.Lasix stopped as clinically dry .monitor for fluid Overload-will stop ivf today. (3) Bilateral pleural effusion Code(s): J90 - PLEURAL EFFUSION, NOT ELSEWHERE CLASSIFIED Status: Acute (4) Atrial fibrillation and flutter Code(s): I48.91 - UNSPECIFIED ATRIAL FIBRILLATION; I48.92 - UNSPECIFIED ATRIAL FLUTTER Status: Acute Comment: S/P MOO and DCCV 09/03/18 by cardiology.cont Coreg for rate control and Eliquis for OAC.monitor. - Plan will continue lasix for now. pt will need thoracentesis * .
[2018-09-16] MEDS: Ezetimibe 10 MG TAB PO SCH (20:43)
[2018-09-16] MEDS ORDERED: Vancomycin HCl 1 GM in Premix Bag 1 BAG IVPB SCH (21:00)
[2018-09-17] MEDS: Furosemide 40 MG/4 ML VIAL SLOW IVP SCH ×2 (06:16→15:06)
[2018-09-17] MEDS: Digoxin 0.5 MG/2 ML AMP SLOW IVP SCH ×3 (10:25→15:06)
[2018-09-17] MEDS: Sacubitril 49 MG/Valsartan 51 MG TABLET PO SCH ×2 (10:28→22:03)
[2018-09-17] MEDS: Aspirin 81 mg Enteric Coated Tablet PO SCH (10:28)
[2018-09-17] MEDS: Apixaban 5 MG TAB PO SCH ×2 (10:28→22:02)
[2018-09-17] MEDS: Saccharomyces boulardii 250 MG CAP PO SCH (10:28)
[2018-09-17] MEDS: Spironolactone 25 MG TAB PO SCH (10:29)
[2018-09-17] MEDS: Famotidine 20 MG TAB PO SCH ×2 (10:36→22:02)
[2018-09-17] MEDS: Carvedilol 6.25 MG TAB PO SCH ×2 (10:36→18:17)
[2018-09-17] MEDS: Polyethylene Glycol 3350 17 GM Packet PO SCH (10:36)
[2018-09-17] MEDS: Bupropion 150 MG SR TAB PO SCH (12:43)
[2018-09-17] MEDS ORDERED: Furosemide 100 MG in Sodium Chloride 0.9% 100 ML IVPB SCH (14:15)
--- NOTE | 2018-09-17 15:43 | PDOC.PN ---
- Subjective Encounter Start Date: 09/17/18 Encounter Start Time: 08:55 Subjective: pt up in bed still has sob on miminal exertion - Objective Resuscitation Status - Order Detail: 09/15/18 16:51 Resuscitation Status Routine Resuscitation Status: PRTL: Intubate only Discussed with: patient's daughter Vital Signs & Weight: Vital Signs (12 hours) Temp Pulse Resp BP Pulse Ox 09/17/18 15:10 97.8 F 88 18 119/59 L 94 L 09/17/18 15:06 84 09/17/18 12:42 84 09/17/18 12:00 99.0 F 84 18 115/57 L 93 L 09/17/18 10:25 92 09/17/18 08:00 97.9 F 92 16 128/60 96 Weight Weight 160 lb 12.8 oz I&O: 09/16/18 09/17/18 09/18/18 06:59 06:59 06:59 Intake Total 320 1380 Output Total 900 1300 Balance -580 80 Result Diagrams: 09/16/18 05:02 09/16/18 05:02 Phys Exam - Physical Examination Neck: no nodes, no JVD, supple, full ROM decrease breath sound to lower lung bases Cardiovascular: RRR, no significant murmur, no rub, gallop, irregular Gastrointestinal: soft, non-tender, no distention, positive bowel sounds Dx/Plan (1) SOB (shortness of breath) Code(s): R06.02 - SHORTNESS OF BREATH Status: Acute (2) Chronic systolic CHF (congestive heart failure), NYHA class 3 Code(s): I50.22 - CHRONIC SYSTOLIC (CONGESTIVE) HEART FAILURE Status: Acute Comment: Acute on chronic though last EF was better. as per ECHO w EF 25%.Lasix stopped as clinically dry .monitor for fluid Overload-will stop ivf today. (3) Bilateral pleural effusion Code(s): J90 - PLEURAL EFFUSION, NOT ELSEWHERE CLASSIFIED Status: Acute (4) Atrial fibrillation and flutter Code(s): I48.91 - UNSPECIFIED ATRIAL FIBRILLATION; I48.92 - UNSPECIFIED ATRIAL FLUTTER Status: Acute Comment: S/P MOO and DCCV 09/03/18 by cardiology.cont Coreg for rate control and Eliquis for OAC.monitor. - Plan pt will benefit from throacentesis, did try to reach pulmonary -: but did not slate picker phone. Discussed with cardio who agrees with -: thoracentesis. will continue iv lasix for now. she is making minimal -: progression. * . Review of Systems - Review of Systems Respiratory: Shortness of Breath Cardiovascular: negative: chest pain, palpitations, orthopnea, paroxysmal nocturnal dyspnea, edema, light headedness, other - Medications/Allergies Allergies/Adverse Reactions: Allergies Allergy/AdvReac Type Severity Reaction Status Date / Time codeine Allergy Verified 07/27/18 01:27 dextromethorphan Allergy Verified 07/27/18 01:27 [From Mucinex DM] guaifenesin [From Mucinex DM] Allergy Verified 07/27/18 01:27 Jwrdvlw-Mdt-Eve Reductase Allergy Verified 07/27/18 01:27 Inhibitor Medications: Current Medications Acetaminophen (Tylenol) 650 mg PO Q4H PRN PRN Reason: Headache/Fever/Mild Pain (1-3) Albuterol/Ipratropium (Duoneb) 3 ml NEB QIDPRN PRN PRN Reason: wheezing,SOB Apixaban (Eliquis) 5 mg PO BID [facility] Last Admin: 09/17/18 10:28 Dose: 5 mg Aspirin (Ecotrin) 81 mg PO DAILY [facility] Last Admin: 09/17/18 10:28 Dose: 81 mg Bupropion HCl (Wellbutrin Sr) 150 mg PO DAILY [facility] Last Admin: 09/17/18 12:43 Dose: 150 mg Carvedilol (Coreg) 6.25 mg PO BID[facility] Last Admin: 09/17/18 10:36 Dose: 6.25 mg Digoxin (Lanoxin) [facility] [place] Ezetimibe (Zetia) 10 mg PO HS [facility] Last Admin: 09/16/18 20:43 Dose: 10 mg Famotidine (Pepcid) 20 mg PO BID [facility] Last Admin: 09/17/18 10:36 Dose: 20 mg Furosemide (Lasix) 40 mg SLOW IVP 0600,1400 [facility] Last Admin: 09/17/18 15:06 Dose: 40 mg Hydralazine HCl (Apresoline) 10 mg SLOW IVP Q4H PRN PRN Reason: SBP > 180 and HR < 70 Levofloxacin 500 mg/ Device 100 mls @ 100 mls/hr IVPB Q24HR [facility] Last Admin: 09/16/18 18:21 Dose: 100 mls Miscellaneous Medication (Pharmacy To Dose) 1 each IVPB PRN PRN PRN Reason: PHARMACY TO DOSE. Ondansetron HCl (Zofran Odt) 4 mg PO Q6H PRN PRN Reason: Nausea/Vomiting Ondansetron HCl (Zofran) 4 mg IVP Q6H PRN PRN Reason: Nausea/Vomiting Pantoprazole Sodium (Protonix) 40 mg PO BID [facility] Last Admin: 09/17/18 10:29 Dose: 40 mg Polyethylene Glycol (Miralax) 17 gm PO DAILY [facility] Last Admin: 09/17/18 10:36 Dose: 17 gm Ranolazine (Ranexa) 500 mg PO BID [facility] Last Admin: 09/17/18 10:28 Dose: 500 mg Saccharomyces Boulardii (Florastor) 250 mg PO DAILY [facility] Last Admin: 09/17/18 10:28 Dose: 250 mg Sacubitril/Valsartan (Entresto 49 Mg-51 Mg Tablet) 1 tab PO BID [facility] Last Admin: 09/17/18 10:28 Dose: 1 tab Sertraline HCl (Zoloft) 100 mg PO DAILY [facility] Last Admin: 09/17/18 10:29 Dose: 100 mg Spironolactone (Aldactone) 25 mg PO QA-[facility] Last Admin: 09/17/18 10:29 Dose: 25 mg
--- NOTE | 2018-09-17 17:15 | RAD ---
Exam: Chest one view HISTORY:Congestive heart failure Comparison: 09/15/2018 FINDINGS: Cardiac silhouette:Cardiomegaly. Atherosclerosis of the aorta Pulmonary vessels: Prominent Costophrenic angles: Left greater than right pleural effusion LUNGS: Bibasilar consolidation. Lungs are hyperinflated. Pneumothorax: None Osseous abnormalities: None IMPRESSION: 1. Congestive heart failure. 2. Atherosclerosis of the aorta.
[2018-09-17 20:56] LABS: Vancomycin, Trough 8.3 ug/mL
[2018-09-17] MEDS ORDERED: Furosemide 40 MG/4 ML VIAL SLOW IVP SCH (21:30)
[2018-09-17] MEDS ORDERED: Metolazone 5 MG TAB PO SCH (21:30)
[2018-09-17] MEDS: Ezetimibe 10 MG TAB PO SCH (22:02)
[2018-09-18] MEDS ORDERED: Sodium Chloride 0.9% 10 ML ONE ×2 (04:53→08:11)
[2018-09-18] MEDS: Furosemide 40 MG/4 ML VIAL SLOW IVP SCH ×2 (06:29→13:50)
[2018-09-18 07:02] LABS: Anion Gap 13 mmol/L (10-20); BUN (Urea Nitrogen) 14 mg/dL (9.8-20.1); Calc. Creatinine Clearance 55 mL/min (70-130); Calcium 9.3 mg/dL (7.8-10.44); Carbon Dioxide 33 mmol/L (23-31); Chloride 92 mmol/L (98-107); Estimated GFR-MDRD 68; Glucose 104 mg/dL (83-110); Potassium 3.1 mmol/L (3.5-5.1); Sodium 135 mmol/L (136-145)
[2018-09-18] MEDS: Carvedilol 6.25 MG TAB PO SCH ×2 (09:25→17:40)
[2018-09-18] MEDS: Aspirin 81 mg Enteric Coated Tablet PO SCH (09:28)
[2018-09-18] MEDS: Bupropion 150 MG SR TAB PO SCH (09:28)
[2018-09-18] MEDS: Saccharomyces boulardii 250 MG CAP PO SCH (09:28)
[2018-09-18] MEDS: Spironolactone 25 MG TAB PO SCH (09:29)
[2018-09-18] MEDS: Famotidine 20 MG TAB PO SCH ×2 (09:29→19:57)
[2018-09-18] MEDS: Sacubitril 49 MG/Valsartan 51 MG TABLET PO SCH ×2 (09:30→19:58)
[2018-09-18] MEDS: Polyethylene Glycol 3350 17 GM Packet PO SCH (09:30)
[2018-09-18] MEDS: Digoxin 0.25 MG TAB PO SCH (09:31)
[2018-09-18] MEDS ORDERED: Sodium Chloride 0.9% 250 ML IV SCH (12:00)
[2018-09-18] MEDS: Sodium Chloride 0.9% 500 ML IV SCH ×2 (12:04→12:07)
--- NOTE | 2018-09-18 12:16 | RAD ---
RADIOGRAPH CHEST 1 VIEW: DATE: 09/18/2018 HISTORY: 74-year-old male with chest pain FINDINGS: The thoracic aorta is tortuous and ectatic. There is no evidence of airspace density, pulmonary edema , or pneumothorax. The lateral costophrenic angles are not effaced. IMPRESSION: 1) No acute pulmonary findings. 2) ectasia of thoracic aorta.
--- NOTE | 2018-09-18 13:54 | PRG ---
DATE OF SERVICE: 09/18/2018 SUBJECTIVE: Ms. Tesfaye is weak. She has orthostatic symptoms when she stands up. Her nurse sat her on the side of the bed and her blood pressure is 87/52, stood her up 85/51, but she got weak and lightheaded, wanted to lay back down. OBJECTIVE: VITAL SIGNS: She is afebrile, heart rate is in the 90s, respiratory rates in the teens, oximetry is 98% on 2 L. LUNGS: She still has crackles at her lung bases. HEART: Regular rhythm. ABDOMEN: Soft. LABORATORY DATA: Sodium 135, potassium 3.1, chloride 92, bicarb 33, BUN 14, creatinine 0.8, glucose 104. Intake and output are negative 580 on the 4th and positive 80 on the 5th, negative 340 on the morning of the , but weight has reportedly gone from 164 to 149, which does not agree with intake and output. The patient and family state that her intake and outputs have not been measured by the nursing staff accurately. I talked to the charge nurse about this and had them weigh her again on the standing scale, which was 149 pounds. I think the current weight is accurate, but the bed scales are notoriously inaccurate at this facility at this time. She needs to be weighed on the standing scale. She needs 1000 mL fluid restriction. She needs to have accurate intake and output. With her relative hypotension, she probably will not continue to tolerate all of her cardiac medications. She had a chest x-ray done this morning, which really has not much changed from yesterday's film. Her BNP on the was 4068. Unfortunately, Ms. 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 I think the combination of poor left ventricular function and her mitral regurgitation are making her difficult to keep in a stable fluid balance. She needs to continue to diurese gently as long as she tolerates it, but she may not tolerate the diuresis with the other medications that are being prescribed. We will continue to follow. I met with the family, answered all their questions. Job ID: [id number]
[2018-09-18] MEDS ORDERED: Potassium Chloride 20 MEQ TAB PO SCH (16:15)
[2018-09-18] MEDS ORDERED: Albumin 25% 25 GM/100 ML BOT IVPB SCH (16:15)
[2018-09-18] MEDS ORDERED: Potassium Chloride 20 MEQ/100 ML PREMIX BAG IVPB SCH (16:15)
--- NOTE | 2018-09-18 16:15 | PDOC.PN ---
- Subjective Encounter Start Date: 09/18/18 Encounter Start Time: 11:20 Subjective: pt up in bed feels unwell, low bp and nauseated - Objective Resuscitation Status - Order Detail: 09/18/18 01:54 Resuscitation Status Routine Resuscitation Status: FULL: Full Resuscitation Discussed with: patient Additional comments: documents "patient agrees to be a full code. " Vital Signs & Weight: Vital Signs (12 hours) Temp Pulse Resp BP BP BP Pulse Ox 09/18/18 11:42 87/52 L 85/51 L 09/18/18 11:09 98.2 F 95 18 93/54 L 98 09/18/18 09:25 90/52 L 09/18/18 09:18 85/49 L 09/18/18 07:57 97.8 F 84 18 102/56 L 94 L 09/18/18 04:25 96 Weight Weight 149 lb I&O: 09/17/18 09/18/18 09/19/18 06:59 06:59 06:59 Intake Total 1380 1360 Output Total 1300 1700 Balance 80 -340 Result Diagrams: 09/16/18 05:02 09/18/18 06:07 Phys Exam - Physical Examination Neck: no nodes, no JVD, supple, full ROM Respiratory: no wheezing, no rhonchi decrease breath sounds to bilateral lower lungs L>R Cardiovascular: RRR, no significant murmur, no rub, gallop, irregular Gastrointestinal: soft, non-tender, no distention, positive bowel sounds Musculoskeletal: no edema, pulses present, edema present Dx/Plan (1) SOB (shortness of breath) Code(s): R06.02 - SHORTNESS OF BREATH Status: Acute (2) Chronic systolic CHF (congestive heart failure), NYHA class 3 Code(s): I50.22 - CHRONIC SYSTOLIC (CONGESTIVE) HEART FAILURE Status: Acute Comment: Acute on chronic though last EF was better. as per ECHO w EF 25%.Lasix stopped as clinically dry .monitor for fluid Overload-will stop ivf today. (3) Bilateral pleural effusion Code(s): J90 - PLEURAL EFFUSION, NOT ELSEWHERE CLASSIFIED Status: Acute (4) Atrial fibrillation and flutter Code(s): I48.91 - UNSPECIFIED ATRIAL FIBRILLATION; I48.92 - UNSPECIFIED ATRIAL FLUTTER Status: Acute Comment: S/P MOO and DCCV 09/03/18 by cardiology.cont Coreg for rate control and Eliquis for OAC.monitor. - Plan pt is getting iv fluids, lasix on hold, low bp -: will add albumin. she may need a inotropic agent -: long discussion with pt and family, updated family. * . Review of Systems - Review of Systems Respiratory: Shortness of Breath Gastrointestinal: Nausea - Medications/Allergies Allergies/Adverse Reactions: Allergies Allergy/AdvReac Type Severity Reaction Status Date / Time codeine Allergy Verified 07/27/18 01:27 dextromethorphan Allergy Verified 07/27/18 01:27 [From Mucinex DM] guaifenesin [From Mucinex DM] Allergy Verified 07/27/18 01:27 Ocmtqxr-Xjv-Ezy Reductase Allergy Verified 07/27/18 01:27 Inhibitor Medications: Current Medications Acetaminophen (Tylenol) 650 mg PO Q4H PRN PRN Reason: Headache/Fever/Mild Pain (1-3) Albumin Human (Albumin 25%) 25 gm IVPB NOW [facility] Stop: 09/18/18 22:00 Albuterol/Ipratropium (Duoneb) 3 ml NEB QIDPRN PRN PRN Reason: wheezing,SOB Aspirin (Ecotrin) 81 mg PO DAILY [facility] Last Admin: 09/18/18 09:28 Dose: 81 mg Bupropion HCl (Wellbutrin Sr) 150 mg PO DAILY [facility] Last Admin: 09/18/18 09:28 Dose: 150 mg Carvedilol (Coreg) 6.25 mg PO BID-[facility] Last Admin: 09/18/18 09:25 Dose: Not Given Digoxin (Lanoxin) 0.25 mg PO QAM [facility] Last Admin: 09/18/18 09:31 Dose: 0.25 mg Ezetimibe (Zetia) 10 mg PO HS [facility] Last Admin: 09/17/18 22:02 Dose: 10 mg Famotidine (Pepcid) 20 mg PO BID [facility] Last Admin: 09/18/18 09:29 Dose: 20 mg Furosemide (Lasix) 40 mg SLOW IVP 0600,1400 [facility] Last Admin: 09/18/18 13:50 Dose: Not Given Hydralazine HCl (Apresoline) 10 mg SLOW IVP Q4H PRN PRN Reason: SBP > 180 and HR < 70 Levofloxacin 500 mg/ Device 100 mls @ 100 mls/hr IVPB Q24HR [facility] Last Admin: 09/17/18 18:17 Dose: 100 mls Ondansetron HCl (Zofran Odt) 4 mg PO Q6H PRN PRN Reason: Nausea/Vomiting Ondansetron HCl (Zofran) 4 mg IVP Q6H PRN PRN Reason: Nausea/Vomiting Pantoprazole Sodium (Protonix) 40 mg PO BID [facility] Last Admin: 09/18/18 09:29 Dose: 40 mg Polyethylene Glycol (Miralax) 17 gm PO DAILY [facility] Last Admin: 09/18/18 09:30 Dose: Not Given Potassium Chloride (K-Dur) 40 meq PO NOW [facility] Stop: 09/18/18 18:15 Potassium Chloride (Kcl) 20 meq IVPB NOW [facility] Stop: 09/18/18 18:15 Ranolazine (Ranexa) 500 mg PO BID [facility] Last Admin: 09/18/18 09:41 Dose: 500 mg Saccharomyces Boulardii (Florastor) 250 mg PO DAILY [facility] Last Admin: 09/18/18 09:28 Dose: 250 mg Sacubitril/Valsartan (Entresto 49 Mg-51 Mg Tablet) 1 tab PO BID [facility] Last Admin: 09/18/18 09:30 Dose: Not Given Sertraline HCl (Zoloft) 100 mg PO DAILY [facility] Last Admin: 09/18/18 09:29 Dose: 100 mg Spironolactone (Aldactone) 25 mg PO QAM-WM [facility] Last Admin: 09/18/18 09:29 Dose: 25 mg
[2018-09-18 16:35] LABS: #Eosinphils 0.1 thou/uL (0.0-0.7); #Lymphocytes 0.9 thou/uL (1.20-3.40); #Monocytes 0.6 thou/uL (0.11-0.59); #Neutrophils 4.1 thou/uL (1.40-6.50); %Basophils 0.2 % (0.0-1.0); %Eosinophils 1.9 % (0.0-10.0); %Lymphocytes 15.2 % (21.0-51.0); %Monocytes 10.9 % (0.0-10.0); %Neutrophils 71.7 % (42.0-75.0); Hemoglobin 10.6 g/dL (12.0-16.0); Mean Corpuscular HGB CONC 31.6 g/dL (32.0-36.0); Mean Corpuscular Hemoglobin 30.1 pg (27.0-31.0); Mean Corpuscular Volume 95.2 fL (78.0-98.0); Mean Platelet Volume 5.6 fL (7.4-10.4); Platelet Count 365 thou/uL (130-400); RBC Distribution Width 14.4 % (11.5-14.5); Red Blood Cell (RBC) Count 3.53 mill/uL (4.20-5.40); White Blood Cell (WBC) Count 5.8 thou/uL (4.8-10.8)
[2018-09-18] MEDS: Ezetimibe 10 MG TAB PO SCH (19:58)
--- NOTE | 2018-09-19 00:51 | EKG ---
Test Reason : Blood Pressure : / mmHG Vent. Rate : 090 BPM Atrial Rate : 090 BPM P-R Int : 154 ms QRS Dur : 084 ms QT Int : 388 ms P-R-T Axes : 101 090 229 degrees QTc Int : 474 ms Suspect arm lead reversal, interpretation assumes no reversal Normal sinus rhythm Possible Inferior infarct , age undetermined Anterolateral infarct , age undetermined Abnormal ECG When compared with ECG of 27-AUG-2018 Lateral T wave inversion is new Confirmed by LILLIAN LOWRY ([id number]), continuity editor ILDEFONSO DU ([id number] on 09/19/2018 12:51:31 AM Referred By: Confirmed By:LILLIAN LOWRY
[2018-09-19 06:21] LABS: #Eosinphils 0.2 thou/uL (0.0-0.7); #Monocytes 0.6 thou/uL (0.11-0.59); %Basophils 0.1 % (0.0-1.0); %Eosinophils 3.5 % (0.0-10.0); %Lymphocytes 17.3 % (21.0-51.0); %Monocytes 10.9 % (0.0-10.0); %Neutrophils 68.2 % (42.0-75.0); Hemoglobin 10.7 g/dL (12.0-16.0); Mean Corpuscular HGB CONC 32.3 g/dL (32.0-36.0); Mean Corpuscular Hemoglobin 30.6 pg (27.0-31.0); Mean Corpuscular Volume 94.8 fL (78.0-98.0); Mean Platelet Volume 5.8 fL (7.4-10.4); Platelet Count 371 thou/uL (130-400); RBC Distribution Width 14.3 % (11.5-14.5); Red Blood Cell (RBC) Count 3.48 mill/uL (4.20-5.40); White Blood Cell (WBC) Count 5.9 thou/uL (4.8-10.8)
[2018-09-19 06:41] LABS: Anion Gap 11 mmol/L (10-20); BUN (Urea Nitrogen) 15 mg/dL (9.8-20.1); Calc. Creatinine Clearance 54 mL/min (70-130); Calcium 9.4 mg/dL (7.8-10.44); Carbon Dioxide 33 mmol/L (23-31); Chloride 95 mmol/L (98-107); Estimated GFR-MDRD 66; Glucose 97 mg/dL (83-110); Potassium 3.8 mmol/L (3.5-5.1); Sodium 135 mmol/L (136-145)
[2018-09-19] MEDS: Carvedilol 6.25 MG TAB PO SCH ×2 (08:59→16:11)
[2018-09-19] MEDS: Digoxin 0.25 MG TAB PO SCH (09:03)
[2018-09-19] MEDS: Polyethylene Glycol 3350 17 GM Packet PO SCH (09:03)
[2018-09-19] MEDS: Aspirin 81 mg Enteric Coated Tablet PO SCH (09:03)
[2018-09-19] MEDS: Bupropion 150 MG SR TAB PO SCH (09:03)
[2018-09-19] MEDS: Famotidine 20 MG TAB PO SCH ×2 (09:03→20:21)
[2018-09-19] MEDS: Saccharomyces boulardii 250 MG CAP PO SCH (09:08)
[2018-09-19] MEDS: Sacubitril 49 MG/Valsartan 51 MG TABLET PO SCH ×2 (09:57→20:25)
--- NOTE | 2018-09-19 13:41 | PRG ---
DATE OF SERVICE: 09/19/2018 SUBJECTIVE: Jennifer Tesfaye is still orthostatic. She has no symptoms when she is lying down. OBJECTIVE: VITAL SIGNS: She is afebrile. Heart rate is 82, respiratory rate is 18, oximetry is 96% on room air, blood pressure 130/68. I did not weigh her this morning, but she said she could not stand up. Her weight in the bed is unchanged, but her fluid balance is negative 1665. IMPRESSION: Severe left ventricular dysfunction with mitral regurgitation leading to bilateral pleural effusions. She needs to continue with medication adjustments per the hospitalist and Cardiology. She does not need a thoracentesis at this time. Other problems include hypertension, lipid disorder, atrial fibrillation with cardioversions in the past, degenerative arthritis, history of a pericardial window after an ablation, history of cholecystectomy, history of bilateral knee replacements, and deconditioning. She also has sleep apnea and history of normal PFTs. We will continue to follow intermittently while she is in the hospital. She is stable from a pulmonary standpoint. Job ID: [id number]
--- NOTE | 2018-09-19 18:14 | PDOC.PN ---
- Subjective Encounter Start Date: 09/19/18 Encounter Start Time: 07:20 Pt seen for followup re: shortness of breath. Feels better today. - Objective Resuscitation Status - Order Detail: 09/18/18 01:54 Resuscitation Status Routine Resuscitation Status: FULL: Full Resuscitation Discussed with: patient Additional comments: documents "patient agrees to be a full code. " Vital Signs & Weight: Vital Signs (12 hours) Temp Pulse Pulse Pulse Resp BP BP 09/19/18 16:04 97.6 F 84 18 09/19/18 13:10 76 80 103/55 L 114/61 09/19/18 11:57 97.8 F 82 18 09/19/18 09:57 87 09/19/18 08:55 97.6 F 94 18 BP BP Pulse Ox Pulse Ox Pulse Ox 09/19/18 16:04 142/67 H 96 09/19/18 13:10 96 94 L 09/19/18 11:57 130/68 96 09/19/18 09:57 132/86 09/19/18 08:55 131/67 94 L Weight Weight 149 lb I&O: 09/18/18 09/19/18 09/20/18 06:59 06:59 06:59 Intake Total 1360 1825 610 Output Total 1700 3430 1850 Balance -617 -3992 -3927 Result Diagrams: 09/19/18 05:41 09/19/18 05:41 Phys Exam - Physical Examination Constitutional: NAD HEENT: moist MMs Neck: supple [place] crackles Cardiovascular: RRR Gastrointestinal: soft Musculoskeletal: edema present Neurological: moves all 4 limbs Psychiatric: normal affect Dx/Plan (1) SOB (shortness of breath) Code(s): R06.02 - SHORTNESS OF BREATH Status: Acute Comment: Likely secondary to CHF (2) Chronic systolic CHF (congestive heart failure), NYHA class 3 Code(s): I50.22 - CHRONIC SYSTOLIC (CONGESTIVE) HEART FAILURE Status: Acute Comment: Acute on chronic, continue furosemide 40 mg IV BID (3) Dyslipidemia Code(s): E78.5 - HYPERLIPIDEMIA, UNSPECIFIED Status: Chronic Comment: continue Zetia (4) HTN (hypertension) Code(s): I10 - ESSENTIAL (PRIMARY) HYPERTENSION Status: Chronic Qualifiers: Hypertension type: essential hypertension Qualified Code(s): I10 - Essential (primary) hypertension Comment: controlled - Plan * . Review of Systems - Review of Systems Respiratory: SOB with Excertion. negative: Cough, Shortness of Breath, Pleuritic Pain, Wheezing Cardiovascular: negative: chest pain, palpitations, orthopnea, paroxysmal nocturnal dyspnea, edema, light headedness Gastrointestinal: Nausea - Medications/Allergies Allergies/Adverse Reactions: Allergies Allergy/AdvReac Type Severity Reaction Status Date / Time codeine Allergy Verified 07/27/18 01:27 dextromethorphan Allergy Verified 07/27/18 01:27 [From Mucinex DM] guaifenesin [From Mucinex DM] Allergy Verified 07/27/18 01:27 Dxyjweh-Rvy-Czj Reductase Allergy Verified 07/27/18 01:27 Inhibitor Medications: Current Medications Acetaminophen (Tylenol) 650 mg PO Q4H PRN PRN Reason: Headache/Fever/Mild Pain (1-3) Albuterol/Ipratropium (Duoneb) 3 ml NEB QIDPRN PRN PRN Reason: wheezing,SOB Apixaban (Eliquis) 5 mg PO BID [facility] Aspirin (Ecotrin) 81 mg PO DAILY [facility] Last Admin: 09/19/18 09:03 Dose: 81 mg Bupropion HCl (Wellbutrin Sr) 150 mg PO DAILY [facility] Last Admin: 09/19/18 09:03 Dose: 150 mg Carvedilol (Coreg) 6.25 mg PO BID[facility] Last Admin: 09/19/18 16:11 Dose: 6.25 mg Digoxin (Lanoxin) 0.25 mg PO QAM [facility] Last Admin: 09/19/18 09:03 Dose: 0.25 mg Ezetimibe (Zetia) 10 mg PO HS [facility] Last Admin: 09/18/18 19:58 Dose: 10 mg Famotidine (Pepcid) 20 mg PO BID [facility] Last Admin: 09/19/18 09:03 Dose: 20 mg Furosemide (Lasix) 40 mg SLOW IVP 0600,1400 [facility] Last Admin: 09/18/18 13:50 Dose: Not Given Hydralazine HCl (Apresoline) 10 mg SLOW IVP Q4H PRN PRN Reason: SBP > 180 and HR < 70 Levofloxacin 500 mg/ Device 100 mls @ 100 mls/hr IVPB Q24HR [facility] Last Admin: 09/19/18 17:53 Dose: 100 mls Ondansetron HCl (Zofran Odt) 4 mg PO Q6H PRN PRN Reason: Nausea/Vomiting Ondansetron HCl (Zofran) 4 mg IVP Q6H PRN PRN Reason: Nausea/Vomiting Pantoprazole Sodium (Protonix) 40 mg PO BID [facility] Last Admin: 09/19/18 09:03 Dose: 40 mg Polyethylene Glycol (Miralax) 17 gm PO DAILY [facility] Last Admin: 09/19/18 09:03 Dose: Not Given Ranolazine (Ranexa) 500 mg PO BID [facility] Last Admin: 09/19/18 09:03 Dose: 500 mg Saccharomyces Boulardii (Florastor) 250 mg PO DAILY [facility] Last Admin: 09/19/18 09:08 Dose: 250 mg Sacubitril/Valsartan (Entresto 49 Mg-51 Mg Tablet) 1 tab PO BID [facility] Last Admin: 09/19/18 09:57 Dose: 1 tab Sertraline HCl (Zoloft) 100 mg PO DAILY [facility] Last Admin: 09/19/18 09:03 Dose: 100 mg Spironolactone (Aldactone) 25 mg PO QAM-[facility] Last Admin: 09/18/18 09:29 Dose: 25 mg
[2018-09-19] MEDS: Acetaminophen 325 MG TAB PO PRN (20:21)
[2018-09-19] MEDS: Ezetimibe 10 MG TAB PO SCH (20:22)
[2018-09-19] MEDS: Apixaban 5 MG TAB PO SCH (20:22)
[2018-09-20] MEDS: Sacubitril 49 MG/Valsartan 51 MG TABLET PO SCH ×2 (09:04→10:53)
[2018-09-20] MEDS: Aspirin 81 mg Enteric Coated Tablet PO SCH (09:05)
[2018-09-20] MEDS: Saccharomyces boulardii 250 MG CAP PO SCH (09:05)
[2018-09-20] MEDS: Digoxin 0.25 MG TAB PO SCH (09:05)
[2018-09-20] MEDS: Apixaban 5 MG TAB PO SCH ×2 (09:05→21:32)
[2018-09-20] MEDS: Famotidine 20 MG TAB PO SCH ×2 (09:05→21:32)
[2018-09-20] MEDS: Carvedilol 6.25 MG TAB PO SCH ×2 (09:05→10:54)
[2018-09-20] MEDS: Polyethylene Glycol 3350 17 GM Packet PO SCH (09:06)
[2018-09-20] MEDS: Bupropion 150 MG SR TAB PO SCH (09:10)
[2018-09-20] MEDS ORDERED: Carvedilol 6.25 MG TAB PO SCH (10:15)
[2018-09-20] MEDS ORDERED: Carvedilol 3.125 MG TAB PO SCH (10:45)
[2018-09-20] MEDS ORDERED: Spironolactone 25 MG TAB PO SCH (11:00)
--- NOTE | 2018-09-20 11:41 | PDOC.PN ---
- Subjective Encounter Start Date: 09/20/18 Encounter Start Time: 11:35 Subjective: f/u for acute/chronic syst CHF with EF 25% with ? 16lb weight loss with -: diuresis since admit. Feels fatigued and was orthostatic this am when -: attempting to use the restroom. - Objective Resuscitation Status - Order Detail: 09/18/18 01:54 Resuscitation Status Routine Resuscitation Status: FULL: Full Resuscitation Discussed with: patient Additional comments: documents "patient agrees to be a full code. " MAR Reviewed: Yes Vital Signs & Weight: Vital Signs (12 hours) Temp Pulse Pulse Pulse Pulse Resp BP 09/20/18 10:05 89 92 92 104/59 L 09/20/18 09:05 89 09/20/18 08:02 99.0 F 89 20 09/20/18 04:00 97.8 F 94 18 BP BP BP Pulse Ox 09/20/18 10:05 83/47 L 103/56 L 09/20/18 09:05 09/20/18 08:02 127/62 95 09/20/18 04:00 115/61 96 Weight Weight 148 lb 8 oz I&O: 09/19/18 09/20/18 09/21/18 06:59 06:59 06:59 Intake Total 1825 850 Output Total 3490 2450 Balance -1665 -1600 Result Diagrams: 09/19/18 05:41 09/19/18 05:41 Additional Labs: Laboratory Tests 07/26/18 07/27/18 07/28/18 18:31 05:23 05:51 Hgb 11.5 L 10.7 L Magnesium 1.4 L 07/28/18 07/29/18 07/30/18 05:51 05:11 05:03 Hgb 10.6 L Magnesium 1.5 L 1.6 Radiology Reviewed by me: Yes (Echo - EF 25%) EKG Reviewed by me: Yes (Tele - SR) Phys Exam - Physical Examination Constitutional: NAD alert, responsive HEENT: PERRLA, sclera anicteric, oral pharynx no lesions Neck: no nodes, no JVD, supple, full ROM diminished in bases Respiratory: no wheezing S1, S2 Cardiovascular: RRR, no rub, gallop Gastrointestinal: soft, non-tender, no distention, positive bowel sounds Musculoskeletal: no edema, pulses present Neurological: normal sensation, moves all 4 limbs Psychiatric: A&O x 3 Skin: normal turgor, cap refill <2 seconds Dx/Plan (1) Acute on chronic systolic and diastolic heart failure, NYHA class 3 Code(s): I50.43 - ACUTE ON CHRONIC COMBINED SYSTOLIC AND DIASTOLIC HRT FAIL Status: Acute Comment: EF 25%, Lasix on hold due to hypotension (2) Orthostatic hypotension Code(s): I95.1 - ORTHOSTATIC HYPOTENSION Status: Acute Comment: Iatrogenic, hold Entresto/Lasix and BP meds, encourage increased po fluids, serial BP monitoring (3) Atrial fibrillation and flutter Code(s): I48.91 - UNSPECIFIED ATRIAL FIBRILLATION; I48.92 - UNSPECIFIED ATRIAL FLUTTER Status: Acute Comment: S/P MOO and DCCV 09/03/18 by cardiology.cont Coreg for rate control and Eliquis for OAC.monitor. 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
[2018-09-20] MEDS: Carvedilol 3.125 MG TAB PO SCH (15:33)
[2018-09-20] MEDS: Ezetimibe 10 MG TAB PO SCH (21:32)
[2018-09-21] MEDS ORDERED: Sacubitril 24.5 MG/Valsartan 25.5 MG TABLET PO SCH (09:00)
[2018-09-21] MEDS ORDERED: Spironolactone 25 MG TAB PO SCH ×2 (09:15→12:00)
[2018-09-21] MEDS ORDERED: Carvedilol 6.25 MG TAB PO SCH (09:15)
[2018-09-21] MEDS: Apixaban 5 MG TAB PO SCH ×2 (09:20→21:20)
[2018-09-21] MEDS: Saccharomyces boulardii 250 MG CAP PO SCH (09:21)
[2018-09-21] MEDS: Aspirin 81 mg Enteric Coated Tablet PO SCH (09:21)
[2018-09-21] MEDS: Digoxin 0.25 MG TAB PO SCH (09:21)
[2018-09-21] MEDS: Bupropion 150 MG SR TAB PO SCH (09:21)
[2018-09-21] MEDS: Famotidine 20 MG TAB PO SCH ×2 (09:21→21:20)
[2018-09-21] MEDS: Polyethylene Glycol 3350 17 GM Packet PO SCH (09:22)
[2018-09-21] MEDS: Carvedilol 3.125 MG TAB PO SCH ×3 (09:26→19:14)
[2018-09-21] MEDS: Ondansetron PF 4 MG/2 ML Vial IVP PRN (10:13)
--- NOTE | 2018-09-21 15:36 | PDOC.PN ---
- Subjective Encounter Start Date: 09/21/18 Encounter Start Time: 15:35 Subjective: feels well but still weak -: care discussed w son at bedside - Objective Resuscitation Status - Order Detail: 09/18/18 01:54 Resuscitation Status Routine Resuscitation Status: FULL: Full Resuscitation Discussed with: patient Additional comments: documents "patient agrees to be a full code. " MAR Reviewed: Yes Vital Signs & Weight: Vital Signs (12 hours) Temp Pulse Pulse Pulse Pulse Resp BP 09/21/18 13:57 68 09/21/18 13:26 88 88 86 107/58 L 09/21/18 12:48 98.4 F 86 18 09/21/18 09:21 76 09/21/18 08:16 98.1 F 76 18 BP BP BP BP Pulse Ox 09/21/18 13:57 121/62 09/21/18 13:26 121/62 112/58 L 09/21/18 12:48 95/50 L 96 09/21/18 09:21 09/21/18 08:16 122/76 98 Weight Weight 148 lb 8 oz I&O: 09/20/18 09/21/18 09/22/18 06:59 06:59 06:59 Intake Total 850 1210 Output Total 2450 1350 Balance -1600 -140 Result Diagrams: 09/19/18 05:41 09/19/18 05:41 Additional Labs: Microbiology 09/12/18 08:30 Urine clean catch Urine Culture - Final NO GROWTH AT 48 HOURS Laboratory Tests 09/15/18 09/16/18 14:49 05:02 B-Natriuretic Peptide 8082.5 H 4068.2 H Phys Exam - Physical Examination Constitutional: NAD weak and tired HEENT: PERRLA, moist MMs, sclera anicteric, oral pharynx no lesions Neck: no nodes, no JVD, supple, full ROM Respiratory: no wheezing, no rales, no rhonchi, clear to auscultation bilateral Cardiovascular: RRR, no significant murmur, no rub Gastrointestinal: soft, non-tender, no distention, positive bowel sounds Musculoskeletal: no edema, pulses present Neurological: non-focal, normal sensation, moves all 4 limbs Dx/Plan (1) Acute on chronic systolic and diastolic heart failure, NYHA class 3 Code(s): I50.43 - ACUTE ON CHRONIC COMBINED SYSTOLIC AND DIASTOLIC HRT FAIL Status: Acute Comment: EF 25%, Lasix on hold due to hypotension (2) Bilateral pleural effusion Code(s): J90 - PLEURAL EFFUSION, NOT ELSEWHERE CLASSIFIED Status: Acute Comment: not surgical candidate.PCCM following (3) Orthostatic hypotension Code(s): I95.1 - ORTHOSTATIC HYPOTENSION Status: Acute Comment: Iatrogenic, hold Lasix and adjust BP meds, encourage increased po fluids, serial BP monitoring (4) SOB (shortness of breath) Code(s): R06.02 - SHORTNESS OF BREATH Status: Acute Comment: Likely secondary to CHF (5) BRIAN (acute kidney injury) Code(s): N17.9 - ACUTE KIDNEY FAILURE, UNSPECIFIED Status: Acute Comment: Due to diuresis. improved.monitor. DCed lasix as volume depleted on exam (6) Atrial fibrillation and flutter Code(s): I48.91 - UNSPECIFIED ATRIAL FIBRILLATION; I48.92 - UNSPECIFIED ATRIAL FLUTTER Status: Acute Comment: S/P MOO and DCCV 09/03/18 by cardiology.cont Coreg for rate control and Eliquis for OAC.monitor. (7) Chronic systolic CHF (congestive heart failure), NYHA class 3 Code(s): I50.22 - CHRONIC SYSTOLIC (CONGESTIVE) HEART FAILURE Status: Acute Comment: Acute on chronic, continue furosemide 40 mg IV BID (8) NSTEMI (non-ST elevated myocardial infarction) Code(s): I21.4 - NON-ST ELEVATION (NSTEMI) MYOCARDIAL INFARCTION Status: Acute Comment: s/p Cardiac Cath.No intervention.NL Coronaries. 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 started on Entresto Type 2 [place] (9) Anxiety and depression Code(s): F41.9 - ANXIETY DISORDER, UNSPECIFIED; F32.9 - MAJOR DEPRESSIVE DISORDER, SINGLE EPISODE, UNSPECIFIED Status: Chronic (10) CAD (coronary artery disease) Code(s): I25.10 - ATHSCL HEART DISEASE OF [place] CORONARY ARTERY W/O ANG PCTRS Status: Chronic Qualifiers: Coronary Disease-Associated Artery/Lesion type: [place] artery [place] vs. transplanted heart: [place] heart Associated angina: without angina Qualified Code(s): I25.10 - Atherosclerotic heart disease of [place] coronary artery without angina pectoris Comment: ASA,BB,entresto.continue (11) Chronic anticoagulation Code(s): Z79.01 - FPC (CURRENT) USE OF ANTICOAGULANTS Status: Chronic Comment: Continue Eliquis 5mg BID (12) Dyslipidemia Code(s): E78.5 - HYPERLIPIDEMIA, UNSPECIFIED Status: Chronic Comment: continue Zetia (13) HTN (hypertension) Code(s): I10 - ESSENTIAL (PRIMARY) HYPERTENSION Status: Chronic Qualifiers: Hypertension type: essential hypertension Qualified Code(s): I10 - Essential (primary) hypertension Comment: controlled (14) TYLER (obstructive sleep apnea) Code(s): G47.33 - OBSTRUCTIVE SLEEP APNEA (ADULT) (PEDIATRIC) Status: Chronic Comment: Nocturnal CPAP (15) Physical deconditioning Code(s): R53.81 - OTHER MALAISE Status: Chronic Comment: PT/OT, resume rehab after d/c - Plan plan discussed w/ family, DVT proph w/SCDs encourage ambulation -: BP meds per acrdiology.adjust and seperate by time -: Rehab when cleared by cardiology and BP stable -: am labs * . Review of Systems - Review of Systems Constitutional: weakness, malaise. negative: fever, chills, sweats, other Respiratory: SOB with Excertion. negative: Cough, Dry, Shortness of Breath, Hemoptysis, Pleuritic Pain, Sputum, Wheezing Cardiovascular: negative: chest pain, palpitations, orthopnea, paroxysmal nocturnal dyspnea, edema, light headedness, other Gastrointestinal: negative: Nausea, Vomiting, Abdominal Pain, Diarrhea, Constipation, Melena, Hematochezia, Other Genitourinary: negative: Dysuria, Frequency, Incontinence, Hematuria, Retention , Other Musculoskeletal: negative: Neck Pain, Shoulder Pain, Arm Pain, Back Pain, Hand Pain, Leg Pain, Foot Pain, Other Neurological: negative: Weakness, Numbness, Incoordination, Change in Speech, Confusion, Seizures, Other - Medications/Allergies Allergies/Adverse Reactions: Allergies Allergy/AdvReac Type Severity Reaction Status Date / Time codeine Allergy Verified 07/27/18 01:27 dextromethorphan Allergy Verified 07/27/18 01:27 [From Mucinex DM] guaifenesin [From Mucinex DM] Allergy Verified 07/27/18 01:27 Bhgxsfw-Jjq-Pns Reductase Allergy Verified 07/27/18 01:27 Inhibitor Medications: Current Medications Acetaminophen (Tylenol) 650 mg PO Q4H PRN PRN Reason: Headache/Fever/Mild Pain (1-3) Last Admin: 09/19/18 20:21 Dose: 650 mg Albuterol/Ipratropium (Duoneb) 3 ml NEB QIDPRN PRN PRN Reason: wheezing,SOB Apixaban (Eliquis) 5 mg PO BID [facility] Last Admin: 09/21/18 09:20 Dose: 5 mg Aspirin (Ecotrin) 81 mg PO DAILY [facility] Last Admin: 09/21/18 09:21 Dose: 81 mg Bupropion HCl (Wellbutrin Sr) 150 mg PO DAILY [facility] Last Admin: 09/21/18 09:21 Dose: 150 mg Carvedilol (Coreg) 3.125 mg PO 1200,2100 [facility] Last Admin: 09/21/18 13:57 Dose: 3.125 mg Digoxin (Lanoxin) 0.25 mg PO QAM [facility] Last Admin: 09/21/18 09:21 Dose: 0.25 mg Ezetimibe (Zetia) 10 mg PO HS [facility] Last Admin: 09/20/18 21:32 Dose: 10 mg Famotidine (Pepcid) 20 mg PO BID [facility] Last Admin: 09/21/18 09:21 Dose: 20 mg Furosemide (Lasix) 40 mg SLOW IVP 0600,1400 [facility] Last Admin: 09/18/18 13:50 Dose: Not Given Hydralazine HCl (Apresoline) 10 mg SLOW IVP Q4H PRN PRN Reason: SBP > 180 and HR < 70 Levofloxacin (Levaquin) 500 mg PO 0900 [facility] Stop: 09/22/18 09:01 Last Admin: 09/21/18 09:21 Dose: 500 mg Ondansetron HCl (Zofran Odt) 4 mg PO Q6H PRN PRN Reason: Nausea/Vomiting Ondansetron HCl (Zofran) 4 mg IVP Q6H PRN PRN Reason: Nausea/Vomiting Last Admin: 09/21/18 10:13 Dose: 4 mg Pantoprazole Sodium (Protonix) 40 mg PO BID [facility] Last Admin: 09/21/18 09:21 Dose: 40 mg Polyethylene Glycol (Miralax) 17 gm PO DAILY [facility] Last Admin: 09/21/18 09:22 Dose: Not Given Ranolazine (Ranexa) 500 mg PO BID [facility] Last Admin: 09/21/18 09:21 Dose: 500 mg Saccharomyces Boulardii (Florastor) 250 mg PO DAILY [facility] Last Admin: 09/21/18 09:21 Dose: 250 mg Sacubitril/Valsartan (Entresto 24 Mg-26 Mg Tablet) 1 tab PO 0900,1700 [facility] Sertraline HCl (Zoloft) 100 mg PO DAILY [facility] Last Admin: 09/21/18 09:22 Dose: 100 mg Spironolactone (Aldactone) 25 mg PO QA[facility]
[2018-09-21] MEDS: Ezetimibe 10 MG TAB PO SCH (21:20)
[2018-09-22] MEDS ORDERED: Digoxin 0.5 MG/2 ML AMP SLOW IVP SCH (01:45)
[2018-09-22 05:30] LABS: #Eosinphils 0.2 thou/uL (0.0-0.7); #Monocytes 0.5 thou/uL (0.11-0.59); #Neutrophils 3.8 thou/uL (1.40-6.50); %Basophils 0.2 % (0.0-1.0); %Eosinophils 3.1 % (0.0-10.0); %Lymphocytes 18.4 % (21.0-51.0); %Monocytes 9.4 % (0.0-10.0); Hemoglobin 11.2 g/dL (12.0-16.0); Mean Corpuscular HGB CONC 30.9 g/dL (32.0-36.0); Mean Corpuscular Hemoglobin 29.4 pg (27.0-31.0); Mean Platelet Volume 5.5 fL (7.4-10.4); Platelet Count 411 thou/uL (130-400); RBC Distribution Width 14.4 % (11.5-14.5); Red Blood Cell (RBC) Count 3.82 mill/uL (4.20-5.40); White Blood Cell (WBC) Count 5.5 thou/uL (4.8-10.8)
[2018-09-22 05:46] LABS: Anion Gap 12 mmol/L (10-20); BUN (Urea Nitrogen) 17 mg/dL (9.8-20.1); Calc. Creatinine Clearance 49 mL/min (70-130); Calcium 9.3 mg/dL (7.8-10.44); Carbon Dioxide 27 mmol/L (23-31); Chloride 100 mmol/L (98-107); Estimated GFR-MDRD 60; Glucose 104 mg/dL (83-110); Potassium 4.3 mmol/L (3.5-5.1); Sodium 135 mmol/L (136-145)
[2018-09-22] MEDS: Ondansetron PF 4 MG/2 ML Vial IVP PRN ×2 (05:50→18:32)
[2018-09-22] MEDS ORDERED: Spironolactone 25 MG TAB PO SCH (08:00)
[2018-09-22] MEDS: Saccharomyces boulardii 250 MG CAP PO SCH (09:17)
[2018-09-22] MEDS: Apixaban 5 MG TAB PO SCH ×2 (09:17→21:27)
[2018-09-22] MEDS: Famotidine 20 MG TAB PO SCH ×2 (09:17→21:27)
[2018-09-22] MEDS: Digoxin 0.25 MG TAB PO SCH (09:17)
[2018-09-22] MEDS: Aspirin 81 mg Enteric Coated Tablet PO SCH (09:17)
[2018-09-22] MEDS: Polyethylene Glycol 3350 17 GM Packet PO SCH (09:18)
[2018-09-22] MEDS: Bupropion 150 MG SR TAB PO SCH (09:19)
[2018-09-22] MEDS: Carvedilol 3.125 MG TAB PO SCH ×2 (12:39→21:28)
--- NOTE | 2018-09-22 13:40 | PDOC.PN ---
- Subjective Encounter Start Date: 09/22/18 Encounter Start Time: 13:39 Subjective: Feels weak. had a dizzy spell this morning when she stood up -: BP was very high at that time - Objective Resuscitation Status - Order Detail: 09/18/18 01:54 Resuscitation Status Routine Resuscitation Status: FULL: Full Resuscitation Discussed with: patient Additional comments: documents "patient agrees to be a full code. " MAR Reviewed: Yes Vital Signs & Weight: Vital Signs (12 hours) Temp Pulse Resp BP Pulse Ox 09/22/18 12:40 97.8 F 99 18 128/67 95 09/22/18 09:17 98 09/22/18 07:45 98.3 F 98 18 125/70 94 L 09/22/18 07:20 94 L 09/22/18 04:00 98.1 F 109 H 18 113/59 L 95 09/22/18 01:44 89 Weight Weight 148 lb 8 oz I&O: 09/21/18 09/22/18 09/23/18 06:59 06:59 06:59 Intake Total 1210 1200 Output Total 1350 1100 Balance -140 100 Result Diagrams: 09/22/18 05:18 09/22/18 05:18 Additional Labs: Laboratory Tests 09/15/18 09/16/18 09/18/18 14:49 05:02 16:28 Hgb 9.6 L 9.5 L 10.6 L 09/19/18 09/22/18 05:41 05:18 Hgb 10.7 L 11.2 L Phys Exam - Physical Examination Constitutional: NAD HEENT: PERRLA, moist MMs, sclera anicteric, oral pharynx no lesions Neck: no nodes, no JVD, supple, full ROM Respiratory: no wheezing, no rales, no rhonchi, clear to auscultation bilateral Cardiovascular: RRR, no significant murmur, no rub Gastrointestinal: soft, non-tender, no distention, positive bowel sounds Musculoskeletal: no edema, pulses present Neurological: non-focal, normal sensation, moves all 4 limbs Dx/Plan (1) Acute on chronic systolic and diastolic heart failure, NYHA class 3 Code(s): I50.43 - ACUTE ON CHRONIC COMBINED SYSTOLIC AND DIASTOLIC HRT FAIL Status: Acute Comment: EF 25%, Lasix on hold due to hypotension.Tak[place]ubo (2) Bilateral pleural effusion Code(s): J90 - PLEURAL EFFUSION, NOT ELSEWHERE CLASSIFIED Status: Acute Comment: not surgical candidate.PCCM following (3) Orthostatic hypotension Code(s): I95.1 - ORTHOSTATIC HYPOTENSION Status: Acute Comment: Iatrogenic, hold Lasix and adjust BP meds, encourage increased po fluids, serial BP monitoring (4) SOB (shortness of breath) Code(s): R06.02 - SHORTNESS OF BREATH Status: Acute Comment: Likely secondary to CHF (5) BRIAN (acute kidney injury) Code(s): N17.9 - ACUTE KIDNEY FAILURE, UNSPECIFIED Status: Acute Comment: Due to diuresis. improved.monitor. DCed lasix as volume depleted on exam (6) Atrial fibrillation and flutter Code(s): I48.91 - UNSPECIFIED ATRIAL FIBRILLATION; I48.92 - UNSPECIFIED ATRIAL FLUTTER Status: Acute Comment: S/P MOO and DCCV 09/03/18 by cardiology.cont Coreg for rate control and Eliquis for OAC.monitor.Also on digoxin (7) Chronic systolic CHF (congestive heart failure), NYHA class 3 Code(s): I50.22 - CHRONIC SYSTOLIC (CONGESTIVE) HEART FAILURE Status: Acute Comment: Acute on chronic, continue furosemide 40 mg IV BID (8) NSTEMI (non-ST elevated myocardial infarction) Code(s): I21.4 - NON-ST ELEVATION (NSTEMI) MYOCARDIAL INFARCTION Status: Acute Comment: s/p Cardiac Cath.No intervention.NL Coronaries. 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 started on Entresto Type 2 [place] (9) Anxiety and depression Code(s): F41.9 - ANXIETY DISORDER, UNSPECIFIED; F32.9 - MAJOR DEPRESSIVE DISORDER, SINGLE EPISODE, UNSPECIFIED Status: Chronic (10) CAD (coronary artery disease) Code(s): I25.10 - ATHSCL HEART DISEASE OF [place] CORONARY ARTERY W/O ANG PCTRS Status: Chronic Qualifiers: Coronary Disease-Associated Artery/Lesion type: [place] artery [place] vs. 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 Status: Chronic Comment: Continue Eliquis 5mg BID (12) Dyslipidemia Code(s): E78.5 - HYPERLIPIDEMIA, UNSPECIFIED Status: Chronic Comment: continue Zetia (13) HTN (hypertension) Code(s): I10 - ESSENTIAL (PRIMARY) HYPERTENSION Status: Chronic Qualifiers: Hypertension type: essential hypertension Qualified Code(s): I10 - Essential (primary) hypertension Comment: controlled (14) TYLER (obstructive sleep apnea) Code(s): G47.33 - OBSTRUCTIVE SLEEP APNEA (ADULT) (PEDIATRIC) Status: Chronic Comment: Nocturnal CPAP (15) Physical deconditioning Code(s): R53.81 - OTHER MALAISE Status: Chronic Comment: PT/OT, resume rehab after d/c - Plan PT/OT, respiratory therapy, DVT proph w/SCDs adjust BP meds -will defer to cardiology as BP was very low yesterday -: otherwise stable for DC back to rehab when cleared by cardiology -: apperas euvolemic on my exam today. -: lasix on hold as it is due to low BP.also on aldactone * . Review of Systems - Review of Systems Constitutional: weakness. negative: fever, chills, sweats, malaise, other Respiratory: negative: Cough, Dry, Shortness of Breath, Hemoptysis, SOB with Excertion, Pleuritic Pain, Sputum, Wheezing Cardiovascular: light headedness. negative: chest pain, palpitations, orthopnea , paroxysmal nocturnal dyspnea, edema, other Gastrointestinal: negative: Nausea, Vomiting, Abdominal Pain, Diarrhea, Constipation, Melena, Hematochezia, Other Genitourinary: negative: Dysuria, Frequency, Incontinence, Hematuria, Retention , Other Musculoskeletal: negative: Neck Pain, Shoulder Pain, Arm Pain, Back Pain, Hand Pain, Leg Pain, Foot Pain, Other Neurological: negative: Weakness, Numbness, Incoordination, Change in Speech, Confusion, Seizures, Other - Medications/Allergies Allergies/Adverse Reactions: Allergies Allergy/AdvReac Type Severity Reaction Status Date / Time codeine Allergy Verified 07/27/18 01:27 dextromethorphan Allergy Verified 07/27/18 01:27 [From Mucinex DM] guaifenesin [From Mucinex DM] Allergy Verified 07/27/18 01:27 Wrdfqar-Adp-Aev Reductase Allergy Verified 07/27/18 01:27 Inhibitor Medications: Current Medications Acetaminophen (Tylenol) 650 mg PO Q4H PRN PRN Reason: Headache/Fever/Mild Pain (1-3) Last Admin: 09/19/18 20:21 Dose: 650 mg Albuterol/Ipratropium (Duoneb) 3 ml NEB QIDPRN PRN PRN Reason: wheezing,SOB Apixaban (Eliquis) 5 mg PO BID [facility] Last Admin: 09/22/18 09:17 Dose: 5 mg Aspirin (Ecotrin) 81 mg PO DAILY [facility] Last Admin: 09/22/18 09:17 Dose: 81 mg Bupropion HCl (Wellbutrin Sr) 150 mg PO DAILY [facility] Last Admin: 09/22/18 09:19 Dose: 150 mg Carvedilol (Coreg) 3.125 mg PO 1200,2100 [facility] Last Admin: 09/22/18 12:39 Dose: 3.125 mg Digoxin (Lanoxin) 0.25 mg PO QAM [facility] Last Admin: 09/22/18 09:17 Dose: 0.25 mg Ezetimibe (Zetia) 10 mg PO HS [facility] Last Admin: 09/21/18 21:20 Dose: 10 mg Famotidine (Pepcid) 20 mg PO BID [facility] Last Admin: 09/22/18 09:17 Dose: 20 mg Hydralazine HCl (Apresoline) 10 mg SLOW IVP Q4H PRN PRN Reason: SBP > 180 and HR < 70 Ondansetron HCl (Zofran Odt) 4 mg PO Q6H PRN PRN Reason: Nausea/Vomiting Last Admin: 09/21/18 21:26 Dose: 4 mg Ondansetron HCl (Zofran) 4 mg IVP Q6H PRN PRN Reason: Nausea/Vomiting Last Admin: 09/22/18 05:50 Dose: 4 mg Pantoprazole Sodium (Protonix) 40 mg PO BID [facility] Last Admin: 09/22/18 09:18 Dose: 40 mg Polyethylene Glycol (Miralax) 17 gm PO DAILY [facility] Last Admin: 09/22/18 09:18 Dose: Not Given Ranolazine (Ranexa) 500 mg PO BID [facility] Last Admin: 09/22/18 09:17 Dose: 500 mg Saccharomyces Boulardii (Florastor) 250 mg PO DAILY [facility] Last Admin: 09/22/18 09:17 Dose: 250 mg Sacubitril/Valsartan (Entresto 24 Mg-26 Mg Tablet) 1 tab PO 0900,1700 [facility] Last Admin: 09/22/18 09:14 Dose: Not Given Sertraline HCl (Zoloft) 100 mg PO DAILY [facility] Last Admin: 09/22/18 09:18 Dose: 100 mg Spironolactone (Aldactone) 25 mg PO [facility] Last Admin: 09/22/18 09:18 Dose: 25 mg
[2018-09-22] MEDS ORDERED: Furosemide 40 MG/4 ML VIAL SLOW IVP SCH (14:00)
[2018-09-22] MEDS: Ezetimibe 10 MG TAB PO SCH (21:27)
[2018-09-23 05:15] LABS: #Eosinphils 0.1 thou/uL (0.0-0.7); #Monocytes 0.5 thou/uL (0.11-0.59); #Neutrophils 3.4 thou/uL (1.40-6.50); %Basophils 0.6 % (0.0-1.0); %Lymphocytes 19.3 % (21.0-51.0); Hemoglobin 11.2 g/dL (12.0-16.0); Mean Corpuscular Hemoglobin 29.3 pg (27.0-31.0); Mean Corpuscular Volume 94.5 fL (78.0-98.0); Mean Platelet Volume 5.5 fL (7.4-10.4); Platelet Count 338 thou/uL (130-400); RBC Distribution Width 14.5 % (11.5-14.5); Red Blood Cell (RBC) Count 3.84 mill/uL (4.20-5.40)
[2018-09-23 05:38] LABS: Anion Gap 10 mmol/L (10-20); BUN (Urea Nitrogen) 17 mg/dL (9.8-20.1); Calc. Creatinine Clearance 52 mL/min (70-130); Calcium 9.5 mg/dL (7.8-10.44); Carbon Dioxide 29 mmol/L (23-31); Chloride 101 mmol/L (98-107); Estimated GFR-MDRD 64; Glucose 105 mg/dL (83-110); Potassium 4.5 mmol/L (3.5-5.1); Sodium 135 mmol/L (136-145)
[2018-09-23] MEDS: Bupropion 150 MG SR TAB PO SCH (08:17)
[2018-09-23] MEDS: Saccharomyces boulardii 250 MG CAP PO SCH (08:17)
[2018-09-23] MEDS: Famotidine 20 MG TAB PO SCH ×2 (08:17→20:38)
[2018-09-23] MEDS: Aspirin 81 mg Enteric Coated Tablet PO SCH (08:17)
[2018-09-23] MEDS: Apixaban 5 MG TAB PO SCH ×2 (08:17→20:38)
[2018-09-23] MEDS: Polyethylene Glycol 3350 17 GM Packet PO SCH (08:18)
[2018-09-23] MEDS ORDERED: Digoxin 0.125 MG TAB PO SCH (09:00)
[2018-09-23 09:43] LABS: Digoxin 3.78 ng/mL (0.8-2.0)
[2018-09-23] MEDS: Acetaminophen 325 MG TAB PO PRN (12:32)
[2018-09-23] MEDS: Carvedilol 3.125 MG TAB PO SCH ×2 (12:32→20:38)
[2018-09-23 14:09] VITALS: BMI 23.1
--- NOTE | 2018-09-23 16:13 | EKG ---
Test Reason : Blood Pressure : / mmHG Vent. Rate : 087 BPM Atrial Rate : 087 BPM P-R Int : 376 ms QRS Dur : 088 ms QT Int : 304 ms P-R-T Axes : 086 085 270 degrees QTc Int : 365 ms Sinus rhythm with 1st degree A-V block Abnormal ECG Confirmed by MALINDA DUQUE ([id number]) on 09/23/2018 4:13:13 PM Referred By: NETO Confirmed By:MALINDA DUQUE
--- NOTE | 2018-09-23 16:36 | PDOC.PN ---
- Subjective Encounter Start Date: 09/23/18 Encounter Start Time: 16:33 Subjective: feels a little better today but still very weak. -: dizziness better .no nausea but poor appetite - Objective Resuscitation Status - Order Detail: 09/18/18 01:54 Resuscitation Status Routine Resuscitation Status: FULL: Full Resuscitation Discussed with: patient Additional comments: documents "patient agrees to be a full code. " MAR Reviewed: Yes Vital Signs & Weight: Vital Signs (12 hours) Temp Pulse Pulse Pulse Resp BP BP 09/23/18 12:30 97.3 F L 90 14 09/23/18 09:34 86 84 141/80 H 130/77 09/23/18 08:00 97.7 F 81 18 BP BP BP Pulse Ox Pulse Ox Pulse Ox 09/23/18 12:30 119/58 L 98 09/23/18 09:34 98 98 09/23/18 08:00 167/76 H 140/70 105/55 L 96 Weight Admit Weight 164 lb 4 oz Weight 148 lb I&O: 09/22/18 09/23/18 09/24/18 06:59 06:59 06:59 Intake Total 1200 580 120 Output Total 1100 668 Balance 100 -88 120 Result Diagrams: 09/23/18 05:04 09/23/18 05:04 Additional Labs: Laboratory Tests 09/23/18 05:04 Digoxin 3.78 H* EKG Reviewed by me: Yes (AV block 1st degree) Phys Exam - Physical Examination Constitutional: NAD lying quitely in bed HEENT: PERRLA, moist MMs, sclera anicteric, oral pharynx no lesions Neck: no nodes, no JVD, supple, full ROM Respiratory: no wheezing, no rales, no rhonchi, clear to auscultation bilateral Cardiovascular: RRR, no significant murmur Gastrointestinal: soft, non-tender, no distention, positive bowel sounds Musculoskeletal: no edema, pulses present Neurological: non-focal, normal sensation, moves all 4 limbs Psychiatric: normal affect, A&O x 3 Skin: no rash Dx/Plan (1) Acute on chronic systolic and diastolic heart failure, NYHA class 3 Code(s): I50.43 - ACUTE ON CHRONIC COMBINED SYSTOLIC AND DIASTOLIC HRT FAIL Status: Acute Comment: EF 25-30%, Lasix on hold due to hypotension.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 Repet ECHO 09/22/18-EF 20-25%.Cont ASA,ranexa,BB Entresto and aldactone held due to Low BP and Positive orthostatics. (2) Digoxin toxicity Code(s): T46.0X1A - POISONING BY CARDI-STIM GLYCOS/DRUG SIMLAR ACT, ACC, INIT Status: Acute Comment: Hold Digoxin and recheck levels (3) Bilateral pleural effusion Code(s): J90 - PLEURAL EFFUSION, NOT ELSEWHERE CLASSIFIED Status: Acute Comment: not surgical candidate.PCCM following (4) Orthostatic hypotension Code(s): I95.1 - ORTHOSTATIC HYPOTENSION Status: Acute Comment: Iatrogenic, hold Lasix and adjust BP meds, encourage increased po fluids, serial BP monitoring (5) SOB (shortness of breath) Code(s): R06.02 - SHORTNESS OF BREATH Status: Acute Comment: Likely secondary to CHF (6) BRIAN (acute kidney injury) Code(s): N17.9 - ACUTE KIDNEY FAILURE, UNSPECIFIED Status: Acute Comment: Due to diuresis. improved.monitor. DCed lasix as volume depleted on exam (7) Atrial fibrillation and flutter Code(s): I48.91 - UNSPECIFIED ATRIAL FIBRILLATION; I48.92 - UNSPECIFIED ATRIAL FLUTTER Status: Acute Comment: S/P MOO and DCCV 09/03/18 by cardiology.cont Coreg for rate control and Eliquis for OAC.monitor (8) Chronic systolic CHF (congestive heart failure), NYHA class 3 Code(s): I50.22 - CHRONIC SYSTOLIC (CONGESTIVE) HEART FAILURE Status: Acute Comment: Acute on chronic (9) NSTEMI (non-ST elevated myocardial infarction) Code(s): I21.4 - NON-ST ELEVATION (NSTEMI) MYOCARDIAL INFARCTION Status: Acute Comment: s/p Cardiac Cath 08/2018..No intervention.NL Coronaries. 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 started on Entresto -but BP low Type 2 [place] (10) Anxiety and depression Code(s): F41.9 - ANXIETY DISORDER, UNSPECIFIED; F32.9 - MAJOR DEPRESSIVE DISORDER, SINGLE EPISODE, UNSPECIFIED Status: Chronic (11) CAD (coronary artery disease) Code(s): I25.10 - ATHSCL HEART DISEASE OF [place] CORONARY ARTERY W/O ANG PCTRS Status: Chronic Qualifiers: Coronary Disease-Associated Artery/Lesion type: [place] artery [place] vs. transplanted heart: [place] heart Associated angina: without angina Qualified Code(s): I25.10 - Atherosclerotic heart disease of [place] coronary artery without angina pectoris Comment: ASA,BB,.continue (12) Chronic anticoagulation Code(s): Z79.01 - PRISON (CURRENT) USE OF ANTICOAGULANTS Status: Chronic Comment: Continue Eliquis 5mg BID (13) Dyslipidemia Code(s): E78.5 - HYPERLIPIDEMIA, UNSPECIFIED Status: Chronic Comment: continue Zetia (14) HTN (hypertension) Code(s): I10 - ESSENTIAL (PRIMARY) HYPERTENSION Status: Chronic Qualifiers: Hypertension type: essential hypertension Qualified Code(s): I10 - Essential (primary) hypertension Comment: controlled (15) TYLER (obstructive sleep apnea) Code(s): G47.33 - OBSTRUCTIVE SLEEP APNEA (ADULT) (PEDIATRIC) Status: Chronic Comment: Nocturnal CPAP (16) Physical deconditioning Code(s): R53.81 - OTHER MALAISE Status: Chronic Comment: PT/OT, resume rehab after d/c - Plan PT/OT, respiratory therapy, incentive spirometry, out of bed/ambulate, DVT proph w/SCDs supportive care -: rehab when Ok w cardiology.BP slightly better today -: poor prognosis with advanced cardiomyopathy & poor tolerance to meds -: am labs * . Review of Systems - Review of Systems Constitutional: weakness, malaise. negative: fever, chills, sweats, other Respiratory: negative: Cough, Dry, Shortness of Breath, Hemoptysis, SOB with Excertion, Pleuritic Pain, Sputum, Wheezing Cardiovascular: negative: chest pain, palpitations, orthopnea, paroxysmal nocturnal dyspnea, edema, light headedness, other Gastrointestinal: negative: Nausea, Vomiting, Abdominal Pain, Diarrhea, Constipation, Melena, Hematochezia, Other Genitourinary: negative: Dysuria, Frequency, Incontinence, Hematuria, Retention , Other Musculoskeletal: negative: Neck Pain, Shoulder Pain, Arm Pain, Back Pain, Hand Pain, Leg Pain, Foot Pain, Other Neurological: negative: Weakness, Numbness, Incoordination, Change in Speech, Confusion, Seizures, Other - Medications/Allergies Allergies/Adverse Reactions: Allergies Allergy/AdvReac Type Severity Reaction Status Date / Time codeine Allergy Verified 07/27/18 01:27 dextromethorphan Allergy Verified 07/27/18 01:27 [From Mucinex DM] guaifenesin [From Mucinex DM] Allergy Verified 07/27/18 01:27 Ucyhgog-Awc-Ems Reductase Allergy Verified 07/27/18 01:27 Inhibitor Medications: Current Medications Acetaminophen (Tylenol) 650 mg PO Q4H PRN PRN Reason: Headache/Fever/Mild Pain (1-3) Last Admin: 09/23/18 12:32 Dose: 650 mg Albuterol/Ipratropium (Duoneb) 3 ml NEB QIDPRN PRN PRN Reason: wheezing,SOB Apixaban (Eliquis) 5 mg PO BID [facility] Last Admin: 09/23/18 08:17 Dose: 5 mg Aspirin (Ecotrin) 81 mg PO DAILY [facility] Last Admin: 09/23/18 08:17 Dose: 81 mg Bupropion HCl (Wellbutrin Sr) 150 mg PO DAILY [facility] Last Admin: 09/23/18 08:17 Dose: 150 mg Carvedilol (Coreg) 3.125 mg PO 1200,2100 [facility] Last Admin: 09/23/18 12:32 Dose: 3.125 mg Digoxin (Lanoxin) 0.125 mg PO QAM [facility] Last Admin: 09/23/18 08:17 Dose: 0.125 mg Ezetimibe (Zetia) 10 mg PO HS [facility] Last Admin: 09/22/18 21:27 Dose: 10 mg Famotidine (Pepcid) 20 mg PO BID [facility] Last Admin: 09/23/18 08:17 Dose: 20 mg Hydralazine HCl (Apresoline) 10 mg SLOW IVP Q4H PRN PRN Reason: SBP > 180 and HR < 70 Ondansetron HCl (Zofran Odt) 4 mg PO Q6H PRN PRN Reason: Nausea/Vomiting Last Admin: 09/21/18 21:26 Dose: 4 mg Ondansetron HCl (Zofran) 4 mg IVP Q6H PRN PRN Reason: Nausea/Vomiting Last Admin: 09/22/18 18:32 Dose: 4 mg Pantoprazole Sodium (Protonix) 40 mg PO BID [facility] Last Admin: 09/23/18 08:17 Dose: 40 mg Polyethylene Glycol (Miralax) 17 gm PO DAILY [facility] Last Admin: 09/23/18 08:18 Dose: Not Given Ranolazine (Ranexa) 500 mg PO BID [facility] Last Admin: 09/23/18 08:17 Dose: 500 mg Saccharomyces Boulardii (Florastor) 250 mg PO DAILY [facility] Last Admin: 09/23/18 08:17 Dose: 250 mg Sertraline HCl (Zoloft) 100 mg PO DAILY [facility] Last Admin: 09/23/18 08:17 Dose: 100 mg
[2018-09-23] MEDS: Ezetimibe 10 MG TAB PO SCH (20:38)
[2018-09-24 06:32] LABS: Anion Gap 11 mmol/L (10-20); BUN (Urea Nitrogen) 16 mg/dL (9.8-20.1); Calc. Creatinine Clearance 53 mL/min (70-130); Carbon Dioxide 26 mmol/L (23-31); Chloride 101 mmol/L (98-107); Estimated GFR-MDRD 67; Glucose 81 mg/dL (83-110); Potassium 4.4 mmol/L (3.5-5.1); Sodium 134 mmol/L (136-145)
[2018-09-24] MEDS: Polyethylene Glycol 3350 17 GM Packet PO SCH (09:42)
[2018-09-24] MEDS: Apixaban 5 MG TAB PO SCH ×2 (09:43→20:36)
[2018-09-24] MEDS: Famotidine 20 MG TAB PO SCH ×2 (09:43→20:37)
--- NOTE | 2018-09-24 10:21 | PDOC.PN ---
- Subjective Encounter Start Date: 09/24/18 Encounter Start Time: 07:30 Patient seen and examined. feels weak and tired, lying flat on room air, no dyspnea. No overnight events - Objective Resuscitation Status - Order Detail: 09/18/18 01:54 Resuscitation Status Routine Resuscitation Status: FULL: Full Resuscitation Discussed with: patient Additional comments: documents "patient agrees to be a full code. " MAR Reviewed: Yes Vital Signs & Weight: Vital Signs (12 hours) Temp Pulse Resp BP Pulse Ox 09/24/18 04:00 97.7 F 97 16 140/71 98 Weight Admit Weight 164 lb 4 oz Weight 146 lb I&O: 09/23/18 09/24/18 09/25/18 06:59 06:59 06:59 Intake Total 580 1440 Output Total 668 900 Balance -88 540 Result Diagrams: 09/23/18 05:04 09/24/18 05:12 EKG Reviewed by me: Yes Phys Exam - Physical Examination Constitutional: NAD HEENT: PERRLA, moist MMs, sclera anicteric Neck: no JVD, supple Respiratory: no wheezing, no rales, no rhonchi Cardiovascular: no significant murmur, irregular Gastrointestinal: soft, non-tender, no distention, positive bowel sounds Musculoskeletal: no edema, pulses present Neurological: non-focal, normal sensation Lymphatic: no nodes Psychiatric: normal affect Skin: no rash, normal turgor Dx/Plan (1) Acute on chronic systolic ACC/AHA stage C congestive heart failure Code(s): I50.23 - ACUTE ON CHRONIC SYSTOLIC (CONGESTIVE) HEART FAILURE Status : Acute (2) Bilateral pleural effusion Code(s): J90 - PLEURAL EFFUSION, NOT ELSEWHERE CLASSIFIED Status: Acute Comment: not surgical candidate.PCCM following (3) Digoxin toxicity Code(s): T46.0X1A - POISONING BY CARDI-STIM GLYCOS/DRUG SIMLAR ACT, ACC, INIT Status: Acute Comment: Hold Digoxin and recheck levels (4) Orthostatic hypotension Code(s): I95.1 - ORTHOSTATIC HYPOTENSION Status: Acute Comment: (5) Anxiety and depression Code(s): F41.9 - ANXIETY DISORDER, UNSPECIFIED; F32.9 - MAJOR DEPRESSIVE DISORDER, SINGLE EPISODE, UNSPECIFIED Status: Chronic (6) Atrial fibrillation and flutter Code(s): I48.91 - UNSPECIFIED ATRIAL FIBRILLATION; I48.92 - UNSPECIFIED ATRIAL FLUTTER Status: Chronic Comment: S/P MOO and DCCV 09/03/18 by cardiology.cont Coreg for rate control and Eliquis for OAC.monitor (7) CAD (coronary artery disease) Code(s): I25.10 - ATHSCL HEART DISEASE OF [place] CORONARY ARTERY W/O ANG PCTRS Status: Chronic Qualifiers: Coronary Disease-Associated Artery/Lesion type: [place] artery [place] vs. transplanted heart: [place] heart Associated angina: without angina Qualified Code(s): I25.10 - Atherosclerotic heart disease of [place] coronary artery without angina pectoris Comment: ASA,BB,.continue (8) Chronic anticoagulation Code(s): Z79.01 - USP (CURRENT) USE OF ANTICOAGULANTS Status: Chronic Comment: Continue Eliquis 5mg BID (9) Dyslipidemia Code(s): E78.5 - HYPERLIPIDEMIA, UNSPECIFIED Status: Chronic Comment: continue Zetia (10) HTN (hypertension) Code(s): I10 - ESSENTIAL (PRIMARY) HYPERTENSION Status: Chronic Qualifiers: Hypertension type: essential hypertension Qualified Code(s): I10 - Essential (primary) hypertension Comment: controlled (11) TYLER (obstructive sleep apnea) Code(s): G47.33 - OBSTRUCTIVE SLEEP APNEA (ADULT) (PEDIATRIC) Status: Chronic Comment: Nocturnal CPAP (12) Physical deconditioning Code(s): R53.81 - OTHER MALAISE Status: Chronic Comment: PT/OT, resume rehab after d/c - Plan 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 Review of Systems - Review of Systems Constitutional: weakness. negative: fever, chills, sweats, malaise, other ENT: negative: Ear Pain, Ear Discharge, Nose Pain, Nose Discharge, Nose Congestion, Mouth Pain, Mouth Swelling, Throat Pain, Throat Swelling, Other Respiratory: negative: Cough, Dry, Shortness of Breath, Hemoptysis, SOB with Excertion, Pleuritic Pain, Sputum, Wheezing Cardiovascular: negative: chest pain, palpitations, orthopnea, paroxysmal nocturnal dyspnea, edema, light headedness, other Gastrointestinal: negative: Nausea, Vomiting, Abdominal Pain, Diarrhea, Constipation, Melena, Hematochezia, Other Genitourinary: negative: Dysuria, Frequency, Incontinence, Hematuria, Retention , Other Musculoskeletal: negative: Neck Pain, Shoulder Pain, Arm Pain, Back Pain, Hand Pain, Leg Pain, Foot Pain, Other - Medications/Allergies Allergies/Adverse Reactions: Allergies Allergy/AdvReac Type Severity Reaction Status Date / Time codeine Allergy Verified 07/27/18 01:27 dextromethorphan Allergy Verified 07/27/18 01:27 [From Mucinex DM] guaifenesin [From Mucinex DM] Allergy Verified 07/27/18 01:27 Zkeaknp-Jbq-Jkj Reductase Allergy Verified 07/27/18 01:27 Inhibitor Medications: Current Medications Acetaminophen (Tylenol) 650 mg PO Q4H PRN PRN Reason: Headache/Fever/Mild Pain (1-3) Last Admin: 09/23/18 12:32 Dose: 650 mg Albuterol/Ipratropium (Duoneb) 3 ml NEB QIDPRN PRN PRN Reason: wheezing,SOB Apixaban (Eliquis) 5 mg PO BID [facility] Last Admin: 09/24/18 09:43 Dose: 5 mg Aspirin (Ecotrin) 81 mg PO DAILY [facility] Last Admin: 09/23/18 08:17 Dose: 81 mg Bupropion HCl (Wellbutrin Sr) 150 mg PO DAILY [facility] Last Admin: 09/23/18 08:17 Dose: 150 mg Carvedilol (Coreg) 3.125 mg PO 1200,2100 [facility] Last Admin: 09/23/18 20:38 Dose: 3.125 mg Digoxin (Lanoxin) 0.125 mg PO QAM [facility] Last Admin: 09/23/18 08:17 Dose: 0.125 mg Ezetimibe (Zetia) 10 mg PO HS [facility] Last Admin: 09/23/18 20:38 Dose: 10 mg Famotidine (Pepcid) 20 mg PO BID [facility] Last Admin: 09/24/18 09:43 Dose: 20 mg Hydralazine HCl (Apresoline) 10 mg SLOW IVP Q4H PRN PRN Reason: SBP > 180 and HR < 70 Ondansetron HCl (Zofran Odt) 4 mg PO Q6H PRN PRN Reason: Nausea/Vomiting Last Admin: 09/21/18 21:26 Dose: 4 mg Ondansetron HCl (Zofran) 4 mg IVP Q6H PRN PRN Reason: Nausea/Vomiting Last Admin: 09/22/18 18:32 Dose: 4 mg Pantoprazole Sodium (Protonix) 40 mg PO BID [facility] Last Admin: 09/24/18 09:44 Dose: 40 mg Polyethylene Glycol (Miralax) 17 gm PO DAILY [facility] Last Admin: 09/24/18 09:42 Dose: Not Given Ranolazine (Ranexa) 500 mg PO BID [facility] Last Admin: 09/23/18 20:37 Dose: 500 mg Saccharomyces Boulardii (Florastor) 250 mg PO DAILY [facility] Last Admin: 09/23/18 08:17 Dose: 250 mg Sertraline HCl (Zoloft) 100 mg PO DAILY [facility] Last Admin: 09/23/18 08:17 Dose: 100 mg
[2018-09-24] MEDS: Aspirin 81 mg Enteric Coated Tablet PO SCH (11:15)
[2018-09-24] MEDS: Bupropion 150 MG SR TAB PO SCH (11:16)
[2018-09-24] MEDS: Carvedilol 3.125 MG TAB PO SCH ×2 (12:50→20:37)
[2018-09-24] MEDS: Saccharomyces boulardii 250 MG CAP PO SCH (12:50)
[2018-09-24] MEDS: Ezetimibe 10 MG TAB PO SCH (20:36)
[2018-09-25] MEDS: Polyethylene Glycol 3350 17 GM Packet PO SCH (08:59)
[2018-09-25] MEDS: Apixaban 5 MG TAB PO SCH ×2 (08:59→20:11)
[2018-09-25] MEDS: Bupropion 150 MG SR TAB PO SCH (08:59)
[2018-09-25] MEDS: Famotidine 20 MG TAB PO SCH ×2 (09:00→20:11)
[2018-09-25] MEDS: Aspirin 81 mg Enteric Coated Tablet PO SCH (09:00)
[2018-09-25] MEDS: Saccharomyces boulardii 250 MG CAP PO SCH (09:00)
[2018-09-25] MEDS: Carvedilol 3.125 MG TAB PO SCH ×2 (11:21→20:11)
--- NOTE | 2018-09-25 11:39 | PDOC.CTH ---
Cardiology Progress Note - Subjective Patient feels weak and tired, but otherwise ok. Wants to go to rehab tomorrow. - Objective Vital Signs Temp Pulse Resp BP BP Pulse Ox 09/25/18 11:20 98.3 F 92 18 136/82 97 09/25/18 07:37 98.6 F 99 18 134/75 98 09/25/18 04:00 97.6 F 99 20 158/83 H 98 Admit Weight 164 lb 4 oz Weight 146 lb 8 oz 09/24/18 09/25/18 09/26/18 06:59 06:59 06:59 Intake Total 1440 980 Output Total 900 850 Balance 540 130 - Physical Examination General/Neuro: alert & oriented x3 Neck: no JVD present Lungs: CTA Heart: RRR Abdomen: NT/ND - Telemetry Telemetry Rhythm: SR - Labs Result Diagrams: 09/23/18 05:04 09/24/18 05:12 Troponin/CKMB CK-MB (CK-2) 1.6 ng/mL (0-6.6) 09/15/18 14:49 Troponin I 0.043 ng/mL (< 0.028) H 09/15/18 21:54 - Assessment/Plan 1. Acute on chronic systolic CHF (EF 20-25%) 2. NICMO 3. AF/Fl history 4. Orthostatic hypotension Discussed CHF with patient again. She is unaware of fluid restrictions and weight monitoring given her CHF. This is her second admission in the last month. Needs CHF education prior to discharge. Also lasix held previously because she was orthostatic, but will resume at lower dose. Continue PT.
[2018-09-25] MEDS ORDERED: Furosemide 20 MG TAB PO SCH (12:00)
--- NOTE | 2018-09-25 12:12 | PDOC.PN ---
- Subjective Encounter Start Date: 09/25/18 Encounter Start Time: 07:45 Patient seen and examined. No new complaints. No overnight events - Objective Resuscitation Status - Order Detail: 09/18/18 01:54 Resuscitation Status Routine Resuscitation Status: FULL: Full Resuscitation Discussed with: patient Additional comments: documents "patient agrees to be a full code. " MAR Reviewed: Yes Vital Signs & Weight: Vital Signs (12 hours) Temp Pulse Resp BP BP Pulse Ox 09/25/18 11:20 98.3 F 92 18 136/82 97 09/25/18 07:37 98.6 F 99 18 134/75 98 09/25/18 04:00 97.6 F 99 20 158/83 H 98 Weight Admit Weight 164 lb 4 oz Weight 146 lb 8 oz I&O: 09/24/18 09/25/18 09/26/18 06:59 06:59 06:59 Intake Total 1440 980 Output Total 900 850 Balance 540 130 Result Diagrams: 09/23/18 05:04 09/24/18 05:12 EKG Reviewed by me: Yes Phys Exam - Physical Examination Constitutional: NAD HEENT: PERRLA, moist MMs, sclera anicteric Neck: no JVD, supple Respiratory: no wheezing, no rales, no rhonchi Cardiovascular: no significant murmur Gastrointestinal: soft, non-tender, no distention, positive bowel sounds Musculoskeletal: no edema, pulses present Neurological: non-focal, normal sensation Lymphatic: no nodes Psychiatric: normal affect Skin: no rash, normal turgor Dx/Plan (1) Acute on chronic systolic ACC/AHA stage C congestive heart failure Code(s): I50.23 - ACUTE ON CHRONIC SYSTOLIC (CONGESTIVE) HEART FAILURE Status : Acute (2) Bilateral pleural effusion Code(s): J90 - PLEURAL EFFUSION, NOT ELSEWHERE CLASSIFIED Status: Acute Comment: not surgical candidate.PCCM following (3) Digoxin toxicity Code(s): T46.0X1A - POISONING BY CARDI-STIM GLYCOS/DRUG SIMLAR ACT, ACC, INIT Status: Acute Comment: Hold Digoxin and recheck levels (4) Orthostatic hypotension Code(s): I95.1 - ORTHOSTATIC HYPOTENSION Status: Acute Comment: (5) Anxiety and depression Code(s): F41.9 - ANXIETY DISORDER, UNSPECIFIED; F32.9 - MAJOR DEPRESSIVE DISORDER, SINGLE EPISODE, UNSPECIFIED Status: Chronic (6) Atrial fibrillation and flutter Code(s): I48.91 - UNSPECIFIED ATRIAL FIBRILLATION; I48.92 - UNSPECIFIED ATRIAL FLUTTER Status: Chronic Comment: S/P MOO and DCCV 09/03/18 by cardiology.cont Coreg for rate control and Eliquis for OAC.monitor (7) CAD (coronary artery disease) Code(s): I25.10 - ATHSCL HEART DISEASE OF [place] CORONARY ARTERY W/O ANG PCTRS Status: Chronic Qualifiers: Coronary Disease-Associated Artery/Lesion type: [place] artery [place] vs. transplanted heart: [place] heart Associated angina: without angina Qualified Code(s): I25.10 - Atherosclerotic heart disease of [place] coronary artery without angina pectoris Comment: ASA,BB,.continue (8) Chronic anticoagulation Code(s): Z79.01 - CUSTODIAL (CURRENT) USE OF ANTICOAGULANTS Status: Chronic Comment: Continue Eliquis 5mg BID (9) Dyslipidemia Code(s): E78.5 - HYPERLIPIDEMIA, UNSPECIFIED Status: Chronic Comment: continue Zetia (10) HTN (hypertension) Code(s): I10 - ESSENTIAL (PRIMARY) HYPERTENSION Status: Chronic Qualifiers: Hypertension type: essential hypertension Qualified Code(s): I10 - Essential (primary) hypertension Comment: controlled (11) TYLER (obstructive sleep apnea) Code(s): G47.33 - OBSTRUCTIVE SLEEP APNEA (ADULT) (PEDIATRIC) Status: Chronic Comment: Nocturnal CPAP (12) Physical deconditioning Code(s): R53.81 - OTHER MALAISE Status: Chronic Comment: PT/OT, resume rehab after d/c - Plan 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 Review of Systems - Review of Systems Constitutional: weakness. negative: fever, chills, sweats, malaise, other ENT: negative: Ear Pain, Ear Discharge, Nose Pain, Nose Discharge, Nose Congestion, Mouth Pain, Mouth Swelling, Throat Pain, Throat Swelling, Other Respiratory: SOB with Excertion. negative: Cough, Dry, Shortness of Breath, Hemoptysis, Pleuritic Pain, Sputum, Wheezing Cardiovascular: negative: chest pain, palpitations, orthopnea, paroxysmal nocturnal dyspnea, edema, light headedness, other Gastrointestinal: negative: Nausea, Vomiting, Abdominal Pain, Diarrhea, Constipation, Melena, Hematochezia, Other Genitourinary: negative: Dysuria, Frequency, Incontinence, Hematuria, Retention , Other Musculoskeletal: negative: Neck Pain, Shoulder Pain, Arm Pain, Back Pain, Hand Pain, Leg Pain, Foot Pain, Other Skin: negative: Rash, Lesions, Neil, Bruising, Other - Medications/Allergies Allergies/Adverse Reactions: Allergies Allergy/AdvReac Type Severity Reaction Status Date / Time codeine Allergy Verified 07/27/18 01:27 dextromethorphan Allergy Verified 07/27/18 01:27 [From Mucinex DM] guaifenesin [From Mucinex DM] Allergy Verified 07/27/18 01:27 Azqaekt-Fem-Flx Reductase Allergy Verified 07/27/18 01:27 Inhibitor Medications: Current Medications Acetaminophen (Tylenol) 650 mg PO Q4H PRN PRN Reason: Headache/Fever/Mild Pain (1-3) Last Admin: 09/23/18 12:32 Dose: 650 mg Albuterol/Ipratropium (Duoneb) 3 ml NEB QIDPRN PRN PRN Reason: wheezing,SOB Apixaban (Eliquis) 5 mg PO BID [facility] Last Admin: 09/25/18 08:59 Dose: 5 mg Aspirin (Ecotrin) 81 mg PO DAILY [facility] Last Admin: 09/25/18 09:00 Dose: 81 mg Bupropion HCl (Wellbutrin Sr) 150 mg PO DAILY [facility] Last Admin: 09/25/18 08:59 Dose: 150 mg Carvedilol (Coreg) 3.125 mg PO 1200,2100 [facility] Last Admin: 09/25/18 11:21 Dose: 3.125 mg Digoxin (Lanoxin) 0.125 mg PO QAM [facility] Last Admin: 09/23/18 08:17 Dose: 0.125 mg Ezetimibe (Zetia) 10 mg PO HS [facility] Last Admin: 09/24/18 20:36 Dose: 10 mg Famotidine (Pepcid) 20 mg PO BID [facility] Last Admin: 09/25/18 09:00 Dose: 20 mg Furosemide (Lasix) 20 mg PO DAILY [facility] Furosemide (Lasix) 20 mg PO NOW [facility] Stop: 09/25/18 14:00 Hydralazine HCl (Apresoline) 10 mg SLOW IVP Q4H PRN PRN Reason: SBP > 180 and HR < 70 Ondansetron HCl (Zofran Odt) 4 mg PO Q6H PRN PRN Reason: Nausea/Vomiting Last Admin: 09/21/18 21:26 Dose: 4 mg Ondansetron HCl (Zofran) 4 mg IVP Q6H PRN PRN Reason: Nausea/Vomiting Last Admin: 09/22/18 18:32 Dose: 4 mg Pantoprazole Sodium (Protonix) 40 mg PO BID [facility] Last Admin: 09/25/18 09:00 Dose: 40 mg Polyethylene Glycol (Miralax) 17 gm PO DAILY [facility] Last Admin: 09/25/18 08:59 Dose: Not Given Ranolazine (Ranexa) 500 mg PO BID [facility] Last Admin: 09/25/18 09:00 Dose: 500 mg Saccharomyces Boulardii (Florastor) 250 mg PO DAILY [facility] Last Admin: 09/25/18 09:00 Dose: 250 mg Sertraline HCl (Zoloft) 100 mg PO DAILY [facility] Last Admin: 09/25/18 08:59 Dose: 100 mg
[2018-09-25] MEDS: Ezetimibe 10 MG TAB PO SCH (20:11)
[2018-09-26 06:27] LABS: #Basophils 0.1 thou/uL (0.0-0.2); #Eosinphils 0.2 thou/uL (0.0-0.7); #Lymphocytes 1.3 thou/uL (1.20-3.40); #Monocytes 0.7 thou/uL (0.11-0.59); #Neutrophils 3.8 thou/uL (1.40-6.50); %Basophils 1.1 % (0.0-1.0); %Eosinophils 3.2 % (0.0-10.0); %Lymphocytes 21.5 % (21.0-51.0); %Monocytes 11.1 % (0.0-10.0); %Neutrophils 63.1 % (42.0-75.0); Hemoglobin 11.4 g/dL (12.0-16.0); Mean Corpuscular HGB CONC 31.2 g/dL (32.0-36.0); Mean Corpuscular Volume 92.9 fL (78.0-98.0); Mean Platelet Volume 5.7 fL (7.4-10.4); Platelet Count 351 thou/uL (130-400); RBC Distribution Width 14.5 % (11.5-14.5); Red Blood Cell (RBC) Count 3.93 mill/uL (4.20-5.40)
[2018-09-26 06:33] LABS: Anion Gap 10 mmol/L (10-20); BUN (Urea Nitrogen) 14 mg/dL (9.8-20.1); Calc. Creatinine Clearance 49 mL/min (70-130); Calcium 9.1 mg/dL (7.8-10.44); Carbon Dioxide 33 mmol/L (23-31); Chloride 100 mmol/L (98-107); Estimated GFR-MDRD 62; Glucose 85 mg/dL (83-110); Potassium 4.3 mmol/L (3.5-5.1); Sodium 139 mmol/L (136-145)
[2018-09-26 06:35] LABS: Digoxin 1.78 ng/mL (0.8-2.0)
[2018-09-26] MEDS: Furosemide 20 MG TAB PO SCH (08:07)
[2018-09-26] MEDS: Famotidine 20 MG TAB PO SCH ×2 (08:07→19:59)
[2018-09-26] MEDS: Aspirin 81 mg Enteric Coated Tablet PO SCH (08:07)
[2018-09-26] MEDS: Bupropion 150 MG SR TAB PO SCH (08:07)
[2018-09-26] MEDS: Apixaban 5 MG TAB PO SCH ×2 (08:07→19:59)
[2018-09-26] MEDS: Saccharomyces boulardii 250 MG CAP PO SCH (08:08)
[2018-09-26] MEDS: Polyethylene Glycol 3350 17 GM Packet PO SCH (08:11)
[2018-09-26] MEDS: Carvedilol 3.125 MG TAB PO SCH ×2 (11:28→20:00)
--- NOTE | 2018-09-26 14:17 | DIS ---
DATE OF ADMISSION: 09/15/2018 DATE OF DISCHARGE: 09/26/2018 PRIMARY CARE PHYSICIAN: Bernardino Rosa MD DISCHARGE DISPOSITION: Rehab. PRIMARY DISCHARGE DIAGNOSES: 1. 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 2. Acute respiratory failure with hypoxia. 3. Digitalis toxicity. 4. Bilateral pleural effusion due to congestive heart failure. 5. Orthostatic hypotension due to medication. SECONDARY DISCHARGE DIAGNOSES: Physical deconditioning; sleep apnea, on CPAP; hypertension; dyslipidemia; chronic anticoagulation with Eliquis; coronary artery disease; paroxysmal atrial fibrillation and flutter; anxiety and depression; chronic systolic heart failure, ACC stage C. PRIMARY PROCEDURE/OPERATION: None. RADIOLOGICAL INVESTIGATIONS: Chest x-ray showed pulmonary vascular congestion, pleural effusion, mild pulmonary edema. CT angiography; no evidence of pulmonary embolism, but bilateral pleural effusion. Echocardiography showed EF 20% to 25%. SIGNIFICANT LABORATORY DATA: WBC 6.0, hemoglobin 11.4, platelets 351. INR 2.1. Sodium 139, creatinine 0.87, calcium 9.1. BNP 2720. Digitalis level 1.78. DISCHARGE MEDICATIONS: Following are scheduled medications: 1. Wellbutrin SR 150 mg p.o. daily. 2. Vitamin D3 of 5000 units p.o. daily. 3. Vitamin B12 of 1000 mcg p.o. daily. 4. Zetia 10 mg p.o. at bedtime. 5. Eliquis 5 mg p.o. b.i.d. 6. Aspirin 81 mg p.o. daily. 7. Coreg 3.125 mg b.i.d. 8. Lasix 20 mg p.o. daily. 9. Protonix 40 mg daily. 10. MiraLAX 17 g daily. 11. Ranexa 500 mg p.o. b.i.d. 12. Zoloft 100 mg p.o. daily. CONTRAINDICATION: The patient was not kept on OTF inhibitor and ARB or Entresto because of orthostatic hypotension, and that medication will be restarted by Cardiology upon followup visit. Cardiology recommended not to start this medication upon discharge. CODE STATUS: Full code. INPATIENT CONSULTANTS: Cardiology group was following while in the hospital. Pulmonary group was following while in the hospital. TEST RESULTS PENDING ON DISCHARGE: None. ALLERGIES: 1. CODEINE. 2. GUAIFENESIN. DISCHARGE PLAN: Posthospital, the patient is instructed to follow up with primary care physician; [facility], criminal judge, Dr. Nazario; and roofer as instructed. HOSPITAL COURSE: An 83-year-old female, who was recently admitted in our hospital for CHF exacerbation. She was discharged to rehab, but after discharge to rehab, she was having increasing shortness of breath, and that is why she was re-admitted by Dr. Keys. Please see her H and P for further details. The patient had large pleural effusion, and that is why Pulmonary group was consulted, and they recommended to continue diuresis. They did not recommend any thoracentesis. Pulmonary group was following while in hospital. Cardiology group was also following while in hospital. During this admission, we discontinued the Entresto as well as Digitalis because of Digitalis toxicity and orthostatic hypotension. Subsequently, we also started Lasix at low dose. This patient has EF 20% to 25%, and that is why she has continued to complain of shortness of breath with pleural effusion. She may need in future thoracentesis if diuretic response is not obtained. This patient is up to her baseline level, and she is planned for discharge to rehab. I have seen and examined the patient at bedside today. Her examination has not changed from yesterday. Her vitals are stable. Discharge medication reconciliation done. Paperwork for discharge also done. I note that Digitalis and Entresto were not given during this admission because of Digitalis toxicity and orthostatic hypotension respectively. That medication can be started after discharge upon followup visit with Cardiology This patient is high risk for recurrent admission. Job ID: [id number]
--- NOTE | 2018-09-26 14:36 | PDOC.PN ---
- Subjective Encounter Start Date: 09/26/18 Encounter Start Time: 08:15 Patient seen and examined. No new complaints. No overnight events - Objective Resuscitation Status - Order Detail: 09/18/18 01:54 Resuscitation Status Routine Resuscitation Status: FULL: Full Resuscitation Discussed with: patient Additional comments: documents "patient agrees to be a full code. " MAR Reviewed: Yes Vital Signs & Weight: Vital Signs (12 hours) Temp Pulse Pulse Pulse Resp BP BP 09/26/18 11:23 97.4 F L 86 18 09/26/18 10:55 89 86 147/79 H 125/67 09/26/18 08:00 09/26/18 07:07 98.1 F 94 18 09/26/18 04:00 98 F 98 21 H BP Pulse Ox Pulse Ox Pulse Ox 09/26/18 11:23 117/64 98 09/26/18 10:55 98 95 09/26/18 08:00 98 09/26/18 07:07 147/82 H 98 09/26/18 04:00 134/79 98 Weight Admit Weight 164 lb 4 oz Weight 145 lb 1.6 oz I&O: 09/25/18 09/26/18 09/27/18 06:59 06:59 06:59 Intake Total 980 240 Output Total 850 1950 Balance 130 -1710 Result Diagrams: 09/26/18 05:57 09/26/18 05:57 EKG Reviewed by me: Yes Phys Exam - Physical Examination Constitutional: NAD HEENT: moist MMs, sclera anicteric Neck: no JVD, supple Respiratory: no wheezing, no rales, no rhonchi Cardiovascular: no significant murmur, irregular Gastrointestinal: soft, non-tender, no distention, positive bowel sounds Musculoskeletal: no edema, pulses present Neurological: non-focal, normal sensation Lymphatic: no nodes Psychiatric: normal affect, A&O x 3 Skin: no rash, normal turgor Dx/Plan (1) Acute on chronic systolic ACC/AHA stage C congestive heart failure Code(s): I50.23 - ACUTE ON CHRONIC SYSTOLIC (CONGESTIVE) HEART FAILURE Status : Acute (2) Bilateral pleural effusion Code(s): J90 - PLEURAL EFFUSION, NOT ELSEWHERE CLASSIFIED Status: Acute Comment: not surgical candidate.PCCM following (3) Digoxin toxicity Code(s): T46.0X1A - POISONING BY CARDI-STIM GLYCOS/DRUG SIMLAR ACT, ACC, INIT Status: Acute Comment: Hold Digoxin and recheck levels (4) Orthostatic hypotension Code(s): I95.1 - ORTHOSTATIC HYPOTENSION Status: Acute Comment: (5) Anxiety and depression Code(s): F41.9 - ANXIETY DISORDER, UNSPECIFIED; F32.9 - MAJOR DEPRESSIVE DISORDER, SINGLE EPISODE, UNSPECIFIED Status: Chronic (6) Atrial fibrillation and flutter Code(s): I48.91 - UNSPECIFIED ATRIAL FIBRILLATION; I48.92 - UNSPECIFIED ATRIAL FLUTTER Status: Chronic Comment: S/P MOO and DCCV 09/03/18 by cardiology.cont Coreg for rate control and Eliquis for OAC.monitor (7) CAD (coronary artery disease) Code(s): I25.10 - ATHSCL HEART DISEASE OF [place] CORONARY ARTERY W/O ANG PCTRS Status: Chronic Qualifiers: Coronary Disease-Associated Artery/Lesion type: [place] artery [place] vs. transplanted heart: [place] heart Associated angina: without angina Qualified Code(s): I25.10 - Atherosclerotic heart disease of [place] coronary artery without angina pectoris Comment: ASA,BB,.continue (8) Chronic anticoagulation Code(s): Z79.01 - PRISON (CURRENT) USE OF ANTICOAGULANTS Status: Chronic Comment: Continue Eliquis 5mg BID (9) Dyslipidemia Code(s): E78.5 - HYPERLIPIDEMIA, UNSPECIFIED Status: Chronic Comment: continue Zetia (10) HTN (hypertension) Code(s): I10 - ESSENTIAL (PRIMARY) HYPERTENSION Status: Chronic Qualifiers: Hypertension type: essential hypertension Qualified Code(s): I10 - Essential (primary) hypertension Comment: controlled (11) TYLER (obstructive sleep apnea) Code(s): G47.33 - OBSTRUCTIVE SLEEP APNEA (ADULT) (PEDIATRIC) Status: Chronic Comment: Nocturnal CPAP (12) Physical deconditioning Code(s): R53.81 - OTHER MALAISE Status: Chronic Comment: PT/OT, resume rehab after d/c - Plan cont current plan of care, social work nurse * medication reviewed as below * symptomatic treatment. * see my discharge summery * await rehab bed * as per cardiology no digoxin or entresto on discharge. Review of Systems - Review of Systems ENT: negative: Ear Pain, Ear Discharge, Nose Pain, Nose Discharge, Nose Congestion, Mouth Pain, Mouth Swelling, Throat Pain, Throat Swelling, Other Respiratory: negative: Cough, Dry, Shortness of Breath, Hemoptysis, SOB with Excertion, Pleuritic Pain, Sputum, Wheezing Cardiovascular: negative: chest pain, palpitations, orthopnea, paroxysmal nocturnal dyspnea, edema, light headedness, other Gastrointestinal: negative: Nausea, Vomiting, Abdominal Pain, Diarrhea, Constipation, Melena, Hematochezia, Other Genitourinary: negative: Dysuria, Frequency, Incontinence, Hematuria, Retention , Other Musculoskeletal: negative: Neck Pain, Shoulder Pain, Arm Pain, Back Pain, Hand Pain, Leg Pain, Foot Pain, Other - Medications/Allergies Allergies/Adverse Reactions: Allergies Allergy/AdvReac Type Severity Reaction Status Date / Time codeine Allergy Verified 07/27/18 01:27 dextromethorphan Allergy Verified 07/27/18 01:27 [From Mucinex DM] guaifenesin [From Mucinex DM] Allergy Verified 07/27/18 01:27 Zfyxocq-Ovf-Vfl Reductase Allergy Verified 07/27/18 01:27 Inhibitor Medications: Current Medications Acetaminophen (Tylenol) 650 mg PO Q4H PRN PRN Reason: Headache/Fever/Mild Pain (1-3) Last Admin: 09/23/18 12:32 Dose: 650 mg Albuterol/Ipratropium (Duoneb) 3 ml NEB QIDPRN PRN PRN Reason: wheezing,SOB Apixaban (Eliquis) 5 mg PO BID [facility] Last Admin: 09/26/18 08:07 Dose: 5 mg Aspirin (Ecotrin) 81 mg PO DAILY [facility] Last Admin: 09/26/18 08:07 Dose: 81 mg Bupropion HCl (Wellbutrin Sr) 150 mg PO DAILY [facility] Last Admin: 09/26/18 08:07 Dose: 150 mg Carvedilol (Coreg) 3.125 mg PO 1200,2100 [facility] Last Admin: 09/26/18 11:28 Dose: 3.125 mg Digoxin (Lanoxin) 0.125 mg PO QAM [facility] Last Admin: 09/23/18 08:17 Dose: 0.125 mg Ezetimibe (Zetia) 10 mg PO HS [facility] Last Admin: 09/25/18 20:11 Dose: 10 mg Famotidine (Pepcid) 20 mg PO BID [facility] Last Admin: 09/26/18 08:07 Dose: 20 mg Furosemide (Lasix) 20 mg PO DAILY [facility] Last Admin: 09/26/18 08:07 Dose: 20 mg Hydralazine HCl (Apresoline) 10 mg SLOW IVP Q4H PRN PRN Reason: SBP > 180 and HR < 70 Ondansetron HCl (Zofran Odt) 4 mg PO Q6H PRN PRN Reason: Nausea/Vomiting Last Admin: 09/21/18 21:26 Dose: 4 mg Ondansetron HCl (Zofran) 4 mg IVP Q6H PRN PRN Reason: Nausea/Vomiting Last Admin: 09/22/18 18:32 Dose: 4 mg Pantoprazole Sodium (Protonix) 40 mg PO BID [facility] Last Admin: 09/26/18 08:07 Dose: 40 mg Polyethylene Glycol (Miralax) 17 gm PO DAILY [facility] Last Admin: 09/26/18 08:11 Dose: Not Given Ranolazine (Ranexa) 500 mg PO BID [facility] Last Admin: 09/26/18 08:07 Dose: 500 mg Saccharomyces Boulardii (Florastor) 250 mg PO DAILY [facility] Last Admin: 09/26/18 08:08 Dose: 250 mg Sertraline HCl (Zoloft) 100 mg PO DAILY [facility] Last Admin: 09/26/18 08:08 Dose: 100 mg
[2018-09-26] MEDS: Ezetimibe 10 MG TAB PO SCH (19:59)
[2018-09-27] MEDS ORDERED: Ivabradine 5 MG TAB PO SCH (09:00)
[2018-09-27] MEDS: Famotidine 20 MG TAB PO SCH (09:44)
[2018-09-27] MEDS: Apixaban 5 MG TAB PO SCH (09:44)
[2018-09-27] MEDS: Aspirin 81 mg Enteric Coated Tablet PO SCH (09:44)
[2018-09-27] MEDS: Saccharomyces boulardii 250 MG CAP PO SCH (09:44)
[2018-09-27] MEDS: Furosemide 20 MG TAB PO SCH (09:44)
[2018-09-27] MEDS: Polyethylene Glycol 3350 17 GM Packet PO SCH (09:47)
[2018-09-27] MEDS: Bupropion 150 MG SR TAB PO SCH (10:19)
--- NOTE | 2018-09-27 10:31 | DIS ---
DATE OF ADMISSION: 09/15/2018 DATE OF DISCHARGE: 09/27/2018 ADDENDUM: Please see my discharge summary dictated yesterday for more details. There is no change in discharge summary at this point. The patient was waiting for bed availability at rehab and that is why she stayed in the hospital extra day. I have seen and examined the patient bedside today. Her examination has not changed. She appears more comfortable and more alert and asymptomatic today. DISCHARGE PHYSICAL EXAMINATION: VITAL SIGNS: Today, temperature 97.8, pulse 108, respiratory rate 18, saturation 96%, and blood pressure 173/84. Weight 144 pounds. GENERAL: The patient is alert, awake, no acute distress. LUNGS: Clear to auscultation without any rhonchi or rales. CARDIAC: S1 and S2 appear slightly irregular, but no murmur, no gallop, no rub. ABDOMEN: Soft and benign. EXTREMITIES: No edema. NEUROLOGIC: Nonfocal examination. Please consider this dictation as my progress note as well for today. For problem list and discharge diagnoses, see discharge summary dictated yesterday. Job ID: [id number]
--- NOTE | 2018-09-27 10:33 | PDOC.PN ---
- Subjective Encounter Start Date: 09/27/18 Encounter Start Time: 08:00 Patient seen and examined. No new complaints. No overnight events - Objective Resuscitation Status - Order Detail: 09/18/18 01:54 Resuscitation Status Routine Resuscitation Status: FULL: Full Resuscitation Discussed with: patient Additional comments: documents "patient agrees to be a full code. " MAR Reviewed: Yes Vital Signs & Weight: Vital Signs (12 hours) Temp Pulse Resp BP BP Pulse Ox 09/27/18 08:05 97.8 F 108 H 18 173/84 H 96 09/27/18 03:59 97.8 F 86 153/79 H 96 Weight Admit Weight 164 lb 4 oz Weight 144 lb 12.8 oz I&O: 09/26/18 09/27/18 09/28/18 06:59 06:59 06:59 Intake Total 240 720 Output Total 1950 1750 Balance -1710 -1030 Result Diagrams: 09/26/18 05:57 09/26/18 05:57 Phys Exam - Physical Examination Constitutional: NAD HEENT: moist MMs, sclera anicteric Neck: no JVD, supple Respiratory: no wheezing, no rales, no rhonchi Cardiovascular: no significant murmur, irregular Gastrointestinal: soft, non-tender, no distention, positive bowel sounds Musculoskeletal: no edema, pulses present Neurological: non-focal, normal sensation Lymphatic: no nodes Psychiatric: normal affect Skin: no rash, normal turgor Dx/Plan (1) Acute on chronic systolic ACC/AHA stage C congestive heart failure Code(s): I50.23 - ACUTE ON CHRONIC SYSTOLIC (CONGESTIVE) HEART FAILURE Status : Acute (2) Bilateral pleural effusion Code(s): J90 - PLEURAL EFFUSION, NOT ELSEWHERE CLASSIFIED Status: Acute Comment: not surgical candidate.PCCM following (3) Digoxin toxicity Code(s): T46.0X1A - POISONING BY CARDI-STIM GLYCOS/DRUG SIMLAR ACT, ACC, INIT Status: Acute Comment: Hold Digoxin and recheck levels (4) Orthostatic hypotension Code(s): I95.1 - ORTHOSTATIC HYPOTENSION Status: Acute Comment: (5) Anxiety and depression Code(s): F41.9 - ANXIETY DISORDER, UNSPECIFIED; F32.9 - MAJOR DEPRESSIVE DISORDER, SINGLE EPISODE, UNSPECIFIED Status: Chronic (6) Atrial fibrillation and flutter Code(s): I48.91 - UNSPECIFIED ATRIAL FIBRILLATION; I48.92 - UNSPECIFIED ATRIAL FLUTTER Status: Chronic Comment: S/P MOO and DCCV 09/03/18 by cardiology.cont Coreg for rate control and Eliquis for OAC.monitor (7) CAD (coronary artery disease) Code(s): I25.10 - ATHSCL HEART DISEASE OF [place] CORONARY ARTERY W/O ANG PCTRS Status: Chronic Qualifiers: Coronary Disease-Associated Artery/Lesion type: [place] artery [place] vs. transplanted heart: [place] heart Associated angina: without angina Qualified Code(s): I25.10 - Atherosclerotic heart disease of [place] coronary artery without angina pectoris Comment: ASA,BB,.continue (8) Chronic anticoagulation Code(s): Z79.01 - HALF-WAY (CURRENT) USE OF ANTICOAGULANTS Status: Chronic Comment: Continue Eliquis 5mg BID (9) Dyslipidemia Code(s): E78.5 - HYPERLIPIDEMIA, UNSPECIFIED Status: Chronic Comment: continue Zetia (10) HTN (hypertension) Code(s): I10 - ESSENTIAL (PRIMARY) HYPERTENSION Status: Chronic Qualifiers: Hypertension type: essential hypertension Qualified Code(s): I10 - Essential (primary) hypertension Comment: controlled (11) TYLER (obstructive sleep apnea) Code(s): G47.33 - OBSTRUCTIVE SLEEP APNEA (ADULT) (PEDIATRIC) Status: Chronic Comment: Nocturnal CPAP (12) Physical deconditioning Code(s): R53.81 - OTHER MAL[place]ISE Status: Chronic Comment: PT/OT, resume rehab after d/c - Plan 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 Review of Systems - Review of Systems ENT: negative: Ear Pain, Ear Discharge, Nose Pain, Nose Discharge, Nose Congestion, Mouth Pain, Mouth Swelling, Throat Pain, Throat Swelling, Other Respiratory: negative: Cough, Dry, Shortness of Breath, Hemoptysis, SOB with Excertion, Pleuritic Pain, Sputum, Wheezing Cardiovascular: negative: chest pain, palpitations, orthopnea, paroxysmal nocturnal dyspnea, edema, light headedness, other Gastrointestinal: negative: Nausea, Vomiting, Abdominal Pain, Diarrhea, Constipation, Melena, Hematochezia, Other Genitourinary: negative: Dysuria, Frequency, Incontinence, Hematuria, Retention , Other Musculoskeletal: negative: Neck Pain, Shoulder Pain, Arm Pain, Back Pain, Hand Pain, Leg Pain, Foot Pain, Other - Medications/Allergies Allergies/Adverse Reactions: Allergies Allergy/AdvReac Type Severity Reaction Status Date / Time codeine Allergy Verified 07/27/18 01:27 dextromethorphan Allergy Verified 07/27/18 01:27 [From Mucinex DM] guaifenesin [From Mucinex DM] Allergy Verified 07/27/18 01:27 Pcycgox-Sbt-Lsm Reductase Allergy Verified 07/27/18 01:27 Inhibitor Medications: Current Medications Acetaminophen (Tylenol) 650 mg PO Q4H PRN PRN Reason: Headache/Fever/Mild Pain (1-3) Last Admin: 09/23/18 12:32 Dose: 650 mg Albuterol/Ipratropium (Duoneb) 3 ml NEB QIDPRN PRN PRN Reason: wheezing,SOB Apixaban (Eliquis) 5 mg PO BID [facility] Last Admin: 09/27/18 09:44 Dose: 5 mg Aspirin (Ecotrin) 81 mg PO DAILY [facility] Last Admin: 09/27/18 09:44 Dose: 81 mg Bupropion HCl (Wellbutrin Sr) 150 mg PO DAILY [facility] Last Admin: 09/27/18 10:19 Dose: 150 mg Carvedilol (Coreg) 3.125 mg PO 1200,2100 [facility] Last Admin: 09/26/18 20:00 Dose: 3.125 mg Digoxin (Lanoxin) 0.125 mg PO QAM [facility] Last Admin: 09/23/18 08:17 Dose: 0.125 mg Ezetimibe (Zetia) 10 mg PO HS [facility] Last Admin: 09/26/18 19:59 Dose: 10 mg Famotidine (Pepcid) 20 mg PO BID [facility] Last Admin: 09/27/18 09:44 Dose: 20 mg Furosemide (Lasix) 20 mg PO DAILY [facility] Last Admin: 09/27/18 09:44 Dose: 20 mg Hydralazine HCl (Apresoline) 10 mg SLOW IVP Q4H PRN PRN Reason: SBP > 180 and HR < 70 Ivabradine (Corlanor) 5 mg PO BID [facility] Last Admin: 09/27/18 10:19 Dose: 5 mg Ondansetron HCl (Zofran Odt) 4 mg PO Q6H PRN PRN Reason: Nausea/Vomiting Last Admin: 09/21/18 21:26 Dose: 4 mg Ondansetron HCl (Zofran) 4 mg IVP Q6H PRN PRN Reason: Nausea/Vomiting Last Admin: 09/22/18 18:32 Dose: 4 mg Pantoprazole Sodium (Protonix) 40 mg PO BID [facility] Last Admin: 09/27/18 09:45 Dose: 40 mg Polyethylene Glycol (Miralax) 17 gm PO DAILY [facility] Last Admin: 09/27/18 09:47 Dose: Not Given Ranolazine (Ranexa) 500 mg PO BID [facility] Last Admin: 09/27/18 09:44 Dose: 500 mg Saccharomyces Boulardii (Florastor) 250 mg PO DAILY [facility] Last Admin: 09/27/18 09:44 Dose: 250 mg Sertraline HCl (Zoloft) 100 mg PO DAILY [facility] Last Admin: 09/27/18 09:44 Dose: 100 mg
[2018-09-27 12:02] VITALS: BP 114/64; TEMP 97.5
[2018-09-27] MEDS: Carvedilol 3.125 MG TAB PO SCH (12:03)
== END 2018-09-27 15:15 | DRG 280 ==
LOC: ERS 12:59 → ERHOLD 15:36 → 2NO 20:17
PROVIDERS: ADMIT Internal Medicine; ATTEND Internal Medicine
DX: I11.0 Hypertensive heart disease with heart failure (principal); J96.01 Acute respiratory failure with hypoxia; I21.4 Non-ST elevation (NSTEMI) myocardial infarction; I48.92 Unspecified atrial flutter; N17.9 Acute kidney failure, unspecified; M19.90 Unspecified osteoarthritis, unspecified site; E78.5 Hyperlipidemia, unspecified; Z96.653 Presence of artificial knee joint, bilateral; I48.91 Unspecified atrial fibrillation; I34.0 Nonrheumatic mitral (valve) insufficiency; I50.43 Acute on chronic combined systolic (congestive) and diastolic (congestive) heart failure; I95.1 Orthostatic hypotension; F41.9 Anxiety disorder, unspecified; F32.9 Major depressive disorder, single episode, unspecified; G47.33 Obstructive sleep apnea (adult) (pediatric); I42.8 Other cardiomyopathies; I25.10 Atherosclerotic heart disease of native coronary artery without angina pectoris; R53.81 Other malaise; T46.0X1A Poisoning by cardiac-stimulant glycosides and drugs of similar action, accidental (unintentional), initial encounter; Z90.49 Acquired absence of other specified parts of digestive tract; Z98.49 Cataract extraction status, unspecified eye; Z88.5 Allergy status to narcotic agent; Z88.8 Allergy status to other drugs, medicaments and biological substances; Z79.82 Long term (current) use of aspirin; Z79.01 Long term (current) use of anticoagulants
CPT/HCPCS: 36415; 71045; 71046; 71275; 80048; 80053; 80162; 80202; 82553; 83605; 83880; 84484; 85025; 85610; 85730; 93005; 93010; 93306; 93798; 94760; J1160; J1940; J1956; J2405; J3370; J3480; P9047; Q0162; Q9966

== ENCOUNTER 2019-03-23 20:21 | Observation (INO) | payer MEDICARE, OTHER ==
[2019-03-23] MEDS ORDERED: Acetaminophen 500 MG TAB ONE (20:45)
[2019-03-23] MEDS ORDERED: Diltiazem 125 MG/25 ML ONE (20:45)
[2019-03-23 20:53] LABS: #Eosinphils 0.1 thou/uL (0.0-0.7); #Lymphocytes 1.5 thou/uL (1.20-3.40); #Monocytes 0.6 thou/uL (0.11-0.59); #Neutrophils 3.6 thou/uL (1.40-6.50); %Basophils 0.5 % (0.0-1.0); %Eosinophils 1.4 % (0.0-10.0); %Monocytes 10.2 % (0.0-10.0); %Neutrophils 61.8 % (42.0-75.0); Hemoglobin 10.9 g/dL (12.0-16.0); Mean Corpuscular HGB CONC 31.5 g/dL (32.0-36.0); Mean Corpuscular Hemoglobin 25.7 pg (27.0-31.0); Mean Corpuscular Volume 81.4 fL (78.0-98.0); Mean Platelet Volume 5.9 fL (7.4-10.4); Platelet Count 331 thou/uL (130-400); RBC Distribution Width 15.3 % (11.5-14.5); Red Blood Cell (RBC) Count 4.25 mill/uL (4.20-5.40); White Blood Cell (WBC) Count 5.9 thou/uL (4.8-10.8)
[2019-03-23 21:09] LABS: ALT (SGPT) 11 U/L (8-55); AST (SGOT) 14 U/L (5-34); Albumin 3.9 g/dL (3.4-4.8); Alkaline Phosphatase 124 U/L (40-110); Anion Gap 14 mmol/L (10-20); BUN (Urea Nitrogen) 20 mg/dL (9.8-20.1); Bilirubin, Total 0.4 mg/dL (0.2-1.2); Calc. Creatinine Clearance 0 mL/min (70-130); Calcium 9.1 mg/dL (7.8-10.44); Carbon Dioxide 27 mmol/L (23-31); Chloride 103 mmol/L (98-107); Estimated GFR-MDRD 43; Glucose 98 mg/dL (83-110); Magnesium 2.1 mg/dL (1.6-2.6); Potassium 3.7 mmol/L (3.5-5.1); Protein, Total 6.9 g/dL (6.0-8.3); Sodium 140 mmol/L (136-145)
--- NOTE | 2019-03-23 21:32 | RAD ---
ONE VIEW CHEST: 03/23/19 HISTORY: Shortness of breath. Headache. Dyspnea. COMPARISON: 09/17/18. FINDINGS: There is has been resolution of the pleural and parenchymal changes at the right lung base as well as significant interval improvement and pleural and parenchymal changes left lung base. There is minim al patchy density at the left lung base which may be related to residual atelectasis or scarring. Pne umonitis of the left lung base cannot be entirely excluded. The cardiac silhouette is magnified by pr ojection. Linear density is seen is seen at the medial right lung base which may be related to scarri ng or atelectasis. Pulmonary vasculature is within normal limits. Degenerative changes are seen in th e spine. No other interval change. IMPRESSION: 1. Minimal patchy density left lung base which may be related to mild pleural and parenchymal sc arring. However, focal area of pneumonitis or atelectasis at the left lung base is also a possibility . Follow-up chest x-ray is recommended. 2. Area of scarring versus atelectasis at the right lung base. POS: SONG
[2019-03-24 00:51] LABS: CKMB 2.5 ng/mL (0-6.6)
[2019-03-24 00:52] VITALS: BMI 23.3
[2019-03-24] MEDS ORDERED: Acetaminophen 325 MG TAB PO PRN (02:37)
--- NOTE | 2019-03-24 07:34 | HP ---
PRIMARY CARE PHYSICIAN: Unknown. SAS PROGRAMMER ANALYST: Dr. Yeyo Nazario. FIBREGLASS GUN HAND: Dr. Calhoun. CHIEF COMPLAINT: Progressive shortness of breath worsening at times, worsening for the past one week. HISTORY OF PRESENT ILLNESS: This is an 84-year-old female, reliable historian with past medical history of atrial fibrillation with prior ablation, on carvedilol 3.125 mg twice daily, and oral aspirin 81 mg daily. She was recently taken off Eliquis oral anticoagulation following a 3-month vest and 1-week Holter monitor obtained by pin attacher probably atrial fibrillation, coronary artery disease, hypertension, dyslipidemia, depression, who presents to [facility] ER for a several week history of shortness of breath, got worse in the past one week and was significant on the day of ED arrival, associated with a foggy feeling and dizziness for days in the absence of nausea, vomiting, fevers, chills, sweats, angina, palpitations, near syncope or syncope, prompting further evaluation. In the ER, the patient was noted to have a residential monitor with atrial fibrillation, RVR, with resting heart rates in the 100s to 130s. A one-view chest x-ray revealed no obvious focal consolidation. The patient was administered oral aspirin and 10 mg of IV Cardizem push with improvement in ventricular rates to 80s, atrial fibrillation. Serial cardiac biomarkers were negative x2. The patient was admitted for further observation. At bedside, the patient corroborates history. She offers no other acute complaints. She currently feels okay. She notes previously being on diltiazem, but cannot remember when she was taken off it. She maintains compliance with home medications. She denies any recent illnesses or infections. She notes chronic right ear pain with tinnitus. She is otherwise functional and active at her independent living facility. PAST MEDICAL HISTORY: Atrial fibrillation with prior ablation, coronary artery disease, hypertension, dyslipidemia, and depression. PAST SURGICAL HISTORY: Cholecystectomy, appendectomy, left heart cardiac catheterization, cardiac ablation, knee surgery, cataract surgery, and hysterectomy. SOCIAL HISTORY: The patient is . She lives at [facility]. She denies any tobacco or alcohol use. She is ambulatory without assistive devices. ALLERGIES: DOCUMENTED TO CODEINE, DEXTROMETHORPHAN, AND GUAIFENESIN. REVIEW OF SYSTEMS: Pertinent positives as per HPI. Remainder of review of systems negative. MEDICATIONS: Reviewed as per admission medication reconciliation. FAMILY HISTORY: The patient notes mother at age 96 from senility and father at 87. PHYSICAL EXAMINATION: VITAL SIGNS: T-max, afebrile; 80s, atrial fibrillation; blood pressure in the ER 136/72, oxygen saturation 98% on room air, respirations 16 to 18, unlabored. GENERAL APPEARANCE: This is an elderly female, who is awake, alert, oriented, coherent, lucid, not in any obvious distress. HEENT: Normocephalic, atraumatic. No facial asymmetry. Pupils equally round. Extraocular muscles intact. Mucous membranes are moist. NECK: Supple. There is notable jugular venous distention. CARDIOVASCULAR: S1, S2. Regular rate and rhythm. No harsh murmurs. No reproducible chest wall tenderness to palpation. LUNGS: Bilateral equal air entry. Clear to auscultation. Nonlabored respirations, on posterior auscultation. Symmetrical chest expansion. No wheezing. No rales. ABDOMEN: Soft, nontender, and nondistended. EXTREMITIES: No appreciable lower extremity edema. No cyanosis or deformities noted. SKIN: Warm to touch without rash, pallor, or abrasion. LABORATORY DATA: WBC 5.9, H and H 10.9/34.6, platelets 331. Chemistries; troponin I 0.044 with repeat 0.049. Sodium 140, potassium 3.7, chloride 103, bicarb 27, glucose 98, BUN and creatinine 20/1.20, GFR 43. LFTs unremarkable. BNP chronically elevated at 677. Albumin 3.9. IMAGING: One-view chest x-ray done on 03/23/2019; personally reviewed, suggest minimal opacity as well as density in the left lung base, which may be related to mild pleural and parenchymal scarring. Area of scarring versus atelectasis at the right lung base. ASSESSMENT: 1. Paroxysmal atrial fibrillation with rapid ventricular response. Currently with ventricular rate control. The patient will be admitted as observation status and placed on telemetry monitoring. She is noted to have progressive complaints of exertional dyspnea, progressing to rest over the past several weeks and worsened over the past several days. No obvious signs of volume overload. The patient received 10 mg of IV Cardizem in the ER and at this time, we will continue her home dose of oral Coreg 3.125 mg twice daily. Bronze Chaser was consulted to help optimize further rate and rhythm control. She underwent three months of vest and one-week Holter monitor recently as an outpatient by pin attacher and was thereafter taken off oral anticoagulation. Consideration for resumption of oral anticoagulation for secondary stroke prevention will be needed. 2. Coronary artery disease. We will continue home coronary artery disease prudent medications. 3. History of prior ablation for atrial fibrillation. 4. Hypertension, benign. 5. Dyslipidemia. 6. Depression. Encouraged to continue the Zoloft. 7. Deep venous thrombosis prophylaxis: SCD and ambulation. Await Cardiology evaluation for possible initiation of oral anticoagulation. 8. Code status: Full code. Further clarification with the patient will be needed. DISPOSITION: The patient will be admitted to telemetry observation status. Patient was seen and examined on 03/24/2019. Job ID: [id number]
[2019-03-24] MEDS ORDERED: FLU VACC TS2019-20(65YR UP)/PF 180 MCG/0.5 ML SYRINGE IM ONE (09:00)
[2019-03-24] MEDS: Aspirin 81 mg Enteric Coated Tablet PO SCH (09:20)
[2019-03-24] MEDS: Carvedilol 3.125 MG TAB PO SCH ×2 (09:20→20:21)
[2019-03-24] MEDS ORDERED: PROPOFOL 200 MG/20 ML VIAL ONE (09:37)
[2019-03-24] MEDS ORDERED: PROPOFOL 20 ML ONE (12:49)
--- NOTE | 2019-03-24 13:29 | CON ---
DATE OF CONSULTATION: HISTORY OF PRESENT ILLNESS: The patient is a pleasant 84-year-old woman with a history of atrial fibrillation and cardiomyopathy, who presents with increasing palpitations. The patient has a long history of coronary artery disease. She underwent a cardiac catheterization in 2011. She was found to have a 40% left main lesion, 40% LAD lesion, and 50% left circumflex lesion. The patient was placed on medical therapy. She presented in May of 2018 with atrial fibrillation. The patient has been admitted on several occasions and has been tried on different antiarrhythmic medications. The patient also presented in August of this year with severe dyspnea with development of acute congestive heart failure. She was found to have Takotsubo cardiomyopathy. She underwent a repeat cardiac catheterization, which revealed no progressive coronary artery disease, but a marked reduction in left ventricular function. The patient was placed on medical therapy. The patient presents once again with increasing palpitations and lightheadedness. The patient denies having any chest discomfort. PAST MEDICAL HISTORY: 1. 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 2. Coronary artery disease. 3. Atrial fibrillation. 4. Hypertension. 5. Sleep apnea. PAST SURGICAL HISTORY: Hysterectomy, cholecystectomy, appendectomy, back surgery. SOCIAL HISTORY: Nonsmoker. MEDICATIONS: 1. Ranexa 500 twice a day. 2. Sertraline 100 daily. 3. Lisinopril 5 daily. 4. Lasix 40 daily. 5. Zetia 10. 6. Coreg 3.125 b.i.d. 7. Aspirin 81 daily. ALLERGIES: CODEINE, DEXTROMETHORPHAN, AND STATINS. REVIEW OF SYSTEMS: Ten-point system otherwise unremarkable. PHYSICAL EXAMINATION: GENERAL: This is a well-developed woman, in no acute distress with a blood pressure of 173/96. NECK: Showed no jugular venous distention. LUNGS: Clear to auscultation. HEART: Regular rate and rhythm. Normal S1 and S2. ABDOMEN: Nondistended. EXTREMITIES: Show no edema. VASCULAR: Radial pulses 2+. LABORATORY DATA: Sodium 140, potassium 3.7, chloride 103, bicarbonate 27, BUN 20, creatinine 1.2, glucose is 98. White blood cell count 5.9, hemoglobin 10.9, hematocrit 34.6, and platelets are 331. EKG revealed atrial fibrillation with a nonspecific T-wave abnormality. IMPRESSION: 1. Recurrent atrial fibrillation with history of ablation. 2. History of a Takotsubo syndrome and cardiomyopathy. 3. History of coronary artery disease. 4. Hypertension. 5. Sleep apnea. 6. Anxiety. PLAN: This patient presents with recurrent atrial fibrillation. We would recommend proceeding with MOO, cardioversion. EP consultation will be obtained for antiarrhythmic therapy. This may be difficult to find an appropriate medications, she has been intolerant in the past to amiodarone. We will follow this patient with you through hospitalization. Job ID: [id number] MTDD
--- NOTE | 2019-03-24 13:32 | CON ---
DATE OF CONSULTATION: 03/24/2019 HISTORY OF PRESENT ILLNESS: I am seeing Ms. Tesfaye at our [facility] telemetry floor as an electrophysiology business objects consultant. Her problems are: 1. Recurrent atrial arrhythmias. a. Sustained atrial flutter and fibrillation on 02/22/2018. b. Recurrent atrial flutter and fibrillation despite Multaq use and cardioversion in 06/2018, prompting pulmonary venous isolation procedure by Dr. Roe on 2018. c. Recurrent atrial arrhythmias, prompting transient amiodarone use, which was not tolerated due to GI intolerance. d. Persistent atrial flutter with 2:1 AV conduction, initially eventually resolved, off anticoagulants as of 02/2019. 2. Chronic CHF. a. Previously normal EF, reduced to LVEF of 25% to 30% on echo on 08/28/2018, but with followup echo on 09/22/2018, 20% to 25%, subsequently EF improved to 35% to 40% per Dr. Nazario's verbal report. 3. History of late occurring pericardial effusion post ablation status post pericardial window placement on 07/27/2018. 4. History of hypertension. ALLERGIES: CODEINE, DEXTROMETHORPHAN, AND GUAIFENESIN. MEDICATIONS AT HOME: 1. Aspirin. 2. Sertraline. 3. Ezetimibe. 4. Cyanocobalamin. 5. Ranolazine. 6. Diltiazem. 7. Lisinopril. 8. Cholecalciferol. 9. Apixaban. 10. Clonidine 0.1 mg q.6 h. p.r.n. 11. Coenzyme Q10. 12. Lisinopril. 13. Furosemide 40 mg daily. SUBJECTIVE: Ms. Tesfaye is here with continued dyspnea, which is worse, and she also noticed recurrent palpitations especially with ambulation. She denies dyspnea at rest and no orthopnea is noted. She does not pass out. No stroke-like symptoms. No neurological deficits. No fever, chills, or cough. REVIEW OF SYSTEMS: Rest of 12-point review of system otherwise unremarkable. PAST HISTORY: As above. She has been monitored in our office for recurrent arrhythmias, in fact a week monitor was negative before discontinuing her Eliquis back in February. Her LVEF was monitored also by Dr. Nazario, and there was improvement noted she wore LifeVest that was discontinued in the past. SOCIAL HISTORY: The patient denies smoking, EtOH, or drug abuse. She lives in a [facility]. FAMILY HISTORY: Not contributory. OBJECTIVE DATA: VITAL SIGNS: Blood pressure 172/96, heart rate 101, respirations 14, and temperature 97.5 degrees Fahrenheit. GENERAL: Alert and oriented woman, in no apparent distress. NECK: Supple. Jugular veins not distended. CHEST: Coarse without crackles. HEART: Sounds are irregularly irregular. S1 and S2 are variable. ABDOMEN: Benign. Bowel sounds positive. EXTREMITIES: Lower extremities without edema, clubbing, or cyanosis. DATABASE: EKG is reviewed. Initial EKG revealing atypical atrial flutter with rate of 119 beats per minute with variable AV conduction and narrow QRS is seen at 82 milliseconds and QTc is calculated to be 452. LABORATORY DATA: White count is 5.9, hemoglobin 10.9, and platelet count is 331. Sodium 140, potassium 3.7, BUN is 20, and creatinine 1.2. Troponin-I is 0.04 and 0.05 consecutively. BNP is 677 on admission. Chest x-ray from 03/23/2019 shows minimal patchy density in the left lung base, mild pleural parenchyma scarring, focal pneumonitis or atelectasis as possible. ASSESSMENT: Ms. Tesfaye is an 84-year-old woman with history of recurrent atrial arrhythmias. She has done well in normal rhythm, had difficulty to tolerate amiodarone in the past. She had a complicated course post ablation including a pericardial effusion, which was eventually drained. Her left ventricular ejection fraction has dropped, but then recovered some. Now, she is readmitted with dyspnea symptoms/atrial fibrillation/rapid ventricular response. PLAN: 1. Regarding her atrial fibrillation with RVR, it will be reasonable to restore sinus rhythm. In the past, she maintained normal rhythm. We will consider a MOO-guided cardioversion. It may be reasonable to consider rhythm suppression medication, possibly resuming Multaq is a potential option, hence her history of LV dysfunction, class 1c agents would not be most optimal. Also, she had not tolerated amiodarone in the past. 2. She will likely need to resume anticoagulations with age, gender, hypertension, and CHF. Her CHADS-VASc score is at 5. 3. CHF with mild fluid overload, likely improved with normal sinus rhythm. Consider gentle diuresis only. Monitor for renal function. 4. Plan to resume AAD therapy with Multaq. I discussed with Dr. Nazario. Thank you again for allowing me to participate in the care of this patient. Job ID: [id number] MTDD
--- NOTE | 2019-03-24 14:58 | PDOC.HOSPP ---
- Subjective Encounter Date: 03/24/19 Encounter Time: 08:55 Subjective: pt up in bed no complains - Objective Vital Signs & Weight: Vital Signs (12 hours) Temp Pulse Resp BP BP Pulse Ox 03/24/19 11:37 98.2 F 110 H 16 145/80 H 98 03/24/19 07:33 97.5 F L 101 H 14 173/96 H 97 03/24/19 04:32 104 H 18 145/81 H 99 Weight Weight 147 lb 3.2 oz I&O: 03/23/19 03/24/19 03/25/19 06:59 06:59 06:59 Intake Total 120 320 Output Total 500 0 Balance -380 320 Result Diagrams: 03/23/19 20:32 03/23/19 20:32 Hospitalist ROS - Review of Systems Cardiovascular: denies: chest pain, palpitations, orthopnea, paroxysmal noc. dyspnea, edema, light headedness, other Gastrointestinal: denies: nausea, vomiting, abdominal pain, diarrhea, constipation, melena, hematochezia, other Genitourinary: denies: dysuria, frequency, incontinence, hematuria, retention, other - Medication Medications: Active Medications Generic Name Dose Route Start Last Admin Trade Name Freq PRN Reason Stop Dose Admin Aspirin 81 mg 03/24/19 09:00 03/24/19 09:20 Ecotrin PO 81 mg DAILY EMIGDIO Administration Carvedilol 3.125 mg 03/24/19 09:00 03/24/19 09:20 Coreg PO 3.125 mg BID EMIGDIO Administration Ranolazine 500 mg 03/24/19 09:00 03/24/19 09:21 Ranexa PO 500 mg BID EMIGDIO Administration Sertraline HCl 100 mg 03/24/19 09:00 03/24/19 09:21 Zoloft PO 100 mg DAILY EMIGDIO Administration - Exam Neck: negative: supple, symmetric, no JVD, no thyromegaly, no lymphadenopathy, no carotid bruit, JVD Heart: negative: RRR, no murmur, no gallops, no rubs, normal peripheral pulses, irregular, diminshed peripheral pulses, murmur present, II/IV, III/IV Respiratory: negative: CTAB, no wheezes, no rales, no ronchi, normal chest expansion, no tachypnea, normal percussion, rales, rhonchi, tachypneic, wheezes Hosp A/P (1) Atrial fibrillation and flutter Code(s): I48.91 - UNSPECIFIED ATRIAL FIBRILLATION; I48.92 - UNSPECIFIED ATRIAL FLUTTER Status: Chronic (2) CAD (coronary artery disease) Code(s): I25.10 - ATHSCL HEART DISEASE OF [place] CORONARY ARTERY W/O ANG PCTRS Status: Chronic Qualifiers: (3) Chronic anticoagulation Code(s): Z79.01 - SKILLED NURSING (CURRENT) USE OF ANTICOAGULANTS Status: Chronic (4) HTN (hypertension) Code(s): I10 - ESSENTIAL (PRIMARY) HYPERTENSION Status: Chronic Qualifiers: - Plan pt to undergo MOO cardioversion. will start pt on AC and she is on amiodarone.
[2019-03-24] MEDS: Furosemide 40 MG TAB PO SCH (15:18)
[2019-03-24] MEDS: Lisinopril 5 MG TAB PO SCH (15:18)
--- NOTE | 2019-03-24 16:47 | OP ---
DATE OF PROCEDURE: 03/24/2019 PROCEDURE PERFORMED: Transesophageal echocardiogram. INDICATION: Atrial fibrillation. DESCRIPTION OF PROCEDURE: The patient was taken to the PACU. The patient was sedated by Anesthesiology. A transesophageal probe was placed into the distal esophagus and stomach. Echocardiographic images were obtained. The transesophageal probe was removed. FINDINGS: 1. Normal left ventricular systolic function. 2. Left atrial enlargement. 3. Normal mitral and aortic valves. 4. Mild mitral regurgitation. 5. Mild tricuspid regurgitation. 6. Trivial aortic regurgitation. 7. No thrombus noted in the left atrial or left atrial appendage. 8. Atherosclerotic debris in the descending aorta. IMPRESSION: No formed thrombus in the left atrium or left atrial appendage. Job ID: [id number]
[2019-03-24] MEDS: Dronedarone HCl 400 MG TAB PO SCH (20:21)
[2019-03-24] MEDS ORDERED: Ezetimibe 10 MG TAB PO SCH (21:00)
[2019-03-24] MEDS ORDERED: Enoxaparin Sodium 80 MG/0.8 ML SYRINGE SC SCH (21:00)
[2019-03-25 04:48] LABS: Hemoglobin 9.4 g/dL (12.0-16.0); Platelet Count 278 thou/uL (130-400)
[2019-03-25] MEDS: Dronedarone HCl 400 MG TAB PO SCH (08:22)
[2019-03-25] MEDS: Furosemide 40 MG TAB PO SCH (08:22)
[2019-03-25] MEDS: Lisinopril 5 MG TAB PO SCH (08:22)
[2019-03-25] MEDS: Aspirin 81 mg Enteric Coated Tablet PO SCH (08:22)
[2019-03-25] MEDS: Carvedilol 3.125 MG TAB PO SCH (08:23)
--- NOTE | 2019-03-25 08:23 | OP ---
DATE OF PROCEDURE: 03/24/2019 PROCEDURE PERFORMED: Electrocardioversion. INDICATIONS: An 84-year-old woman with paroxysmal atrial fibrillation. DESCRIPTION OF PROCEDURE: The patient was taken to the PACU. The patient was sedated by Anesthesiology. The patient was shocked with 200 joules of synchronized electricity and the patient converted to normal sinus rhythm. IMPRESSION: Successful electrocardioversion. Job ID: [id number]
[2019-03-25] MEDS ORDERED: Apixaban 5 MG TAB PO SCH (09:00)
--- NOTE | 2019-03-25 10:06 | PDOC.HOSPP ---
- Subjective Encounter Date: 03/25/19 Encounter Time: 10:03 Subjective: Patient seen and examined for Afib with RVR s/p MOO CV. No CP. No new complaints. No overnight events - Objective Vital Signs & Weight: Vital Signs (12 hours) Temp Pulse Resp BP BP Pulse Ox 03/25/19 08:22 70 110/63 03/25/19 07:55 98.5 F 70 18 110/63 97 03/25/19 04:10 98.0 F 73 16 120/60 100 03/24/19 23:23 97.9 F 73 14 105/55 L 98 Weight Weight 143 lb 9.6 oz I&O: 03/24/19 03/25/19 03/26/19 06:59 06:59 06:59 Intake Total 120 1050 240 Output Total 500 1200 Balance -380 -150 240 Result Diagrams: 03/25/19 04:33 03/25/19 04:33 EKG Reviewed by me: Yes (Tele SR) Hospitalist ROS - Review of Systems Cardiovascular: denies: chest pain, palpitations, orthopnea, paroxysmal noc. dyspnea, edema, light headedness, other Gastrointestinal: denies: nausea, vomiting, abdominal pain, diarrhea, constipation, melena, hematochezia, other - Medication Medications: Active Medications Generic Name Dose Route Start Last Admin Trade Name Dina PRN Reason Stop Dose Admin Apixaban 5 mg 03/25/19 09:00 03/25/19 08:22 Eliquis PO 5 mg BID EMIGDIO Administration Aspirin 81 mg 03/24/19 09:00 03/25/19 08:22 Ecotrin PO 81 mg DAILY EMIGDIO Administration Carvedilol 3.125 mg 03/24/19 09:00 03/25/19 08:23 Coreg PO 3.125 mg BID EMIGDIO Administration Dronedarone 400 mg 03/24/19 21:00 03/25/19 08:22 Multaq PO 400 mg BID EMIGDIO Administration Ezetimibe 10 mg 03/24/19 21:00 03/24/19 20:21 Zetia PO 10 mg HS EMIGDIO Administration Furosemide 40 mg 03/24/19 09:00 03/25/19 08:22 Lasix PO 40 mg DAILY EMIGDIO Administration Lisinopril 5 mg 03/24/19 09:00 03/25/19 08:22 Zestril PO 5 mg DAILY EMIGDIO Administration Ranolazine 500 mg 03/24/19 09:00 03/25/19 08:22 Ranexa PO 500 mg BID EMIGDIO Administration Sertraline HCl 100 mg 03/24/19 09:00 03/25/19 08:23 Zoloft PO 100 mg DAILY EMIGDIO Administration - Exam General Appearance: NAD Heart: RRR, no gallops, no rubs, normal peripheral pulses Respiratory: CTAB, no rales, no ronchi, normal chest expansion Gastrointestinal: soft, non-tender, non-distended, normal bowel sounds Extremities: no cyanosis, no edema Neurological: no new deficit Psychiatric: normal affect, A&O x 3 Hosp A/P - Plan Afib with RVR s/p MOO CV - in SR On Eliquis/Multaq - Patient understands the risk associated with anticoag Repeat EKG - SR, QT 460 Cardio/EP following CAD - on ASA/Coreg h/o Pericardial effusion s/p Pericardial window HTN Type 2 LA (POA) - resolved 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
[2019-03-25 12:03] VITALS: BP 116/55; TEMP 97.9
--- NOTE | 2019-03-25 12:10 | PDOC.EP ---
- Subjective Date: 03/25/19 Time: 12:08 Interval History: Follow up for atrial arrhythmias. Had MOO/CV on 03/[address] Nazario. Feels well, sitting in chair. No cardiac concerns or complaints this AM. - Review of Systems Constitutional: denies: chills, fever, malaise, sweats, weakness, other Respiratory: denies: cough, dry, hemoptysis, pleuritic pain, shortness of breath , SOB with excertion, sputum, wheezing, other Cardiology: denies: chest pain, edema, heart racing, palpitations Gastrointestinal: denies: abdominal pain, diarrhea, nausea Musculoskeletal: denies: unstable gait, falls - Objective Allergies/Adverse Reactions: Allergies Allergy/AdvReac Type Severity Reaction Status Date / Time codeine Allergy Verified 03/23/19 22:29 dextromethorphan Allergy Verified 03/23/19 22:29 [From Mucinex DM] guaifenesin [From Mucinex DM] Allergy Verified 03/23/19 22:29 [id number] Reductase Allergy Verified 03/23/19 22:29 Inhibitor Current Medications Acetaminophen (Tylenol) 650 mg PO Q4H PRN PRN Reason: Headache/Fever/Mild Pain (1-3) Apixaban (Eliquis) 5 mg PO BID [facility] Last Admin: 03/25/19 08:22 Dose: 5 mg Aspirin (Ecotrin) 81 mg PO DAILY [facility] Last Admin: 03/25/19 08:22 Dose: 81 mg Carvedilol (Coreg) 3.125 mg PO BID [facility] Last Admin: 03/25/19 08:23 Dose: 3.125 mg Dronedarone (Multaq) 400 mg PO BID [facility] Last Admin: 03/25/19 08:22 Dose: 400 mg Ezetimibe (Zetia) 10 mg PO HS [facility] Last Admin: 03/24/19 20:21 Dose: 10 mg Furosemide (Lasix) 40 mg PO DAILY [facility] Last Admin: 03/25/19 08:22 Dose: 40 mg Lisinopril (Zestril) 5 mg PO DAILY [facility] Last Admin: 03/25/19 08:22 Dose: 5 mg Ranolazine (Ranexa) 500 mg PO BID [facility] Last Admin: 03/25/19 08:22 Dose: 500 mg Sertraline HCl (Zoloft) 100 mg PO DAILY [facility] Last Admin: 03/25/19 08:23 Dose: 100 mg Vital Signs & Weight: Vital Signs Temp Pulse Resp BP BP Pulse Ox 03/25/19 11:49 97.9 F 76 16 116/55 L 97 03/25/19 08:22 70 110/63 03/25/19 07:55 98.5 F 70 18 110/63 97 03/25/19 04:10 98.0 F 73 16 120/60 100 Weight 143 lb 9.6 oz I/O: I/O 03/24/19 03/25/19 03/26/19 06:59 06:59 06:59 Intake Total 120 1050 240 Output Total 500 1200 Balance -380 -150 240 - Quality Measures Condition: Atrial Fibrillation/Flutter (hx or current) CV meds: Eliquis: Yes - Physical Exam General: alert & oriented x3, appears well, no apparent distress, speech clear, affect appropriate HEENT: mucus membranes moist, normocephaly Neck: supple neck, midline trachea, no JVD/HJR, no lymphadenopathy Cardiology: regular rate and rhythm Lungs: clear to auscultation, no wheeze, rales, rhonchi Neurology: cranial nerve 2-12 intact, grossly intact, no lateralizing findings Abdomen: unremarkable, active bowel sounds, no pulsations/bruits, no hepatosplenomegaly Extremities: dry, strong pulses, warm - Labs Result Diagrams: 03/25/19 04:33 03/25/19 04:33 - EKG Interpretation EKG Method: Telemetry EKG shows: Sinus rhythm - Assessment/Plan Assessment/Plan: 1. Recurrent atrial arrhythmias. a. Sustained atrial flutter and fibrillation on 02/22/2018. b. Recurrent atrial flutter and fibrillation despite Multaq use and cardioversion in 06/2018, prompting pulmonary venous isolation procedure by Dr. Roe on 2018. c. Recurrent atrial arrhythmias, prompting transient amiodarone use, which was not tolerated due to GI intolerance. d. Persistent atrial flutter initially with 2:1 AV conduction, eventually resolved, off anticoagulants as of 02/2019. e. late recurrent atrial arrhythmia 03/2019 requiring MOO/CV on 03/24/2019 and resuming multaq 2. Chronic CHF. a. Previously normal EF, reduced to LVEF of 25% to 30% on echo on 08/28/2018, but with followup echo on 09/22/2018, 20% to 25%, subsequently EF improved to 35% to 40% per Dr. Nazario's verbal report. 3. History of late occurring pericardial effusion post ablation status post pericardial window placement on 07/27/2018. 4. History of hypertension. Remains in SR on Multaq and restarted OAC with Eliquis 5mg PO BID. Will see back in clinic in 6 weeks. Ok for DC by EP.
--- NOTE | 2019-03-25 14:17 | DIS ---
DATE OF ADMISSION: 03/23/2019 DATE OF DISCHARGE: 03/25/2019 DISCHARGE DISPOSITION: Home. FOLLOWUP: 1. Follow up with Dr. Rosa as scheduled. 2. Follow up with Electrophysiology and Dr. Garcia as scheduled. DISCHARGE MEDICATIONS: 1. Multaq 400 mg b.i.d. 2. Eliquis 5 mg b.i.d. All other home medications were left unchanged. BRIEF HOSPITAL COURSE: The patient is an 84-year-old female with paroxysmal atrial fibrillation, presented to the emergency room with shortness of breath. Workup was consistent with atrial fibrillation with rapid ventricular response. She was evaluated by Cardiology and Electrophysiology. She underwent MOO cardioversion. She remained in sinus rhythm. She has been cleared by Cardiology and Electrophysiology for discharge. FINAL DIAGNOSES: 1. Atrial fibrillation with rapid ventricular response, status post MOO cardioversion. 2. Coronary artery disease. 3. History of pericardial effusion, status post pericardial window in the past. 4. Hypertension. 5. Type 2 myocardial infarction, resolved. 6. Acute kidney injury on chronic kidney disease stage 2, resolved. 7. History of atrial flutter, status post cardioversion in the past. 8. Anxiety. PLAN: Plan of care was discussed with the patient in detail. She stated understanding. Job ID: [id number]
--- NOTE | 2019-03-30 17:41 | EKG ---
Test Reason : Blood Pressure : / mmHG Vent. Rate : 073 BPM Atrial Rate : 073 BPM P-R Int : 172 ms QRS Dur : 086 ms QT Int : 418 ms P-R-T Axes : 087 080 074 degrees QTc Int : 460 ms Normal sinus rhythm Nonspecific T wave abnormality Abnormal ECG When compared with ECG of 23-MAR-2019 20:28, (Unconfirmed) Previous ECG has undetermined rhythm, needs review Confirmed by DR. Jonn OLEARY ([id number]) on 03/30/2019 5:41:43 PM Referred By: NETO Confirmed By:DR. Jonn OLEARY
== END 2019-03-25 16:07 | disposition home or self-care (01) ==
LOC: ERS 20:21 → 2SW 21:53
PROVIDERS: ADMIT Hospitalist; ATTEND Hospitalist
PROC: 5A2204Z Restoration of Cardiac Rhythm, Single (ICD-10-PCS; principal; 2019-03-23)
PROC: B24BZZ4 Ultrasonography of Heart with Aorta, Transesophageal (ICD-10-PCS; 2019-03-23)
DX: I48.0 Paroxysmal atrial fibrillation (principal); I08.1 Rheumatic disorders of both mitral and tricuspid valves; I25.10 Atherosclerotic heart disease of native coronary artery without angina pectoris; I12.9 Hypertensive chronic kidney disease with stage 1 through stage 4 chronic kidney disease, or unspecified chronic kidney disease; N18.2 Chronic kidney disease, stage 2 (mild); N17.9 Acute kidney failure, unspecified; E78.5 Hyperlipidemia, unspecified; F41.9 Anxiety disorder, unspecified; F32.9 Major depressive disorder, single episode, unspecified; Z79.01 Long term (current) use of anticoagulants; Z79.82 Long term (current) use of aspirin; Z79.899 Other long term (current) drug therapy; Z88.5 Allergy status to narcotic agent; Z88.8 Allergy status to other drugs, medicaments and biological substances
CPT/HCPCS: 71045; 80053; 82553; 82565; 83735; 83880; 84484 ×2; 85014; 85018; 85025; 85049; 90662; 92960; 93005 ×2; 93312; 96372; 96374; 99291; G0008; G0378 ×4; 36415; 90471; 93010; J1650; J2704

== ENCOUNTER 2019-05-05 10:47 | Day surgery (SDC) | payer MEDICARE, OTHER ==
[2019-05-04 13:14] VITALS: BMI 22.4
[2019-05-05] MEDS ORDERED: PROPOFOL 200 MG/20 ML VIAL ONE (11:17)
[2019-05-05] MEDS ORDERED: PROPOFOL 20 ML ONE (14:49)
--- NOTE | 2019-05-05 16:30 | OP ---
DATE OF CONSULTATION: PROCEDURE PERFORMED: electrocardioversion. INDICATION: An 84-year-old woman with paroxysmal atrial fibrillation. DESCRIPTION OF PROCEDURE: The patient was taken to the PACU. The patient sedated by Anesthesiology. The patient was shocked with 200 joules in synchronized electricity. The patient converted to normal sinus rhythm. IMPRESSION: Successful electrocardioversion. Job ID: [id number]
--- NOTE | 2019-05-05 17:06 | EKG ---
Test Reason : PREOP Blood Pressure : / mmHG Vent. Rate : 095 BPM Atrial Rate : 159 BPM P-R Int : 000 ms QRS Dur : 084 ms QT Int : 358 ms P-R-T Axes : 162 085 220 degrees QTc Int : 449 ms Unusual P axis, possible ectopic atrial tachycardia Nonspecific T wave abnormality Abnormal ECG Confirmed by MALINDA DUQUE ([id number]) on 05/05/2019 5:05:47 PM Referred By: NETO Confirmed By:MALINDA DUQUE
--- NOTE | 2019-05-06 09:55 | OP ---
DATE OF PROCEDURE: 05/05/2019 PROCEDURE PERFORMED: Transesophageal echocardiogram. INDICATIONS: An 84-year-old woman with paroxysmal atrial fibrillation. DESCRIPTION OF PROCEDURE: The patient was taken to the PACU. The patient was sedated by anesthesiology. A transesophageal probe was placed into the distal esophagus and stomach. Echocardiographic images were obtained. The transesophageal probe was removed. FINDINGS: 1. Normal left systolic function. 2. Left atrial enlargement. 3. Normal mitral and aortic valves. 4. Moderate mitral regurgitation. 5. Mild aortic regurgitation. 6. Mild tricuspid regurgitation. 7. No thrombus is noted in the left atrial or left atrial appendage. 8. Atherosclerotic debris in the descending aorta. IMPRESSION: No formed thrombus in the left atrial or left atrial appendage. Job ID: [id number]
== END 2019-05-05 17:18 | disposition home or self-care (01) ==
LOC: CCL 10:47
PROVIDERS: ATTEND Internal Medicine Cardiovascular Disease
PROC: B24BZZ4 Ultrasonography of Heart with Aorta, Transesophageal (ICD-10-PCS; principal; 2019-05-05)
PROC: 5A2204Z Restoration of Cardiac Rhythm, Single (ICD-10-PCS; 2019-05-05)
DX: I48.0 Paroxysmal atrial fibrillation (principal); I70.0 Atherosclerosis of aorta; I08.3 Combined rheumatic disorders of mitral, aortic and tricuspid valves; G47.33 Obstructive sleep apnea (adult) (pediatric); F41.9 Anxiety disorder, unspecified; M19.90 Unspecified osteoarthritis, unspecified site; I25.10 Atherosclerotic heart disease of native coronary artery without angina pectoris; E78.2 Mixed hyperlipidemia; I11.9 Hypertensive heart disease without heart failure; I42.0 Dilated cardiomyopathy; Z79.01 Long term (current) use of anticoagulants; Z79.82 Long term (current) use of aspirin; Z88.5 Allergy status to narcotic agent; Z88.8 Allergy status to other drugs, medicaments and biological substances
CPT/HCPCS: 92960; 93005; 93010; 93312; J2704

== ENCOUNTER 2019-09-06 15:09 | Emergency (ER) | payer MEDICARE, OTHER ==
[2019-09-06] MEDS ORDERED: Ondansetron PF 4 MG/2 ML Vial ONE (15:21)
[2019-09-06] MEDS ORDERED: Fentanyl 100 MCG/2 ML VIAL ONE (15:21)
[2019-09-06] MEDS ORDERED: Iopamidol-370 76% 500 ML 1 ML ONE (15:33)
--- NOTE | 2019-09-06 15:43 | RAD ---
Exam:2 views right humerus HISTORY: Pain. COMPARISON: None FINDINGS: Limited evaluation glenohumeral joint space. Acute fracture is not appreciated. There appea r to be chronic changes in the right shoulder. Dedicated right shoulder radiograph series is recommended. IMPRESSION: Chronic changes are suspected. Dedicated right shoulder radiograph series is recommended.
--- NOTE | 2019-09-06 15:43 | RAD ---
Exam: Chest one view HISTORY:Chest pain. Comparison: 03/23/2011 FINDINGS: Cardiac silhouette: Normal Aorta: Atherosclerosis of the aortic knob Pulmonary vessels: Normal Costophrenic angles: No pleural effusion. LUNGS: Hyperinflation. Chronic lung parenchymal changes. Pneumothorax: None Osseous abnormalities: None IMPRESSION: 1. COPD. 2. Atherosclerosis. 3. No acute cardiopulmonary process
[2019-09-06 15:49] LABS: #Eosinphils 0.1 thou/uL (0.0-0.7); #Lymphocytes 1.4 thou/uL (1.20-3.40); #Monocytes 0.7 thou/uL (0.11-0.59); #Neutrophils 5.6 thou/uL (1.40-6.50); %Basophils 0.5 % (0.0-1.0); %Eosinophils 0.7 % (0.0-10.0); %Lymphocytes 17.6 % (21.0-51.0); %Monocytes 9.3 % (0.0-10.0); %Neutrophils 71.9 % (42.0-75.0); Hemoglobin 10.7 g/dL (12.0-16.0); Mean Corpuscular HGB CONC 32.6 g/dL (32.0-36.0); Mean Corpuscular Hemoglobin 28.6 pg (27.0-31.0); Mean Corpuscular Volume 87.7 fL (78.0-98.0); Mean Platelet Volume 5.7 fL (7.4-10.4); Platelet Count 229 thou/uL (130-400); RBC Distribution Width 14.5 % (11.5-14.5); Red Blood Cell (RBC) Count 3.74 mill/uL (4.20-5.40); White Blood Cell (WBC) Count 7.8 thou/uL (4.8-10.8)
[2019-09-06 16:11] LABS: ALT (SGPT) 12 U/L (8-55); AST (SGOT) 14 U/L (5-34); Albumin 3.5 g/dL (3.4-4.8); Alkaline Phosphatase 106 U/L (40-110); Anion Gap 11 mmol/L (10-20); BUN (Urea Nitrogen) 15 mg/dL (9.8-20.1); Bilirubin, Total 0.6 mg/dL (0.2-1.2); CK (CPK) 36 U/L (29-168); Calc. Creatinine Clearance 0 mL/min (70-130); Calcium 8.6 mg/dL (7.8-10.44); Carbon Dioxide 24 mmol/L (23-31); Chloride 106 mmol/L (98-107); Estimated GFR-MDRD 64; Globulin 2.5 g/dL (2.4-3.5); Glucose 102 mg/dL (83-110); Lipase 7 U/L (8-78); Sodium 137 mmol/L (136-145)
--- NOTE | 2019-09-06 16:57 | CT ---
CT PULMONARY ANGIOGRAM WITH IV CONTRAST AND 3D POSTPROCESSIN09/06/19 HISTORY: 84-year-old female with chest pain, atrial fibrillation, right arm pain. FINDINGS: there is good contrast opacification of the pulmonary arterial vasculature without filling defects to suggest pulmonary embolism. There are vascular calcifications without aneurysm of the thoracic aorta . No pericardial effusion is seen. There are small bilateral pleural effusions, left larger than righ t with adjacent atelectatic changes. There is scarring in the lung apices. No pneumothoraces, focal a reas of consolidation, lung nodules or masses are seen. There are degenerative changes in the spine. IMPRESSION: 1. No CT evidence of pulmonary embolism. 2. Small bilateral pleural effusions. POS: HASEEB
--- NOTE | 2019-09-06 17:14 | RAD ---
RIGHT SHOULDER THREE VIEWS: 09/06/19 HISTORY: Right shoulder pain. FINDINGS/IMPRESSION: There are degenerative changes in the acromioclavicular and glenohumeral joints. No acute fracture, d islocation, or bony destruction is seen. POS: SONG
--- NOTE | 2019-09-11 11:26 | EKG ---
Test Reason : Blood Pressure : / mmHG Vent. Rate : 077 BPM Atrial Rate : 077 BPM P-R Int : 176 ms QRS Dur : 082 ms QT Int : 386 ms P-R-T Axes : 081 080 092 degrees QTc Int : 436 ms Normal sinus rhythm Confirmed by GRABIEL SALAZAR DO ([id number]), publications editor JUSTIN ROQUE ([id number]) on 09/11/2019 11:26:08 AM Referred By: Confirmed By:GRABIEL SALAZAR DO
== END 2019-09-06 19:10 | disposition home or self-care (01) ==
LOC: ERS 15:09
DX: M25.511 Pain in right shoulder (principal); E78.5 Hyperlipidemia, unspecified; E78.00 Pure hypercholesterolemia, unspecified; I10 Essential (primary) hypertension; M19.90 Unspecified osteoarthritis, unspecified site; I48.91 Unspecified atrial fibrillation; F32.9 Major depressive disorder, single episode, unspecified; F03.90 Unspecified dementia, unspecified severity, without behavioral disturbance, psychotic disturbance, mood disturbance, and anxiety; Z79.82 Long term (current) use of aspirin; Z79.899 Other long term (current) drug therapy
CPT/HCPCS: 36415; 71045; 71275; 80053; 82550; 83690; 84484; 85025; 85379; 93005; 96374; 96375; J2405; J3010; Q9967

== ENCOUNTER 2019-12-27 08:54 | Outpatient (CLI) | payer MEDICARE, OTHER ==
--- NOTE | 2019-12-27 11:24 | CT ---
CT CHEST AND ABDOMEN AND PELVIS WITH IV CONTRAST: Date: 12/27/2019 INDICATION: Breast cancer. Comparison made to CT chest and abdomen and pelvis dated 08/31/2018. Correlation made to recent CTA of chest dated 09/06/2019. FINDINGS: CT CHEST: Apical pleural thickening with nodularity is stable. Lungs show no evidence of inflammatory infiltrat e. There is no evidence of mass or nodule. Mild pleural thickening in the posterior lungs appear stab le. Possible tiny left effusion is stable in appearance. Mediastinum unremarkable with no adenopathy. Calcified right hilar lymph node again noted. No axillary adenopathy. There are nonspecific axillary lymph nodes. The thoracic vertebra maintain height and alignment with moderate degenerative changes. No lytic or b lastic lesion. Degenerative changes at both shoulders. IMPRESSION: No acute lung process. CT ABDOMEN AND PELVIS: Review of the liver reveals a 0.5 cm low density focus in the superior right lobe under the diaphragm which is nonspecific, possibly tiny cyst. Mild intrahepatic biliary duct dilatation with prominent common bile duct, probably on the basis of p ost cholecystectomy status. Another tiny low density focus along the margin of the liver laterally in the right lobe measuring in the 5.0 mm range is nonspecific. The spleen and pancreas are unremarkable. Adrenal glands and kidneys are unremarkable. Small and large bowel loops unremarkable. Moderate volume stool throughout the colon. Aorta normal caliber with atherosclerotic calcification. No adenopathy. No free fluid. Images through the pelvis show evidence of hysterectomy. Urinary bladder unremarkable. Osseous structures show prominent degenerative changes in the lumbar spine. Degenerative changes at b oth hips. IMPRESSION: No acute process. No evidence of metastatic lesion. POS: AGW
--- NOTE | 2019-12-27 13:17 | NM ---
EXAM: NM Bone Scan STANDARD PROVIDED CLINICAL HISTORY: Malignant neoplasm of overlapping sites of left female breast. COMPARISON: None FINDINGS: Photopenic defects are seen at each knee suggesting bilateral knee prostheses. Physiological uptake i s seen in the kidneys bilaterally with expected activity in the urinary bladder. Nonspecific uptake is seen in the region of the thyroid cartilage. No focal area of abnormal uptake of radiotracer is seen throughout the axial or appendicular skeleton . Mild left convex scoliosis thoracic spine is seen. IMPRESSION: No scintigraphic findings to suggest osseous metastatic disease.
[2019-12-27] MEDS ORDERED: Iopamidol 370 76% 100 ML VIAL ONE (14:35)
== END 2019-12-27 08:55 | disposition home or self-care (01) ==
LOC: CT 08:54
PROVIDERS: ATTEND Internal Medicine Hematology & Oncology
DX: C50.812 Malignant neoplasm of overlapping sites of left female breast (principal)
CPT/HCPCS: 71260; 74177; 78306; A9503; Q9967

== ENCOUNTER 2020-01-17 06:31 | Outpatient (CLI) | payer MEDICARE, OTHER ==
--- NOTE | 2020-01-17 23:45 | EKG ---
Test Reason : PREOP Blood Pressure : / mmHG Vent. Rate : 073 BPM Atrial Rate : 073 BPM P-R Int : 182 ms QRS Dur : 088 ms QT Int : 374 ms P-R-T Axes : 090 094 219 degrees QTc Int : 412 ms Suspect arm lead reversal, interpretation assumes no reversal Normal sinus rhythm Rightward axis T wave abnormality, consider inferior ischemia Abnormal ECG No previous ECGs available Confirmed by Treasure GRANT ([id number]) on 01/17/2020 11:45:34 PM Referred By: HERMAN Confirmed By:Treasure GRANT
[2020-01-18 12:57] LABS: SARS-CoV-2 MS2 Positive; SARS-CoV-2 N Gene Negative; SARS-CoV-2 S Gene Negative; SARS-CoV-2 by NAA Not Detected (NotDetected); SARS-CoV-2 orf1ab Negative
== END 2020-01-17 06:32 | disposition home or self-care (01) ==
LOC: LABBT 06:31
PROVIDERS: ATTEND Surgery
DX: Z01.818 Encounter for other preprocedural examination (principal); C50.912 Malignant neoplasm of unspecified site of left female breast; Z20.828 Contact with and (suspected) exposure to other viral communicable diseases
CPT/HCPCS: 93005; U0003; 87635; 93010

== ENCOUNTER 2020-04-11 16:17 | Inpatient (IN) | payer MEDICARE, OTHER ==
[2020-04-11] MEDS ORDERED: Diltiazem 125 MG/25 ML ONE (16:43)
[2020-04-11 16:51] LABS: #Eosinphils 0.1 thou/uL (0.0-0.7); #Lymphocytes 0.9 thou/uL (1.20-3.40); #Monocytes 0.4 thou/uL (0.11-0.59); #Neutrophils 5.2 thou/uL (1.40-6.50); %Basophils 0.5 % (0.0-1.0); %Eosinophils 0.8 % (0.0-10.0); %Lymphocytes 13.1 % (21.0-51.0); %Monocytes 6.6 % (0.0-10.0); Hemoglobin 11.1 g/dL (12.0-16.0); Mean Corpuscular HGB CONC 31.6 g/dL (32.0-36.0); Mean Corpuscular Hemoglobin 28.3 pg (27.0-31.0); Mean Corpuscular Volume 89.5 fL (78.0-98.0); Platelet Count 208 thou/uL (130-400); RBC Distribution Width 13.3 % (11.5-14.5); Red Blood Cell (RBC) Count 3.92 mill/uL (4.20-5.40); White Blood Cell (WBC) Count 6.6 thou/uL (4.8-10.8)
[2020-04-11 17:20] LABS: AST (SGOT) 17 U/L (5-34); Albumin 3.4 g/dL (3.4-4.8); Anion Gap 15 mmol/L (10-20); Bilirubin, Total 0.5 mg/dL (0.2-1.2); Calc. Creatinine Clearance 0 mL/min (70-130); Calcium 8.4 mg/dL (7.8-10.44); Carbon Dioxide 23 mmol/L (23-31); Chloride 106 mmol/L (98-107); Globulin 2.4 g/dL (2.4-3.5); Potassium 4.1 mmol/L (3.5-5.1); Protein, Total 5.8 g/dL (5.8-8.1); Sodium 140 mmol/L (136-145)
[2020-04-11 17:34] LABS: CKMB 1.6 ng/mL (0-6.6)
[2020-04-11 18:08] LABS: Glucose 144 mg/dL (83-110)
[2020-04-11 18:11] LABS: Alkaline Phosphatase 115 U/L (40-110)
[2020-04-11 18:13] LABS: BUN (Urea Nitrogen) 24 mg/dL (9.8-20.1)
[2020-04-11 18:14] LABS: ALT (SGPT) 18 U/L (8-55); Magnesium 2.1 mg/dL (1.6-2.6)
[2020-04-11] MEDS ORDERED: Aspirin Chewable 81 MG TAB ONE (18:57)
[2020-04-11 20:17] LABS: Troponin I 0.035 ng/mL (< 0.028)
[2020-04-11 21:57] VITALS: BMI 24.3
[2020-04-11] MEDS ORDERED: HYDROcodone/Acetaminophen 5/325 mg Tablet PO PRN (22:04)
[2020-04-11] MEDS ORDERED: Guaifenesin DM 100-10/5 ML UDCUP PO PRN (22:04)
[2020-04-11] MEDS ORDERED: Morphine 2 MG/ML VIAL SLOW IVP PRN (22:04)
[2020-04-11] MEDS ORDERED: Acetaminophen 325 MG TAB PO PRN (22:04)
[2020-04-11] MEDS ORDERED: Promethazine HCl 12.5 MG in Sodium Chloride 0.9% 50 ML IVPB PRN (22:04)
[2020-04-11] MEDS ORDERED: Ondansetron PF 4 MG/2 ML Vial IVP PRN (22:04)
[2020-04-11] MEDS ORDERED: Labetalol HCl 100 MG/20 ML VIAL SLOW IVP PRN (22:04)
[2020-04-11] MEDS ORDERED: cloNIDine 0.1 MG TAB PO PRN (22:04)
[2020-04-11] MEDS ORDERED: hydrALAZINE 20 MG/ML VIAL SLOW IVP PRN (22:04)
[2020-04-11] MEDS ORDERED: Electrolyte Replacement Protocol 1 EACH FS PRN (22:15)
[2020-04-11] MEDS ORDERED: Doxycycline 100 MG in Syringe 0 ML IVPB SCH (22:30)
[2020-04-11] MEDS ORDERED: cefTRIAXone\\ROCEPHIN 1 GM in Sodium Chloride 0.9% 100 ML IVPB SCH (23:00)
[2020-04-11 23:23] LABS: Troponin I 0.035 ng/mL (< 0.028)
[2020-04-12 03:25] LABS: SARS-CoV-2 PCR by NAA Not Detected (NotDetected)
[2020-04-12 04:28] LABS: #Basophils 0.1 thou/uL (0.0-0.2); #Eosinphils 0.1 thou/uL (0.0-0.7); #Lymphocytes 1.5 thou/uL (1.20-3.40); #Monocytes 0.7 thou/uL (0.11-0.59); #Neutrophils 4.4 thou/uL (1.40-6.50); %Eosinophils 1.6 % (0.0-10.0); %Lymphocytes 22.5 % (21.0-51.0); %Monocytes 9.7 % (0.0-10.0); %Neutrophils 65.2 % (42.0-75.0); Hemoglobin 10.8 g/dL (12.0-16.0); Mean Corpuscular HGB CONC 30.6 g/dL (32.0-36.0); Mean Corpuscular Hemoglobin 27.5 pg (27.0-31.0); Mean Corpuscular Volume 89.8 fL (78.0-98.0); Mean Platelet Volume 5.9 fL (7.4-10.4); Platelet Count 216 thou/uL (130-400); RBC Distribution Width 13.2 % (11.5-14.5); Red Blood Cell (RBC) Count 3.94 mill/uL (4.20-5.40); White Blood Cell (WBC) Count 6.8 thou/uL (4.8-10.8)
[2020-04-12 04:47] LABS: ALT (SGPT) 18 U/L (8-55); AST (SGOT) 19 U/L (5-34); Albumin 3.4 g/dL (3.4-4.8); Alkaline Phosphatase 105 U/L (40-110); Anion Gap 9 mmol/L (10-20); BUN (Urea Nitrogen) 22 mg/dL (9.8-20.1); Bilirubin, Direct 0.2 mg/dL (0.1-0.3); Bilirubin, Total 0.5 mg/dL (0.2-1.2); Calc. Creatinine Clearance 47 mL/min (70-130); Calcium 8.7 mg/dL (7.8-10.44); Carbon Dioxide 31 mmol/L (23-31); Chloride 105 mmol/L (98-107); Glucose 97 mg/dL (83-110); Magnesium 2.2 mg/dL (1.6-2.6); Potassium 3.9 mmol/L (3.5-5.1); Protein, Total 6.1 g/dL (5.8-8.1); Sodium 141 mmol/L (136-145)
[2020-04-12] MEDS: Apixaban 5 MG TAB PO SCH ×2 (08:09→21:32)
[2020-04-12] MEDS: Polyethylene Glycol 3350 17 GM Packet PO SCH (08:09)
[2020-04-12] MEDS: Aspirin 81 mg Enteric Coated Tablet PO SCH (08:09)
[2020-04-12] MEDS ORDERED: Amiodarone 200 MG TAB PO SCH ×2 (09:00→21:00)
[2020-04-12] MEDS ORDERED: Doxycycline 100 MG CAP PO SCH (09:00)
[2020-04-12] MEDS ORDERED: FLU VACC QS2020-21(65YR UP)/PF 240 MCG/0.7 ML SYRINGE IM ONE (09:00)
[2020-04-12] MEDS ORDERED: Ezetimibe 10 MG TAB PO SCH (21:00)
[2020-04-13 04:46] LABS: #Eosinphils 0.1 thou/uL (0.0-0.7); #Lymphocytes 1.4 thou/uL (1.20-3.40); #Monocytes 0.6 thou/uL (0.11-0.59); #Neutrophils 4.5 thou/uL (1.40-6.50); %Basophils 0.5 % (0.0-1.0); %Eosinophils 1.5 % (0.0-10.0); %Lymphocytes 21.7 % (21.0-51.0); %Monocytes 8.7 % (0.0-10.0); %Neutrophils 67.5 % (42.0-75.0); Hemoglobin 11.8 g/dL (12.0-16.0); Mean Corpuscular HGB CONC 31.2 g/dL (32.0-36.0); Mean Corpuscular Hemoglobin 27.9 pg (27.0-31.0); Mean Corpuscular Volume 89.2 fL (78.0-98.0); Mean Platelet Volume 5.9 fL (7.4-10.4); Platelet Count 237 thou/uL (130-400); RBC Distribution Width 13.4 % (11.5-14.5); Red Blood Cell (RBC) Count 4.25 mill/uL (4.20-5.40); White Blood Cell (WBC) Count 6.6 thou/uL (4.8-10.8)
[2020-04-13 05:07] LABS: Anion Gap 14 mmol/L (10-20); BUN (Urea Nitrogen) 24 mg/dL (9.8-20.1); Calc. Creatinine Clearance 49 mL/min (70-130); Carbon Dioxide 23 mmol/L (23-31); Chloride 106 mmol/L (98-107); Glucose 110 mg/dL (83-110); Magnesium 2.1 mg/dL (1.6-2.6); Potassium 3.7 mmol/L (3.5-5.1); Sodium 139 mmol/L (136-145)
[2020-04-13] MEDS ORDERED: PROPOFOL 200 MG/20 ML VIAL ONE (09:00)
[2020-04-13] MEDS ORDERED: PROPOFOL 20 ML ONE (09:13)
[2020-04-13] MEDS: Polyethylene Glycol 3350 17 GM Packet PO SCH (11:53)
[2020-04-13 12:01] VITALS: BP 146/70; TEMP 98.6
[2020-04-13] MEDS: Aspirin 81 mg Enteric Coated Tablet PO SCH (12:18)
[2020-04-13] MEDS: Apixaban 5 MG TAB PO SCH (12:18)
== END 2020-04-13 14:50 | disposition home or self-care (01) | DRG 309 ==
LOC: ERS 16:17 → 2NO 19:36
PROVIDERS: ADMIT Internal Medicine; ATTEND Internal Medicine
PROC: 5A2204Z Restoration of Cardiac Rhythm, Single (ICD-10-PCS; principal; 2020-04-13)
DX: I48.91 Unspecified atrial fibrillation (principal); I50.22 Chronic systolic (congestive) heart failure; N17.9 Acute kidney failure, unspecified; E78.5 Hyperlipidemia, unspecified; E78.00 Pure hypercholesterolemia, unspecified; M19.90 Unspecified osteoarthritis, unspecified site; Z96.653 Presence of artificial knee joint, bilateral; F32.9 Major depressive disorder, single episode, unspecified; C50.912 Malignant neoplasm of unspecified site of left female breast; I11.0 Hypertensive heart disease with heart failure; I25.10 Atherosclerotic heart disease of native coronary artery without angina pectoris; I42.9 Cardiomyopathy, unspecified; G47.33 Obstructive sleep apnea (adult) (pediatric); I47.1 Supraventricular tachycardia; Z20.822 Contact with and (suspected) exposure to COVID-19; Z90.49 Acquired absence of other specified parts of digestive tract; Z90.710 Acquired absence of both cervix and uterus; Z90.12 Acquired absence of left breast and nipple; Z88.5 Allergy status to narcotic agent; Z88.8 Allergy status to other drugs, medicaments and biological substances; Z79.01 Long term (current) use of anticoagulants; Z79.82 Long term (current) use of aspirin; Z79.899 Other long term (current) drug therapy
CPT/HCPCS: 36415; 71045; 80048; 80053; 80076; 82553; 83735; 83880; 84484; 85025; 87635; 92960; 93005; 93010; 96365; 96366; 96376; J0360; J0696; J2704; J3490; U0003; U0005

== ENCOUNTER 2020-04-23 05:54 | Observation (INO) | payer MEDICARE, OTHER ==
[2020-04-23] MEDS ORDERED: CEFAZOLIN 1 GM VIAL ONE (06:57)
[2020-04-23] MEDS ORDERED: Gentamicin 80 MG/2 ML VIAL ONE (06:57)
[2020-04-23 07:24] LABS: #Eosinphils 0.1 thou/uL (0.0-0.7); #Lymphocytes 1.1 thou/uL (1.20-3.40); #Monocytes 0.5 thou/uL (0.11-0.59); %Basophils 0.4 % (0.0-1.0); %Eosinophils 0.7 % (0.0-10.0); %Lymphocytes 14.7 % (21.0-51.0); %Monocytes 6.6 % (0.0-10.0); %Neutrophils 77.7 % (42.0-75.0); Hemoglobin 11.8 g/dL (12.0-16.0); Mean Corpuscular HGB CONC 32.9 g/dL (32.0-36.0); Mean Corpuscular Hemoglobin 29.7 pg (27.0-31.0); Mean Corpuscular Volume 90.1 fL (78.0-98.0); Mean Platelet Volume 6.7 fL (7.4-10.4); Platelet Count 252 thou/uL (130-400); RBC Distribution Width 13.8 % (11.5-14.5); Red Blood Cell (RBC) Count 3.96 mill/uL (4.20-5.40); White Blood Cell (WBC) Count 7.7 thou/uL (4.8-10.8)
[2020-04-23 07:32] LABS: INR-International Normal Ratio 1.2; PTT 31.9 sec (22.9-36.1); Prothrombin Time 15.2 sec (12.0-14.7)
[2020-04-23] MEDS ORDERED: Meperidine HCl/PF 25 MG/ML VIAL ONE (07:36)
[2020-04-23] MEDS ORDERED: Propofol 500 MG/50 ML VIAL ONE ×2 (07:36→10:03)
[2020-04-23 07:42] LABS: Anion Gap 15 mmol/L (10-20); BUN (Urea Nitrogen) 21 mg/dL (9.8-20.1); Calc. Creatinine Clearance 36 mL/min (70-130); Calcium 8.9 mg/dL (7.8-10.44); Carbon Dioxide 24 mmol/L (23-31); Chloride 104 mmol/L (98-107); Glucose 103 mg/dL (83-110); Potassium 4.2 mmol/L (3.5-5.1); Sodium 139 mmol/L (136-145)
[2020-04-23] MEDS ORDERED: Heparin 10,000 UNITS/ 10 ML VIAL ONE (08:28)
[2020-04-23] MEDS ORDERED: Iopamidol 370 76% 50 ML VIAL FS ONE (09:57)
[2020-04-23] MEDS ORDERED: DOPamine 400 MG/D5W 250 ML 250 ML ONE (10:54)
--- NOTE | 2020-04-23 11:40 | OP ---
DATE OF PROCEDURE: 04/23/2020 PROCEDURES PERFORMED: EP study, 3D mapping, and AV yumiko ablation. REASON FOR PROCEDURE: Ms. Tesfaye is an 85-year-old woman who had persistent atrial arrhythmias, underwent a pulmonary venous isolation procedure in the past, but had recurrence of atrial arrhythmias. Subsequently, she also had pericardial effusion, requiring drainage and pericardial window placement. She was eventually placed on Multaq and amiodarone, but she had recurrent atrial arrhythmias on both despite cardioversion. Now, she is here for a left bundle pacing Bi-V pacemaker implant as well as AV yumiko ablation. DESCRIPTION OF PROCEDURE: The patient received deep sedation by Anesthesia specialist. Adequate level of sedation achieved, the right femoral venous area was prepped, draped, and anesthetized using subcutaneous lidocaine, and under ultrasound guidance, the right femoral vein was cannulated. An 8-Malaysian short sheath was introduced. Through which, a [employer] SFST catheter was advanced to the right atrium, where 3D map of the right atrium, the His bundle, right bundle area was obtained. The catheter itself was used to fluoroscopically guide the LV lead placement. Also, the 3D map was used for the same purpose for the left bundle pacing lead placement. At this point, we proceeded with the left bundle pacing Bi-V pacemaker implant. Please see separate report. Following that was completed, returned to the ablation. At this point, radiofrequency ablation lesions, total #3, total duration 1 minute and 49 seconds were delivered at the fast pathway and the slow pathway area. Complete AV block was achieved, extremely slow junctional escape was seen only. The dopamine was administered to assess patency of the AV block, even on pharmacologic stimulation, which persisted. Pacemaker function was checked pre and post ablation and found to be adequate. At the end of the case, cardiac silhouette did not change. The femoral venous catheter insertion site was closed with Vascade closure device. The patient tolerated the procedure well. No complications noted. CONCLUSION: 1. Successful AV yumiko ablation. 2. Successful guidance of the left bundle pacing LV lead during the pacemaker implant with the help of 3D mapping system. Job ID: [id number]
--- NOTE | 2020-04-23 11:45 | RAD ---
XR Chest 1 View Portable History: Pacemaker placement Comparison: Radiograph April 11, 2020 Findings: 3-lead pacer electrode tips project over the right atrial appendage, right ventricle, and c oronary sinus. Pulmonary arteries are dilated. Background lung hyperinflation. No pneumothorax. Impression: Uncomplicated 3-lead pacer placement.
[2020-04-23] MEDS ORDERED: Fentanyl 100 MCG/2 ML VIAL ONE (11:47)
[2020-04-23] MEDS ORDERED: hydrALAZINE 20 MG/ML VIAL ONE (13:33)
[2020-04-23] MEDS ORDERED: hydrALAZINE 25 MG TAB ONE (13:33)
[2020-04-23] MEDS ORDERED: Midodrine HCl 5 MG TAB PO PRN (15:45)
[2020-04-23] MEDS ORDERED: Morphine 2 MG/ML VIAL ONE (15:50)
[2020-04-23] MEDS ORDERED: Morphine 2 MG/ML VIAL SLOW IVP PRN (16:04)
[2020-04-23] MEDS ORDERED: Ondansetron PF 4 MG/2 ML Vial ONE (17:51)
[2020-04-23] MEDS ORDERED: Ezetimibe 10 MG TAB PO SCH (21:00)
[2020-04-23] MEDS: Cephalexin 250 MG CAP PO SCH (21:14)
[2020-04-23 21:30] VITALS: BMI 23.7
[2020-04-24] MEDS ORDERED: Morphine 2 MG/ML VIAL ONE (00:06)
[2020-04-24] MEDS ORDERED: Apixaban 5 MG TAB PO SCH (09:00)
[2020-04-24] MEDS ORDERED: Aspirin 81 mg Enteric Coated Tablet PO SCH (09:00)
[2020-04-24] MEDS ORDERED: Ubidecarenone 50 MG CAP PO SCH (09:00)
[2020-04-24] MEDS ORDERED: Multivit, Therapeutic 1 TAB PO SCH (09:00)
[2020-04-24] MEDS: Cephalexin 250 MG CAP PO SCH (09:01)
--- NOTE | 2020-04-24 09:54 | DIS ---
DATE OF ADMISSION: 04/23/2020 DATE OF DISCHARGE: 04/24/2020 I am discharging Ms. Tesfaye from our [facility]. ADMITTING DIAGNOSES: 1. Recurrent atrial arrhythmias with rapid rates: a. Failed cardioversion, on amiodarone. b. Prior history of pulmonary venous isolation procedure in the past. 2. Orthostatic hypotension. 3. History of systolic/diastolic heart failure. DISCHARGE DIAGNOSIS: Status post left bundle pacing Bi-V pacemaker implantation and AV yumiko ablation on 04/23/2020 with a [employer] device. ALLERGIES: CODEINE, DEXTROMETHORPHAN AND GUAIFENESIN. DISCHARGE MEDICATIONS: Include; 1. Keflex 500 mg three times a day. 2. Pantoprazole. 3. Sertraline. 4. Ubidecarenone. 5. Ezetimibe. 6. Aspirin unchanged. 7. She will restart apixaban this afternoon at the prior dose. SUBJECTIVE: Ms. Tesfaye seems to be doing fair. She still has complaints on the right shoulder, which she bruised after a fall. She has no dizziness or loss of consciousness. No stroke-like symptoms. No neurological deficits. No fever, chills, or cough. REVIEW OF SYSTEMS: Rest of 12-point system review of system otherwise unremarkable. OBJECTIVE DATA: VITAL SIGNS: Blood pressure 163/85, heart rate 93, oxygen saturation 97%, temperature 96.6 degrees. GENERAL: Alert and oriented woman, in no apparent distress. NECK: Supple. Jugular veins not distended. CHEST: Coarse. No crackles. Right prepectoral pacemaker insertion site is without significant swelling. ABDOMEN: Benign. Bowel sounds positive. EXTREMITIES: Lower extremities without edema, clubbing, or cyanosis. DATABASE: The telemetry strips and EKG revealed sinus rhythm, ventricular paced. The chest x-ray reveals no pneumothorax. There is also no abnormality in the right shoulder noted. ASSESSMENT AND PLAN: Ms. Tesfaye is a pleasant 85-year-old woman, who has a history of recurrent atrial arrhythmias. She underwent an elective left bundle pacing Bi-V pacemaker implantation and AV yumiko ablation yesterday. She tolerated the procedure well. She was kept overnight, hence discomforts and concern of not being able to monitored overnight in her rehab facility. Today, I find her overall status is stable and is reasonable for discharge. I advised her to follow up with primary care physician regarding her right shoulder and see Dr. Nazario back regarding her orthostatic hypotension. I did initiate midodrine 2.5 mg twice a day, but continuous monitoring of her blood pressures will be necessary, by taking this drug may worsen supine hypertension. Anticoagulation should be resumed. On the other hand, she may be at high risk in the future for anticoagulation fall risk. Watchman procedure could be considered in the future. We will see her back in the office for 2 week followup. Thank you for letting me to participate in the care of this patient. Job ID: [id number] [facility]Leon
[2020-04-24 11:54] VITALS: BP 141/70; TEMP 97.2
== END 2020-04-24 11:54 ==
LOC: SDC 05:54 → PACU-TCU 15:17
PROVIDERS: ADMIT Internal Medicine Cardiovascular Disease; ATTEND Internal Medicine Cardiovascular Disease
PROC: 0JH606Z Insertion of Pacemaker, Dual Chamber into Chest Subcutaneous Tissue and Fascia, Open Approach (ICD-10-PCS; principal; 2020-04-23)
PROC: 02HL3JZ Insertion of Pacemaker Lead into Left Ventricle, Percutaneous Approach (ICD-10-PCS; 2020-04-23)
PROC: 02H63JZ Insertion of Pacemaker Lead into Right Atrium, Percutaneous Approach (ICD-10-PCS; 2020-04-23)
PROC: 02HK3JZ Insertion of Pacemaker Lead into Right Ventricle, Percutaneous Approach (ICD-10-PCS; 2020-04-23)
PROC: 02583ZZ Destruction of Conduction Mechanism, Percutaneous Approach (ICD-10-PCS; 2020-04-23)
PROC: 02K83ZZ Map Conduction Mechanism, Percutaneous Approach (ICD-10-PCS; 2020-04-23)
PROC: 4A023FZ Measurement of Cardiac Rhythm, Percutaneous Approach (ICD-10-PCS; 2020-04-23)
PROC: 4A0234Z Measurement of Cardiac Electrical Activity, Percutaneous Approach (ICD-10-PCS; 2020-04-23)
DX: I49.5 Sick sinus syndrome (principal); R00.1 Bradycardia, unspecified; I48.0 Paroxysmal atrial fibrillation; I11.0 Hypertensive heart disease with heart failure; I50.42 Chronic combined systolic (congestive) and diastolic (congestive) heart failure; I25.5 Ischemic cardiomyopathy; I95.1 Orthostatic hypotension; Z79.01 Long term (current) use of anticoagulants; Z79.82 Long term (current) use of aspirin; Z79.899 Other long term (current) drug therapy; Z88.5 Allergy status to narcotic agent; Z88.8 Allergy status to other drugs, medicaments and biological substances
CPT/HCPCS: 33208; 33225; 71045; 76942; 80048; 85025; 85610; 85730; 93005 ×2; 93306; 93613; 93623; 93650; C1732; C1882; C1898 ×3; J2270 ×2; 93010; 96374; G0378; J0360; J0690; J1265; J1580; J1644; J2175; J2405; J2704; J3010; Q9967

== ENCOUNTER 2020-06-25 10:25 | Inpatient (IN) | payer MEDICARE, OTHER ==
[2020-06-25 11:02] LABS: #Lymphocytes 0.7 thou/uL (1.20-3.40); #Monocytes 0.4 thou/uL (0.11-0.59); #Neutrophils 5.3 thou/uL (1.40-6.50); %Basophils 0.2 % (0.0-1.0); %Eosinophils 0.5 % (0.0-10.0); %Lymphocytes 10.8 % (21.0-51.0); %Monocytes 5.9 % (0.0-10.0); %Neutrophils 82.6 % (42.0-75.0); Hemoglobin 10.6 g/dL (12.0-16.0); Mean Corpuscular HGB CONC 30.4 g/dL (32.0-36.0); Mean Corpuscular Volume 88.6 fL (78.0-98.0); Platelet Count 250 thou/uL (130-400); RBC Distribution Width 15.2 % (11.5-14.5); Red Blood Cell (RBC) Count 3.93 mill/uL (4.20-5.40); White Blood Cell (WBC) Count 6.4 thou/uL (4.8-10.8)
[2020-06-25 11:16] LABS: ALT (SGPT) 29 U/L (8-55); AST (SGOT) 30 U/L (5-34); Albumin 3.6 g/dL (3.4-4.8); Alkaline Phosphatase 119 U/L (40-110); Anion Gap 15 mmol/L (10-20); BUN (Urea Nitrogen) 16 mg/dL (9.8-20.1); Bilirubin, Total 0.9 mg/dL (0.2-1.2); Calc. Creatinine Clearance 0 mL/min (70-130); Calcium 8.8 mg/dL (7.8-10.44); Carbon Dioxide 24 mmol/L (23-31); Chloride 105 mmol/L (98-107); Globulin 3.1 g/dL (2.4-3.5); Glucose 116 mg/dL (83-110); Potassium 4.2 mmol/L (3.5-5.1); Protein, Total 6.7 g/dL (5.8-8.1); Sodium 140 mmol/L (136-145)
[2020-06-25 11:20] LABS: CKMB 2.4 ng/mL (0-6.6)
[2020-06-25] MEDS ORDERED: Aspirin Chewable 81 MG TAB ONE (11:28)
[2020-06-25] MEDS ORDERED: Furosemide 40 MG/4 ML VIAL ONE (11:28)
[2020-06-25 15:57] LABS: SARS-CoV-2 NAA Rapid Test Not Detected (NotDetected)
[2020-06-25 16:59] VITALS: BMI 24.7
[2020-06-25 18:45] LABS: Troponin I 0.036 ng/mL (< 0.028)
[2020-06-25] MEDS ORDERED: Nitroglycerin 0.4 MG TAB (25 Tab Bottle) SL PRN (20:13)
[2020-06-25] MEDS: Apixaban 5 MG TAB PO SCH (21:19)
[2020-06-25] MEDS: Ezetimibe 10 MG TAB PO SCH (21:19)
[2020-06-25] MEDS: Furosemide 40 MG/4 ML VIAL SLOW IVP SCH (21:19)
[2020-06-26 05:23] LABS: #Lymphocytes 1.2 thou/uL (1.20-3.40); #Monocytes 0.6 thou/uL (0.11-0.59); #Neutrophils 5.1 thou/uL (1.40-6.50); %Basophils 0.2 % (0.0-1.0); %Eosinophils 0.5 % (0.0-10.0); %Lymphocytes 17.5 % (21.0-51.0); %Monocytes 8.4 % (0.0-10.0); %Neutrophils 73.3 % (42.0-75.0); Hemoglobin 11.1 g/dL (12.0-16.0); Mean Corpuscular HGB CONC 31.6 g/dL (32.0-36.0); Mean Corpuscular Hemoglobin 27.9 pg (27.0-31.0); Mean Corpuscular Volume 88.4 fL (78.0-98.0); Mean Platelet Volume 6.4 fL (7.4-10.4); Platelet Count 247 thou/uL (130-400); RBC Distribution Width 15.3 % (11.5-14.5); Red Blood Cell (RBC) Count 3.96 mill/uL (4.20-5.40); White Blood Cell (WBC) Count 6.9 thou/uL (4.8-10.8)
[2020-06-26 05:28] LABS: Anion Gap 16 mmol/L (10-20); BUN (Urea Nitrogen) 18 mg/dL (9.8-20.1); Calc. Creatinine Clearance 45 mL/min (70-130); Calcium 8.4 mg/dL (7.8-10.44); Carbon Dioxide 24 mmol/L (23-31); Chloride 105 mmol/L (98-107); Glucose 96 mg/dL (83-110); Potassium 3.8 mmol/L (3.5-5.1); Sodium 141 mmol/L (136-145)
[2020-06-26] MEDS: Apixaban 5 MG TAB PO SCH ×2 (08:24→20:44)
[2020-06-26] MEDS: Multivit, Therapeutic 1 TAB PO SCH (08:24)
[2020-06-26] MEDS: Aspirin 81 mg Enteric Coated Tablet PO SCH (08:24)
[2020-06-26] MEDS: Ubidecarenone 50 MG CAP PO SCH (08:25)
[2020-06-26] MEDS: Furosemide 40 MG/4 ML VIAL SLOW IVP SCH (08:25)
[2020-06-26 18:56] LABS: Hemoglobin 12.4 g/dL (12.0-16.0); Platelet Count 283 thou/uL (130-400)
[2020-06-26] MEDS: Ezetimibe 10 MG TAB PO SCH (20:44)
[2020-06-27] MEDS: Aspirin 81 mg Enteric Coated Tablet PO SCH (07:59)
[2020-06-27] MEDS: Ubidecarenone 50 MG CAP PO SCH (08:00)
[2020-06-27] MEDS: Apixaban 5 MG TAB PO SCH ×2 (08:00→21:18)
[2020-06-27] MEDS: Multivit, Therapeutic 1 TAB PO SCH (08:00)
[2020-06-27] MEDS ORDERED: Calcium Carbonate 500 MG ChewTAB PO PRN (10:19)
[2020-06-27] MEDS: Ezetimibe 10 MG TAB PO SCH (21:18)
[2020-06-28] MEDS: Ubidecarenone 50 MG CAP PO SCH (07:32)
[2020-06-28] MEDS: Aspirin 81 mg Enteric Coated Tablet PO SCH (07:32)
[2020-06-28] MEDS: Multivit, Therapeutic 1 TAB PO SCH (07:34)
[2020-06-28] MEDS: Apixaban 5 MG TAB PO SCH (07:34)
[2020-06-28] MEDS ORDERED: Lisinopril 5 MG TAB PO SCH (09:00)
[2020-06-28 12:06] VITALS: TEMP 98.1
[2020-06-28 15:31] VITALS: BP 140/66
== END 2020-06-28 14:52 | disposition home or self-care (01) | DRG 281 ==
LOC: ERS 10:25 → ERHOLD 12:56 → 2SW 15:44 → OBSVTOIN 06-26 16:10
PROVIDERS: ADMIT Internal Medicine; ATTEND Family Medicine
DX: I11.0 Hypertensive heart disease with heart failure (principal); I21.A1 Myocardial infarction type 2; Z20.822 Contact with and (suspected) exposure to COVID-19; I48.19 Other persistent atrial fibrillation; I48.92 Unspecified atrial flutter; I49.5 Sick sinus syndrome; I50.23 Acute on chronic systolic (congestive) heart failure; I27.20 Pulmonary hypertension, unspecified; E78.5 Hyperlipidemia, unspecified; I34.0 Nonrheumatic mitral (valve) insufficiency; I42.8 Other cardiomyopathies; I95.1 Orthostatic hypotension; F41.9 Anxiety disorder, unspecified; F32.9 Major depressive disorder, single episode, unspecified; G47.30 Sleep apnea, unspecified; M19.90 Unspecified osteoarthritis, unspecified site; I25.10 Atherosclerotic heart disease of native coronary artery without angina pectoris; E78.00 Pure hypercholesterolemia, unspecified; Z96.653 Presence of artificial knee joint, bilateral; Z95.810 Presence of automatic (implantable) cardiac defibrillator; Z88.5 Allergy status to narcotic agent; Z88.8 Allergy status to other drugs, medicaments and biological substances; Z79.01 Long term (current) use of anticoagulants; Z79.82 Long term (current) use of aspirin; Z79.899 Other long term (current) drug therapy; Z85.3 Personal history of malignant neoplasm of breast; Z90.12 Acquired absence of left breast and nipple; Z90.49 Acquired absence of other specified parts of digestive tract; Z90.710 Acquired absence of both cervix and uterus
CPT/HCPCS: 0240U; 36415; 71045; 80048; 82553; 83880; 84484; 85025; 93005; 96374; 96376; G0378; J1940

== ENCOUNTER 2020-12-01 19:22 | Inpatient (IN) | payer MEDICARE, OTHER ==
[2020-12-01 20:47] LABS: #Eosinphils 0.1 thou/uL (0.0-0.7); #Lymphocytes 1.2 thou/uL (1.20-3.40); #Monocytes 0.8 thou/uL (0.11-0.59); #Neutrophils 6.9 thou/uL (1.40-6.50); %Basophils 0.3 % (0.0-1.0); %Eosinophils 0.9 % (0.0-10.0); %Lymphocytes 13.3 % (21.0-51.0); %Monocytes 8.5 % (0.0-10.0); Mean Corpuscular HGB CONC 32.7 g/dL (32.0-36.0); Mean Corpuscular Hemoglobin 28.2 pg (27.0-31.0); Mean Corpuscular Volume 86.2 fL (78.0-98.0); Mean Platelet Volume 7.1 fL (7.4-10.4); Platelet Count 209 thou/uL (130-400); RBC Distribution Width 20.5 % (11.5-14.5); Red Blood Cell (RBC) Count 4.63 mill/uL (4.20-5.40); White Blood Cell (WBC) Count 8.9 thou/uL (4.8-10.8)
[2020-12-01 21:05] LABS: ALT (SGPT) 12 U/L (8-55); AST (SGOT) 16 U/L (5-34); Albumin 3.3 g/dL (3.4-4.8); Alkaline Phosphatase 92 U/L (40-110); Anion Gap 13 mmol/L (10-20); BUN (Urea Nitrogen) 10 mg/dL (9.8-20.1); Bilirubin, Total 0.7 mg/dL (0.2-1.2); CK (CPK) 26 U/L (29-168); Calc. Creatinine Clearance 0 mL/min (70-130); Calcium 8.8 mg/dL (7.8-10.44); Carbon Dioxide 26 mmol/L (23-31); Chloride 103 mmol/L (98-107); Globulin 2.5 g/dL (2.4-3.5); Glucose 100 mg/dL (83-110); Lipase 4 U/L (8-78); Potassium 3.6 mmol/L (3.5-5.1); Protein, Total 5.8 g/dL (5.8-8.1); Sodium 138 mmol/L (136-145)
[2020-12-01] MEDS ORDERED: Ondansetron PF 4 MG/2 ML Vial ONE (21:07)
[2020-12-01 21:27] LABS: CKMB 1.7 ng/mL (0-6.6)
[2020-12-01] MEDS ORDERED: Aspirin Chewable 81 MG TAB ONE (21:34)
[2020-12-01] MEDS ORDERED: Furosemide 40 MG/4 ML VIAL ONE (21:34)
[2020-12-01 23:20] LABS: SARS-CoV-2 NAA Rapid Test Not Detected (NotDetected)
[2020-12-02 01:17] VITALS: BMI 23.5
[2020-12-02] MEDS ORDERED: Acetaminophen 325 MG TAB PO PRN (01:30)
[2020-12-02] MEDS ORDERED: Ondansetron PF 4 MG/2 ML Vial IVP PRN (01:30)
[2020-12-02] MEDS ORDERED: Ondansetron ODT 4 MG TAB SL PRN (01:30)
[2020-12-02 02:27] LABS: Troponin I 0.058 ng/mL (< 0.028)
[2020-12-02] MEDS ORDERED: hydrALAZINE 20 MG/ML VIAL SLOW IVP PRN (04:59)
[2020-12-02] MEDS: Furosemide 20 MG/2 ML VIAL SLOW IVP SCH ×3 (05:35→21:17)
[2020-12-02 06:08] LABS: #Eosinphils 0.1 thou/uL (0.0-0.7); #Lymphocytes 1.2 thou/uL (1.20-3.40); #Monocytes 0.8 thou/uL (0.11-0.59); #Neutrophils 5.1 thou/uL (1.40-6.50); %Basophils 0.2 % (0.0-1.0); %Lymphocytes 16.5 % (21.0-51.0); %Monocytes 10.7 % (0.0-10.0); %Neutrophils 71.5 % (42.0-75.0); Hemoglobin 13.6 g/dL (12.0-16.0); Mean Corpuscular HGB CONC 31.1 g/dL (32.0-36.0); Mean Corpuscular Hemoglobin 26.8 pg (27.0-31.0); Mean Corpuscular Volume 86.2 fL (78.0-98.0); Mean Platelet Volume 7.1 fL (7.4-10.4); Platelet Count 216 thou/uL (130-400); RBC Distribution Width 20.6 % (11.5-14.5); Red Blood Cell (RBC) Count 5.07 mill/uL (4.20-5.40); White Blood Cell (WBC) Count 7.1 thou/uL (4.8-10.8)
[2020-12-02 06:14] LABS: Bacteria/HPF 2+ HPF (None Seen); Bilirubin Negative (Negative); Blood, Urine Negative (Negative); Clarity Clear (Clear); Glucose, Urine (Dipstick) Normal (Negative); Ketone, Urine Negative (Negative); Leukocyte 250 Leu/uL (Negative); Nitrite Negative (Negative); Protein, Urine (Dipstick) Negative (Neg-Trace); RBC/HPF 0-3 HPF (0-3); Specific Gravity, Urine 1.009 (1.002-1.036); Squamous Epithelial None Seen HPF (0-3); Urobilinogen Normal mg/dL (Less than 2)
[2020-12-02 06:15] LABS: Urine Culture Reflex Yes Yes
[2020-12-02 08:18] LABS: Anion Gap 14 mmol/L (10-20); BUN (Urea Nitrogen) 11 mg/dL (9.8-20.1); Calc. Creatinine Clearance 52 mL/min (70-130); Calcium 8.9 mg/dL (7.8-10.44); Carbon Dioxide 28 mmol/L (23-31); Chloride 100 mmol/L (98-107); Glucose 74 mg/dL (83-110); Potassium 3.5 mmol/L (3.5-5.1); Sodium 138 mmol/L (136-145)
[2020-12-02] MEDS ORDERED: Potassium Chloride 20 MEQ TAB PO SCH (13:00)
[2020-12-02] MEDS ORDERED: Spironolactone 25 MG TAB PO SCH (13:00)
[2020-12-02] MEDS ORDERED: Polyethylene Glycol 3350 17 GM Packet PO PRN (18:27)
[2020-12-02] MEDS ORDERED: Senokot S 8.6-50 MG TAB PO PRN (18:27)
[2020-12-02] MEDS ORDERED: Meclizine HCl 12.5 MG TAB PO PRN (18:27)
[2020-12-02] MEDS ORDERED: Nitroglycerin 0.4 MG TAB (25 Tab Bottle) SL PRN (18:27)
[2020-12-02] MEDS ORDERED: traMADol HCl 50 MG TAB PO PRN (18:27)
[2020-12-02] MEDS: cefTRIAXone\\ROCEPHIN 1 GM in Sodium Chloride 0.9% 100 ML IVPB SCH (19:32)
[2020-12-02] MEDS: Transdermal Patch Removal TOP SCH (20:09)
[2020-12-02] MEDS: Lisinopril 10 MG TAB PO SCH (20:10)
[2020-12-02] MEDS: Ezetimibe 10 MG TAB PO SCH (20:10)
[2020-12-03 05:55] LABS: #Eosinphils 0.1 thou/uL (0.0-0.7); #Lymphocytes 1.4 thou/uL (1.20-3.40); #Neutrophils 6.5 thou/uL (1.40-6.50); %Basophils 0.3 % (0.0-1.0); %Eosinophils 0.8 % (0.0-10.0); %Lymphocytes 15.7 % (21.0-51.0); %Monocytes 10.6 % (0.0-10.0); %Neutrophils 72.6 % (42.0-75.0); Hemoglobin 14.4 g/dL (12.0-16.0); Mean Corpuscular HGB CONC 34.1 g/dL (32.0-36.0); Mean Corpuscular Hemoglobin 29.4 pg (27.0-31.0); Mean Corpuscular Volume 86.2 fL (78.0-98.0); Mean Platelet Volume 6.9 fL (7.4-10.4); Platelet Count 224 thou/uL (130-400); RBC Distribution Width 20.3 % (11.5-14.5); Red Blood Cell (RBC) Count 4.89 mill/uL (4.20-5.40)
[2020-12-03 06:06] LABS: Anion Gap 14 mmol/L (10-20); BUN (Urea Nitrogen) 19 mg/dL (9.8-20.1); Calc. Creatinine Clearance 48 mL/min (70-130); Calcium 9.1 mg/dL (7.8-10.44); Carbon Dioxide 28 mmol/L (23-31); Chloride 99 mmol/L (98-107); Glucose 87 mg/dL (83-110); Potassium 3.7 mmol/L (3.5-5.1); Sodium 137 mmol/L (136-145)
[2020-12-03] MEDS: Furosemide 20 MG/2 ML VIAL SLOW IVP SCH ×2 (06:49→15:44)
[2020-12-03] MEDS: Digoxin 0.125 MG TAB PO SCH (10:46)
[2020-12-03] MEDS: Lisinopril 10 MG TAB PO SCH ×2 (10:47→21:08)
[2020-12-03] MEDS: Ferrous Sulfate 325 MG TAB PO SCH (10:47)
[2020-12-03] MEDS: Spironolactone 25 MG TAB PO SCH (10:48)
[2020-12-03] MEDS: Multivitamin W/ Minerals 1 TAB PO SCH (12:06)
[2020-12-03] MEDS: Lidocaine 5% Patch TD SCH (12:06)
[2020-12-03] MEDS: Ondansetron PF 4 MG/2 ML Vial IVP PRN (14:23)
[2020-12-03] MEDS: Scopolamine 1.5 mg/72 hour Patch TD SCH (16:57)
[2020-12-03] MEDS: cefTRIAXone\\ROCEPHIN 1 GM in Sodium Chloride 0.9% 100 ML IVPB SCH (18:21)
[2020-12-03] MEDS ORDERED: Lidocaine Patch Removal TOP SCH (21:00)
[2020-12-03] MEDS: Ezetimibe 10 MG TAB PO SCH (21:08)
[2020-12-03] MEDS: Transdermal Patch Removal TOP SCH (21:09)
[2020-12-04] MEDS: Furosemide 20 MG/2 ML VIAL SLOW IVP SCH ×2 (05:22→15:01)
[2020-12-04 06:20] LABS: #Eosinphils 0.2 thou/uL (0.0-0.7); #Monocytes 0.8 thou/uL (0.11-0.59); #Neutrophils 7.4 thou/uL (1.40-6.50); %Basophils 0.2 % (0.0-1.0); %Eosinophils 1.9 % (0.0-10.0); %Lymphocytes 10.9 % (21.0-51.0); %Monocytes 8.6 % (0.0-10.0); %Neutrophils 78.4 % (42.0-75.0); Hemoglobin 14.4 g/dL (12.0-16.0); Mean Corpuscular HGB CONC 31.1 g/dL (32.0-36.0); Mean Corpuscular Volume 86.8 fL (78.0-98.0); Platelet Count 222 thou/uL (130-400); RBC Distribution Width 20.3 % (11.5-14.5); Red Blood Cell (RBC) Count 5.33 mill/uL (4.20-5.40); White Blood Cell (WBC) Count 9.5 thou/uL (4.8-10.8)
[2020-12-04 06:42] LABS: BUN (Urea Nitrogen) 18 mg/dL (9.8-20.1); Calc. Creatinine Clearance 52 mL/min (70-130); Calcium 9.1 mg/dL (7.8-10.44); Carbon Dioxide 28 mmol/L (23-31); Chloride 97 mmol/L (98-107); Glucose 116 mg/dL (83-110); Potassium 3.7 mmol/L (3.5-5.1); Sodium 137 mmol/L (136-145)
[2020-12-04 06:43] LABS: Anion Gap 16 mmol/L (10-20)
[2020-12-04] MEDS: Digoxin 0.125 MG TAB PO SCH (08:29)
[2020-12-04] MEDS: Multivitamin W/ Minerals 1 TAB PO SCH (08:32)
[2020-12-04] MEDS: Lidocaine 5% Patch TD SCH (08:33)
[2020-12-04] MEDS: Spironolactone 25 MG TAB PO SCH (08:33)
[2020-12-04] MEDS: Ferrous Sulfate 325 MG TAB PO SCH (08:33)
[2020-12-04] MEDS: Lisinopril 10 MG TAB PO SCH ×2 (08:33→22:31)
[2020-12-04] MEDS: Ondansetron PF 4 MG/2 ML Vial IVP PRN ×2 (08:45→15:01)
[2020-12-04] MEDS ORDERED: Mag-Al 1200 mg/1200 mg/30 ML UDCUP PO PRN (11:48)
[2020-12-04] MEDS ORDERED: cloNIDine 0.1 MG TAB PO PRN (14:57)
[2020-12-04] MEDS ORDERED: Metoprolol Tartrate 5 MG/5 ML VIAL IVP SCH ×2 (15:15→18:30)
[2020-12-04] MEDS ORDERED: Metoprolol Tartrate 5 MG/5 ML VIAL IVP PRN (18:24)
[2020-12-04] MEDS: cefTRIAXone\\ROCEPHIN 1 GM in Sodium Chloride 0.9% 100 ML IVPB SCH (18:44)
[2020-12-04] MEDS: Ezetimibe 10 MG TAB PO SCH (22:31)
[2020-12-05] MEDS: Transdermal Patch Removal TOP SCH ×2 (05:12→20:55)
[2020-12-05] MEDS: Furosemide 20 MG/2 ML VIAL SLOW IVP SCH (05:41)
[2020-12-05 07:14] LABS: #Lymphocytes 1.3 thou/uL (1.20-3.40); #Monocytes 0.9 thou/uL (0.11-0.59); #Neutrophils 7.7 thou/uL (1.40-6.50); %Basophils 0.3 % (0.0-1.0); %Eosinophils 0.3 % (0.0-10.0); %Lymphocytes 12.6 % (21.0-51.0); %Monocytes 8.7 % (0.0-10.0); %Neutrophils 78.2 % (42.0-75.0); Hemoglobin 14.7 g/dL (12.0-16.0); Mean Corpuscular Hemoglobin 27.1 pg (27.0-31.0); Mean Corpuscular Volume 87.3 fL (78.0-98.0); Platelet Count 239 thou/uL (130-400); Red Blood Cell (RBC) Count 5.43 mill/uL (4.20-5.40); White Blood Cell (WBC) Count 9.9 thou/uL (4.8-10.8)
[2020-12-05 07:17] LABS: Anion Gap 13 mmol/L (10-20); BUN (Urea Nitrogen) 21 mg/dL (9.8-20.1); Calc. Creatinine Clearance 50 mL/min (70-130); Calcium 9.2 mg/dL (7.8-10.44); Carbon Dioxide 29 mmol/L (23-31); Chloride 98 mmol/L (98-107); Glucose 91 mg/dL (83-110); Potassium 3.3 mmol/L (3.5-5.1); Sodium 137 mmol/L (136-145)
[2020-12-05] MEDS: Multivitamin W/ Minerals 1 TAB PO SCH (09:21)
[2020-12-05] MEDS: Lidocaine 5% Patch TD SCH (09:21)
[2020-12-05] MEDS: Spironolactone 25 MG TAB PO SCH (09:22)
[2020-12-05] MEDS: Ferrous Sulfate 325 MG TAB PO SCH (09:22)
[2020-12-05] MEDS: Lisinopril 10 MG TAB PO SCH ×2 (09:22→20:56)
[2020-12-05] MEDS ORDERED: Potassium Bicarbonate/Cit Ac 20 MEQ TAB PO SCH (17:00)
[2020-12-05] MEDS ORDERED: Potassium Chloride 20 MEQ TAB PO SCH (17:00)
[2020-12-05] MEDS: cefTRIAXone\\ROCEPHIN 1 GM in Sodium Chloride 0.9% 100 ML IVPB SCH (17:39)
[2020-12-05] MEDS: Ezetimibe 10 MG TAB PO SCH (20:56)
[2020-12-06 06:15] LABS: Anion Gap 13 mmol/L (10-20); BUN (Urea Nitrogen) 29 mg/dL (9.8-20.1); Calc. Creatinine Clearance 44 mL/min (70-130); Calcium 9.5 mg/dL (7.8-10.44); Carbon Dioxide 31 mmol/L (23-31); Chloride 96 mmol/L (98-107); Glucose 87 mg/dL (83-110); Potassium 3.7 mmol/L (3.5-5.1); Sodium 136 mmol/L (136-145)
[2020-12-06] MEDS: Lidocaine 5% Patch TD SCH (08:52)
[2020-12-06] MEDS: Spironolactone 25 MG TAB PO SCH (08:52)
[2020-12-06] MEDS: Ferrous Sulfate 325 MG TAB PO SCH (08:52)
[2020-12-06] MEDS: Multivitamin W/ Minerals 1 TAB PO SCH (08:53)
[2020-12-06] MEDS: Torsemide 20 MG TAB PO SCH (08:53)
[2020-12-06] MEDS: Lisinopril 10 MG TAB PO SCH ×2 (08:53→20:13)
[2020-12-06] MEDS ORDERED: Spironolactone 25 MG TAB PO SCH (09:45)
[2020-12-06] MEDS: Scopolamine 1.5 mg/72 hour Patch TD SCH (12:57)
[2020-12-06] MEDS: Ezetimibe 10 MG TAB PO SCH (20:14)
[2020-12-06] MEDS: Transdermal Patch Removal TOP SCH (20:14)
[2020-12-07] MEDS: Multivitamin W/ Minerals 1 TAB PO SCH (08:49)
[2020-12-07] MEDS: Ferrous Sulfate 325 MG TAB PO SCH (08:50)
[2020-12-07] MEDS: Lisinopril 10 MG TAB PO SCH ×2 (08:50→20:30)
[2020-12-07] MEDS: Lidocaine 5% Patch TD SCH (08:50)
[2020-12-07] MEDS: Torsemide 20 MG TAB PO SCH (08:51)
[2020-12-07] MEDS: Spironolactone 25 MG TAB PO SCH (08:51)
[2020-12-07] MEDS: Nystatin 500,000 UNITS/5 ML UDCUP PO SCH (20:29)
[2020-12-07] MEDS: Ezetimibe 10 MG TAB PO SCH (20:30)
[2020-12-07] MEDS: Transdermal Patch Removal TOP SCH (20:30)
[2020-12-08] MEDS: Spironolactone 25 MG TAB PO SCH (10:02)
[2020-12-08] MEDS: Nystatin 500,000 UNITS/5 ML UDCUP PO SCH ×2 (10:02→20:36)
[2020-12-08] MEDS: Ferrous Sulfate 325 MG TAB PO SCH (10:02)
[2020-12-08] MEDS: Multivitamin W/ Minerals 1 TAB PO SCH (10:03)
[2020-12-08] MEDS: Lisinopril 10 MG TAB PO SCH ×2 (10:03→20:35)
[2020-12-08] MEDS: Lidocaine 5% Patch TD SCH (10:03)
[2020-12-08] MEDS: Torsemide 20 MG TAB PO SCH (10:03)
[2020-12-08] MEDS: Ezetimibe 10 MG TAB PO SCH (20:36)
[2020-12-08] MEDS: Transdermal Patch Removal TOP SCH (20:36)
[2020-12-09] MEDS: Lisinopril 10 MG TAB PO SCH ×2 (08:47→20:03)
[2020-12-09] MEDS: Spironolactone 25 MG TAB PO SCH (08:47)
[2020-12-09] MEDS: Ferrous Sulfate 325 MG TAB PO SCH (08:48)
[2020-12-09] MEDS: Torsemide 20 MG TAB PO SCH (08:48)
[2020-12-09] MEDS: Multivitamin W/ Minerals 1 TAB PO SCH (08:48)
[2020-12-09] MEDS: Nystatin 500,000 UNITS/5 ML UDCUP PO SCH ×3 (08:48→20:15)
[2020-12-09] MEDS: Lidocaine 5% Patch TD SCH (08:49)
[2020-12-09] MEDS: Transdermal Patch Removal TOP SCH (20:00)
[2020-12-09] MEDS: Ezetimibe 10 MG TAB PO SCH (20:02)
[2020-12-10 04:50] LABS: #Eosinphils 0.1 thou/uL (0.0-0.7); #Monocytes 0.8 thou/uL (0.11-0.59); #Neutrophils 8.2 thou/uL (1.40-6.50); %Basophils 0.1 % (0.0-1.0); %Eosinophils 1.2 % (0.0-10.0); %Lymphocytes 9.8 % (21.0-51.0); %Monocytes 7.6 % (0.0-10.0); %Neutrophils 81.3 % (42.0-75.0); Hemoglobin 14.4 g/dL (12.0-16.0); Mean Corpuscular HGB CONC 32.1 g/dL (32.0-36.0); Mean Corpuscular Hemoglobin 28.4 pg (27.0-31.0); Mean Corpuscular Volume 88.4 fL (78.0-98.0); Mean Platelet Volume 7.1 fL (7.4-10.4); Platelet Count 188 thou/uL (130-400); RBC Distribution Width 19.2 % (11.5-14.5); Red Blood Cell (RBC) Count 5.06 mill/uL (4.20-5.40); White Blood Cell (WBC) Count 10.1 thou/uL (4.8-10.8)
[2020-12-10 05:14] LABS: Anion Gap 15 mmol/L (10-20); BUN (Urea Nitrogen) 31 mg/dL (9.8-20.1); Calc. Creatinine Clearance 41 mL/min (70-130); Calcium 9.2 mg/dL (7.8-10.44); Carbon Dioxide 30 mmol/L (23-31); Chloride 97 mmol/L (98-107); Glucose 114 mg/dL (83-110); Potassium 3.3 mmol/L (3.5-5.1); Sodium 139 mmol/L (136-145)
[2020-12-10] MEDS ORDERED: Potassium Chloride 20 MEQ TAB PO SCH (08:30)
[2020-12-10 08:58] LABS: SARS-CoV-2 PCR by NAA Not Detected (NotDetected)
[2020-12-10] MEDS: Spironolactone 25 MG TAB PO SCH (09:03)
[2020-12-10] MEDS: Ferrous Sulfate 325 MG TAB PO SCH (09:03)
[2020-12-10] MEDS: Multivitamin W/ Minerals 1 TAB PO SCH (09:03)
[2020-12-10] MEDS: Lisinopril 10 MG TAB PO SCH (09:03)
[2020-12-10] MEDS: Nystatin 500,000 UNITS/5 ML UDCUP PO SCH ×2 (09:04→22:05)
[2020-12-10] MEDS: Torsemide 20 MG TAB PO SCH (09:04)
[2020-12-10] MEDS: Lidocaine 5% Patch TD SCH (09:04)
[2020-12-10] MEDS: Aspirin 81 mg Enteric Coated Tablet PO SCH (09:08)
[2020-12-10] MEDS: Acetaminophen 325 MG TAB PO PRN (17:09)
[2020-12-10] MEDS: Ezetimibe 10 MG TAB PO SCH (22:05)
[2020-12-10] MEDS: Transdermal Patch Removal TOP SCH (22:09)
[2020-12-11] MEDS: Acetaminophen 325 MG TAB PO PRN ×2 (07:45→21:29)
[2020-12-11] MEDS: Spironolactone 25 MG TAB PO SCH (09:12)
[2020-12-11] MEDS: Lisinopril 10 MG TAB PO SCH (09:12)
[2020-12-11] MEDS: Multivitamin W/ Minerals 1 TAB PO SCH (09:13)
[2020-12-11] MEDS: Torsemide 20 MG TAB PO SCH (09:13)
[2020-12-11] MEDS: Nystatin 500,000 UNITS/5 ML UDCUP PO SCH ×2 (09:14→21:29)
[2020-12-11] MEDS: Ferrous Sulfate 325 MG TAB PO SCH (09:14)
[2020-12-11] MEDS: Aspirin 81 mg Enteric Coated Tablet PO SCH (09:14)
[2020-12-11] MEDS: Lidocaine 5% Patch TD SCH (09:15)
[2020-12-11 09:37] LABS: Anion Gap 16 mmol/L (10-20); BUN (Urea Nitrogen) 25 mg/dL (9.8-20.1); Calc. Creatinine Clearance 34 mL/min (70-130); Calcium 9.1 mg/dL (7.8-10.44); Carbon Dioxide 32 mmol/L (23-31); Chloride 96 mmol/L (98-107); Glucose 154 mg/dL (83-110); Potassium 3.5 mmol/L (3.5-5.1); Sodium 140 mmol/L (136-145)
[2020-12-11] MEDS: Transdermal Patch Removal TOP SCH (21:30)
[2020-12-11] MEDS: Ezetimibe 10 MG TAB PO SCH (21:30)
[2020-12-12 11:23] LABS: ALT (SGPT) 16 U/L (8-55); AST (SGOT) 17 U/L (5-34); Alkaline Phosphatase 110 U/L (40-110); Bilirubin, Direct 0.3 mg/dL (0.1-0.3); Bilirubin, Total 0.7 mg/dL (0.2-1.2); Lipase 5 U/L (8-78); Protein, Total 5.9 g/dL (5.8-8.1)
[2020-12-12] MEDS: Aspirin 81 mg Enteric Coated Tablet PO SCH (12:02)
[2020-12-12] MEDS: Lisinopril 10 MG TAB PO SCH (12:03)
[2020-12-12] MEDS: Spironolactone 25 MG TAB PO SCH (12:03)
[2020-12-12] MEDS: Ferrous Sulfate 325 MG TAB PO SCH (12:03)
[2020-12-12] MEDS: Torsemide 20 MG TAB PO SCH (12:03)
[2020-12-12] MEDS: Multivitamin W/ Minerals 1 TAB PO SCH (12:03)
[2020-12-12] MEDS: Nystatin 500,000 UNITS/5 ML UDCUP PO SCH ×2 (12:05→21:39)
[2020-12-12] MEDS: Lidocaine 5% Patch TD SCH (12:05)
[2020-12-12] MEDS: Acetaminophen 325 MG TAB PO PRN (17:35)
[2020-12-12] MEDS: Transdermal Patch Removal TOP SCH (21:35)
[2020-12-12] MEDS: Ezetimibe 10 MG TAB PO SCH (21:36)
[2020-12-13] MEDS: Lisinopril 10 MG TAB PO SCH (09:05)
[2020-12-13] MEDS: Lidocaine 5% Patch TD SCH (09:05)
[2020-12-13] MEDS: Spironolactone 25 MG TAB PO SCH (09:05)
[2020-12-13] MEDS: Multivitamin W/ Minerals 1 TAB PO SCH (09:06)
[2020-12-13] MEDS: Torsemide 20 MG TAB PO SCH (09:06)
[2020-12-13] MEDS: Ferrous Sulfate 325 MG TAB PO SCH (09:06)
[2020-12-13] MEDS: Aspirin 81 mg Enteric Coated Tablet PO SCH (09:06)
[2020-12-13] MEDS: Nystatin 500,000 UNITS/5 ML UDCUP PO SCH (09:06)
[2020-12-13 12:01] VITALS: BP 114/70; TEMP 97.9
== END 2020-12-13 13:20 | DRG 291 ==
LOC: ERS 19:22 → ERHOLD 22:11 → 3SE 12-02 00:28 → OBSVTOIN 12-02 18:55 → 2NO 12-09 19:34
PROVIDERS: ADMIT Internal Medicine; ATTEND Internal Medicine
DX: I13.0 Hypertensive heart and chronic kidney disease with heart failure and stage 1 through stage 4 chronic kidney disease, or unspecified chronic kidney disease (principal); G93.41 Metabolic encephalopathy; I50.23 Acute on chronic systolic (congestive) heart failure; N39.0 Urinary tract infection, site not specified; I48.92 Unspecified atrial flutter; I47.1 Supraventricular tachycardia; N17.9 Acute kidney failure, unspecified; I42.8 Other cardiomyopathies; I42.0 Dilated cardiomyopathy; Z66 Do not resuscitate; Z20.822 Contact with and (suspected) exposure to COVID-19; E78.5 Hyperlipidemia, unspecified; I48.0 Paroxysmal atrial fibrillation; R42 Dizziness and giddiness; K21.9 Gastro-esophageal reflux disease without esophagitis; M19.90 Unspecified osteoarthritis, unspecified site; F32.9 Major depressive disorder, single episode, unspecified; E78.00 Pure hypercholesterolemia, unspecified; R11.0 Nausea; B96.20 Unspecified Escherichia coli [E. coli] as the cause of diseases classified elsewhere; I16.0 Hypertensive urgency; F41.9 Anxiety disorder, unspecified; G47.33 Obstructive sleep apnea (adult) (pediatric); R10.9 Unspecified abdominal pain; Z85.3 Personal history of malignant neoplasm of breast; Z88.5 Allergy status to narcotic agent; Z88.8 Allergy status to other drugs, medicaments and biological substances; Z79.1 Long term (current) use of non-steroidal anti-inflammatories (NSAID); Z79.899 Other long term (current) drug therapy; Z95.0 Presence of cardiac pacemaker; Z90.49 Acquired absence of other specified parts of digestive tract; Z90.710 Acquired absence of both cervix and uterus; Z90.12 Acquired absence of left breast and nipple; Z82.49 Family history of ischemic heart disease and other diseases of the circulatory system; N18.9 Chronic kidney disease, unspecified
CPT/HCPCS: 36415; 70450; 71045; 76700; 80048; 80053; 80076; 81001; 82550; 82553; 83690; 83880; 84443; 84484; 85025; 87077; 87086; 87186; 93005; 93010; 93880; 94760; 95712; 95819; 95957; 96374; 96376; G0378; J0360; J0696; J1940; J2405; J3490; U0002; U0003; U0005

== ENCOUNTER 2021-06-26 04:24 | Inpatient (IN) | payer MEDICARE, OTHER ==
[2021-06-26 05:22] LABS: #Lymphocytes 0.5 thou/uL (1.20-3.40); #Monocytes 0.4 thou/uL (0.11-0.59); #Neutrophils 7.6 thou/uL (1.40-6.50); %Eosinophils 0.3 % (0.0-10.0); %Lymphocytes 6.4 % (21.0-51.0); %Monocytes 4.4 % (0.0-10.0); Hemoglobin 15.1 g/dL (12.0-16.0); Mean Corpuscular HGB CONC 33.9 g/dL (32.0-36.0); Mean Corpuscular Hemoglobin 35.1 pg (27.0-31.0); Mean Platelet Volume 5.9 fL (7.4-10.4); Platelet Count 151 thou/uL (130-400); RBC Distribution Width 13.1 % (11.5-14.5); Red Blood Cell (RBC) Count 4.31 mill/uL (4.20-5.40); White Blood Cell (WBC) Count 8.5 thou/uL (4.8-10.8)
[2021-06-26 05:24] LABS: ALT (SGPT) 22 U/L (8-55); AST (SGOT) 25 U/L (5-34); Albumin 3.8 g/dL (3.4-4.8); Alkaline Phosphatase 130 U/L (40-110); Anion Gap 18 mmol/L (10-20); BUN (Urea Nitrogen) 26 mg/dL (9.8-20.1); Bilirubin, Total 1.2 mg/dL (0.2-1.2); Calc. Creatinine Clearance 0 mL/min (70-130); Calcium 8.8 mg/dL (7.8-10.44); Carbon Dioxide 21 mmol/L (23-31); Chloride 102 mmol/L (98-107); Globulin 2.6 g/dL (2.4-3.5); Glucose 183 mg/dL (83-110); Lipase 5 U/L (8-78); Potassium 3.9 mmol/L (3.5-5.1); Protein, Total 6.4 g/dL (5.8-8.1); Sodium 137 mmol/L (136-145)
[2021-06-26 05:31] LABS: Bilirubin Negative (Negative); Blood, Urine Negative (Negative); Clarity Clear (Clear); Glucose, Urine (Dipstick) Normal (Negative); Ketone, Urine 10 mg/dL (Negative); Leukocyte 25 Leu/uL (Negative); Nitrite Negative (Negative); Protein, Urine (Dipstick) 20 mg/dL (Neg-Trace); RBC/HPF 0-3 HPF (0-3); Specific Gravity, Urine 1.021 (1.002-1.036); Squamous Epithelial 0-3 HPF (0-3); Urobilinogen Normal mg/dL (Less than 2); WBC/HPF 0-3 HPF (0-3); pH, Urine 5.5 (5.0-9.0)
[2021-06-26 05:44] LABS: Bacteria/HPF 1+ HPF (None Seen)
[2021-06-26] MEDS ORDERED: cefTRIAXone\\ROCEPHIN 1 GM VIAL ONE (06:44)
[2021-06-26] MEDS ORDERED: Ondansetron PF 4 MG/2 ML Vial ONE (06:51)
[2021-06-26] MEDS ORDERED: Acetaminophen 500 MG TAB ONE (06:51)
[2021-06-26] MEDS ORDERED: Azithromycin 500 MG in Sodium Chloride 0.9% 250 ML 250 ML IVPB SCH (07:15)
[2021-06-26 08:03] LABS: Lactic Acid 3.4 mmol/L (0.5-2.2)
[2021-06-26] MEDS ORDERED: Ondansetron ODT 4 MG TAB PO PRN ×2 (09:57→10:26)
[2021-06-26] MEDS ORDERED: Ondansetron PF 4 MG/2 ML Vial IVP PRN ×2 (09:57→10:26)
[2021-06-26] MEDS ORDERED: Benzonatate 100 MG CAP PO PRN (10:26)
[2021-06-26] MEDS ORDERED: hydrALAZINE 20 MG/ML VIAL SLOW IVP PRN (10:26)
[2021-06-26 11:26] VITALS: BMI 22.2
[2021-06-26] MEDS: Azithromycin 500 MG in Sodium Chloride 0.9% 250 ML 250 ML IVPB SCH (11:37)
[2021-06-26] MEDS: Sodium Chloride 0.9% 1,000 ML IV SCH (11:39)
[2021-06-26] MEDS: Acetaminophen 500 MG TAB PO PRN (12:51)
[2021-06-26] MEDS ORDERED: Famotidine 20 MG TAB PO SCH (21:00)
[2021-06-26] MEDS ORDERED: LACTINEX 1 TAB PO SCH (22:15)
[2021-06-27 04:45] LABS: Anion Gap 11 mmol/L (10-20); BUN (Urea Nitrogen) 19 mg/dL (9.8-20.1); Calc. Creatinine Clearance 40 mL/min (70-130); Calcium 8.4 mg/dL (7.8-10.44); Carbon Dioxide 23 mmol/L (23-31); Chloride 109 mmol/L (98-107); Glucose 84 mg/dL (83-110); Potassium 3.3 mmol/L (3.5-5.1); Sodium 140 mmol/L (136-145)
[2021-06-27] MEDS: Sodium Chloride 0.9% 1,000 ML IV SCH ×2 (04:59→12:13)
[2021-06-27 05:46] LABS: #Eosinphils 0.2 thou/uL (0.0-0.7); #Lymphocytes 1.1 thou/uL (1.20-3.40); #Monocytes 0.6 thou/uL (0.11-0.59); %Basophils 0.6 % (0.0-1.0); %Eosinophils 2.6 % (0.0-10.0); %Lymphocytes 18.3 % (21.0-51.0); %Monocytes 10.1 % (0.0-10.0); %Neutrophils 68.4 % (42.0-75.0); Hemoglobin 11.9 g/dL (12.0-16.0); MDiff Complete? YES; Macrocytosis SLIGHT = 6-15 cells (100X) (0-5/hpf); Mean Corpuscular HGB CONC 32.6 g/dL (32.0-36.0); Mean Corpuscular Hemoglobin 34.1 pg (27.0-31.0); Platelet Count 144 thou/uL (130-400); RBC Distribution Width 13.1 % (11.5-14.5); Red Blood Cell (RBC) Count 3.49 mill/uL (4.20-5.40); White Blood Cell (WBC) Count 5.9 thou/uL (4.8-10.8)
[2021-06-27] MEDS: cefTRIAXone\\ROCEPHIN 1 GM in Sodium Chloride 0.9% 100 ML IVPB SCH (06:13)
[2021-06-27] MEDS ORDERED: traMADol HCl 50 MG TAB PO PRN (07:22)
[2021-06-27] MEDS: Multivitamin W/ Minerals 1 TAB PO SCH (09:04)
[2021-06-27] MEDS: LACTINEX 1 TAB PO SCH ×3 (09:04→23:22)
[2021-06-27] MEDS: Lidocaine 5% Patch TD SCH (09:04)
[2021-06-27] MEDS: Aspirin 81 mg Enteric Coated Tablet PO SCH (09:04)
[2021-06-27] MEDS: Azithromycin 500 MG in Sodium Chloride 0.9% 250 ML 250 ML IVPB SCH (11:08)
[2021-06-27 11:59] LABS: SARS-CoV-2 PCR by NAA Not Detected (NotDetected)
[2021-06-27] MEDS: Loperamide HCl 2 MG CAP PO PRN ×2 (13:19→22:15)
[2021-06-27] MEDS: Transdermal Patch Removal TOP SCH (22:18)
[2021-06-28] MEDS: Ezetimibe 10 MG TAB PO SCH ×2 (02:39→20:42)
[2021-06-28] MEDS: Sodium Chloride 0.9% 1,000 ML IV SCH ×3 (06:31→20:44)
[2021-06-28] MEDS: cefTRIAXone\\ROCEPHIN 1 GM in Sodium Chloride 0.9% 100 ML IVPB SCH (06:31)
[2021-06-28] MEDS: Aspirin 81 mg Enteric Coated Tablet PO SCH (08:32)
[2021-06-28] MEDS: Lidocaine 5% Patch TD SCH (08:33)
[2021-06-28] MEDS: Multivitamin W/ Minerals 1 TAB PO SCH (08:33)
[2021-06-28] MEDS: LACTINEX 1 TAB PO SCH ×3 (08:33→20:44)
[2021-06-28] MEDS: Acetaminophen 500 MG TAB PO PRN (08:33)
[2021-06-28 09:55] LABS: Anion Gap 11 mmol/L (10-20); BUN (Urea Nitrogen) 11 mg/dL (9.8-20.1); Calc. Creatinine Clearance 42 mL/min (70-130); Calcium 8.2 mg/dL (7.8-10.44); Carbon Dioxide 22 mmol/L (23-31); Chloride 109 mmol/L (98-107); Glucose 103 mg/dL (83-110); Potassium 3.5 mmol/L (3.5-5.1); Sodium 138 mmol/L (136-145)
[2021-06-28] MEDS: Azithromycin 500 MG in Sodium Chloride 0.9% 250 ML 250 ML IVPB SCH (11:03)
[2021-06-28] MEDS: Transdermal Patch Removal TOP SCH (20:35)
[2021-06-29] MEDS: Sodium Chloride 0.9% 1,000 ML IV SCH (06:31)
[2021-06-29] MEDS: cefTRIAXone\\ROCEPHIN 1 GM in Sodium Chloride 0.9% 100 ML IVPB SCH (06:32)
[2021-06-29 07:16] LABS: #Monocytes 0.5 thou/uL (0.11-0.59); #Neutrophils 5.2 thou/uL (1.40-6.50); %Basophils 0.1 % (0.0-1.0); %Eosinophils 0.3 % (0.0-10.0); %Lymphocytes 14.2 % (21.0-51.0); %Monocytes 7.6 % (0.0-10.0); %Neutrophils 77.7 % (42.0-75.0); Hemoglobin 12.1 g/dL (12.0-16.0); Mean Corpuscular HGB CONC 33.6 g/dL (32.0-36.0); Mean Corpuscular Hemoglobin 34.1 pg (27.0-31.0); Mean Platelet Volume 5.8 fL (7.4-10.4); Platelet Count 129 thou/uL (130-400); RBC Distribution Width 12.6 % (11.5-14.5); Red Blood Cell (RBC) Count 3.53 mill/uL (4.20-5.40); White Blood Cell (WBC) Count 6.7 thou/uL (4.8-10.8)
[2021-06-29 07:32] LABS: Anion Gap 11 mmol/L (10-20); BUN (Urea Nitrogen) 9 mg/dL (9.8-20.1); Calc. Creatinine Clearance 46 mL/min (70-130); Calcium 8.2 mg/dL (7.8-10.44); Carbon Dioxide 20 mmol/L (23-31); Chloride 110 mmol/L (98-107); Glucose 98 mg/dL (83-110); Potassium 3.4 mmol/L (3.5-5.1); Sodium 138 mmol/L (136-145)
[2021-06-29] MEDS: LACTINEX 1 TAB PO SCH ×3 (10:29→21:45)
[2021-06-29] MEDS: Lidocaine 5% Patch TD SCH (10:30)
[2021-06-29] MEDS: Aspirin 81 mg Enteric Coated Tablet PO SCH (10:30)
[2021-06-29] MEDS: Multivitamin W/ Minerals 1 TAB PO SCH (10:31)
[2021-06-29] MEDS: Azithromycin 500 MG in Sodium Chloride 0.9% 250 ML 250 ML IVPB SCH (12:23)
[2021-06-29] MEDS ORDERED: Potassium Chloride 20 MEQ TAB PO SCH (16:15)
[2021-06-29] MEDS: Potassium Chloride 20 MEQ in Premix Bag 1 BAG IVPB SCH ×2 (17:41→21:44)
[2021-06-29 18:29] LABS: Lactic Acid 1.9 mmol/L (0.5-2.2)
[2021-06-29] MEDS: Enoxaparin Sodium 40 MG/0.4 ML SYRINGE SC SCH (21:45)
[2021-06-29] MEDS: Ezetimibe 10 MG TAB PO SCH (21:46)
[2021-06-29] MEDS: Transdermal Patch Removal TOP SCH (22:05)
[2021-06-30] MEDS: Sodium Chloride 0.9% 1,000 ML IV SCH (04:12)
[2021-06-30 05:30] LABS: Anion Gap 14 mmol/L (10-20); BUN (Urea Nitrogen) 10 mg/dL (9.8-20.1); Calc. Creatinine Clearance 49 mL/min (70-130); Calcium 8.7 mg/dL (7.8-10.44); Carbon Dioxide 18 mmol/L (23-31); Chloride 112 mmol/L (98-107); Glucose 114 mg/dL (83-110); Potassium 4.5 mmol/L (3.5-5.1); Sodium 139 mmol/L (136-145)
[2021-06-30] MEDS: cefTRIAXone\\ROCEPHIN 1 GM in Sodium Chloride 0.9% 100 ML IVPB SCH (06:34)
[2021-06-30] MEDS: LACTINEX 1 TAB PO SCH ×3 (09:27→21:45)
[2021-06-30] MEDS: Multivitamin W/ Minerals 1 TAB PO SCH (09:27)
[2021-06-30] MEDS: Lidocaine 5% Patch TD SCH (09:27)
[2021-06-30] MEDS: Aspirin 81 mg Enteric Coated Tablet PO SCH (09:28)
[2021-06-30] MEDS ORDERED: Bisacodyl 10 MG SUPP PR PRN (09:34)
[2021-06-30 10:02] LABS: CKMB 1.1 ng/mL (0-6.6)
[2021-06-30] MEDS ORDERED: Furosemide 20 MG/2 ML VIAL SLOW IVP SCH (10:45)
[2021-06-30] MEDS ORDERED: Nitroglycerin 0.4 MG TAB (25 Tab Bottle) SL PRN (10:51)
[2021-06-30] MEDS ORDERED: Lisinopril 5 MG TAB PO SCH (11:00)
[2021-06-30] MEDS: Azithromycin 500 MG in Sodium Chloride 0.9% 250 ML 250 ML IVPB SCH (11:15)
[2021-06-30 15:48] LABS: CKMB 1.4 ng/mL (0-6.6)
[2021-06-30] MEDS: Enoxaparin Sodium 40 MG/0.4 ML SYRINGE SC SCH (21:45)
[2021-06-30] MEDS: Ezetimibe 10 MG TAB PO SCH (21:46)
[2021-06-30] MEDS: Furosemide 40 MG/4 ML VIAL SLOW IVP SCH (21:46)
[2021-06-30] MEDS: Transdermal Patch Removal TOP SCH (22:05)
[2021-07-01 05:47] LABS: Anion Gap 11 mmol/L (10-20); BUN (Urea Nitrogen) 10 mg/dL (9.8-20.1); Calc. Creatinine Clearance 44 mL/min (70-130); Calcium 8.8 mg/dL (7.8-10.44); Carbon Dioxide 27 mmol/L (23-31); Chloride 104 mmol/L (98-107); Glucose 91 mg/dL (83-110); Potassium 3.4 mmol/L (3.5-5.1); Sodium 139 mmol/L (136-145)
[2021-07-01] MEDS: cefTRIAXone\\ROCEPHIN 1 GM in Sodium Chloride 0.9% 100 ML IVPB SCH (06:41)
[2021-07-01] MEDS ORDERED: Spironolactone 100 MG TAB ONE (07:49)
[2021-07-01] MEDS: Multivitamin W/ Minerals 1 TAB PO SCH (07:56)
[2021-07-01] MEDS: Furosemide 40 MG/4 ML VIAL SLOW IVP SCH (07:57)
[2021-07-01] MEDS: Lidocaine 5% Patch TD SCH (07:57)
[2021-07-01] MEDS: Spironolactone 25 MG TAB PO SCH (07:57)
[2021-07-01] MEDS: LACTINEX 1 TAB PO SCH ×3 (07:57→20:55)
[2021-07-01] MEDS: Aspirin 81 mg Enteric Coated Tablet PO SCH (07:57)
[2021-07-01] MEDS ORDERED: Potassium Chloride 20 MEQ TAB PO SCH (08:45)
[2021-07-01] MEDS ORDERED: Metoprolol Tartrate 100 MG TAB PO SCH (09:00)
[2021-07-01] MEDS: Azithromycin 500 MG in Sodium Chloride 0.9% 250 ML 250 ML IVPB SCH (11:17)
[2021-07-01] MEDS: Ezetimibe 10 MG TAB PO SCH (20:51)
[2021-07-01] MEDS: Enoxaparin Sodium 40 MG/0.4 ML SYRINGE SC SCH (20:55)
[2021-07-01] MEDS: Transdermal Patch Removal TOP SCH (20:56)
[2021-07-02] MEDS: cefTRIAXone\\ROCEPHIN 1 GM in Sodium Chloride 0.9% 100 ML IVPB SCH (06:24)
[2021-07-02] MEDS: Aspirin 81 mg Enteric Coated Tablet PO SCH (08:52)
[2021-07-02] MEDS: LACTINEX 1 TAB PO SCH ×3 (08:52→21:28)
[2021-07-02] MEDS: Multivitamin W/ Minerals 1 TAB PO SCH (08:52)
[2021-07-02] MEDS: Spironolactone 25 MG TAB PO SCH (08:52)
[2021-07-02] MEDS: Lidocaine 5% Patch TD SCH ×2 (08:52→08:57)
[2021-07-02] MEDS: Azithromycin 500 MG in Sodium Chloride 0.9% 250 ML 250 ML IVPB SCH (11:51)
[2021-07-02] MEDS: Ezetimibe 10 MG TAB PO SCH (20:16)
[2021-07-02] MEDS: Enoxaparin Sodium 40 MG/0.4 ML SYRINGE SC SCH (20:17)
[2021-07-02] MEDS: Transdermal Patch Removal TOP SCH (21:29)
[2021-07-03] MEDS: cefTRIAXone\\ROCEPHIN 1 GM in Sodium Chloride 0.9% 100 ML IVPB SCH (06:07)
[2021-07-03] MEDS: Spironolactone 25 MG TAB PO SCH (09:28)
[2021-07-03] MEDS: Lidocaine 5% Patch TD SCH (09:28)
[2021-07-03] MEDS: LACTINEX 1 TAB PO SCH ×3 (09:28→21:04)
[2021-07-03] MEDS: Aspirin 81 mg Enteric Coated Tablet PO SCH (09:28)
[2021-07-03] MEDS: Multivitamin W/ Minerals 1 TAB PO SCH (09:29)
[2021-07-03] MEDS: Azithromycin 500 MG in Sodium Chloride 0.9% 250 ML 250 ML IVPB SCH (11:18)
[2021-07-03] MEDS ORDERED: Cefdinir 300 MG CAP PO SCH (11:30)
[2021-07-03] MEDS: Transdermal Patch Removal TOP SCH (21:04)
[2021-07-03] MEDS: Enoxaparin Sodium 40 MG/0.4 ML SYRINGE SC SCH (21:04)
[2021-07-03] MEDS: Ezetimibe 10 MG TAB PO SCH (21:05)
[2021-07-03] MEDS: Cefdinir 300 MG CAP PO SCH (23:07)
[2021-07-04] MEDS: Spironolactone 25 MG TAB PO SCH (08:27)
[2021-07-04] MEDS: LACTINEX 1 TAB PO SCH (08:29)
[2021-07-04] MEDS: Lidocaine 5% Patch TD SCH (08:29)
[2021-07-04] MEDS: Aspirin 81 mg Enteric Coated Tablet PO SCH (08:29)
[2021-07-04] MEDS: Multivitamin W/ Minerals 1 TAB PO SCH (08:29)
[2021-07-04 08:52] VITALS: BP 144/73; TEMP 97.7
[2021-07-04] MEDS: Cefdinir 300 MG CAP PO SCH (11:16)
[2021-07-04 15:52] LABS: SARS-CoV-2 PCR by NAA Not Detected (NotDetected)
== END 2021-07-04 13:00 | DRG 193 ==
LOC: ERS 04:24 → MSONC 07:39
PROVIDERS: ADMIT Family Medicine; ATTEND Internal Medicine
DX: J18.9 Pneumonia, unspecified organism (principal); G93.41 Metabolic encephalopathy; I50.23 Acute on chronic systolic (congestive) heart failure; N17.9 Acute kidney failure, unspecified; E87.1 Hypo-osmolality and hyponatremia; I42.0 Dilated cardiomyopathy; R65.10 Systemic inflammatory response syndrome (SIRS) of non-infectious origin without acute organ dysfunction; I48.21 Permanent atrial fibrillation; Z20.822 Contact with and (suspected) exposure to COVID-19; E78.5 Hyperlipidemia, unspecified; Z96.653 Presence of artificial knee joint, bilateral; E78.00 Pure hypercholesterolemia, unspecified; K52.9 Noninfective gastroenteritis and colitis, unspecified; G47.33 Obstructive sleep apnea (adult) (pediatric); I11.0 Hypertensive heart disease with heart failure; K21.9 Gastro-esophageal reflux disease without esophagitis; R13.10 Dysphagia, unspecified; R07.89 Other chest pain; M79.81 Nontraumatic hematoma of soft tissue; I95.1 Orthostatic hypotension; Z98.49 Cataract extraction status, unspecified eye; Z90.49 Acquired absence of other specified parts of digestive tract; Z85.3 Personal history of malignant neoplasm of breast; Z90.710 Acquired absence of both cervix and uterus; Z95.0 Presence of cardiac pacemaker; Z79.899 Other long term (current) drug therapy; Z88.6 Allergy status to analgesic agent; Z88.8 Allergy status to other drugs, medicaments and biological substances; Z82.49 Family history of ischemic heart disease and other diseases of the circulatory system; Z90.12 Acquired absence of left breast and nipple; Z79.01 Long term (current) use of anticoagulants
CPT/HCPCS: 36415; 71045; 71046; 74018; 74177; 80048; 80053; 81003; 81015; 82553; 83605; 83690; 83735; 83880; 84484; 85025; 87040; 87045; 87046; 87149; 87324; 87427; 87449; 87804; 93005; 93010; 93306; 96374; 96375; J0456; J0696; J1650; J1940; J2405; J3480; J3490; J7050; U0003; U0005

== ENCOUNTER 2022-01-13 15:10 | Outpatient (CLI) | payer MEDICARE, OTHER | END 2022-01-13 15:11 | disposition home or self-care (01) | LOC: BICMAMMO 15:10 | PROVIDERS: ATTEND Family Medicine | DX: N63.10 Unspecified lump in the right breast, unspecified quadrant (principal); R10.11 Right upper quadrant pain; R91.8 Other nonspecific abnormal finding of lung field | CPT/HCPCS: 71046; 76642; 77065; G0279 ==